=== PATIENT | female | born 1975 | race Caucasian/White ===

== ENCOUNTER 2019-05-02 09:17 | Emergency (ER) | payer OTHER ==
[2019-05-02 09:29] VITALS: BP 118/67; PULSE 68; TEMP 98.8; BMI 20.6
--- NOTE | 2019-05-02 10:06 | PDOC ---
History of Present Illness - General Chief Complaint: Pain, Acute Stated Complaint: R/O UTI Time Seen by Provider: 05/02/19 09:29 History Source: Patient Exam Limitations: No Limitations - History of Present Illness Travel History: No Initial Comments: 05/02/19 10:00 43-year-old female presents to ED with complaints of urinary frequency, dysuria , and mild mid suprapubic pressure upon voiding. Patient denies fever or chills but does Clement of mild nausea and now with mild bilateral flank pain. Patient denies history of complicated UTI or kidney infection/kidney stone Timing/Duration: reports: intermittent Quality: reports: mild Abdominal Pain Onset Location: reports: suprapubic, flank Pain Radiation: reports: no radiation Activities at Onset: reports: none Aggravating Factors: improves with: Voiding Alleviating Factors: improves with: Voiding Past History - Travel Traveled outside of the country in the last 30 days: No Close contact w/someone who was outside of country & ill: No - Past Medical History Allergies/Adverse Reactions: Allergies Allergy/AdvReac Type Severity Reaction Status Date / Time No Known Drug Allergies Allergy Verified 05/02/19 09:29 Home Medications: Ambulatory Orders Sulfamethoxazole/Trimethoprim [Bactrim Ds -] 1 tab PO BID #14 tablet 05/02/19 - Psycho Social/Smoking Cessation Hx Smoking History: Never smoked Have you smoked in the past 12 months: No Information on smoking cessation initiated: No Hx Alcohol Use: No Drug/Substance Use Hx: No Patient Lives Alone: No Lives with/in: spouse/SO Review of Systems - Review of Systems Able to Perform ROS?: Yes Constitutional: No: Symptoms Reported HEENTM: No: Symptoms Reported Respiratory: No: Symptoms reported Cardiac (ROS): No: Symptoms Reported ABD/GI: Yes: Nausea, Abdominal cramping : Yes: Burning, Dysuria, Frequency, Flank Pain Musculoskeletal: No: Symptoms Reported Integumentary: No: Symptoms Reported Neurological: No: Symptoms reported Hematologic/Lymphatic: No: Symptoms Reported *Physical Exam - Vital Signs Last Vital Signs Temp Pulse Resp BP Pulse Ox 98.8 F 68 17 118/67 98 05/02/19 09:24 05/02/19 09:24 05/02/19 09:24 05/02/19 09:24 05/02/19 09:24 - Physical Exam General Appearance: Yes: Nourished, Appropriately Dressed. No: Apparent Distress HEENT: positive: EOMI Neck: positive: Supple Gastrointestinal/Abdominal: positive: Normal Bowel Sounds, Soft, Tenderness ( mild-mid suprapubic). negative: Distended, Guarding, Rebound Musculoskeletal: negative: CVA Tenderness Extremity: positive: Normal Inspection Integumentary: positive: Normal Color, Warm, Moist Neurologic: positive: Motor Strength 5/5 (ambulatory) Medical Decision Making - Medical Decision Making 05/02/19 10:07 CC: Urinary frequency urgency along with painful burning upon urination. Exam patient with me to the pubic tenderness vital signs stable no CVA tenderness mild bilateral flank tenderness Plan: urinalysis urine culture and urine ordered 05/02/19 10:39 Laboratory Tests 05/02/19 05/02/19 09:37 09:37 Urine Color Yellow Urine Nitrite Negative Ur Leukocyte Esterase Trace Urine WBC (Auto) 7 Urine Bacteria (Auto) 72.5 Urine HCG, Qual Negative Discharge home with Bactrim for treatment of complicated UTI/pyelonephritis Discharge - Discharge Information Problems reviewed: Yes Clinical Impression/Diagnosis: UTI (urinary tract infection) Disposition: HOME - Additional Discharge Information Prescriptions: Sulfamethoxazole/Trimethoprim [Bactrim Ds -] 1 tab PO BID #14 tablet - Follow up/Referral Referrals: Neil Lund MD [Primary Care Provider] - - Patient Discharge Instructions Patient Printed Discharge Instructions: DI for Urinary Tract Infection (UTI) Additional Instructions: Please take antibiotics as prescribed. Drink plenty of fluids. Return to ED if symptoms worsen - Post Discharge Activity
[2019-05-02 10:20] LABS: EPI CELLS 6.1 /HPF (0-5/HPF); HYALINE CASTS 3 /lpf (0-8); PH,URINE 5.5 (5.0-8.0); URINE APPEARANCE CLEAR; URINE BACTERIA 72.5 /hpf (NEGATIVE); URINE BILIRUBIN NEGATIVE (NEGATIVE); URINE COLOR YELLOW; URINE GLUCOSE (UA) NEGATIVE (NEGATIVE); URINE KETONE NEGATIVE (NEGATIVE); URINE LEUK ESTERASE TRACE (NEGATIVE); URINE NITRITE NEGATIVE (NEGATIVE); URINE PROTEIN NEGATIVE (NEGATIVE); URINE RBC 2 /hpf (0-4); URINE UROBILINOGEN 0.2 mg/dL (0.2-1.0); URINE WBC 7 /hpf (0-5)
== END 2019-05-02 10:50 | disposition home or self-care (01) ==
LOC: JER 09:17
DX: N39.0 Urinary tract infection, site not specified (principal)
CPT/HCPCS: 81003; 84703; 87077; 87086; 99283-25

== ENCOUNTER 2020-01-24 07:43 | Day surgery (SDC) | payer OTHER ==
[2020-01-24 09:04] VITALS: BP 115/75; PULSE 91; TEMP 98.4
[2020-01-24 09:28] LABS: BASO % 0.3 % (0-2.0); EOS % 1.4 % (0-4.5); HEMATOCRIT 35.6 % (32.4-45.2); HEMOGLOBIN 11.6 GM/dL (10.7-15.3); LYMPH % 13.9 % (8-40); MCH 27.6 pg (25.7-33.7); MCHC 32.6 g/dl (32.0-36.0); MEAN CELL VOLUME 84.6 fl (80-96); MEAN PLT VOLUME 7.4 fl (7.5-11.1); MONO % 9.3 % (3.8-10.2); NEUT % 75.1 % (42.8-82.8); PLATELET COUNT 383 K/MM3 (134-434); RDW 14.9 % (11.6-15.6); WHITE BLOOD COUNT 10.3 K/mm3 (4.0-10.0)
[2020-01-24 10:01] LABS: ALBUMIN 3.3 g/dl (3.4-5.0); BILIRUBIN,TOTAL 0.3 mg/dL (0.2-1); BLOOD UREA NITROGEN 15.4 mg/dL (7-18); CREATININE 0.6 mg/dL (0.55-1.3); TOT PROT 7.4 g/dl (6.4-8.2)
== END 2020-01-24 09:06 | disposition home or self-care (01) ==
LOC: JINFUSION 07:43
PROVIDERS: ATTEND Internal Medicine Gastroenterology
PROC: 3E013GC Introduction of Other Therapeutic Substance into Subcutaneous Tissue, Percutaneous Approach (ICD-10-PCS; principal; 2020-01-24)
DX: K50.90 Crohn's disease, unspecified, without complications (principal)
CPT/HCPCS: 36415; 80053; 81025; 85025; 86140; 96372

== ENCOUNTER 2020-02-04 12:08 | Emergency (ER) | payer OTHER ==
[2020-02-04 12:19] VITALS: BP 124/71; PULSE 78; BMI 21.2
--- NOTE | 2020-02-04 12:19 | PDOC ---
Rapid Medical Evaluation Chief Complaint: Allergic Reaction Time Seen by Provider: 02/04/20 12:18 Medical Evaluation: Allergies Allergy/AdvReac Type Severity Reaction Status Date / Time No Known Drug Allergies Allergy Verified 02/04/20 12:15 02/04/20 12:18 I have performed a brief in-person evaluation of this patient. The patient presents with a chief complaint of: redness to b/l anterior thigh from humira injections. advised by PCP office to ckeck for possible cellulitis Pertinent physical exam findings:. A&O x 3 in NAD I have ordered the following: deferred The patient will proceed to the ED for further evaluation. Discharge Disposition - Diagnosis Redness of skin - Discharge Dispostion Condition at time of disposition: Stable - Referrals - Patient Instructions - Post Discharge Activity
--- NOTE | 2020-02-04 12:44 | PDOC ---
History of Present Illness - General Chief Complaint: Allergic Reaction Stated Complaint: RASH Time Seen by Provider: 02/04/20 12:18 History Source: Patient (b/l injection site redness to thighs X 2 days) Exam Limitations: No Limitations Past History - Travel History Traveled outside of the country in the last 30 days: No Close contact w/someone who was outside of country & ill: No - Medical History Allergies/Adverse Reactions: Allergies Allergy/AdvReac Type Severity Reaction Status Date / Time No Known Drug Allergies Allergy Verified 02/04/20 12:15 Home Medications: Ambulatory Orders Adalimumab [Humira Pen Crohn-Uc-Hs Starter] 80 mg SQ DAILY 01/23/20 Calcium 250Mg/Vit-D 125 Units [Oscal 250 mg+D -] 1 combo PO DAILY 01/23/20 Cephalexin Monohydrate [Keflex -] 500 mg PO BID 7 Days #14 capsule 02/04/20 COPD: No GI Disorders: Yes (Crohns) - Psycho-Social/Smoking History Smoking History: Never smoked Have you smoked in the past 12 months: No - Substance Abuse Hx (Audit-C & DAST Scrn) How often the patient has a drink containing alcohol: Monthly or less Score: In Men: 4 or > Positive; In Women: 3 or > Positive: 1 Screen Result (Pos requires Nsg. Audit-10AR): Negative In the last yr the pt used illegal drug/Rx for NonMed reason: No Score: Yes response is considered Positive: 0 Screen Result (Positive result requires Nsg. DAST-10): Negative Review of Systems - Review of Systems Constitutional: No: Chills, Fever Integumentary: Yes: Erythema, Rash. 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 Patient presents with injection site redness that she noticed 2 days ago. She denies fever, chills or weakness in the leg. On examination there is a 4 x 4cm area of redness in bilateral thighs in the anterior aspect of it there is some warmth to the area there is no streaking noted her extremities does not exhibit any weakness. Patient treated for early cellulitis with Keflex. Area marked. Strict return instructions given to patient. Patient will follow-up with her doctor on Thursday. Discharge - Discharge Information Problems reviewed: Yes Clinical Impression/Diagnosis: Redness of skin Cellulitis Qualifiers: Site of cellulitis of extremity: lower extremity Laterality: unspecified laterality Condition: Stable Disposition: HOME - Admission No - Additional Discharge Information Plan of Treatment: Take medication as prescribed. Watch out for any worsening redness that is beyond marked line. Follow-up with primary care doctor on Thursday as scheduled. Return to the emergency room if worsening redness, fever, chills or pain. Prescriptions: Cephalexin Monohydrate [Keflex -] 500 mg PO BID 7 Days #14 capsule Prescription Drug Monitoring Program (I-STOP) results: I-STOP reviewed and no issues identified - Follow up/Referral - Patient Discharge Instructions Patient Printed Discharge Instructions: Cellulitis - Post Discharge Activity
== END 2020-02-04 12:53 | disposition home or self-care (01) ==
LOC: JERFT 12:08
DX: L98.8 Other specified disorders of the skin and subcutaneous tissue (principal)
CPT/HCPCS: 99283-25

== ENCOUNTER 2020-05-03 11:59 | Emergency (ER) | payer OTHER ==
[2020-05-03 12:07] VITALS: TEMP 98.4; BMI 19.5
[2020-05-03] MEDS ORDERED: LACTATED RINGERS SOLUTION 1,000 ML IV STA (12:53)
[2020-05-03] MEDS ORDERED: ACETAMINOPHEN 1000 MG/100 ML VIAL (NON FORMULARY) IVPB ONE (12:53)
[2020-05-03] MEDS ORDERED: FAMOTIDINE 20 MG/50 ML IVPB 20 MG/50 ML MG IVPB ONE (13:00)
--- NOTE | 2020-05-03 13:21 | PDOC ---
History of Present Illness - General Chief Complaint: Pain Stated Complaint: LWR ABD PAIN (CROHN'S) Time Seen by Provider: 05/03/20 12:38 History Source: Patient Exam Limitations: Clinical Condition - History of Present Illness Travel History: No Initial Comments: 05/03/20 13:16 Patient with past medical history of Crohn's disease on Humira infusions every 3 months present with complaint of sudden onset of severe lower abdominal pain which has been improving now since this morning. Patient reported last bowel movement was yesterday. Denies nausea, vomiting, dizziness, weakness, diarrhea, constipation. Patient report pain started as diffuse lower abdominal pain which is now localized to suprapubic region. Patient has not taken anything for sy mptoms. Denies any other symptoms Timing/Duration: reports: intermittent Abdominal Pain Onset Location: reports: suprapubic Pain Radiation: reports: no radiation Past History - Medical History Allergies/Adverse Reactions: Allergies Allergy/AdvReac Type Severity Reaction Status Date / Time No Known Drug Allergies Allergy Verified 05/03/20 12:02 Home Medications: Ambulatory Orders Adalimumab [Humira Pen Crohn-Uc-Hs Starter] 80 mg SQ DAILY 01/23/20 Calcium 250Mg/Vit-D 125 Units [Oscal 250 mg+D -] 1 combo PO DAILY 01/23/20 Cephalexin Monohydrate [Keflex -] 500 mg PO BID 7 Days #14 capsule 02/04/20 COPD: No GI Disorders: Yes (Crohns) - Reproductive History Is Patient Now?: No - Psycho-Social/Smoking History Smoking History: Never smoked Have you smoked in the past 12 months: No - Substance Abuse Hx (Audit-C & DAST Scrn) How often the patient has a drink containing alcohol: Never Score: In Men: 4 or > Positive; In Women: 3 or > Positive: 0 Screen Result (Pos requires Nsg. Audit-10AR): Negative In the last yr the pt used illegal drug/Rx for NonMed reason: No Score: Yes response is considered Positive: 0 Screen Result (Positive result requires Nsg. DAST-10): Negative Review of Systems - Review of Systems Able to Perform ROS?: Yes Is the patient limited Albanian proficient: No Constitutional: No: Chills, Fever, Malaise HEENTM: No: Symptoms Reported, See HPI, Eye Pain, Blurred Vision, Tearing, Recent change in vision, Double Vision, Cataracts, Ear Pain, Ocular Prothesis, Ear Discharge, Nose Pain, Nose Congestion, Tinnitus, Nose Bleeding, Hearing Loss, Throat Pain, Throat Swelling, Mouth Pain, Dental Problems, Difficulty Swallowing, Mouth Swelling, Other Respiratory: No: Symptoms reported, See HPI, Cough, Orthopnea, Shortness of Breath, SOB with Exertion, SOB at Rest, Stridor, Wheezing, Productive cough, Hemoptysis, Other Cardiac (ROS): No: Symptoms Reported, See HPI, Chest Pain, Edema, Irregular Heart Rate, Lightheadedness, Palpitations, Syncope, Chest Tightness, Other ABD/GI: Yes: Symptoms Reported, See HPI, Abdominal cramping (lower abdominal pain). No: Abdominal Distended, Blood Streaked Bowels, Constipated, Diarrhea, Difficulty Swallowing, Nausea, Rectal Bleeding, Vomiting, Indigestion : No: Symptoms Reported, Burning, Dysuria, Discharge, Frequency, Flank Pain, Hematuria, Urgency Musculoskeletal: No: Symptoms Reported Integumentary: No: Symptoms Reported Neurological: No: Symptoms reported, Headache, Dizziness All Other Systems: Reviewed and Negative *Physical Exam - Vital Signs Last Vital Signs Temp Pulse Resp BP Pulse Ox 98.4 F 84 16 123/88 100 05/03/20 12:03 05/03/20 12:03 05/03/20 12:03 05/03/20 12:03 05/03/20 12:03 - Physical Exam 05/03/20 13:20 GENERAL: Well developed, well nourished. Awake and alert. No acute distress. HEENT: Normocephalic, atraumatic. PERRLA, EOMI. No conjunctival pallor. Sclera are non-icteric. Moist mucous membranes. Oropharynx is clear. NECK: Supple. Full ROM. CARDIOVASCULAR: Regular rate and rhythm. No murmurs, rubs, or gallops. PULMONARY: No evidence of respiratory distress. Lungs clear to auscultation bilaterally. No wheezing, rales or rhonchi. ABDOMINAL: Soft. mild tenderness to suprapubic region with no tenderness to left lower quadrant or right lower quadrant rest of the abdomen. No guarding or rebound. Negative Hull's and Rovsing sign. Diffuse decreased bowel sounds.. Non- distended. No organomegaly. MUSCULOSKELETAL Normal range of motion at all joints. SKIN: Warm and dry. Normal capillary refill. No rashes. No jaundice. No cyanosis NEUROLOGICAL: Alert, awake, appropriate. Gait is normal without ataxia. PSYCHIATRIC: Cooperative. Good eye contact. Appropriate mood General Appearance: Yes: Nourished, Appropriately Dressed. No: Apparent Distress ED Treatment Course - LABORATORY CBC & Chemistry Diagram: 05/03/20 13:30 05/03/20 13:30 - RADIOLOGY Radiology Studies Ordered: Category Date Time Status ABDOMEN FLAT & UPRIGHT [RAD] Stat Radiology 05/03/20 13:10 Ordered Medical Decision Making - Medical Decision Making 05/03/20 13:18 Patient with past medical history of Crohn's disease on Humira infusions every 3 months present with complaint of sudden onset of severe lower abdominal pain which has been improving now since this morning. Patient reported last bowel movement was yesterday. Denies nausea, vomiting, dizziness, weakness, diarrhea, constipation. Patient report pain started as diffuse lower abdominal pain which is now localized to suprapubic region. Patient has not taken anything for symptoms. Denies any other symptoms Exam significant for mild tenderness to suprapubic region with no tenderness to left lower quadrant or right lower quadrant rest of the abdomen. No guarding or rebound. Negative Hull's and Rovsing sign. Patient in no acute distress. Diffuse decreased bowel sounds. Patient afebrile. Patient symptoms likely constipation versus cystitis versus less likely Crohn's exacerbation given no pain to left lower quadrant. We will do basic lab work CBC CMP, lipase. UA, urine hCG urine culture lab ordered. IV hydration with lactated Ringer's 1 L, Tylenol 1 g IV and Pepcid 20 mg IV ordered for abdominal pain. Abdominal x-ray ordered to rule out obstruction or constipation. Treat based on lab and imaging results 05/03/20 14:31 CBC and chemistry lab unremarkable. UA shows no acute abnormality and urine test negative. Patient given lactulose and MiraLAX and reported improvement abdominal pain as x-ray of abdomen shows retained stool consistent w ith constipation. Patient report improvement of symptoms now and stable for discharge to continue home MiraLAX PRN for constipation and advised to make a follow-up appointment with her GI. Patient voiced understanding treatment plan patient stable for discharge Discharge - Discharge Information Problems reviewed: Yes Clinical Impression/Diagnosis: Lower abdominal pain Constipation Qualifiers: Constipation type: unspecified constipation type Qualified Code(s): K59.00 - Constipation, unspecified Condition: Improved Disposition: HOME - Admission No - Follow up/Referral Referrals: Neil Lund MD [Primary Care Provider] - - Patient Discharge Instructions Patient Printed Discharge Instructions: DI for Constipation Additional Instructions: Your blood work is normal. Your abdominal x-ray shows stool consistent with constipation. Continue taking home MiraLAX as needed for constipation. Increase fluid and fiber intake. Follow-up with your GI - Post Discharge Activity
[2020-05-03] MEDS ORDERED: LACTULOSE 20 GM/30 ML UDC (FOR ORAL USE ONLY) PO ONE (13:25)
[2020-05-03] MEDS ORDERED: MAG HYDROX/AL HYDROX/SIMETH 30 ML UNIT-DOSE CUP PO ONE (13:26)
[2020-05-03 13:40] LABS: BASO % 0.5 % (0-2.0); EOS % 0.7 % (0-4.5); HEMATOCRIT 39.1 % (32.4-45.2); LYMPH % 27.3 % (8-40); MCH 28.8 pg (25.7-33.7); MCHC 33.2 g/dl (32.0-36.0); MEAN CELL VOLUME 86.8 fl (80-96); MEAN PLT VOLUME 6.9 fl (7.5-11.1); MONO % 6.8 % (3.8-10.2); NEUT % 64.7 % (42.8-82.8); PLATELET COUNT 322 K/MM3 (134-434); RDW 13.3 % (11.6-15.6); WHITE BLOOD COUNT 9.6 K/mm3 (4.0-10.0)
[2020-05-03] MEDS ORDERED: MAG HYDROX/AL HYDROX/SIMETH 30 ML UNIT-DOSE CUP ONE (13:40)
[2020-05-03] MEDS ORDERED: LACTULOSE 20 GM/30 ML UDC (FOR ORAL USE ONLY) ONE (13:40)
[2020-05-03 13:42] LABS: EPI CELLS 8 /uL (0-25.1); HYALINE CASTS 0 /uL (0-3.1); PH,URINE 7.5 (5.0-8.0); URINE APPEARANCE CLEAR; URINE BACTERIA 54 /uL (0-1359); URINE BILIRUBIN NEGATIVE (NEGATIVE); URINE COLOR YELLOW; URINE GLUCOSE (UA) NEGATIVE (NEGATIVE); URINE KETONE NEGATIVE (NEGATIVE); URINE LEUK ESTERASE 1+ (NEGATIVE); URINE NITRITE NEGATIVE (NEGATIVE); URINE PROTEIN NEGATIVE (NEGATIVE); URINE RBC 9 /uL (0-23.9); URINE UROBILINOGEN 0.2 mg/dL (0.2-1.0); URINE WBC 10 /uL (0-25.8)
[2020-05-03 14:09] LABS: ALBUMIN 3.8 g/dl (3.4-5.0); BILIRUBIN,TOTAL 0.2 mg/dL (0.2-1); CALCIUM 9.1 mg/dL (8.5-10.1); CREATININE 0.8 mg/dL (0.55-1.3); POTASSIUM 4.3 mmol/L (3.5-5.1); TOT PROT 8.2 g/dl (6.4-8.2)
[2020-05-03 14:44] VITALS: BP 118/78; PULSE 79
--- OUTSIDE RECORDS SUMMARY | 2020-05-03 18:09 | XMS ---
:1975 Author Organization [facility] Care Team Providers Name Role Phone Frank Ambrizer Unavailable [phone] DiGiorno, Christopher Unavailable [phone] DiGiorno, Christopher Unavailable [id number] Re-disclosure Warning The records that you are about to access may contain information from federally- assisted alcohol or drug abuse programs. If such information is present, then the following federally mandated warning applies: This information has been disclosed to you from records protected by federal confidentiality rules (42 CFR part 2). The federal rules prohibit you from making any further disclosure of this information unless further disclosure is expressly permitted by the written consent of the person to whom it pertains or as otherwise permitted by 42 CFR part 2. A general authorization for the release of medical or other information is NOT sufficient for this purpose. The Federal rules restrict any use of the information to criminally investigate or prosecute any alcohol or drug abuse patient.The records that you are about to access may contain highly sensitive health information, the redisclosure of which is protected by Article 27-F of the [place] State Public Health law. If you continue you may haveaccess to information: Regarding HIV / AIDS; Provided by facilities licensed or operated by the [facility] Office of Mental Health; or Provided by the [facility] Office for People With Developmental Disabilities. If such information is present, then the following [facility] mandated warning applies: This information has been disclosed to you from confidential records which are protected by state law. State law prohibits you from making any further disclosure of this information without the specific written consent of the person to whom it pertains, or as otherwise permitted by law. Any unauthorized further disclosure in violation of state law may result in a fine or [place] [facility] sentence or both. A general authorization for the release of medical or other information is NOT sufficient authorization for further disclosure. Encounters Encounter Providers Location Date Indications Data Source(s ) Attender: Gustavo 05/02/2020 [facility] ([facility] 12:00:00 AM [facility], PC) EDT Office Attender: Gustavo 05/02/2020 12:00:00 AM ED T [facility] ([facility] Office Attender: Gustavo 04/13/2020 12:00:00 AM ED T [facility] ([facility] Office Attender: Gustavo 03/28/2020 12:00:00 AM ED T [facility] ([facility] Office Attender: Gustavo 02/22/2020 12:00:00 AM ED T [facility] ([facility] Office Attender: Gustavo 02/08/2020 12:00:00 AM ED T [facility] ([facility] Office Medications Medication Brand Start Product Dose Route Administrative Pharmacy [facility] Indications Reaction Description Data Name Date Form Instructions Instructions Source(s) Budesonide BUDESO 01/24/ DELAYED 60 complet BUDE SONIDE MEDGEN (St 3 MG NIDE:2019 RELEASE ed Jose D's Delayed [id number] 12:00: CAPSULE Medic al, Release 00 AM PC) Oral EDT Capsule BUDESONIDE: [id number] Budesonide BUDESO 01/24/ DELAYED 60 complet BUDE SONIDE MEDGEN (St 3 MG NIDE:2019 RELEASE ed Jose D's Delayed [id number] 12:00: CAPSULE Medic al, Release 00 AM PC) Oral EDT Capsule BUDESONIDE: [id number] Budesonide BUDESO 01/24/ DELAYED 60 complet BUDE SONIDE MEDGEN (St 3 MG NIDE:2019 RELEASE ed Jose D's Delayed [id number] 12:00: CAPSULE Medic al, Release 00 AM PC) Oral EDT Capsule BUDESONIDE: [id number] Budesonide BUDESO 01/24/ DELAYED 60 complet BUDE SONIDE MEDGEN (St 3 MG NIDE:2019 RELEASE ed Jose D's Delayed [id number] 12:00: CAPSULE Medic al, Release 00 AM PC) Oral EDT Capsule BUDESONIDE: [id number] Budesonide BUDESO 01/24/ DELAYED 60 complet BUDE SONIDE MEDGEN (St 3 MG NIDE:2019 RELEASE ed Jose D's Delayed [id number] 12:00: CAPSULE Medic al, Release 00 AM PC) Oral EDT Capsule BUDESONIDE: [id number] Budesonide BUDESO 01/24/ DELAYED 60 complet BUDE SONIDE MEDGEN (St 3 MG NIDE:2019 RELEASE ed Jose D's Delayed [id number] 12:00: CAPSULE Medic al, Release 00 AM PC) Oral EDT Capsule BUDESONIDE: [id number] Budesonide BUDESO 01/24/ DELAYED 60 complet BUDE SONIDE MEDGEN (St 3 MG NIDE:2019 RELEASE ed Jose D's Delayed [id number] 12:00: CAPSULE Medic al, Release 00 AM PC) Oral EDT Capsule BUDESONIDE: [id number] HUMIRA: 01/03/ complet HUMIRA MEDGE N (2019 ed [facility]'s 12:00: Medical, 00 AM PC) EDT HUMIRA: 01/03/ complet HUMIRA MEDGE N (St 2019 ed [facility]'s 12:00: Medical, 00 AM PC) EDT HUMIRA: 01/03/ complet HUMIRA MEDGE N (St 2019 ed Jose [facility]'s 12:00: Medical, 00 AM PC) EDT HUMIRA PEN 01/03/ complet HUMIRA PE N MEDGEN ( PSORIASIS/U 2019 ed PSORIASIS/UV Jose D's VEITIS 12:00: EITIS Medical, STARTER 00 AM STARTER PC) PACKAGE: EDT PACKAGE HUMIRA PEN 01/03/ KIT 30 complet HUMIRA PE N MEDGEN ( CROHNS/ULCE 2019 ed CROHNS/ULCER Jose [facility] R 12:00: COLITIS/HIDR Medic al, COLITIS/HID 00 AM ADENITIS PC) RADENITIS EDT SUPPURATI SUPPURATI STRPK STRPK:[id number] 45 HUMIRA PEN 01/03/ complet HUMIRA PE N MEDGEN (St CROHNS/ULCE 2020 ed CROHNS/ULCER Jose D's RCOLIT/HIDR 12:00: COLIT/HIDRA S Medical, ASUPPUR: 00 AM UPPUR PC) EDT HUMIRA PEN 01/03/ complet HUMIRA PE N MEDGEN (St CROHNS/ULCE 2020 ed CROHNS/ULCER Jose D's RCOLIT/HIDR 12:00: COLIT/HIDRA S Medical, ASUPPUR: 00 AM UPPUR PC) EDT HUMIRA PEN 01/03/ KIT 30 complet HUMIRA PE N MEDGEN (St CROHNS/ULCE 2020 ed CROHNS/ULCER Jose D's R 12:00: COLITIS/HIDR Medic al, COLITIS/HID 00 AM ADENITIS PC) RADENITIS EDT SUPPURATI SUPPURATI STRPK STRPK:[id number] 45 HUMIRA PEN 01/03/ complet HUMIRA PE N MEDGEN (St PSORIASIS/U 2020 ed PSORIASIS/UV Jose D's VEITIS 12:00: [facility] Medical, STARTER 00 AM STARTER PC) PACKAGE: EDT PACKAGE HUMIRA PEN 01/03/ KIT 30 complet HUMIRA PE N MEDGEN (St CROHNS/ULCE 2020 ed CROHNS/ULCER Jose D's R 12:00: COLITIS/HIDR Medic al, COLITIS/HID 00 AM ADENITIS PC) RADENITIS EDT SUPPURATI SUPPURATI STRPK STRPK:[id number] 45 HUMIRA PEN 01/03/ KIT 30 complet HUMIRA PE N MEDGEN (St CROHNS/ULCE 2020 ed CROHNS/ULCER Jose D's R 12:00: COLITIS/HIDR Medic al, COLITIS/HID 00 AM ADENITIS PC) RADENITIS EDT SUPPURATI SUPPURATI STRPK STRPK:[id number] 45 HUMIRA PEN 01/03/ complet HUMIRA PE N MEDGEN (St CROHNS/ULCE 2020 ed CROHNS/ULCER Jose D's RCOLIT/HIDR 12:00: COLIT/HIDRA S Medical, ASUPPUR: 00 AM UPPUR PC) EDT HUMIRA PEN 01/03/ complet HUMIRA PE N MEDGEN (St PSORIASIS/U 2020 ed PSORIASIS/UV Jose D's VEITIS 12:00: EITIS Medical, STARTER 00 AM STARTER PC) PACKAGE: EDT PACKAGE HUMIRA PEN 01/03/ complet HUMIRA PE N MEDGEN (St CROHNS/ULCE 2020 ed CROHNS/ULCER Jose D's RCOLIT/HIDR 12:00: COLIT/HIDRA S Medical, ASUPPUR: 00 AM UPPUR PC) EDT HUMIRA PEN 01/03/ complet HUMIRA PE N MEDGEN (St PSORIASIS/U 2020 ed PSORIASIS/UV Jose D's VEITIS 12:00: EITIS Medical, STARTER 00 AM STARTER PC) PACKAGE: EDT PACKAGE HUMIRA: 01/03/ complet HUMIRA MEDGE N (St 2020 ed Jose D's 12:00: Medical, 00 AM PC) EDT HUMIRA PEN 01/03/ complet HUMIRA PE N MEDGEN (St PSORIASIS/U 2020 ed PSORIASIS/UV Jose D's VEITIS 12:00: EITIS Medical, STARTER 00 AM STARTER PC) PACKAGE: EDT PACKAGE HUMIRA PEN 01/03/ complet HUMIRA PE N MEDGEN (St CROHNS/ULCE 2020 ed CROHNS/ULCER Jose D's RCOLIT/HIDR 12:00: COLIT/HIDRA S Medical, ASUPPUR: 00 AM UPPUR PC) EDT HUMIRA: 01/03/ complet HUMIRA MEDGE N (St 2020 ed Jose D's 12:00: Medical, 00 AM PC) EDT HUMIRA: 01/03/ complet HUMIRA MEDGE N (St 2020 ed Jose D's 12:00: Medical, 00 AM PC) EDT HUMIRA PEN 01/03/ KIT 30 complet HUMIRA PE N MEDGEN (St CROHNS/ULCE 2020 ed CROHNS/ULCER Jose D's R 12:00: COLITIS/HIDR Medic al, COLITIS/HID 00 AM ADENITIS PC) RADENITIS EDT SUPPURATI SUPPURATI STRPK STRPK:[id number] 45 HUMIRA PEN 01/03/ KIT 30 complet HUMIRA PE N MEDGEN (St CROHNS/ULCE 2020 ed CROHNS/ULCER Jose D's R 12:00: COLITIS/HIDR Medic al, COLITIS/HID 00 AM ADENITIS PC) RADENITIS EDT SUPPURATI SUPPURATI STRPK STRPK:[id number] 45 HUMIRA PEN 01/03/ complet HUMIRA PE N MEDGEN (St CROHNS/ULCE 2020 ed CROHNS/ULCER Jose D's RCOLIT/HIDR 12:00: COLIT/HIDRA S Medical, ASUPPUR: 00 AM UPPUR PC) EDT HUMIRA PEN 01/03/ complet HUMIRA PE N MEDGEN (St PSORIASIS/U 2020 ed PSORIASIS/UV Jose D's VEITIS 12:00: EITIS Medical, STARTER 00 AM STARTER PC) PACKAGE: EDT PACKAGE HUMIRA PEN 01/03/ complet HUMIRA PE N MEDGEN (St PSORIASIS/U 2020 ed PSORIASIS/UV Jose D's VEITIS 12:00: EITIS Medical, STARTER 00 AM STARTER PC) PACKAGE: EDT PACKAGE HUMIRA PEN 01/03/ complet HUMIRA PE N MEDGEN (St CROHNS/ULCE 2020 ed CROHNS/ULCER Jose D's RCOLIT/HIDR 12:00: COLIT/HIDRA S Medical, ASUPPUR: 00 AM UPPUR PC) EDT HUMIRA PEN 01/03/ KIT 30 complet HUMIRA PE N MEDGEN (St CROHNS/ULCE 2020 ed CROHNS/ULCER Jose D's R 12:00: COLITIS/HIDR Medic al, COLITIS/HID 00 AM ADENITIS PC) RADENITIS EDT [facility]I [facility][id number] HUMIRA: 01/03/ complet HUMIRA MEDGE N (St 2020 ed Jose D's 12:00: Medical, 00 AM PC) EDT hydrocortis ANALPR 12/27/ CREAM 1 complet ANALP RENEE-[facility] MEDGEN (St one acetate AM-HC: 2019 ed Jose D's 25 MG/ML / [id number] 12:00: Medic al, Pramoxine 1 00 AM PC) hydrochlori EDT de 10 MG/ML Rectal Cream [Analpram HC] ANALPRAM-HC :[id number] hydrocortis ANALPR 12/27/ CREAM 1 complet [facility]LP [facility] (St one acetate AM-HC: 2019 ed Jose D's 25 MG/ML / [id number] 12:00: Medic al, Pramoxine 1 00 AM PC) hydrochlori EDT de 10 MG/ML Rectal Cream [Analpram HC] ANALPRAM-HC :[id number] hydrocortis ANALPR 05/27/ CREAM 1 complet ANALP RENEE-[facility] MED[facility] (St one acetate AM-HC: 2019 ed Jose D's 25 MG/ML / [id number] 12:00: Medic al, Pramoxine 1 00 AM PC) hydrochlori EDT de 10 MG/ML Rectal Cream [Analpram HC] ANALPRAM-HC :[id number] hydrocortis ANALPR 12/27/ CREAM 1 complet ANALP R[facility] (St one acetate AM-HC: 2019 ed Jose D's 25 MG/ML / [id number] 12:00: Medic al, Pramoxine 1 00 AM PC) hydrochlori EDT de 10 MG/ML Rectal Cream [Analpram HC] ANALPRAM-HC :[id number] hydrocortis ANALPR 12/27/ CREAM 1 complet ANALP [facility] (St one acetate AM-HC: 2019 ed Jose D's 25 MG/ML / [id number] 12:00: Medic al, Pramoxine 1 00 AM PC) hydrochlori EDT de 10 MG/ML Rectal Cream [Analpram HC] ANALPRAM-HC :[id number] hydrocortis ANALPR 12/27/ CREAM 1 complet ANALP RENEE-[facility] (St one acetate AM-HC: 2019 ed Jose D's 25 MG/ML / [id number] 12:00: Medic al, Pramoxine 1 00 AM PC) hydrochlori EDT de 10 MG/ML Rectal Cream [Analpram HC] ANALPRAM-HC :[id number] hydrocortis ANALPR 12/27/ CREAM 1 complet ANALP RENEE-[facility] (St one acetate AM-HC: 2019 ed Jose D's 25 MG/ML / [id number] 12:00: Medic al, Pramoxine 1 00 AM PC) hydrochlori EDT de 10 MG/ML Rectal Cream [Analpram HC] ANALPRAM-HC :[id number] Calcium CALCIU 11/22/ TABLET 60 complet CALCIUM + MEDGEN (St Carbonate M + 2019 ed VITAMIN D Jose D' s 625 MG / VITAMI 12:00: Medical , Cholecalcif N 00 AM PC) sherley 125 [id number] EDT UNT Oral 55 Tablet CALCIUM + VITAMIN D:[id number] Budesonide BUDESO 11/22/ DELAYED 180 complet BUDE SONIDE MEDGEN (St 3 MG NIDE:1 2019 RELEASE ed Jose D's Delayed [id number] 12:00: CAPSULE Medic al, Release AM PC) Oral EDT Capsule BUDESONIDE: [id number] Budesonide BUDESO 11/22/ DELAYED 180 complet BUDE SONIDE MEDGEN (St 3 MG NIDE:2019 RELEASE ed Jose D's Delayed [id number] 12:00: CAPSULE Medic al, Release 00 AM PC) Oral EDT Capsule BUDESONIDE: [id number] Calcium CALCIU 11/22/ TABLET 60 complet CALCIUM + MEDGEN (St Carbonate 2019 ed VITAMIN D Jose D' s 625 MG / VITAMI 12:00: Medical , Cholecalcif N 00 AM PC) sherley 125 [id number] EDT UNT Oral 55 Tablet CALCIUM + VITAMIN D:[id number] Budesonide BUDESO 11/22/ DELAYED 180 complet BUDE SONIDE MEDGEN (St 3 MG NIDE:2019 RELEASE ed Jose D's Delayed [id number] 12:00: CAPSULE Medic al, Release 00 AM PC) Oral EDT Capsule BUDESONIDE: 5241200 Calcium CALCIU 11/22/ TABLET 60 complet CALCIUM + MEDGEN (St Carbonate 2019 ed VITAMIN D Jose D' s 625 MG / VITAMI 12:00: Medical , Cholecalcif N 00 AM PC) sherley 125 [id number] EDT UNT Oral 55 Tablet CALCIUM + VITAMIN D:[id number] Calcium CALCIU 11/22/ TABLET 60 complet CALCIUM + MEDGEN (St Carbonate 2019 ed VITAMIN D Jose D' s 625 MG / VITAMI 12:00: Medical , Cholecalcif N 00 AM PC) sherley 125 [id number] EDT UNT Oral 55 Tablet CALCIUM + VITAMIN D:[id number] Budesonide BUDESO 11/22/ DELAYED 180 complet BUDE SONIDE MEDGEN (St 3 MG NIDE:2019 RELEASE ed Jose D's Delayed [id number] 12:00: CAPSULE Medic al, Release 00 AM PC) Oral EDT Capsule BUDESONIDE: [id number] Budesonide BUDESO 11/22/ DELAYED 180 complet BUDE SONIDE MEDGEN (St 3 MG NIDE:2019 RELEASE ed Jose D's Delayed [id number] 12:00: CAPSULE Medic al, Release 00 AM PC) Oral EDT Capsule BUDESONIDE: 4474914 Calcium CALCIU 11/22/ TABLET 60 complet CALCIUM + MEDGEN (St Carbonate 2019 ed VITAMIN D Jose D' s 625 MG / VITAMI 12:00: Medical , Cholecalcif N 00 AM PC) sherley 125 [id number] EDT UNT Oral 55 Tablet CALCIUM + VITAMIN D:[id number] Calcium CALCIU 11/22/ TABLET 60 complet CALCIUM + MEDGEN (St Carbonate 2019 ed VITAMIN D Jose D' s 625 MG / VITAMI 12:00: Medical , Cholecalcif N 00 AM PC) sherley 125 [id number] EDT UNT Oral 55 Tablet CALCIUM + VITAMIN D:[id number] Budesonide BUDESO 11/22/ DELAYED 180 complet BUDE SONIDE MEDGEN (St 3 MG NIDE:2019 RELEASE ed Jose D's Delayed [id number] 12:00: CAPSULE Medic al, Release 00 AM PC) Oral EDT Capsule BUDESONIDE: [id number] Budesonide BUDESO 11/22/ DELAYED 180 complet BUDE SONIDE MEDGEN (St 3 MG NIDE:2019 RELEASE ed Jose D's Delayed [id number] 12:00: CAPSULE Medic al, Release 00 AM PC) Oral EDT Capsule BUDESONIDE: 0518486 Calcium CALCIU 11/22/ TABLET 60 complet CALCIUM + MEDGEN (St Carbonate 2019 ed VITAMIN D Jose D' s 625 MG / VITAMI 12:00: Medical , Cholecalcif N 00 AM PC) sherley 125 D:[id number] EDT UNT Oral 55 Tablet CALCIUM + VITAMIN D:[id number] SUPREP 0410/ LIQUID 1 complet SUPREP SELINA L MEDGEN (St BOWEL PREP 2020 ed PREP KIT Jose D' s KIT:[id number] 12:00: Medica l, 00 AM PC) EDT SUPREP 10/ LIQUID 1 complet SUPREP SELINA L MEDGEN (St BOWEL PREP 2020 ed PREP KIT Jose D' s KIT:[id number] 12:00: Medica l, 00 AM PC) EDT SUPREP 10/ LIQUID 1 complet SUPREP SELINA L MEDGEN (St BOWEL PREP 2020 ed PREP KIT Jose D' s KIT:[id number] 12:00: Medica l, 00 AM PC) EDT SUPREP 10/ LIQUID 1 complet SUPREP SELINA L MEDGEN (St BOWEL PREP 2020 ed PREP KIT Jose D' s KIT:[id number] 12:00: Medica l, 00 AM PC) EDT SUPREP 10/ LIQUID 1 complet SUPREP SELINA L MEDGEN (St BOWEL PREP 2020 ed PREP KIT Jose D' s KIT:[id number] 12:00: Medica l, 00 AM PC) EDT SUPREP 11/10/ LIQUID 1 complet SUPREP SELINA L MEDGEN (St BOWEL PREP 2020 ed PREP KIT Jose D' s KIT:[id number] 12:00: Medica l, 00 AM PC) EDT SUPREP 11/10/ LIQUID 1 complet SUPREP SELINA L MEDGEN (St BOWEL PREP 2020 ed PREP KIT Oscar s KIT:[id number] 12:00: Medica l, 00 AM PC) EDT Insurance Providers Payer name Policy type Policy ID Covered Covered republican's Policy P miguel angel / Coverage republican ID relationship to Mauriec Inf ormation type maurice [facility] [id number] SP [id number] [facility] [address] [facility] [id number] - [id number] SP [id number] [facility] TANI [facility] [id number] [employer] Problems, Conditions, and Diagnoses Code Display Name Description Problem Type Effective Data Sour ce(s) Dates K50.819 Crohn's disease of CROHN`S DISEASE Problem 04/13/2020 [place] (St both small and OF BOTH SMALL AND 12:00:00 AM [facility] Medical, large intestine LARGE INTESTINE EDT PC) with unspecified WITH UNSPECIFIED complications COMPLICATIONS K50.819 Crohn's disease of CROHN`S DISEASE Problem 04/13/2020 [place] (St both small and OF BOTH SMALL AND 12:00:00 AM [facility] Medical, large intestine LARGE INTESTINE EDT PC) with unspecified WITH UNSPECIFIED complications COMPLICATIONS K50.819 Crohn's disease of CROHN`S DISEASE Problem 04/13/2020 [place] (St both small and OF BOTH SMALL AND 12:00:00 AM [facility] Medical, large intestine LARGE INTESTINE EDT PC) with unspecified WITH UNSPECIFIED complications COMPLICATIONS K62.89 Other specified OTHER SPECIFIED Problem 12/28/2019 [facility] (St diseases of anus DISEASES OF ANUS 12:00:00 AM [facility] Medical, and rectum AND RECTUM EDT PC) K62.89 Other specified OTHER SPECIFIED Problem 12/28/2019 MED[facility] EN (St diseases of anus DISEASES OF ANUS 12:00:00 AM [facility] Medical, and rectum AND RECTUM EDT PC) K62.89 Other specified OTHER SPECIFIED Problem 12/28/2019 MEDG EN (St diseases of anus DISEASES OF ANUS 12:00:00 AM [facility] Medical, and rectum AND RECTUM EDT PC) K62.89 Other specified OTHER SPECIFIED Problem 12/28/2019 MEDG EN (St diseases of anus DISEASES OF ANUS 12:00:00 AM J [facility] Medical, and rectum AND RECTUM EDT PC) K62.89 Other specified OTHER SPECIFIED Problem 12/28/2019 MED[facility] EN (St diseases of anus DISEASES OF ANUS 12:00:00 AM J [facility] Medical, and rectum AND RECTUM EDT PC) K62.89 Other specified OTHER SPECIFIED Problem 12/28/2019 MEDG EN (St diseases of anus DISEASES OF ANUS 12:00:00 AM J [facility] Medical, and rectum AND RECTUM EDT PC) K62.89 Other specified OTHER SPECIFIED Problem 12/28/2019 MEDG EN (St diseases of anus DISEASES OF ANUS 12:00:00 AM J [facility] Medical, and rectum AND RECTUM EDT PC) K50.00 Crohn's disease of CROHN`S DISEASE Problem 11/30/2019 M EDGEN (St small intestine OF SMALL 12:00:00 AM Jose D's M edical, without INTESTINE WITHOUT EDT PC) complications COMPLICATIONS K50.00 Crohn's disease of CROHN`S DISEASE Problem 11/30/2019 M EDGEN (St small intestine OF SMALL 12:00:00 AM Jose D's M edical, without INTESTINE WITHOUT EDT PC) complications COMPLICATIONS K50.00 Crohn's disease of CROHN`S DISEASE Problem 11/30/2019 M EDGEN (St small intestine OF SMALL 12:00:00 AM Jose D's M edical, without INTESTINE WITHOUT EDT PC) complications COMPLICATIONS K50.00 Crohn's disease of CROHN`S DISEASE Problem 11/30/2019 M EDGEN (St small intestine OF SMALL 12:00:00 AM Jose D's M edical, without INTESTINE WITHOUT EDT PC) complications COMPLICATIONS K50.00 Crohn's disease of CROHN`S DISEASE Problem 11/30/2019 M EDGEN (St small intestine OF SMALL 12:00:00 AM Jose D's M edical, without INTESTINE WITHOUT EDT PC) complications COMPLICATIONS K50.00 Crohn's disease of CROHN`S DISEASE Problem 11/30/2019 M EDGEN (St small intestine OF SMALL 12:00:00 AM Jose D's M edical, without INTESTINE WITHOUT EDT PC) complications COMPLICATIONS K50.00 Crohn's disease of CROHN`S DISEASE Problem 11/30/2019 EDGEN (St small intestine OF SMALL 12:00:00 AM Jose D's M edical, without INTESTINE WITHOUT EDT PC) complications COMPLICATIONS K50.80 Crohn's disease of CROHN`S DISEASE Problem 11/23/2019 EDGEN (St both small and OF BOTH SMALL AND 12:00:00 AM [facility] Medical, large intestine LARGE INTESTINE EDT PC) without WITHOUT complications COMPLICATIONS K50.80 Crohn's disease of CROHN`S DISEASE Problem 11/23/2019 EDGEN (St both small and OF BOTH SMALL AND 12:00:00 AM [facility] Medical, large intestine LARGE INTESTINE EDT PC) without WITHOUT complications COMPLICATIONS K50.80 Crohn's disease of CROHN`S DISEASE Problem 11/23/2019 EDGEN (St both small and OF BOTH SMALL AND 12:00:00 AM [facility] Medical, large intestine LARGE INTESTINE EDT PC) without WITHOUT complications COMPLICATIONS K50.80 Crohn's disease of CROHN`S DISEASE Problem 11/23/2019 EDGEN (St both small and OF BOTH SMALL AND 12:00:00 AM [facility] Medical, large intestine LARGE INTESTINE EDT PC) without WITHOUT complications COMPLICATIONS K50.80 Crohn's disease of CROHN`S DISEASE Problem 11/23/2019 EDGEN (St both small and OF BOTH SMALL AND 12:00:00 AM [facility] Medical, large intestine LARGE INTESTINE EDT PC) without WITHOUT complications COMPLICATIONS K50.80 Crohn's disease of CROHN`S DISEASE Problem 11/23/2019 EDGEN (St both small and OF BOTH SMALL AND 12:00:00 AM [facility]ika [facility] Medical, large intestine LARGE INTESTINE EDT PC) without WITHOUT complications COMPLICATIONS K50.80 Crohn's disease of CROHN`S DISEASE Problem 11/23/2019 EDGEN (St both small and OF BOTH SMALL AND 12:00:00 AM An[facility]ika [facility] Medical, large intestine LARGE INTESTINE EDT PC) without WITHOUT complications COMPLICATIONS R10.9 Unspecified UNSPECIFIED Problem 11/09/2019 MEDGEN (St abdominal pain ABDOMINAL PAIN 12:00:00 AM Jose D' s Medical, EDT PC) R19.4 Change in bowel CHANGE IN BOWEL Problem 11/09/2019 MEDG EN (St habit HABIT 12:00:00 AM Jose D's Medica sarah, EDT PC) R10.9 Unspecified UNSPECIFIED Problem 11/09/2019 MEDGEN (St abdominal pain ABDOMINAL PAIN 12:00:00 AM Oscar Kunz EDT PC) R19.4 Change in bowel CHANGE IN BOWEL Problem 11/09/2019 MEDG EN (St habit HABIT 12:00:00 AM Jose D's Medicsami smith, EDT PC) R10.9 Unspecified UNSPECIFIED Problem 11/09/2019 MEDGEN (St abdominal pain ABDOMINAL PAIN 12:00:00 AM Jose D' s Joaquina EDT PC) R19.4 Change in bowel CHANGE IN BOWEL Problem 11/09/2019 MEDG EN (St habit HABIT 12:00:00 AM Jose D's Medica sarah, EDT PC) R10.9 Unspecified UNSPECIFIED Problem 11/09/2019 MEDGEN (St abdominal pain ABDOMINAL PAIN 12:00:00 AM Jose D' s Joaquina EDT PC) R19.4 Change in bowel CHANGE IN BOWEL Problem 11/09/2019 MEDG EN (St habit HABIT 12:00:00 AM Jose D's Medica sarah, EDT PC) R10.9 Unspecified UNSPECIFIED Problem 11/09/2019 MEDGEN (St abdominal pain ABDOMINAL PAIN 12:00:00 AM Oscar s Joaquina EDT PC) R19.4 Change in bowel CHANGE IN BOWEL Problem 11/09/2019 MEDG EN (St habit HABIT 12:00:00 AM Jose D's Medicsami smith EDT PC) R10.9 Unspecified UNSPECIFIED Problem 11/09/2019 MEDGEN (St abdominal pain ABDOMINAL PAIN 12:00:00 AM Jose D' s Joaquina EDT PC) R19.4 Change in bowel CHANGE IN BOWEL Problem 11/09/2019 MEDG EN (St habit HABIT 12:00:00 AM Jose D's Medica sraah, EDT PC) R10.9 Unspecified UNSPECIFIED Problem 11/09/2019 MEDGEN (St abdominal pain ABDOMINAL PAIN 12:00:00 AM Jose D' s Joaquina EDT PC) R19.4 Change in bowel CHANGE IN BOWEL Problem 11/09/2019 MEDG EN (St habit HABIT 12:00:00 AM Jose D's Medica l, EDT ) L25.5 Unspecified Unspecified Diagnosis 10/05/2018 JEANNA (Mo unt contact dermatitis contact 06:55:27 PM Verno n due to plants, dermatitis due to EST Nei ghborhood except food plants, except Health Ce nter) food Surgeries/Procedures Procedure Description Date Indications Data Source(s) OFFICE OUTPATIENT VISIT 05/02/2020 [facility] ([facility] 10 MINUTES 12:00:00 AM EDT Medical, ) OFFICE OUTPATIENT VISIT 05/02/2020 [facility] ([facility] 10 MINUTES 12:00:00 AM EDT Medical, ) OFFICE OUTPATIENT VISIT 04/13/2020 [facility] ([facility] 15 MINUTES 12:00:00 AM EDT Medical, ) OFFICE OUTPATIENT VISIT 04/13/2020 [facility] ([facility] 15 MINUTES 12:00:00 AM EDT Medical, ) OFFICE OUTPATIENT VISIT 04/13/2020 [facility] ([facility] 15 MINUTES 12:00:00 AM EDT Medical, ) OFFICE OUTPATIENT VISIT 03/28/2020 [facility] ([facility] 15 MINUTES 12:00:00 AM EDT Medical, ) OFFICE OUTPATIENT VISIT 03/28/2020 [facility] ([facility] 15 MINUTES 12:00:00 AM EDT Medical, ) OFFICE OUTPATIENT VISIT 03/28/2020 [facility] ([facility] 15 MINUTES 12:00:00 AM EDT Medical, ) OFFICE OUTPATIENT VISIT 03/28/2020 [facility] ([facility] 15 MINUTES 12:00:00 AM EDT Medical, ) OFFICE OUTPATIENT VISIT 02/22/2020 [facility] ([facility] 15 MINUTES 12:00:00 AM EDT Medical, ) OFFICE OUTPATIENT VISIT 02/22/2020 [facility] ([facility] 15 MINUTES 12:00:00 AM EDT Medical, ) OFFICE OUTPATIENT VISIT 02/22/2020 [facility] ([facility] 15 MINUTES 12:00:00 AM EDT Medical, ) OFFICE OUTPATIENT VISIT 02/22/2020 [facility] ([facility] 15 MINUTES 12:00:00 AM EDT Medical, ) OFFICE OUTPATIENT VISIT 02/22/2020 [facility] EN ([facility] 15 MINUTES 12:00:00 AM EDT Medical, ) OFFICE OUTPATIENT VISIT 02/08/2020 [facility] EN ([facility] 15 MINUTES 12:00:00 AM EDT [facility], ) COLLECTION VENOUS BLOOD 02/08/2020 [facility] EN ([facility] VENIPUNCTURE 12:00:00 AM EDT [facility], ) OFFICE OUTPATIENT VISIT 02/08/2020 [facility] 02/08/2020 [facility] 02/08/2020 [facility] EN [facility]00[facility]EN[facility] BLO[facility] 02/08/2020 [facility] EN [facility] 02/08/2020 [facility] EN [facility]EN[facility] 02/08/2020 [facility] EN ([facility] [facility] ) OFFICE OUTPATIENT VISIT 02/08/2020 MEDG EN [facility] BLOOD 02/08/2020 MEDG EN [facility]PAT[facility] VISIT 02/08/2020 MEDG EN ([facility] VENOUS BLOOD 02/08/2020 MEDG EN ([facility]PATIENT VISIT 02/08/2020 MEDG EN ([facility] VENOUS BLOOD 02/08/2020 MEDG EN ([facility]PATIENT VISIT 01/11/2020 MEDG EN ([facility] VENOUS BLOOD 01/11/2020 MEDG EN ([facility] OUTPATIENT VISIT 01/11/2020 MEDG EN ([facility] 15 MINUTES 12:00:00 AM [facility], ) COLLECTION VENOUS BLOOD 01/11/2020 MEDG EN ([facility] OUTPATIENT VISIT 01/11/2020 MEDG EN ([facility] 15 MINUTES 12:00:00 AM [facility], ) COLLECTION VENOUS BLOOD 01/11/2020 MEDG EN ([facility] OUTPATIENT VISIT 01/11/2020 MEDG EN ([facility] 15 MINUTES 12:00:00 AM [facility], ) COLLECTION VENOUS BLOOD 01/11/2020 MEDG EN ([facility] VENIPUN[facility]URE 12:00:00 AM [facility], ) OFFICE OUTPATIENT VISIT 01/11/2020 MEDG EN ([facility] 15 MINUTES 12:00:00 AM [facility], ) COLLECTION VENOUS BLOOD 01/11/2020 MEDG EN ([facility] VENIPUN[facility]URE 12:00:00 AM [facility], ) OFFICE OUTPATIENT VISIT 01/11/2020 MEDG EN ([facility] 15 MINUTES 12:00:00 AM [facility], ) COLLECTION VENOUS BLOOD 01/11/2020 MEDG EN ([facility] VENIPUN[facility]URE 12:00:00 AM [facility], ) OFFICE OUTPATIENT VISIT 01/11/2020 MEDG EN ([facility] 15 MINUTES 12:00:00 AM [facility], ) COLLECTION VENOUS BLOOD 01/11/2020 MEDG EN ([facility] VENIPUN[facility]URE 12:00:00 AM [facility], ) OFFICE OUTPATIENT VISIT 12/28/2019 MEDG EN ([facility]00[facility]ISIT 12/28/2019 MEDG EN ([facility] 15 [facility]ES 12[facility]00:[facility]PATIENT VISIT 12/28/2019 MEDG EN ([facility] 15 [facility]ES [facility]00:[facility]PATIENT VISIT 12/28/2019 MEDG EN ([facility] 15 [facility]ES 12:00:[facility] OUTPATIENT VISIT 12/28/2019 MEDG EN ([facility] 15 MINUTES 12:00:00 AM [facility], ) OFFICE OUTPATIENT VISIT 12/28/2019 MEDG EN ([facility] 15 MINUTES 12:00:00 AM EDT [facility]) OFFICE OUTPATIENT VISIT 12/28/2019 MEDG EN ([facility] 15 MINUTES 12:00:00 AM EDT [facility]) OFFICE OUTPATIENT VISIT 12/14/2019 MEDG EN ([facility] 15 MINUTES 12:00:00 AM EDT [facility]) OFFICE OUTPATIENT VISIT 12/14/2019 MEDG EN ([facility] 15 MINUTES 12:00:00 AM EDT [facility]) OFFICE OUTPATIENT VISIT 12/14/2019 MEDG EN ([facility] 15 MINUTES 12:00:00 AM EDT [facility], PC) OFFICE OUTPATIENT VISIT 12/14/2019 MEDG EN ([facility] 15 MINUTES 12:00:00 AM EDT [facility], PC) OFFICE OUTPATIENT VISIT 12/14/2019 MEDG EN ([facility] 15 MINUTES 12:00:00 AM EDT [facility], PC) OFFICE OUTPATIENT VISIT 12/14/2019 MEDG EN ([facility] 15 MINUTES 12:00:00 AM EDT [facility], PC) OFFICE OUTPATIENT VISIT 12/14/2019 MEDG EN ([facility] 15 MINUTES 12:00:00 AM EDT [facility], PC) OFFICE OUTPATIENT VISIT 11/30/2019 MEDG EN ([facility] 15 MINUTES 12:00:00 AM EDT [facility], PC) OFFICE OUTPATIENT VISIT 11/30/2019 MEDG EN ([facility] 15 MINUTES 12:00:00 AM EDT [facility], PC) OFFICE OUTPATIENT VISIT 11/30/2019 MEDG EN ([facility] 15 MINUTES 12:00:00 AM EDT [facility], PC) OFFICE OUTPATIENT VISIT 11/30/2019 MEDG EN ([facility] 15 MINUTES 12:00:00 AM EDT [facility], PC) OFFICE OUTPATIENT VISIT 11/30/2019 MEDG EN ([facility] 15 MINUTES 12:00:00 AM EDT [facility], PC) OFFICE OUTPATIENT VISIT 11/30/2019 MEDG EN ([facility] 15 MINUTES 12:00:00 AM EDT Medical, PC) OFFICE OUTPATIENT VISIT 11/30/2019 MEDG EN ([facility] 15 MINUTES 12:00:00 AM EDT Medical, PC) OFFICE OUTPATIENT VISIT 11/23/2019 MEDG EN ([facility] 15 MINUTES 12:00:00 AM EDT Medical, PC) OFFICE OUTPATIENT VISIT 11/23/2019 MEDG EN ([facility] 15 MINUTES 12:00:00 AM EDT [facility], ) OFFICE OUTPATIENT VISIT 11/23/2019 MEDG EN ([facility]ISIT 11/23/2019 MEDG EN ([facility]ES [facility]PATIENT VISIT 11/23/2019 MEDG EN ([facility] 15 [facility]ES [facility]00[facility]PATIENT VISIT 11/23/2019 MEDG EN ([facility] 15 [facility]ES [facility]00[facility] OUTPATIENT VISIT 11/23/2019 MEDG EN ([facility] 15 MINUTES 12:00:00 AM [facility], ) Documentation of current 11/09/2019 MED GEN ([facility] medications (procedure) 12:00:00 AM EDT ehsan, ) Documentation of current 11/09/2019 MED GEN ([facility] medications (procedure) 12:00:00 AM EDT ehsan, ) Documentation of current 11/09/2019 MED GEN ([facility] medications (procedure) 12:00:00 AM EDT ehsan, ) Documentation of current 11/09/2019 MED GEN ([facility] medications (procedure) 12:00:00 AM EDT ehsan, ) Documentation of current 11/09/2019 MED GEN ([facility] medications (procedure) 12:00:00 AM EDT ehsan, ) Documentation of current 11/09/2019 MED GEN ([facility] medications (procedure) 12:00:00 AM EDT ehsan, ) Documentation of current 11/09/2019 MED GEN ([facility] medications (procedure) 12:00:00 AM EDT ehsan, ) COLLECTION VENOUS BLOOD 11/09/2019 MEDG EN ([facility] VENIPUNCTURE 12:00:00 AM [facility], ) Documentation of current 11/09/2019 MED GEN ([facility] medications (procedure) 12:00:00 AM EDT ehsan, ) Documentation of current 11/09/2019 MED GEN ([facility] medications (procedure) 12:00:00 AM EDT [facility], PC) Documentation of current 11/09/2019 MED GEN ([facility] medications (procedure) 12:00:00 AM EDT ehsan, PC) Documentation of current 11/09/2019 MED GEN ([facility] medications (procedure) 12:00:00 AM EDT ehsan, PC) Documentation of current 11/09/2019 MED GEN ([facility] medications (procedure) 12:00:00 AM EDT ehsan, PC) Documentation of current 11/09/2019 MED GEN ([facility] medications (procedure) 12:00:00 AM EDT ehsan, PC) Documentation of current 11/09/2019 MED GEN ([facility] medications (procedure) 12:00:00 AM EDT ehsan, PC) COLLECTION VENOUS BLOOD 11/09/2019 MEDG EN ([facility] VENIPUNCTURE 12:00:00 AM [facility], ) Documentation of current 11/09/2019 MED GEN ([facility] medications (procedure) 12:00:00 AM EDT ehsan, PC) Documentation of current 11/09/2019 MED GEN ([facility] medications (procedure) 12:00:00 AM EDT ehsan, PC) Documentation of current 11/09/2019 MED GEN ([facility] medications (procedure) 12:00:00 AM EDT ehsan, PC) Documentation of current 11/09/2019 MED GEN ([facility] medications (procedure) 12:00:00 AM EDT ehsan, PC) Documentation of current 11/09/2019 MED GEN ([facility] medications (procedure) 12:00:00 AM EDT ehsan, PC) Documentation of current 11/09/2019 MED GEN ([facility] medications (procedure) 12:00:00 AM EDT ehsan, PC) Documentation of current 11/09/2019 MED GEN ([facility] medications (procedure) 12:00:00 AM EDT ehsan, PC) COLLECTION VENOUS BLOOD 11/09/2019 MEDG EN ([facility] VENIPUNCTURE 12:00:00 AM [facility], ) Documentation of current 11/09/2019 MED GEN ([facility] medications (procedure) 12:00:00 AM EDT [facility], PC) Documentation of current 11/09/2019 MED GEN ([facility] medications (procedure) 12:00:00 AM EDT ehsan, PC) Documentation of current 11/09/2019 MED GEN ([facility] medications (procedure) 12:00:00 AM EDT ehsan, PC) Documentation of current 11/09/2019 MED GEN ([facility] medications (procedure) 12:00:00 AM EDT ehsan, PC) Documentation of current 11/09/2019 MED GEN ([facility] medications (procedure) 12:00:00 AM EDT ehsan, PC) Documentation of current 11/09/2019 MED GEN ([facility] medications (procedure) 12:00:00 AM EDT ehsan, PC) Documentation of current 11/09/2019 MED GEN ([facility] medications (procedure) 12:00:00 AM EDT ehsan, PC) COLLECTION VENOUS BLOOD 11/09/2019 MEDG EN ([facility] VENIPUNCTURE 12:00:00 AM [facility], PC) Documentation of current 11/09/2019 MED GEN ([facility] medications (procedure) 12:00:00 AM EDT ehsan, PC) Documentation of current 11/09/2019 MED GEN ([facility] medications (procedure) 12:00:00 AM EDT ehsan, PC) Documentation of current 11/09/2019 MED GEN ([facility] medications (procedure) 12:00:00 AM EDT ehsan, PC) Documentation of current 11/09/2019 MED GEN ([facility] medications (procedure) 12:00:00 AM EDT ehsan, PC) Documentation of current 11/09/2019 MED GEN ([facility] medications (procedure) 12:00:00 AM EDT ehsan, PC) Documentation of current 11/09/2019 MED GEN ([facility] medications (procedure) 12:00:00 AM EDT ehasn, PC) Documentation of current 11/09/2019 MED GEN ([facility] medications (procedure) 12:00:00 AM EDT ehsan, PC) COLLECTION VENOUS BLOOD 11/09/2019 MEDG EN ([facility] VENIPUNCTURE 12:00:00 AM [facility], PC) Documentation of current 11/09/2019 MED GEN ([facility] medications (procedure) 12:00:00 AM EDT ehsan, PC) Documentation of current 11/09/2019 MED GEN ([facility] medications (procedure) 12:00:00 AM EDT ehsan, PC) Documentation of current 11/09/2019 MED GEN ([facility] medications (procedure) 12:00:00 AM EDT ehsan, PC) Documentation of current 11/09/2019 MED GEN ([facility] medications (procedure) 12:00:00 AM EDT ehsan, PC) Documentation of current 11/09/2019 MED GEN ([facility] medications (procedure) 12:00:00 AM EDT ehsan, PC) Documentation of current 11/09/2019 MED GEN ([facility] medications (procedure) 12:00:00 AM EDT ehsan, PC) Documentation of current 11/09/2019 MED GEN ([facility] medications (procedure) 12:00:00 AM EDT ehsan, PC) COLLECTION VENOUS BLOOD 11/09/2019 MEDG EN ([facility] VENIPUNCTURE 12:00:00 AM [facility], ) Documentation of current 11/09/2019 MED GEN ([facility] medications (procedure) 12:00:00 AM EDT ehsan, PC) Documentation of current 11/09/2019 MED GEN ([facility] medications (procedure) 12:00:00 AM EDT ehsan, PC) Documentation of current 11/09/2019 MED GEN ([facility] medications (procedure) 12:00:00 AM EDT ehsan, PC) Documentation of current 11/09/2019 MED GEN ([facility] medications (procedure) 12:00:00 AM EDT ehsan, PC) Documentation of current 11/09/2019 MED GEN ([facility] medications (procedure) 12:00:00 AM EDT [facility], PC) Documentation of current 11/09/2019 MED GEN ([facility] medications (procedure) 12:00:00 AM EDT ehsan, PC) Documentation of current 11/09/2019 MED GEN ([facility] medications (procedure) 12:00:00 AM EDT [facility], PC) COLLECTION VENOUS BLOOD 11/09/2019 MEDG EN ([facility] VENIPUNCTURE 12:00:[address] [facility]) Results ID Date Data Source [id number] 04/13/2020 12:00:00 AM EDT MEDGEN ([facility]) Name Value Range Interpretation Code Description Data Valerie rce(s) Supporting Document(s ) ID Date Data Source [id number] 04/13/2020 12:00:00 AM EDT MEDGEN ([facility]) Name Value Range Interpretation Description Data Sup porting Code Source(s) Document(s ) Adalimumab 3.1 ug/mL Normal (applies to MEDGEN (St Drug Level non-numeric Jose D's results) [facility], ) Anti-Adalimuma 379 ng/mL Normal (applies to MEDGEN (St b Antibody non-numeric Jose D's results) [facility]) ID Date Data Source [id number] 04/13/2020 12:00:00 AM EDT MEDGEN ([facility]) Name Value Range Interpretation Code Description Data Valerie rce(s) Supporting Document(s ) TSH 1.260 Normal (applies to MEDGEN (St uIU/mL non-numeric results) [facility] ID Date Data Source [id number] 04/13/2020 12:00:00 AM EDT MEDGEN ([facility], ) Name Value Range Interpretation Description Data Sup porting Code Source(s) Document(s ) Vitamin B12 360 pg/mL Normal (applies to MEDGEN (S t non-numeric Jose D's results) [facility], ) Folate 14.3 Normal (applies to MEDGEN (St (Folic ng/mL non-numeric Jose D's Acid), Serum results) [facility], ) ID Date Data Source [id number] 04/13/2020 12:00:00 AM EDT MEDGEN ([facility]) Name Value Range Interpretation Description Data Sup porting Code Source(s) Document(s ) Leukocytes 6.6 Normal (applies MEDGEN (St [#/volume] in x10E3/uL to non-numeric Jose D's Blood by results) [facility], ) Automated count Erythrocytes 4.62 Normal (applies MEDGEN (St [#/volume] in x10E6/uL to non-numeric Jose D's Blood by results) [facility], ) Automated count Hemoglobin 13.2 Normal (applies MEDGEN (St [Mass/volume] in g/dL to non-numeric Jose D's Blood results) [facility], ) Hematocrit 41.1 % Normal (applies MEDGEN (St [Volume to non-numeric Jose D's Fraction] of results) [facility], ) Blood by Automated count MCV 89 fL Normal (applies MEDGEN (St to non-numeric Jose D's results) [facility], ) MCH 28.6 pg Normal (applies MEDGEN (St to non-numeric Jose D's results) [facility], ) MCHC 32.1 Normal (applies MEDGEN (St g/dL to non-numeric Jose D's results) [facility], ) RDW 12.4 % Normal (applies MEDGEN (St to non-numeric Jose D's results) [facility], ) Platelets 328 Normal (applies MEDGEN (St [#/area] in x10E3/uL to non-numeric Jose D's Blood by results) [facility], ) Microscopy high power field Neutrophils [#] 61 % Normal (applies MEDGEN ( St in Body fluid by to non-numeric Jose D's Manual count results) [facility], ) Lymphs 32 % Normal (applies MEDGEN (St to non-numeric Jose D's results) [facility], ) Monocytes 6 % Normal (applies MEDGEN (St [#/volume] in to non-numeric Jose D's Cord blood results) [facility], ) Eos 1 % Normal (applies MEDGEN (St to non-numeric Jose D's results) [facility], ) Basos 0 % Normal (applies MEDGEN (St to non-numeric Jose D's results) [facility], ) Neutrophils 4.0 Normal (applies MEDGEN (St (Absolute) x10E3/uL to non-numeric Jose D's results) [facility], ) Lymphs 2.1 Normal (applies MEDGEN (St (Absolute) x10E3/uL to non-numeric Jose D's results) [facility], ) Monocytes(Absolu 0.4 Normal (applies MEDGEN (St te) x10E3/uL to non-numeric Jose D's results) [facility], ) Baso (Absolute) 0.0 Normal (applies MEDGEN ( St x10E3/uL to non-numeric Jose D's results) [facility], ) Eos (Absolute) 0.1 Normal (applies MEDGEN (S t x10E3/uL to non-numeric Jose D's results) Medical, PC) Immature Grans 0.0 Normal (applies MEDGEN (S t (Abs) x10E3/uL to non-numeric Jose D's results) Medical, PC) Immature 0 % Normal (applies MEDGEN (St Granulocytes to non-numeric Jose D's results) [facility], PC) ID Date Data Source [id number] 04/13/2020 12:00:00 AM EDT [facility] Name Value Range Interpretation Description Data Sup porting Code Source(s) Document(s ) Glucose 86 mg/dL Normal (applies MEDGEN (St [Mass/volume] in to non-numeric Jose D's Urine collected for results) Medical, unspecified PC) duration Creatinine 0.69 Normal (applies MEDGEN (St [Interpretation] in mg/dL to non-numeric Jose D' s Urine results) [facility], PC) Urea nitrogen 11 mg/dL Normal (applies MEDGEN (St [Mass/volume] in to non-numeric Jose D's Serum or Plasma results) [facility], PC) eGFR If NonAfricn 108 Normal (applies MEDGEN (St Am mL/min/1 to non-numeric Jose D's .73 results) Medical, PC) eGFR If Africn Am 124 Normal (applies MEDGEN (St mL/min/1 to non-numeric Jose D's .73 results) [facility], PC) BUN/Creatinine 16 Normal (applies MEDGEN (S t Ratio to non-numeric Jose D's results) [facility], PC) Sodium 141 Normal (applies MEDGEN (St [Moles/volume] in mmol/L to non-numeric Jose D's Serum or Plasma results) [facility], PC) Chloride 102 Normal (applies MEDGEN (St [Moles/volume] in mmol/L to non-numeric Jose D's Serum or Plasma results) [facility], PC) Potassium 4.2 Normal (applies MEDGEN (St [Mass/volume] in mmol/L to non-numeric Jose D's Blood results) Medical, PC) Carbon dioxide, 25 Normal (applies MEDGEN ( St total mmol/L to non-numeric Jose D's [Moles/volume] in results) Medical, Serum or Plasma PC) Calcium 9.4 Normal (applies MEDGEN (St [Moles/volume] in mg/dL to non-numeric Jose D's Urine collected for results) Medical, unspecified PC) duration Protein 7.5 g/dL Normal (applies MEDGEN (St [Mass/volume] in to non-numeric Jose D's Serum or Plasma results) Medical, ) Microalbumin 4.2 g/dL Normal (applies MEDGEN (St [Mass/time] in to non-numeric Jose D's Urine collected for results) [facility], unspecified PC) duration Globulin, Total 3.3 g/dL Normal (applies MEDGEN ( St to non-numeric Jose D's results) Medical, ) Bilirubin.total 0.3 Normal (applies MEDGEN ( St [Mass/volume] in mg/dL to non-numeric Jose D's Serum or Plasma results) Medical, ) A/G Ratio 1.3 Normal (applies MEDGEN (St to non-numeric Jose D's results) Medical, ) Alkaline 49 IU/L Normal (applies MEDGEN (St phosphatase to non-numeric Jose D's [Enzymatic results) Medical, activity/volume] in PC) Serum, Plasma or Blood Aspartate 17 IU/L Normal (applies MEDGEN (St aminotransferase to non-numeric Jose D's [Enzymatic results) Medical, activity/volume] in PC) Serum or Plasma Alanine 9 IU/L Normal (applies MEDGEN (St aminotransferase to non-numeric Jose D's [Enzymatic results) Medical, activity/volume] in PC) Serum or Plasma ID Date Data Source [id number] 04/13/2020 12:00:00 AM EDT MEDGEN ([facility], ) Name Value Range Interpretation Code Description Data Valerie rce(s) Supporting Document(s ) ID Date Data Source [id number] 04/13/2020 12:00:00 AM EDT MEDGEN ([facility], ) Name Value Range Interpretation Description Data Sup porting Code Source(s) Document(s ) Adalimumab 3.1 ug/mL Normal (applies to MEDGEN (St Drug Level non-numeric Jose D's results) [facility], ) Anti-Adalimuma 379 ng/mL Normal (applies to MEDGEN (St b Antibody non-numeric Jose D's results) [facility], ) ID Date Data Source [id number] 04/13/2020 12:00:00 AM EDT MEDGEN ([facility], ) Name Value Range Interpretation Code Description Data Valerie rce(s) Supporting Document(s ) TSH 1.260 Normal (applies to MEDGEN (St uIU/mL non-numeric results) Jose D's Me dicvt, ) ID Date Data Source [id number] 04/13/2020 12:00:00 AM EDT [facility] ([facility], ) Name Value Range Interpretation Description Data Sup porting Code Source(s) Document(s ) Vitamin B12 360 pg/mL Normal (applies to MEDGEN (S t non-numeric Jose D's results) Medical, ) Folate 14.3 Normal (applies to MEDGEN (St (Folic ng/mL non-numeric Jose D's Acid), Serum results) [facility], ) ID Date Data Source [id number] 04/13/2020 12:00:00 AM EDT [facility] ([facility], ) Name Value Range Interpretation Description Data Sup porting Code Source(s) Document(s ) Erythrocytes 4.62 Normal (applies MEDGEN (St [#/volume] in x10E6/uL to non-numeric Jose D's Blood by results) Medical, ) Automated count Leukocytes 6.6 Normal (applies MEDGEN (St [#/volume] in x10E3/uL to non-numeric Jose D's Blood by results) Medical, ) Automated count Hemoglobin 13.2 Normal (applies MEDGEN (St [Mass/volume] in g/dL to non-numeric Jose D's Blood results) [facility], ) Hematocrit 41.1 % Normal (applies MEDGEN (St [Volume to non-numeric Jose D's Fraction] of results) [facility], ) Blood by Automated count MCV 89 fL Normal (applies MEDGEN (St to non-numeric Jose D's results) [facility], ) MCH 28.6 pg Normal (applies MEDGEN (St to non-numeric Jose D's results) Medical, ) MCHC 32.1 Normal (applies MEDGEN (St g/dL to non-numeric Jose D's results) [facility], ) Platelets 328 Normal (applies MEDGEN (St [#/area] in x10E3/uL to non-numeric Jose D's Blood by results) [facility], ) Microscopy high power field RDW 12.4 % Normal (applies MEDGEN (St to non-numeric Jose D's results) Medical, ) Neutrophils [#] 61 % Normal (applies MEDGEN ( St in Body fluid by to non-numeric Jose D's Manual count results) [facility], ) Lymphs 32 % Normal (applies MEDGEN (St to non-numeric Jose D's results) Medical, ) Monocytes 6 % Normal (applies MEDGEN (St [#/volume] in to non-numeric Jose D's Cord blood results) Medical, ) Eos 1 % Normal (applies MEDGEN (St to non-numeric Jose D's results) Medical, ) Basos 0 % Normal (applies MEDGEN (St to non-numeric Jose D's results) Medical, ) Neutrophils 4.0 Normal (applies MEDGEN (St (Absolute) x10E3/uL to non-numeric Jose D's results) Medical, ) Lymphs 2.1 Normal (applies MEDGEN (St (Absolute) x10E3/uL to non-numeric Jose D's results) Medical, ) Monocytes(Absolu 0.4 Normal (applies MEDGEN (St te) x10E3/uL to non-numeric Jose D's results) Medical, ) Baso (Absolute) 0.0 Normal (applies MEDGEN ( St x10E3/uL to non-numeric Jose D's results) Medical, ) Eos (Absolute) 0.1 Normal (applies MEDGEN (S t x10E3/uL to non-numeric Jose D's results) Medical, ) Immature 0 % Normal (applies MEDGEN (St Granulocytes to non-numeric Jose D's results) [facility], ) Immature Grans 0.0 Normal (applies MEDGEN (S t (Abs) x10E3/uL to non-numeric Jose D's results) [facility], ) ID Date Data Source [id number] 04/13/2020 12:00:00 AM EDT [facility] ([facility], ) Name Value Range Interpretation Description Data Sup porting Code Source(s) Document(s ) Glucose 86 mg/dL Normal (applies MEDGEN (St [Mass/volume] in to non-numeric Jose D's Urine collected for results) Medical, unspecified ) duration Creatinine 0.69 Normal (applies MEDGEN (St [Interpretation] in mg/dL to non-numeric Jose D' s Urine results) [facility], ) Urea nitrogen 11 mg/dL Normal (applies MEDGEN (St [Mass/volume] in to non-numeric Jose D's Serum or Plasma results) Medical, ) eGFR If NonAfricn 108 Normal (applies MEDGEN (St Am mL/min/1 to non-numeric Jose D's .73 results) Medical, PC) eGFR If Africn Am 124 Normal (applies MEDGEN (St mL/min/1 to non-numeric Jose D's .73 results) Medical, PC) BUN/Creatinine 16 Normal (applies MEDGEN (S t Ratio to non-numeric Jose D's results) Medical, PC) Sodium 141 Normal (applies MEDGEN (St [Moles/volume] in mmol/L to non-numeric Jose D's Serum or Plasma results) Medical, PC) Potassium 4.2 Normal (applies MEDGEN (St [Mass/volume] in mmol/L to non-numeric Jose D's Blood results) Medical, PC) Chloride 102 Normal (applies MEDGEN (St [Moles/volume] in mmol/L to non-numeric Jose D's Serum or Plasma results) Medical, PC) Carbon dioxide, 25 Normal (applies MEDGEN ( St total mmol/L to non-numeric Jose D's [Moles/volume] in results) Medical, Serum or Plasma PC) Calcium 9.4 Normal (applies MEDGEN (St [Moles/volume] in mg/dL to non-numeric Jose D's Urine collected for results) Medical, unspecified PC) duration Protein 7.5 g/dL Normal (applies MEDGEN (St [Mass/volume] in to non-numeric Jose D's Serum or Plasma results) Medical, ) Microalbumin 4.2 g/dL Normal (applies MEDGEN (St [Mass/time] in to non-numeric Jose D's Urine collected for results) Medical, unspecified PC) duration Globulin, Total 3.3 g/dL Normal (applies MEDGEN ( St to non-numeric Jose D's results) Medical, PC) A/G Ratio 1.3 Normal (applies MEDGEN (St to non-numeric Jose D's results) Medical, PC) Bilirubin.total 0.3 Normal (applies MEDGEN ( St [Mass/volume] in mg/dL to non-numeric Jose D's Serum or Plasma results) Medical, PC) Alkaline 49 IU/L Normal (applies MEDGEN (St phosphatase to non-numeric Jose D's [Enzymatic results) Medical, activity/volume] in PC) Serum, Plasma or Blood Aspartate 17 IU/L Normal (applies [facility] (St aminotransferase to non-numeric [facility] [Enzymatic results) Medical, activity/volume] in PC) Serum or Plasma Alanine 9 IU/L Normal (applies [facility] (St aminotransferase to non-numeric [facility] [Enzymatic results) Medical, activity/volume] in PC) Serum or Plasma ID Date Data Source [id number] 03/28/2020 12:00:00 AM EDT [facility] ([facility], ) Name Value Range Interpretation Code Description Data Valerie rce(s) Supporting Document(s ) C-Reactive 1 mg/L Normal (applies to [facility] (St Protein, non-numeric Jose [facility] Quant results) Medical, ) ID Date Data Source [id number] 03/28/2020 12:00:00 AM EDT [facility] ([facility], ) Name Value Range Interpretation Description Data Sup porting Code Source(s) Document(s ) Leukocytes 6.8 Normal (applies [facility] (St [#/volume] in x10E3/uL to non-numeric Jose [facility] Blood by results) Medical, ) Automated count Erythrocytes 4.46 Normal (applies [facility] (St [#/volume] in x10E6/uL to non-numeric Jose [facility] Blood by results) Medical, ) Automated count Hemoglobin 13.0 Normal (applies [facility] (St [Mass/volume] in g/dL to non-numeric Jose [facility]'s Blood results) Medical, ) MCV 86 fL Normal (applies [facility] (St to non-numeric Jose D's results) Medical, ) Hematocrit 38.5 % Normal (applies [facility] (St [Volume to non-numeric Jose D's Fraction] of results) Medical, ) Blood by Automated count MCH 29.1 pg Normal (applies [facility] (St to non-numeric Jose D's results) Medical, ) MCHC 33.8 Normal (applies [facility] (St g/dL to non-numeric Jose D's results) Medical, ) RDW 12.5 % Normal (applies [facility] (St to non-numeric Jose D's results) Medical, ) Platelets 346 Normal (applies [facility] (St [#/area] in x10E3/uL to non-numeric Jose D's Blood by results) [facility], ) Microscopy high power field Lymphs 40 % Normal (applies [facility] (St to non-numeric Jose D's results) Medical, ) Neutrophils [#] 51 % Normal (applies [facility] ( St in Body fluid by to non-numeric Jose D's Manual count results) [facility], ) Monocytes 8 % Normal (applies [facility] (St [#/volume] in to non-numeric Jose D's Cord blood results) Medical, ) Basos 0 % Normal (applies [facility] (St to non-numeric Jose D's results) Medical, PC) Eos 1 % Normal (applies [facility] (St to non-numeric Jose D's results) Medical, ) Neutrophils 3.4 Normal (applies [facility] (St (Absolute) x10E3/uL to non-numeric Jose D's results) Medical, ) Monocytes(Absolu 0.6 Normal (applies [facility] (St te) x10E3/uL to non-numeric Jose D's results) Medical, ) Lymphs 2.7 Normal (applies [facility] (St (Absolute) x10E3/uL to non-numeric Jose D's results) Medical, PC) Eos (Absolute) 0.1 Normal (applies [facility] (S t x10E3/uL to non-numeric Jose D's results) Medical, ) Baso (Absolute) 0.0 Normal (applies [facility] ( St x10E3/uL to non-numeric Jose D's results) Medical, ) Immature 0 % Normal (applies [facility] (St Granulocytes to non-numeric Jose D's results) Medical, ) Immature Grans 0.0 Normal (applies [facility] (S t (Abs) x10E3/uL to non-numeric Jose [facility]'s results) Medical, ) ID Date Data Source [id number] 03/28/2020 12:00:00 AM EDT [facility] ([facility], ) Name Value Range Interpretation Description Data Sup porting Code Source(s) Document(s ) Glucose 85 mg/dL Normal (applies [facility] (St [Mass/volume] in to non-numeric Jose D's Urine collected for results) Medical, unspecified ) duration Urea nitrogen 15 mg/dL Normal (applies [facility] (St [Mass/volume] in to non-numeric Jose D's Serum or Plasma results) Medical, ) Creatinine 0.79 Normal (applies [facility] (St [Interpretation] in mg/dL to non-numeric Jose D' s Urine results) Medical, ) eGFR If NonAfricn 93 Normal (applies [facility] (St Am mL/min/1 to non-numeric Jose D's .73 results) Medical, PC) eGFR If Africn Am 107 Normal (applies [facility] (St mL/min/1 to non-numeric Jose D's .73 results) Medical, PC) BUN/Creatinine 19 Normal (applies [facility] (S t Ratio to non-numeric Jose D's results) Medical, PC) Sodium 140 Normal (applies [facility] (St [Moles/volume] in mmol/L to non-numeric Jose D's Serum or Plasma results) Medical, PC) Chloride 103 Normal (applies [facility] (St [Moles/volume] in mmol/L to non-numeric Jose D's Serum or Plasma results) Medical, PC) Potassium 4.0 Normal (applies [facility] (St [Mass/volume] in mmol/L to non-numeric Jose [facility]'s Blood results) Medical, PC) Carbon dioxide, 25 Normal (applies [facility] ( St total mmol/L to non-numeric Jose D's [Moles/volume] in results) Medical, Serum or Plasma PC) Protein 7.8 g/dL Normal (applies [facility] (St [Mass/volume] in to non-numeric Jose D's Serum or Plasma results) Medical, PC) Calcium 9.5 Normal (applies [facility] (St [Moles/volume] in mg/dL to non-numeric Jose [facility]'s Urine collected for results) Medical, unspecified PC) duration Microalbumin 4.4 g/dL Normal (applies [facility] (St [Mass/time] in to non-numeric Jose [facility] Urine collected for results) Medical, unspecified PC) duration Globulin, Total 3.4 g/dL Normal (applies [facility] ( St to non-numeric Jose D's results) Medical, PC) Bilirubin.total <0.2 Normal (applies [facility] ( St [Mass/volume] in to non-numeric Jose D's Serum or Plasma results) Medical, PC) A/G Ratio 1.3 Normal (applies [facility] (St to non-numeric Jose D's results) Medical, PC) Alkaline 49 IU/L Normal (applies [facility] (St phosphatase to non-numeric Jose D's [Enzymatic results) Medical, activity/volume] in PC) Serum, Plasma or Blood Aspartate 15 IU/L Normal (applies [facility] (St aminotransferase to non-numeric Jose [facility]'s [Enzymatic results) Medical, activity/volume] in PC) Serum or Plasma Alanine 6 IU/L Normal (applies [facility] (St aminotransferase to non-numeric Jose D's [Enzymatic results) Medical, activity/volume] in PC) Serum or Plasma ID Date Data Source [id number] 03/28/2020 12:00:00 AM EDT [facility] ([facility], ) Name Value Range Interpretation Code Description Data Valerie rce(s) Supporting Document(s ) C-Reactive 1 mg/L Normal (applies to [facility] (St Protein, non-numeric Jose D's Quant results) [facility], ) ID Date Data Source [id number] 03/28/2020 12:00:00 AM EDT [facility] ([facility], ) Name Value Range Interpretation Description Data Sup porting Code Source(s) Document(s ) Erythrocytes 4.46 Normal (applies [facility] (St [#/volume] in x10E6/uL to non-numeric Jose D's Blood by results) Medical, ) Automated count Leukocytes 6.8 Normal (applies [facility] (St [#/volume] in x10E3/uL to non-numeric Jose D's Blood by results) [facility], ) Automated count Hemoglobin 13.0 Normal (applies [facility] (St [Mass/volume] in g/dL to non-numeric Jose D's Blood results) [facility], ) Hematocrit 38.5 % Normal (applies [facility] (St [Volume to non-numeric Jose D's Fraction] of results) [facility], ) Blood by Automated count MCH 29.1 pg Normal (applies [facility] (St to non-numeric Jose D's results) Medical, ) MCV 86 fL Normal (applies [facility] (St to non-numeric Jose D's results) [facility], ) MCHC 33.8 Normal (applies [facility] (St g/dL to non-numeric Jose D's results) Medical, ) RDW 12.5 % Normal (applies [facility] (St to non-numeric Jose D's results) Medical, ) Platelets 346 Normal (applies [facility] (St [#/area] in x10E3/uL to non-numeric Jose D's Blood by results) [facility], ) Microscopy high power field Neutrophils [#] 51 % Normal (applies [facility] ( St in Body fluid by to non-numeric Jose D's Manual count results) [facility], ) Lymphs 40 % Normal (applies [facility] (St to non-numeric Jose D's results) [facility], ) Monocytes 8 % Normal (applies [facility] (St [#/volume] in to non-numeric Jose D's Cord blood results) Medical, ) Eos 1 % Normal (applies [facility] (St to non-numeric Jose D's results) Medical, ) Basos 0 % Normal (applies [facility] (St to non-numeric Jose D's results) Medical, ) Lymphs 2.7 Normal (applies [facility] (St (Absolute) x10E3/uL to non-numeric Jose D's results) Medical, ) Neutrophils 3.4 Normal (applies [facility] (St (Absolute) x10E3/uL to non-numeric Jose D's results) Medical, ) Monocytes(Absolu 0.6 Normal (applies [facility] (St te) x10E3/uL to non-numeric Jose D's results) Medical, ) Baso (Absolute) 0.0 Normal (applies [facility] ( St x10E3/uL to non-numeric Jose D's results) Medical, ) Eos (Absolute) 0.1 Normal (applies [facility] (S t x10E3/uL to non-numeric Jose D's results) Medical, ) Immature 0 % Normal (applies [facility] (St Granulocytes to non-numeric Jose D's results) Medical, ) Immature Grans 0.0 Normal (applies [facility] (S t (Abs) x10E3/uL to non-numeric Jose D's results) Medical, ) ID Date Data Source [id number] 03/28/2020 12:00:00 AM EDT [facility] ([facility], ) Name Value Range Interpretation Description Data Sup porting Code Source(s) Document(s ) Glucose 85 mg/dL Normal (applies [facility] (St [Mass/volume] in to non-numeric Jose D's Urine collected for results) Medical, unspecified PC) duration Urea nitrogen 15 mg/dL Normal (applies [facility] (St [Mass/volume] in to non-numeric Jose D's Serum or Plasma results) Medical, ) Creatinine 0.79 Normal (applies [facility] (St [Interpretation] in mg/dL to non-numeric Jose D' s Urine results) Medical, ) eGFR If NonAfricn 93 Normal (applies [facility] (St Am mL/min/1 to non-numeric Jose D's .73 results) Medical, ) eGFR If Africn Am 107 Normal (applies [facility] (St mL/min/1 to non-numeric Jose D's .73 results) Medical, PC) BUN/Creatinine 19 Normal (applies [facility] (S t Ratio to non-numeric Jose D's results) Medical, PC) Sodium 140 Normal (applies [facility] (St [Moles/volume] in mmol/L to non-numeric Jose D's Serum or Plasma results) Medical, PC) Potassium 4.0 Normal (applies [facility] (St [Mass/volume] in mmol/L to non-numeric Jose D's Blood results) Medical, PC) Chloride 103 Normal (applies [facility] (St [Moles/volume] in mmol/L to non-numeric Jose D's Serum or Plasma results) Medical, PC) Carbon dioxide, 25 Normal (applies [facility] ( St total mmol/L to non-numeric Jose D's [Moles/volume] in results) Medical, Serum or Plasma PC) Calcium 9.5 Normal (applies [facility] (St [Moles/volume] in mg/dL to non-numeric Jose D's Urine collected for results) Medical, unspecified PC) duration Protein 7.8 g/dL Normal (applies [facility] (St [Mass/volume] in to non-numeric Jose D's Serum or Plasma results) Medical, PC) Microalbumin 4.4 g/dL Normal (applies [facility] (St [Mass/time] in to non-numeric Jose D's Urine collected for results) Medical, unspecified PC) duration Globulin, Total 3.4 g/dL Normal (applies [facility] ( St to non-numeric Jose D's results) Medical, PC) A/G Ratio 1.3 Normal (applies [facility] (St to non-numeric Jose D's results) Medical, PC) Bilirubin.total <0.2 Normal (applies [facility] ( St [Mass/volume] in to non-numeric Jose D's Serum or Plasma results) Medical, PC) Alkaline 49 IU/L Normal (applies [facility] (St phosphatase to non-numeric Jose D's [Enzymatic results) Medical, activity/volume] in PC) Serum, Plasma or Blood Aspartate 15 IU/L Normal (applies [facility] (St aminotransferase to non-numeric Jose D's [Enzymatic results) Medical, activity/volume] in PC) Serum or Plasma Alanine 6 IU/L Normal (applies [facility] (St aminotransferase to non-numeric Jose D's [Enzymatic results) Medical, activity/volume] in PC) Serum or Plasma ID Date Data Source [id number] 03/28/2020 12:00:00 AM EDT [facility] ([facility], ) Name Value Range Interpretation Code Description Data Valerie rce(s) Supporting Document(s ) C-Reactive 1 mg/L Normal (applies to [facility] (St Protein, non-numeric Jose D's Quant results) Medical, ) ID Date Data Source [id number] 03/28/2020 12:00:00 AM EDT [facility] ([facility], ) Name Value Range Interpretation Description Data Sup porting Code Source(s) Document(s ) Leukocytes 6.8 Normal (applies [facility] (St [#/volume] in x10E3/uL to non-numeric Jose D's Blood by results) Medical, ) Automated count Hemoglobin 13.0 Normal (applies [facility] (St [Mass/volume] in g/dL to non-numeric Jose D's Blood results) Medical, ) Erythrocytes 4.46 Normal (applies [facility] (St [#/volume] in x10E6/uL to non-numeric Jsoe D's Blood by results) Medical, ) Automated count Hematocrit 38.5 % Normal (applies [facility] (St [Volume to non-numeric Jose D's Fraction] of results) Medical, ) Blood by Automated count MCV 86 fL Normal (applies [facility] (St to non-numeric Jose D's results) Medical, ) MCH 29.1 pg Normal (applies [facility] (St to non-numeric Jose D's results) Medical, ) RDW 12.5 % Normal (applies [facility] (St to non-numeric Jose D's results) Medical, ) MCHC 33.8 Normal (applies [facility] (St g/dL to non-numeric Jose D's results) Medical, ) Neutrophils [#] 51 % Normal (applies [facility] ( St in Body fluid by to non-numeric Jose D's Manual count results) Medical, ) Platelets 346 Normal (applies [facility] (St [#/area] in x10E3/uL to non-numeric Jose D's Blood by results) Medical, ) Microscopy high power field Monocytes 8 % Normal (applies [facility] (St [#/volume] in to non-numeric Jose D's Cord blood results) Medical, ) Lymphs 40 % Normal (applies [facility] (St to non-numeric Jose D's results) Medical, ) Eos 1 % Normal (applies [facility] (St to non-numeric Jose D's results) Medical, PC) Basos 0 % Normal (applies [facility] (St to non-numeric Jose D's results) Medical, PC) Neutrophils 3.4 Normal (applies [facility] (St (Absolute) x10E3/uL to non-numeric Jose D's results) Medical, PC) Lymphs 2.7 Normal (applies [facility] (St (Absolute) x10E3/uL to non-numeric Jose D's results) Medical, PC) Monocytes(Absolu 0.6 Normal (applies [facility] (St te) x10E3/uL to non-numeric Jose D's results) Medical, PC) Eos (Absolute) 0.1 Normal (applies [facility] (S t x10E3/uL to non-numeric Jose D's results) Medical, PC) Baso (Absolute) 0.0 Normal (applies [facility] ( St x10E3/uL to non-numeric Jose D's results) Medical, PC) Immature 0 % Normal (applies [facility] (St Granulocytes to non-numeric Jose D's results) Medical, PC) Immature Grans 0.0 Normal (applies [facility] (S t (Abs) x10E3/uL to non-numeric Jose D's results) Medical, ) ID Date Data Source [id number] 03/28/2020 12:00:00 AM EDT [facility] ([facility], ) Name Value Range Interpretation Description Data Sup porting Code Source(s) Document(s ) Glucose 85 mg/dL Normal (applies [facility] (St [Mass/volume] in to non-numeric Jose D's Urine collected for results) Medical, unspecified PC) duration Urea nitrogen 15 mg/dL Normal (applies [facility] (St [Mass/volume] in to non-numeric Jose D's Serum or Plasma results) Medical, ) Creatinine 0.79 Normal (applies [facility] (St [Interpretation] in mg/dL to non-numeric Jose D' s Urine results) Medical, PC) eGFR If NonAfricn 93 Normal (applies [facility] (St Am mL/min/1 to non-numeric Jose D's .73 results) Medical, PC) BUN/Creatinine 19 Normal (applies [facility] (S t Ratio to non-numeric Jose D's results) Medical, PC) eGFR If Africn Am 107 Normal (applies [facility] (St mL/min/1 to non-numeric Jose D's .73 results) Medical, PC) Sodium 140 Normal (applies [facility] (St [Moles/volume] in mmol/L to non-numeric Jose D's Serum or Plasma results) Medical, PC) Potassium 4.0 Normal (applies [facility] (St [Mass/volume] in mmol/L to non-numeric Jose D's Blood results) Medical, PC) Chloride 103 Normal (applies [facility] (St [Moles/volume] in mmol/L to non-numeric Jose D's Serum or Plasma results) Medical, PC) Carbon dioxide, 25 Normal (applies [facility] ( St total mmol/L to non-numeric Jose D's [Moles/volume] in results) Medical, Serum or Plasma PC) Calcium 9.5 Normal (applies [facility] (St [Moles/volume] in mg/dL to non-numeric Jose D's Urine collected for results) Medical, unspecified PC) duration Microalbumin 4.4 g/dL Normal (applies [facility] (St [Mass/time] in to non-numeric Jose D's Urine collected for results) Medical, unspecified PC) duration Protein 7.8 g/dL Normal (applies [facility] (St [Mass/volume] in to non-numeric Jose D's Serum or Plasma results) Medical, PC) Globulin, Total 3.4 g/dL Normal (applies [facility] ( St to non-numeric Jose D's results) Medical, PC) A/G Ratio 1.3 Normal (applies [facility] (St to non-numeric Jose D's results) Medical, PC) Bilirubin.total <0.2 Normal (applies [facility] ( St [Mass/volume] in to non-numeric Jose D's Serum or Plasma results) Medical, PC) Aspartate 15 IU/L Normal (applies [facility] (St aminotransferase to non-numeric Jose D's [Enzymatic results) Medical, activity/volume] in PC) Serum or Plasma Alkaline 49 IU/L Normal (applies [facility] (St phosphatase to non-numeric Jose D's [Enzymatic results) Medical, activity/volume] in PC) Serum, Plasma or Blood Alanine 6 IU/L Normal (applies [facility] (St aminotransferase to non-numeric Jose D's [Enzymatic results) Medical, activity/volume] in PC) Serum or Plasma ID Date Data Source [id number] 03/07/2020 12:00:00 AM EDT [facility] ([facility]) Name Value Range Interpretation Description Data Sup porting Code Source(s) Document(s ) Glucose 65 mg/dL Normal (applies [facility] (St [Mass/volume] in to non-numeric Jose D's Urine collected for results) Medical, unspecified PC) duration Urea nitrogen 16 mg/dL Normal (applies [facility] (St [Mass/volume] in to non-numeric Jose D's Serum or Plasma results) Medical, PC) Creatinine 0.72 Normal (applies [facility] (St [Interpretation] in mg/dL to non-numeric Jose D' s Urine results) Medical, PC) eGFR If NonAfricn Test not Normal (applies [facility] (St Am performe to non-numeric Jose D's d. results) Medical, PC) eGFR If Africn Am Test not Normal (applies [facility] (St performe to non-numeric Jose D's d. results) Medical, PC) Sodium 141 Normal (applies [facility] (St [Moles/volume] in mmol/L to non-numeric Jose D's Serum or Plasma results) Medical, PC) BUN/Creatinine 22 Normal (applies [facility] (S t Ratio to non-numeric Jose D's results) Medical, PC) Potassium 4.0 Normal (applies [facility] (St [Mass/volume] in mmol/L to non-numeric Jose D's Blood results) Medical, PC) Chloride 104 Normal (applies [facility] (St [Moles/volume] in mmol/L to non-numeric Jose D's Serum or Plasma results) Medical, PC) Carbon dioxide, 23 Normal (applies [facility] ( St total mmol/L to non-numeric Jose D's [Moles/volume] in results) Medical, Serum or Plasma PC) Protein 7.5 g/dL Normal (applies [facility] (St [Mass/volume] in to non-numeric Jose D's Serum or Plasma results) Medical, PC) Calcium 9.4 Normal (applies [facility] (St [Moles/volume] in mg/dL to non-numeric Jose D's Urine collected for results) Medical, unspecified PC) duration Microalbumin 4.4 g/dL Normal (applies [facility] (St [Mass/time] in to non-numeric Jose D's Urine collected for results) Medical, unspecified PC) duration Globulin, Total 3.1 g/dL Normal (applies [facility] ( St to non-numeric Jose D's results) Medical, ) A/G Ratio 1.4 Normal (applies [facility] (St to non-numeric Jose D's results) [facility], ) Bilirubin.total 0.3 Normal (applies [facility] ( St [Mass/volume] in mg/dL to non-numeric Jose D's Serum or Plasma results) [facility], ) Alkaline 46 IU/L Normal (applies [facility] (St phosphatase to non-numeric Jose D's [Enzymatic results) Medical, activity/volume] in ) Serum, Plasma or Blood Aspartate 11 IU/L Normal (applies [facility] (St aminotransferase to non-numeric Jose D's [Enzymatic results) Medical, activity/volume] in ) Serum or Plasma Alanine 8 IU/L Normal (applies [facility] (St aminotransferase to non-numeric Jose D's [Enzymatic results) Medical, activity/volume] in ) Serum or Plasma ID Date Data Source [id number] 03/07/2020 12:00:00 AM EDT [facility] ([facility], ) Name Value Range Interpretation Description Data Sup porting Code Source(s) Document(s ) Leukocytes 5.4 Normal (applies [facility] (St [#/volume] in x10E3/uL to non-numeric Jose D's Blood by results) [facility], ) Automated count Erythrocytes 4.77 Normal (applies [facility] (St [#/volume] in x10E6/uL to non-numeric Jose D's Blood by results) [facility], ) Automated count Hemoglobin 13.4 Normal (applies [facility] (St [Mass/volume] in g/dL to non-numeric Jose D's Blood results) [facility], ) Hematocrit 42.9 % Normal (applies [facility] (St [Volume to non-numeric Jose D's Fraction] of results) [facility], ) Blood by Automated count MCV 90 fL Normal (applies [facility] (St to non-numeric Jose D's results) [facility], ) MCHC 31.2 Normal (applies [facility] (St g/dL to non-numeric Jose D's results) [facility], ) MCH 28.1 pg Normal (applies [facility] (St to non-numeric Jose D's results) [facility], ) RDW 12.4 % Normal (applies [facility] (St to non-numeric Jose D's results) [facility], ) Platelets 283 Normal (applies [facility] (St [#/area] in x10E3/uL to non-numeric Jose D's Blood by results) [facility], ) Microscopy high power field Neutrophils [#] 53 % Normal (applies [facility] ( St in Body fluid by to non-numeric Jose D's Manual count results) [facility], ) Lymphs 38 % Normal (applies [facility] (St to non-numeric Jose D's results) [facility], ) Monocytes 7 % Normal (applies [facility] (St [#/volume] in to non-numeric Jose D's Cord blood results) [facility], ) Eos 2 % Normal (applies [facility] (St to non-numeric Jose D's results) [facility], ) Basos 0 % Normal (applies [facility] (St to non-numeric Jose D's results) [facility], ) Neutrophils 2.9 Normal (applies [facility] (St (Absolute) x10E3/uL to non-numeric Jose D's results) [facility], ) Lymphs 2.0 Normal (applies [facility] (St (Absolute) x10E3/uL to non-numeric Jose D's results) [facility], ) Monocytes(Absolu 0.4 Normal (applies [facility] (St te) x10E3/uL to non-numeric Jose D's results) [facility], ) Baso (Absolute) 0.0 Normal (applies [facility] ( St x10E3/uL to non-numeric Jose D's results) [facility], ) Eos (Absolute) 0.1 Normal (applies [facility] (S t x10E3/uL to non-numeric Jose D's results) [facility], ) Immature 0 % Normal (applies [facility] (St Granulocytes to non-numeric Jose D's results) [facility], ) Immature Grans 0.0 Normal (applies [facility] (S t (Abs) x10E3/uL to non-numeric Jose D's results) [facility], ) ID Date Data Source [id number] 03/07/2020 12:00:00 AM EDT [facility] ([facility], ) Name Value Range Interpretation Description Data Sup porting Code Source(s) Document(s ) Glucose 65 mg/dL Normal (applies [facility] (St [Mass/volume] in to non-numeric Jose D's Urine collected for results) [facility], unspecified ) duration Urea nitrogen 16 mg/dL Normal (applies [facility] (St [Mass/volume] in to non-numeric Jose D's Serum or Plasma results) Medical, PC) Creatinine 0.72 Normal (applies [facility] (St [Interpretation] in mg/dL to non-numeric Jose D' s Urine results) Medical, PC) eGFR If Africn Am Test not Normal (applies [facility] (St performe to non-numeric Jose D's d. results) Medical, PC) eGFR If NonAfricn Test not Normal (applies [facility] (St Am performe to non-numeric Jose D's d. results) Medical, PC) BUN/Creatinine 22 Normal (applies [facility] (S t Ratio to non-numeric Jose D's results) Medical, PC) Sodium 141 Normal (applies [facility] (St [Moles/volume] in mmol/L to non-numeric Jose D's Serum or Plasma results) Medical, PC) Chloride 104 Normal (applies [facility] (St [Moles/volume] in mmol/L to non-numeric Jose D's Serum or Plasma results) Medical, PC) Potassium 4.0 Normal (applies [facility] (St [Mass/volume] in mmol/L to non-numeric Jose D's Blood results) Medical, PC) Carbon dioxide, 23 Normal (applies [facility] ( St total mmol/L to non-numeric Jose D's [Moles/volume] in results) Medical, Serum or Plasma PC) Calcium 9.4 Normal (applies [facility] (St [Moles/volume] in mg/dL to non-numeric Jose D's Urine collected for results) Medical, unspecified PC) duration Protein 7.5 g/dL Normal (applies [facility] (St [Mass/volume] in to non-numeric Jose D's Serum or Plasma results) Medical, PC) Microalbumin 4.4 g/dL Normal (applies [facility] (St [Mass/time] in to non-numeric Jose D's Urine collected for results) Medical, unspecified PC) duration A/G Ratio 1.4 Normal (applies [facility] (St to non-numeric Jose D's results) [facility], [facility]) Globulin, Total 3.1 g/dL Normal (applies [facility] ( St to non-numeric Jose D's results) [facility], [facility]) Bilirubin.total 0.3 Normal (applies [facility] ( St [Mass/volume] in mg/dL to non-numeric Jose D's Serum or Plasma results) [facility], [facility]) Alkaline 46 IU/L Normal (applies [facility] (St phosphatase to non-numeric Jose D's [Enzymatic results) Medical, activity/volume] in ) Serum, Plasma or Blood Aspartate 11 IU/L Normal (applies [facility] (St aminotransferase to non-numeric Jose D's [Enzymatic results) Medical, activity/volume] in ) Serum or Plasma Alanine 8 IU/L Normal (applies [facility] (St aminotransferase to non-numeric Jose D's [Enzymatic results) Medical, activity/volume] in ) Serum or Plasma ID Date Data Source [id number] 03/07/2020 12:00:00 AM EDT [facility], ) Name Value Range Interpretation Description Data Sup porting Code Source(s) Document(s ) Leukocytes 5.4 Normal (applies [facility] (St [#/volume] in x10E3/uL to non-numeric Jose D's Blood by results) Medical, ) Automated count Erythrocytes 4.77 Normal (applies [facility] (St [#/volume] in x10E6/uL to non-numeric Jose D's Blood by results) Medical, ) Automated count Hemoglobin 13.4 Normal (applies [facility] (St [Mass/volume] in g/dL to non-numeric Jose D's Blood results) Medical, ) Hematocrit 42.9 % Normal (applies [facility] (St [Volume to non-numeric Jose D's Fraction] of results) [facility], ) Blood by Automated count MCV 90 fL Normal (applies [facility] (St to non-numeric Jose D's results) [facility], ) MCH 28.1 pg Normal (applies [facility] (St to non-numeric Ojse D's results) Medical, ) RDW 12.4 % Normal (applies [facility] (St to non-numeric Jose D's results) Medical, ) MCHC 31.2 Normal (applies [facility] (St g/dL to non-numeric Jose D's results) Medical, ) Platelets 283 Normal (applies [facility] (St [#/area] in x10E3/uL to non-numeric Jose D's Blood by results) [facility], ) Microscopy high power field Neutrophils [#] 53 % Normal (applies [facility] ( St in Body fluid by to non-numeric Jose D's Manual count results) [facility], ) Lymphs 38 % Normal (applies [facility] (St to non-numeric Jose D's results) [facility], ) Monocytes 7 % Normal (applies [facility] (St [#/volume] in to non-numeric Jose D's Cord blood results) Medical, ) Eos 2 % Normal (applies [facility] (St to non-numeric Jose D's results) Medical, PC) Basos 0 % Normal (applies [facility] (St to non-numeric Jose D's results) Medical, PC) Neutrophils 2.9 Normal (applies [facility] (St (Absolute) x10E3/uL to non-numeric Jose D's results) Medical, PC) Lymphs 2.0 Normal (applies [facility] (St (Absolute) x10E3/uL to non-numeric Jose D's results) Medical, PC) Monocytes(Absolu 0.4 Normal (applies [facility] (St te) x10E3/uL to non-numeric Jose D's results) Medical, PC) Eos (Absolute) 0.1 Normal (applies [facility] (S t x10E3/uL to non-numeric Jose D's results) Medical, PC) Baso (Absolute) 0.0 Normal (applies [facility] ( St x10E3/uL to non-numeric Jose D's results) Medical, PC) Immature 0 % Normal (applies [facility] (St Granulocytes to non-numeric Jose D's results) Medical, PC) Immature Grans 0.0 Normal (applies [facility] (S t (Abs) x10E3/uL to non-numeric Jose D's results) Medical, ) ID Date Data Source [id number] 03/07/2020 12:00:00 AM EDT [facility], ) Name Value Range Interpretation Description Data Sup porting Code Source(s) Document(s ) Glucose 65 mg/dL Normal (applies [facility] (St [Mass/volume] in to non-numeric Jose D's Urine collected for results) Medical, unspecified PC) duration Urea nitrogen 16 mg/dL Normal (applies [facility] (St [Mass/volume] in to non-numeric Jose D's Serum or Plasma results) Medical, PC) Creatinine 0.72 Normal (applies [facility] (St [Interpretation] in mg/dL to non-numeric Jose D' s Urine results) Medical, ) eGFR If NonAfricn Test not Normal (applies [facility] (St Am performe to non-numeric Jose D's d. results) Medical, PC) BUN/Creatinine 22 Normal (applies [facility] (S t Ratio to non-numeric Jose D's results) Medical, PC) eGFR If Africn Am Test not Normal (applies [facility] (St performe to non-numeric Jose D's d. results) Medical, ) Sodium 141 Normal (applies [facility] (St [Moles/volume] in mmol/L to non-numeric Jose D's Serum or Plasma results) Medical, PC) Potassium 4.0 Normal (applies [facility] (St [Mass/volume] in mmol/L to non-numeric Jose D's Blood results) Medical, ) Chloride 104 Normal (applies [facility] (St [Moles/volume] in mmol/L to non-numeric Jose D's Serum or Plasma results) Medical, ) Calcium 9.4 Normal (applies [facility] (St [Moles/volume] in mg/dL to non-numeric Jose D's Urine collected for results) Medical, unspecified PC) duration Carbon dioxide, 23 Normal (applies [facility] ( St total mmol/L to non-numeric Jose D's [Moles/volume] in results) Medical, Serum or Plasma PC) Protein 7.5 g/dL Normal (applies [facility] (St [Mass/volume] in to non-numeric Jose D's Serum or Plasma results) Medical, ) Globulin, Total 3.1 g/dL Normal (applies [facility] ( St to non-numeric Jose D's results) Medical, PC) Microalbumin 4.4 g/dL Normal (applies [facility] (St [Mass/time] in to non-numeric Jose D's Urine collected for results) Medical, unspecified PC) duration Bilirubin.total 0.3 Normal (applies [facility] ( St [Mass/volume] in mg/dL to non-numeric Jose D's Serum or Plasma results) Medical, ) A/G Ratio 1.4 Normal (applies [facility] (St to non-numeric Jose D's results) Medical, ) Aspartate 11 IU/L Normal (applies [facility] (St aminotransferase to non-numeric Jose D's [Enzymatic results) Medical, activity/volume] in PC) Serum or Plasma Alkaline 46 IU/L Normal (applies [facility] (St phosphatase to non-numeric Jose D's [Enzymatic results) Medical, activity/volume] in PC) Serum, Plasma or Blood Alanine 8 IU/L Normal (applies [facility] (St aminotransferase to non-numeric Jose D's [Enzymatic results) Medical, activity/volume] in PC) Serum or Plasma ID Date Data Source [id number] 03/07/2020 12:00:00 AM EDT [facility], ) Name Value Range Interpretation Description Data Sup porting Code Source(s) Document(s ) Erythrocytes 4.77 Normal (applies [facility] (St [#/volume] in x10E6/uL to non-numeric Jose D's Blood by results) Medical, ) Automated count Leukocytes 5.4 Normal (applies [facility] (St [#/volume] in x10E3/uL to non-numeric Jose D's Blood by results) Medical, ) Automated count Hemoglobin 13.4 Normal (applies [facility] (St [Mass/volume] in g/dL to non-numeric Jose D's Blood results) Medical, ) Hematocrit 42.9 % Normal (applies [facility] (St [Volume to non-numeric Jose D's Fraction] of results) Medical, ) Blood by Automated count MCV 90 fL Normal (applies [facility] (St to non-numeric Jose D's results) Medical, ) MCH 28.1 pg Normal (applies [facility] (St to non-numeric Jose D's results) Medical, ) MCHC 31.2 Normal (applies [facility] (St g/dL to non-numeric Jose D's results) Medical, ) RDW 12.4 % Normal (applies [facility] (St to non-numeric Jose D's results) Medical, ) Platelets 283 Normal (applies [facility] (St [#/area] in x10E3/uL to non-numeric Jose D's Blood by results) Medical, ) Microscopy high power field Neutrophils [#] 53 % Normal (applies [facility] ( St in Body fluid by to non-numeric Jose D's Manual count results) Medical, ) Lymphs 38 % Normal (applies [facility] (St to non-numeric Jose D's results) Medical, ) Monocytes 7 % Normal (applies [facility] (St [#/volume] in to non-numeric Jose D's Cord blood results) Medical, ) Eos 2 % Normal (applies [facility] (St to non-numeric Jose D's results) Medical, ) Neutrophils 2.9 Normal (applies [facility] (St (Absolute) x10E3/uL to non-numeric Jose D's results) Medical, ) Basos 0 % Normal (applies [facility] (St to non-numeric Jose D's results) Medical, PC) Lymphs 2.0 Normal (applies [facility] (St (Absolute) x10E3/uL to non-numeric Jose D's results) Medical, PC) Monocytes(Absolu 0.4 Normal (applies [facility] (St te) x10E3/uL to non-numeric Jose D's results) Medical, PC) Eos (Absolute) 0.1 Normal (applies [facility] (S t x10E3/uL to non-numeric Jose D's results) Medical, PC) Baso (Absolute) 0.0 Normal (applies [facility] ( St x10E3/uL to non-numeric Jose D's results) Medical, PC) Immature 0 % Normal (applies [facility] (St Granulocytes to non-numeric Jose D's results) Medical, PC) Immature Grans 0.0 Normal (applies [facility] (S t (Abs) x10E3/uL to non-numeric Jose D's results) Medical, ) ID Date Data Source [id number] 03/07/2020 12:00:00 AM EDT [facility], ) Name Value Range Interpretation Description Data Sup porting Code Source(s) Document(s ) Glucose 65 mg/dL Normal (applies [facility] (St [Mass/volume] in to non-numeric Jose D's Urine collected for results) Medical, unspecified PC) duration Urea nitrogen 16 mg/dL Normal (applies [facility] (St [Mass/volume] in to non-numeric Jose D's Serum or Plasma results) Medical, PC) Creatinine 0.72 Normal (applies [facility] (St [Interpretation] in mg/dL to non-numeric Jose D' s Urine results) Medical, ) eGFR If NonAfricn Test not Normal (applies [facility] (St Am performe to non-numeric Jose D's d. results) Medical, PC) eGFR If Africn Am Test not Normal (applies [facility] (St performe to non-numeric Jose D's d. results) Medical, PC) BUN/Creatinine 22 Normal (applies [facility] (S t Ratio to non-numeric Jose D's results) Medical, PC) Sodium 141 Normal (applies [facility] (St [Moles/volume] in mmol/L to non-numeric Jose D's Serum or Plasma results) Medical, PC) Potassium 4.0 Normal (applies [facility] (St [Mass/volume] in mmol/L to non-numeric Jose D's Blood results) Medical, PC) Carbon dioxide, 23 Normal (applies [facility] ( St total mmol/L to non-numeric Jose D's [Moles/volume] in results) Medical, Serum or Plasma PC) Chloride 104 Normal (applies [facility] (St [Moles/volume] in mmol/L to non-numeric Jose D's Serum or Plasma results) Medical, ) Calcium 9.4 Normal (applies [facility] (St [Moles/volume] in mg/dL to non-numeric Jose D's Urine collected for results) Medical, unspecified PC) duration Protein 7.5 g/dL Normal (applies [facility] (St [Mass/volume] in to non-numeric Jose D's Serum or Plasma results) Medical, ) Microalbumin 4.4 g/dL Normal (applies [facility] (St [Mass/time] in to non-numeric Jose D's Urine collected for results) [facility], unspecified ) duration Globulin, Total 3.1 g/dL Normal (applies [facility] ( St to non-numeric Jose D's results) Medical, ) A/G Ratio 1.4 Normal (applies [facility] (St to non-numeric Jose D's results) Medical, ) Bilirubin.total 0.3 Normal (applies [facility] ( St [Mass/volume] in mg/dL to non-numeric Jose D's Serum or Plasma results) Medical, ) Alkaline 46 IU/L Normal (applies [facility] (St phosphatase to non-numeric Jose D's [Enzymatic results) Medical, activity/volume] in PC) Serum, Plasma or Blood Aspartate 11 IU/L Normal (applies [facility] (St aminotransferase to non-numeric Jose D's [Enzymatic results) Medical, activity/volume] in PC) Serum or Plasma Alanine 8 IU/L Normal (applies [facility] (St aminotransferase to non-numeric Jose D's [Enzymatic results) Medical, activity/volume] in PC) Serum or Plasma ID Date Data Source [id number] 03/07/2020 12:00:00 AM EDT [facility] ([facility], ) Name Value Range Interpretation Description Data Sup porting Code Source(s) Document(s ) Leukocytes 5.4 Normal (applies [facility] (St [#/volume] in x10E3/uL to non-numeric Jose D's Blood by results) Medical, ) Automated count Hemoglobin 13.4 Normal (applies [facility] (St [Mass/volume] in g/dL to non-numeric Jose D's Blood results) Medical, ) Erythrocytes 4.77 Normal (applies [facility] (St [#/volume] in x10E6/uL to non-numeric Jose D's Blood by results) [facility], ) Automated count Hematocrit 42.9 % Normal (applies [facility] (St [Volume to non-numeric Jose D's Fraction] of results) [facility], ) Blood by Automated count MCV 90 fL Normal (applies [facility] (St to non-numeric Jose D's results) [facility], ) MCH 28.1 pg Normal (applies [facility] (St to non-numeric Jose D's results) [facility], ) MCHC 31.2 Normal (applies [facility] (St g/dL to non-numeric Jose D's results) [facility], ) RDW 12.4 % Normal (applies [facility] (St to non-numeric Jose D's results) [facility], ) Platelets 283 Normal (applies [facility] (St [#/area] in x10E3/uL to non-numeric Jose D's Blood by results) [facility], ) Microscopy high power field Neutrophils [#] 53 % Normal (applies [facility] ( St in Body fluid by to non-numeric Jose D's Manual count results) [facility], ) Monocytes 7 % Normal (applies [facility] (St [#/volume] in to non-numeric Jose D's Cord blood results) [facility], ) Lymphs 38 % Normal (applies [facility] (St to non-numeric Jose D's results) [facility], ) Eos 2 % Normal (applies [facility] (St to non-numeric Jose D's results) [facility], ) Neutrophils 2.9 Normal (applies [facility] (St (Absolute) x10E3/uL to non-numeric Jose D's results) [facility], ) Basos 0 % Normal (applies [facility] (St to non-numeric Jose D's results) [facility], ) Lymphs 2.0 Normal (applies [facility] (St (Absolute) x10E3/uL to non-numeric Jose D's results) [facility], ) Monocytes(Absolu 0.4 Normal (applies [facility] (St te) x10E3/uL to non-numeric Jose D's results) Medical, ) Eos (Absolute) 0.1 Normal (applies [facility] (S t x10E3/uL to non-numeric Jose D's results) Medical, PC) Baso (Absolute) 0.0 Normal (applies [facility] ( St x10E3/uL to non-numeric Jose D's results) Medical, PC) Immature 0 % Normal (applies [facility] (St Granulocytes to non-numeric Jose D's results) Medical, PC) Immature Grans 0.0 Normal (applies [facility] (S t (Abs) x10E3/uL to non-numeric Jose D's results) Medical, PC) ID Date Data Source [id number] 02/08/2020 12:00:00 AM EDT [facility]) Name Value Range Interpretation Description Data Sup porting Code Source(s) Document(s ) Glucose 83 mg/dL Normal (applies [facility] (St [Mass/volume] in to non-numeric Jose D's Urine collected for results) Medical, unspecified PC) duration Urea nitrogen 16 mg/dL Normal (applies [facility] (St [Mass/volume] in to non-numeric Jose D's Serum or Plasma results) Medical, PC) eGFR If NonAfricn 96 Normal (applies [facility] (St Am mL/min/1 to non-numeric Jose D's .73 results) Medical, PC) Creatinine 0.77 Normal (applies [facility] (St [Interpretation] in mg/dL to non-numeric Jose D' s Urine results) Medical, PC) eGFR If Africn Am 110 Normal (applies [facility] (St mL/min/1 to non-numeric Jose D's .73 results) Medical, PC) BUN/Creatinine 21 Normal (applies [facility] (S t Ratio to non-numeric Jose D's results) Medical, PC) Sodium 139 Normal (applies [facility] (St [Moles/volume] in mmol/L to non-numeric Jose D's Serum or Plasma results) Medical, PC) Potassium 4.5 Normal (applies [facility] (St [Mass/volume] in mmol/L to non-numeric Jose D's Blood results) Medical, PC) Carbon dioxide, 25 Normal (applies [facility] ( St total mmol/L to non-numeric Jose D's [Moles/volume] in results) Medical, Serum or Plasma PC) Chloride 99 Normal (applies [facility] (St [Moles/volume] in mmol/L to non-numeric Jose D's Serum or Plasma results) Medical, PC) Calcium 9.5 Normal (applies [facility] (St [Moles/volume] in mg/dL to non-numeric Jose D's Urine collected for results) Medical, unspecified ) duration Protein 7.9 g/dL Normal (applies [facility] (St [Mass/volume] in to non-numeric Jose D's Serum or Plasma results) Medical, ) Microalbumin 4.2 g/dL Normal (applies [facility] (St [Mass/time] in to non-numeric Jose D's Urine collected for results) Medical, unspecified ) duration Globulin, Total 3.7 g/dL Normal (applies [facility] ( St to non-numeric Jose D's results) Medical, ) A/G Ratio 1.1 Below low normal [facility] ([facility], ) Bilirubin.total 0.3 Normal (applies [facility] ( St [Mass/volume] in mg/dL to non-numeric Jose D's Serum or Plasma results) Medical, ) Aspartate 15 IU/L Normal (applies [facility] (St aminotransferase to non-numeric Jose D's [Enzymatic results) Medical, activity/volume] in ) Serum or Plasma Alkaline 52 IU/L Normal (applies [facility] (St phosphatase to non-numeric Jose D's [Enzymatic results) Medical, activity/volume] in ) Serum, Plasma or Blood Alanine 10 IU/L Normal (applies [facility] (St aminotransferase to non-numeric Jose D's [Enzymatic results) Medical, activity/volume] in ) Serum or Plasma ID Date Data Source [id number] 02/08/2020 12:00:00 AM EDT [facility] ([facility], ) Name Value Range Interpretation Description Data Sup porting Code Source(s) Document(s ) Erythrocytes 4.74 Normal (applies [facility] (St [#/volume] in x10E6/uL to non-numeric Jose D's Blood by results) Medical, ) Automated count Leukocytes 5.2 Normal (applies [facility] (St [#/volume] in x10E3/uL to non-numeric Jose D's Blood by results) Medical, ) Automated count Hemoglobin 12.9 Normal (applies [facility] (St [Mass/volume] in g/dL to non-numeric Jose D's Blood results) [facility], ) Hematocrit 41.1 % Normal (applies [facility] (St [Volume to non-numeric Jose D's Fraction] of results) Medical, ) Blood by Automated count MCV 87 fL Normal (applies [facility] (St to non-numeric Jose D's results) [facility], ) MCH 27.2 pg Normal (applies [facility] (St to non-numeric Jose D's results) [facility], ) MCHC 31.4 Below low normal [facility] (St g/dL Jose D's [facility], ) RDW 13.1 % Normal (applies [facility] (St to non-numeric Jose D's results) [facility], ) Platelets 317 Normal (applies [facility] (St [#/area] in x10E3/uL to non-numeric Jose D's Blood by results) [facility], ) Microscopy high power field Neutrophils [#] 55 % Normal (applies [facility] ( St in Body fluid by to non-numeric Jose D's Manual count results) [facility], ) Lymphs 31 % Normal (applies [facility] (St to non-numeric Jose D's results) [facility], ) Monocytes 9 % Normal (applies [facility] (St [#/volume] in to non-numeric Jose D's Cord blood results) [facility], ) Eos 4 % Normal (applies [facility] (St to non-numeric Jose D's results) [facility], ) Basos 1 % Normal (applies [facility] (St to non-numeric Jose D's results) [facility], ) Neutrophils 2.9 Normal (applies [facility] (St (Absolute) x10E3/uL to non-numeric Jose D's results) [facility], ) Lymphs 1.6 Normal (applies [facility] (St (Absolute) x10E3/uL to non-numeric Jose D's results) [facility], ) Monocytes(Absolu 0.5 Normal (applies [facility] (St te) x10E3/uL to non-numeric Jose D's results) [facility], ) Baso (Absolute) 0.0 Normal (applies [facility] ( St x10E3/uL to non-numeric Jose D's results) [facility], ) Eos (Absolute) 0.2 Normal (applies [facility] (S t x10E3/uL to non-numeric Jose D's results) [facility], ) Immature 0 % Normal (applies [facility] (St Granulocytes to non-numeric Jose D's results) [facility], ) Immature Grans 0.0 Normal (applies [facility] (S t (Abs) x10E3/uL to non-numeric Jose D's results) [facility], ) ID Date Data Source [id number] 02/08/2020 12:00:00 AM EDT [facility]) Name Value Range Interpretation Description Data Sup porting Code Source(s) Document(s ) Glucose 83 mg/dL Normal (applies [facility] (St [Mass/volume] in to non-numeric Jose D's Urine collected for results) Medical, unspecified PC) duration Urea nitrogen 16 mg/dL Normal (applies [facility] (St [Mass/volume] in to non-numeric Jose D's Serum or Plasma results) Medical, PC) Creatinine 0.77 Normal (applies [facility] (St [Interpretation] in mg/dL to non-numeric Jose D' s Urine results) Medical, PC) eGFR If NonAfricn 96 Normal (applies [facility] (St Am mL/min/1 to non-numeric Jose D's .73 results) Medical, PC) eGFR If Africn Am 110 Normal (applies [facility] (St mL/min/1 to non-numeric Jose D's .73 results) Medical, PC) BUN/Creatinine 21 Normal (applies [facility] (S t Ratio to non-numeric Jose D's results) Medical, PC) Potassium 4.5 Normal (applies [facility] (St [Mass/volume] in mmol/L to non-numeric Jose D's Blood results) Medical, PC) Sodium 139 Normal (applies [facility] (St [Moles/volume] in mmol/L to non-numeric Jose D's Serum or Plasma results) Medical, PC) Chloride 99 Normal (applies [facility] (St [Moles/volume] in mmol/L to non-numeric Jose D's Serum or Plasma results) Medical, PC) Calcium 9.5 Normal (applies [facility] (St [Moles/volume] in mg/dL to non-numeric Jose D's Urine collected for results) Medical, unspecified PC) duration Carbon dioxide, 25 Normal (applies [facility] ( St total mmol/L to non-numeric Jose D's [Moles/volume] in results) Medical, Serum or Plasma PC) Protein 7.9 g/dL Normal (applies [facility] (St [Mass/volume] in to non-numeric Jose D's Serum or Plasma results) Medical, PC) Microalbumin 4.2 g/dL Normal (applies [facility] (St [Mass/time] in to non-numeric Jose D's Urine collected for results) Medical, unspecified PC) duration A/G Ratio 1.1 Below low normal [facility] ([facility], ) Globulin, Total 3.7 g/dL Normal (applies [facility] ( St to non-numeric Jose D's results) [facility]) Bilirubin.total 0.3 Normal (applies [facility] ( St [Mass/volume] in mg/dL to non-numeric Jose D's Serum or Plasma results) [facility], ) Alkaline 52 IU/L Normal (applies [facility] (St phosphatase to non-numeric Jose D's [Enzymatic results) Medical, activity/volume] in ) Serum, Plasma or Blood Aspartate 15 IU/L Normal (applies [facility] (St aminotransferase to non-numeric Jose D's [Enzymatic results) Medical, activity/volume] in ) Serum or Plasma Alanine 10 IU/L Normal (applies [facility] (St aminotransferase to non-numeric Jose D's [Enzymatic results) Medical, activity/volume] in ) Serum or Plasma ID Date Data Source [id number] 02/08/2020 12:00:00 AM EDT [facility] ([facility], ) Name Value Range Interpretation Description Data Sup porting Code Source(s) Document(s ) Leukocytes 5.2 Normal (applies [facility] (St [#/volume] in x10E3/uL to non-numeric Jose D's Blood by results) [facility], ) Automated count Erythrocytes 4.74 Normal (applies [facility] (St [#/volume] in x10E6/uL to non-numeric Jose D's Blood by results) [facility]) Automated count Hemoglobin 12.9 Normal (applies [facility] (St [Mass/volume] in g/dL to non-numeric Jose D's Blood results) [facility], ) Hematocrit 41.1 % Normal (applies [facility] (St [Volume to non-numeric Jose D's Fraction] of results) [facility], ) Blood by Automated count MCH 27.2 pg Normal (applies [facility] (St to non-numeric Jose D's results) [facility]) MCV 87 fL Normal (applies [facility] (St to non-numeric Jose D's results) [facility]) MCHC 31.4 Below low normal [facility] (St g/dL Jose D's [facility], ) Platelets 317 Normal (applies [facility] (St [#/area] in x10E3/uL to non-numeric Jose D's Blood by results) [facility]) Microscopy high power field RDW 13.1 % Normal (applies [facility] (St to non-numeric Jose D's results) Medical, ) Neutrophils [#] 55 % Normal (applies [facility] ( St in Body fluid by to non-numeric Jose D's Manual count results) Medical, ) Lymphs 31 % Normal (applies [facility] (St to non-numeric Jose D's results) Medical, ) Eos 4 % Normal (applies [facility] (St to non-numeric Jose D's results) Medical, ) Monocytes 9 % Normal (applies [facility] (St [#/volume] in to non-numeric Jose D's Cord blood results) Medical, ) Basos 1 % Normal (applies [facility] (St to non-numeric Jose D's results) Medical, ) Lymphs 1.6 Normal (applies [facility] (St (Absolute) x10E3/uL to non-numeric Jose D's results) Medical, ) Neutrophils 2.9 Normal (applies [facility] (St (Absolute) x10E3/uL to non-numeric Jose D's results) Medical, PC) Monocytes(Absolu 0.5 Normal (applies [facility] (St te) x10E3/uL to non-numeric Jose D's results) Medical, ) Eos (Absolute) 0.2 Normal (applies [facility] (S t x10E3/uL to non-numeric Jose D's results) Medical, PC) Baso (Absolute) 0.0 Normal (applies [facility] ( St x10E3/uL to non-numeric Jose [facility]'s results) Medical, ) Immature 0 % Normal (applies [facility] (St Granulocytes to non-numeric [facility] results) Medical, ) Immature Grans 0.0 Normal (applies [facility] (S t (Abs) x10E3/uL to non-numeric [facility] results) Medical, ) ID Date Data Source [id number] 02/08/2020 12:00:00 AM EDT [facility] ([facility], ) Name Value Range Interpretation Description Data Sup porting Code Source(s) Document(s ) Glucose 83 mg/dL Normal (applies [facility] (St [Mass/volume] in to non-numeric [facility] Urine collected for results) [facility] ) duration Urea nitrogen 16 mg/dL Normal (applies [facility] (St [Mass/volume] in to non-numeric Jose [facility] Serum or Plasma results) Medical, PC) Creatinine 0.77 Normal (applies [facility] (St [Interpretation] in mg/dL to non-numeric Jose D' s Urine results) Medical, PC) eGFR If Africn Am 110 Normal (applies [facility] (St mL/min/1 to non-numeric Jose D's .73 results) Medical, PC) eGFR If NonAfricn 96 Normal (applies [facility] (St Am mL/min/1 to non-numeric Jose D's .73 results) Medical, PC) Sodium 139 Normal (applies [facility] (St [Moles/volume] in mmol/L to non-numeric Jose [facility] Serum or Plasma results) Medical, PC) BUN/Creatinine 21 Normal (applies [facility] (S t Ratio to non-numeric [facility] results) Medical, PC) Potassium 4.5 Normal (applies [facility] (St [Mass/volume] in mmol/L to non-numeric [facility] Blood results) Medical, PC) Carbon dioxide, 25 Normal (applies [facility] ( St total mmol/L to non-numeric Jose D's [Moles/volume] in results) Medical, Serum or Plasma PC) Chloride 99 Normal (applies [facility] (St [Moles/volume] in mmol/L to non-numeric [facility] Serum or Plasma results) Medical, PC) Calcium 9.5 Normal (applies [facility] (St [Moles/volume] in mg/dL to non-numeric [facility] Urine collected for results) Medical, unspecified PC) duration Protein 7.9 g/dL Normal (applies [facility] (St [Mass/volume] in to non-numeric Jose [facility]'s Serum or Plasma results) Medical, PC) Microalbumin 4.2 g/dL Normal (applies [facility] (St [Mass/time] in to non-numeric [facility] Urine collected for results) Medical, unspecified PC) duration Globulin, Total 3.7 g/dL Normal (applies [facility] ( St to non-numeric [facility]'s results) Medical, PC) A/G Ratio 1.1 Below low normal [facility] ([facility], [facility]) Bilirubin.total 0.3 Normal (applies [facility] ( St [Mass/volume] in mg/dL to non-numeric Jose [facility]'s Serum or Plasma results) Medical, PC) Alkaline 52 IU/L Normal (applies [facility] (St phosphatase to non-numeric Jose D's [Enzymatic results) Medical, activity/volume] in ) Serum, Plasma or Blood Aspartate 15 IU/L Normal (applies [facility] (St aminotransferase to non-numeric Jose D's [Enzymatic results) Medical, activity/volume] in ) Serum or Plasma Alanine 10 IU/L Normal (applies [facility] (St aminotransferase to non-numeric Jose D's [Enzymatic results) Medical, activity/volume] in ) Serum or Plasma ID Date Data Source [id number] 02/08/2020 12:00:00 AM EDT [facility] ([facility], ) Name Value Range Interpretation Description Data Sup porting Code Source(s) Document(s ) Leukocytes 5.2 Normal (applies [facility] (St [#/volume] in x10E3/uL to non-numeric Jose D's Blood by results) [facility], ) Automated count Erythrocytes 4.74 Normal (applies [facility] (St [#/volume] in x10E6/uL to non-numeric Jose D's Blood by results) [facility], ) Automated count Hematocrit 41.1 % Normal (applies [facility] (St [Volume to non-numeric Jose D's Fraction] of results) [facility], ) Blood by Automated count Hemoglobin 12.9 Normal (applies [facility] (St [Mass/volume] in g/dL to non-numeric Jose D's Blood results) [facility], ) MCH 27.2 pg Normal (applies [facility] (St to non-numeric Jose D's results) [facility], ) MCV 87 fL Normal (applies [facility] (St to non-numeric Jose D's results) [facility], ) MCHC 31.4 Below low normal [facility] (St g/dL Jose D's [facility], ) Platelets 317 Normal (applies [facility] (St [#/area] in x10E3/uL to non-numeric Jose [facility]'s Blood by results) Medical, ) Microscopy high power field RDW 13.1 % Normal (applies [facility] (St to non-numeric Jose D's results) [facility], ) Neutrophils [#] 55 % Normal (applies [facility] ( St in Body fluid by to non-numeric Jose D's Manual count results) [facility], ) Lymphs 31 % Normal (applies [facility] (St to non-numeric Jose D's results) [facility], ) Eos 4 % Normal (applies [facility] (St to non-numeric [facility]'s results) Medical, ) Monocytes 9 % Normal (applies [facility] (St [#/volume] in to non-numeric Jose D's Cord blood results) Medical, ) Basos 1 % Normal (applies [facility] (St to non-numeric Jose [facility]'s results) Medical, ) Lymphs 1.6 Normal (applies [facility] (St (Absolute) x10E3/uL to non-numeric Jose [facility]'s results) Medical, ) Neutrophils 2.9 Normal (applies [facility] (St (Absolute) x10E3/uL to non-numeric [facility]'s results) Medical, ) Eos (Absolute) 0.2 Normal (applies [facility] (S t x10E3/uL to non-numeric [facility]'s results) Medical, ) Monocytes(Absolu 0.5 Normal (applies [facility] (St te) x10E3/uL to non-numeric [facility]'s results) Medical, ) Baso (Absolute) 0.0 Normal (applies [facility] ( St x10E3/uL to non-numeric [facility] results) Medical, ) Immature Grans 0.0 Normal (applies [facility] (S t (Abs) x10E3/uL to non-numeric [facility] results) Medical, ) Immature 0 % Normal (applies [facility] (St Granulocytes to non-numeric [facility]'s results) Medical, ) ID Date Data Source [id number] 02/08/2020 12:00:00 AM EDT [facility] ([facility], ) Name Value Range Interpretation Description Data Sup porting Code Source(s) Document(s ) Glucose 83 mg/dL Normal (applies [facility] (St [Mass/volume] in to non-numeric Jose [facility]'s Urine collected for results) Medical, unspecified ) duration Urea nitrogen 16 mg/dL Normal (applies [facility] (St [Mass/volume] in to non-numeric Jose [facility]'s Serum or Plasma results) Medical, ) Creatinine 0.77 Normal (applies [facility] (St [Interpretation] in mg/dL to non-numeric Jose D' s Urine results) Medical, ) eGFR If NonAfricn 96 Normal (applies [facility] (St Am mL/min/1 to non-numeric Jose D's .73 results) Medical, ) BUN/Creatinine 21 Normal (applies [facility] (S t Ratio to non-numeric Jose [facility]'s results) Medical, ) eGFR If Africn Am 110 Normal (applies [facility] (St mL/min/1 to non-numeric Jose D's .73 results) Medical, PC) Sodium 139 Normal (applies [facility] (St [Moles/volume] in mmol/L to non-numeric Jose [facility]'s Serum or Plasma results) Medical, PC) Potassium 4.5 Normal (applies [facility] (St [Mass/volume] in mmol/L to non-numeric Jose [facility] Blood results) Medical, PC) Chloride 99 Normal (applies [facility] (St [Moles/volume] in mmol/L to non-numeric Jose [facility]'s Serum or Plasma results) Medical, PC) Carbon dioxide, 25 Normal (applies [facility] ( St total mmol/L to non-numeric Jose D's [Moles/volume] in results) Medical, Serum or Plasma PC) Protein 7.9 g/dL Normal (applies [facility] (St [Mass/volume] in to non-numeric Jose [facility]'s Serum or Plasma results) Medical, PC) Calcium 9.5 Normal (applies [facility] (St [Moles/volume] in mg/dL to non-numeric Jose [facility]'s Urine collected for results) Medical, unspecified PC) duration Microalbumin 4.2 g/dL Normal (applies [facility] (St [Mass/time] in to non-numeric Jose [facility]'s Urine collected for results) Medical, unspecified PC) duration Globulin, Total 3.7 g/dL Normal (applies [facility] ( St to non-numeric Jose D's results) Medical, PC) A/G Ratio 1.1 Below low normal [facility] ([facility], ) Bilirubin.total 0.3 Normal (applies [facility] ( St [Mass/volume] in mg/dL to non-numeric Jose [facility]'s Serum or Plasma results) Medical, PC) Alkaline 52 IU/L Normal (applies [facility] (St phosphatase to non-numeric Jose D's [Enzymatic results) Medical, activity/volume] in PC) Serum, Plasma or Blood Aspartate 15 IU/L Normal (applies [facility] (St aminotransferase to non-numeric Jose D's [Enzymatic results) Medical, activity/volume] in PC) Serum or Plasma Alanine 10 IU/L Normal (applies [facility] (St aminotransferase to non-numeric Jose D's [Enzymatic results) Medical, activity/volume] in PC) Serum or Plasma ID Date Data Source [id number] 02/08/2020 12:00:00 AM EDT [facility] ([facility], ) Name Value Range Interpretation Description Data Sup porting Code Source(s) Document(s ) Leukocytes 5.2 Normal (applies [facility] (St [#/volume] in x10E3/uL to non-numeric Jose D's Blood by results) Medical, ) Automated count Erythrocytes 4.74 Normal (applies [facility] (St [#/volume] in x10E6/uL to non-numeric Jose D's Blood by results) Medical, ) Automated count Hemoglobin 12.9 Normal (applies [facility] (St [Mass/volume] in g/dL to non-numeric Jose D's Blood results) Medical, ) Hematocrit 41.1 % Normal (applies [facility] (St [Volume to non-numeric Jose D's Fraction] of results) [facility], ) Blood by Automated count MCV 87 fL Normal (applies [facility] (St to non-numeric Jose D's results) [facility], ) MCH 27.2 pg Normal (applies [facility] (St to non-numeric Jose D's results) [facility], ) MCHC 31.4 Below low normal [facility] (St g/dL Jose D's [facility], ) RDW 13.1 % Normal (applies [facility] (St to non-numeric Jose D's results) Medical, ) Platelets 317 Normal (applies [facility] (St [#/area] in x10E3/uL to non-numeric Jose D's Blood by results) [facility], ) Microscopy high power field Neutrophils [#] 55 % Normal (applies [facility] ( St in Body fluid by to non-numeric Jose D's Manual count results) Medical, ) Lymphs 31 % Normal (applies [facility] (St to non-numeric Jose D's results) Medical, ) Monocytes 9 % Normal (applies [facility] (St [#/volume] in to non-numeric Jose D's Cord blood results) [facility], ) Eos 4 % Normal (applies [facility] (St to non-numeric Jose D's results) [facility], ) Basos 1 % Normal (applies [facility] (St to non-numeric Jose D's results) [facility], ) Neutrophils 2.9 Normal (applies [facility] (St (Absolute) x10E3/uL to non-numeric Jose D's results) Medical, ) Lymphs 1.6 Normal (applies [facility] (St (Absolute) x10E3/uL to non-numeric Jose D's results) Medical, PC) Monocytes(Absolu 0.5 Normal (applies [facility] (St te) x10E3/uL to non-numeric Jose D's results) Medical, PC) Eos (Absolute) 0.2 Normal (applies [facility] (S t x10E3/uL to non-numeric Jose D's results) Medical, PC) Baso (Absolute) 0.0 Normal (applies [facility] ( St x10E3/uL to non-numeric Jose D's results) Medical, PC) Immature 0 % Normal (applies [facility] (St Granulocytes to non-numeric Jose D's results) Medical, PC) Immature Grans 0.0 Normal (applies [facility] (S t (Abs) x10E3/uL to non-numeric Jose D's results) Medical, PC) ID Date Data Source [id number] 02/08/2020 12:00:00 AM EDT [facility] ([facility]) Name Value Range Interpretation Description Data Sup porting Code Source(s) Document(s ) Glucose 83 mg/dL Normal (applies [facility] (St [Mass/volume] in to non-numeric Jose D's Urine collected for results) Medical, unspecified PC) duration Creatinine 0.77 Normal (applies [facility] (St [Interpretation] in mg/dL to non-numeric Jose D' s Urine results) Medical, PC) Urea nitrogen 16 mg/dL Normal (applies [facility] (St [Mass/volume] in to non-numeric Jose D's Serum or Plasma results) Medical, PC) eGFR If NonAfricn 96 Normal (applies [facility] (St Am mL/min/1 to non-numeric Jose D's .73 results) Medical, PC) BUN/Creatinine 21 Normal (applies [facility] (S t Ratio to non-numeric Jose D's results) Medical, PC) eGFR If Africn Am 110 Normal (applies [facility] (St mL/min/1 to non-numeric Jose D's .73 results) Medical, PC) Sodium 139 Normal (applies [facility] (St [Moles/volume] in mmol/L to non-numeric Jose D's Serum or Plasma results) Medical, PC) Potassium 4.5 Normal (applies [facility] (St [Mass/volume] in mmol/L to non-numeric Jose D's Blood results) Medical, PC) Chloride 99 Normal (applies [facility] (St [Moles/volume] in mmol/L to non-numeric Jose D's Serum or Plasma results) Medical, ) Carbon dioxide, 25 Normal (applies [facility] ( St total mmol/L to non-numeric Jose D's [Moles/volume] in results) Medical, Serum or Plasma PC) Calcium 9.5 Normal (applies [facility] (St [Moles/volume] in mg/dL to non-numeric Jose D's Urine collected for results) Medical, unspecified ) duration Protein 7.9 g/dL Normal (applies [facility] (St [Mass/volume] in to non-numeric Jose D's Serum or Plasma results) Medical, ) Microalbumin 4.2 g/dL Normal (applies [facility] (St [Mass/time] in to non-numeric Jose D's Urine collected for results) Medical, unspecified ) duration Globulin, Total 3.7 g/dL Normal (applies [facility] ( St to non-numeric Jose D's results) Medical, ) A/G Ratio 1.1 Below low normal [facility] ([facility], ) Bilirubin.total 0.3 Normal (applies [facility] ( St [Mass/volume] in mg/dL to non-numeric Jose D's Serum or Plasma results) Medical, ) Alkaline 52 IU/L Normal (applies [facility] (St phosphatase to non-numeric Jose D's [Enzymatic results) Medical, activity/volume] in PC) Serum, Plasma or Blood Aspartate 15 IU/L Normal (applies [facility] (St aminotransferase to non-numeric Jose D's [Enzymatic results) Medical, activity/volume] in PC) Serum or Plasma Alanine 10 IU/L Normal (applies [facility] (St aminotransferase to non-numeric Jose D's [Enzymatic results) Medical, activity/volume] in PC) Serum or Plasma ID Date Data Source [id number] 02/08/2020 12:00:00 AM EDT [facility] ([facility], ) Name Value Range Interpretation Description Data Sup porting Code Source(s) Document(s ) Leukocytes 5.2 Normal (applies [facility] (St [#/volume] in x10E3/uL to non-numeric Jose D's Blood by results) Medical, ) Automated count Erythrocytes 4.74 Normal (applies [facility] (St [#/volume] in x10E6/uL to non-numeric Jose D's Blood by results) Medical, ) Automated count Hemoglobin 12.9 Normal (applies [facility] (St [Mass/volume] in g/dL to non-numeric Jose D's Blood results) [facility], ) Hematocrit 41.1 % Normal (applies [facility] (St [Volume to non-numeric Jose D's Fraction] of results) [facility], ) Blood by Automated count MCV 87 fL Normal (applies [facility] (St to non-numeric Jose D's results) [facility], ) MCHC 31.4 Below low normal [facility] (St g/dL Jose D's [facility], ) MCH 27.2 pg Normal (applies [facility] (St to non-numeric Jose D's results) [facility], ) Platelets 317 Normal (applies [facility] (St [#/area] in x10E3/uL to non-numeric Jose D's Blood by results) [facility], ) Microscopy high power field RDW 13.1 % Normal (applies [facility] (St to non-numeric Jose D's results) [facility], ) Neutrophils [#] 55 % Normal (applies [facility] ( St in Body fluid by to non-numeric Jose D's Manual count results) [facility], ) Lymphs 31 % Normal (applies [facility] (St to non-numeric Jose D's results) [facility], ) Monocytes 9 % Normal (applies [facility] (St [#/volume] in to non-numeric Jose D's Cord blood results) [facility], ) Eos 4 % Normal (applies [facility] (St to non-numeric Jose D's results) [facility], ) Basos 1 % Normal (applies [facility] (St to non-numeric Jose D's results) [facility], ) Neutrophils 2.9 Normal (applies [facility] (St (Absolute) x10E3/uL to non-numeric Jose D's results) [facility], ) Lymphs 1.6 Normal (applies [facility] (St (Absolute) x10E3/uL to non-numeric Jose D's results) [facility], ) Monocytes(Absolu 0.5 Normal (applies [facility] (St te) x10E3/uL to non-numeric Jose D's results) [facility], ) Eos (Absolute) 0.2 Normal (applies [facility] (S t x10E3/uL to non-numeric Jose D's results) [facility], ) Immature 0 % Normal (applies [facility] (St Granulocytes to non-numeric Jose D's results) [facility], ) Baso (Absolute) 0.0 Normal (applies [facility] ( St x10E3/uL to non-numeric Jose D's results) Medical, PC) Immature Grans 0.0 Normal (applies [facility] (S t (Abs) x10E3/uL to non-numeric Jose D's results) Medical, PC) ID Date Data Source [id number] 02/08/2020 12:00:00 AM EDT [facility] ([facility]) Name Value Range Interpretation Description Data Sup porting Code Source(s) Document(s ) Urea nitrogen 16 mg/dL Normal (applies [facility] (St [Mass/volume] in to non-numeric Jose D's Serum or Plasma results) Medical, PC) Glucose 83 mg/dL Normal (applies [facility] (St [Mass/volume] in to non-numeric Jose D's Urine collected for results) Medical, unspecified PC) duration Creatinine 0.77 Normal (applies [facility] (St [Interpretation] in mg/dL to non-numeric Jose D' s Urine results) Medical, PC) eGFR If NonAfricn 96 Normal (applies [facility] (St Am mL/min/1 to non-numeric Jose D's .73 results) Medical, PC) eGFR If Africn Am 110 Normal (applies [facility] (St mL/min/1 to non-numeric Jose D's .73 results) Medical, PC) BUN/Creatinine 21 Normal (applies [facility] (S t Ratio to non-numeric Jose D's results) Medical, PC) Sodium 139 Normal (applies [facility] (St [Moles/volume] in mmol/L to non-numeric Jose D's Serum or Plasma results) Medical, PC) Potassium 4.5 Normal (applies [facility] (St [Mass/volume] in mmol/L to non-numeric Jose D's Blood results) Medical, PC) Chloride 99 Normal (applies [facility] (St [Moles/volume] in mmol/L to non-numeric Jose D's Serum or Plasma results) Medical, PC) Calcium 9.5 Normal (applies [facility] (St [Moles/volume] in mg/dL to non-numeric Jose D's Urine collected for results) Medical, unspecified PC) duration Carbon dioxide, 25 Normal (applies [facility] ( St total mmol/L to non-numeric Jose D's [Moles/volume] in results) Medical, Serum or Plasma PC) Protein 7.9 g/dL Normal (applies [facility] (St [Mass/volume] in to non-numeric Jose D's Serum or Plasma results) [facility], ) Microalbumin 4.2 g/dL Normal (applies [facility] (St [Mass/time] in to non-numeric Jose D's Urine collected for results) [facility], unspecified ) duration A/G Ratio 1.1 Below low normal [facility] ([facility], ) Globulin, Total 3.7 g/dL Normal (applies [facility] ( St to non-numeric Jose D's results) [facility], ) Alkaline 52 IU/L Normal (applies [facility] (St phosphatase to non-numeric Jose D's [Enzymatic results) Medical, activity/volume] in ) Serum, Plasma or Blood Bilirubin.total 0.3 Normal (applies [facility] ( St [Mass/volume] in mg/dL to non-numeric Jose D's Serum or Plasma results) [facility], ) Aspartate 15 IU/L Normal (applies [facility] (St aminotransferase to non-numeric Jose D's [Enzymatic results) Medical, activity/volume] in ) Serum or Plasma Alanine 10 IU/L Normal (applies [facility] (St aminotransferase to non-numeric Jose D's [Enzymatic results) Medical, activity/volume] in ) Serum or Plasma ID Date Data Source [id number] 02/08/2020 12:00:00 AM EDT [facility] ([facility], ) Name Value Range Interpretation Description Data Sup porting Code Source(s) Document(s ) Leukocytes 5.2 Normal (applies [facility] (St [#/volume] in x10E3/uL to non-numeric Jose D's Blood by results) [facility], ) Automated count Hemoglobin 12.9 Normal (applies [facility] (St [Mass/volume] in g/dL to non-numeric Jose D's Blood results) [facility], ) Erythrocytes 4.74 Normal (applies [facility] (St [#/volume] in x10E6/uL to non-numeric Jose D's Blood by results) [facility], ) Automated count MCV 87 fL Normal (applies [facility] (St to non-numeric Jose D's results) [facility], ) Hematocrit 41.1 % Normal (applies [facility] (St [Volume to non-numeric Jose D's Fraction] of results) [facility], ) Blood by Automated count MCH 27.2 pg Normal (applies [facility]GEN (St to non-numeric Jose D's results) [facility], ) MCHC 31.4 Below low normal [facility] (St g/dL Jose D's [facility], ) Platelets 317 Normal (applies [facility]GEN (St [#/area] in x10E3/uL to non-numeric Jose D's Blood by results) [facility], ) Microscopy high power field RDW 13.1 % Normal (applies [facility] (St to non-numeric Jose D's results) [facility], ) Neutrophils [#] 55 % Normal (applies [facility] ( St in Body fluid by to non-numeric Jose D's Manual count results) [facility], ) Lymphs 31 % Normal (applies MEDGEN (St to non-numeric Jose D's results) [facility], ) Eos 4 % Normal (applies [facility]GEN (St to non-numeric Jose D's results) [facility], ) Monocytes 9 % Normal (applies [facility]GEN (St [#/volume] in to non-numeric Jose D's Cord blood results) [facility], ) Neutrophils 2.9 Normal (applies [facility] (St (Absolute) x10E3/uL to non-numeric Jose D's results) [facility], ) Basos 1 % Normal (applies [facility] (St to non-numeric Jose D's results) [facility], ) Lymphs 1.6 Normal (applies [facility] (St (Absolute) x10E3/uL to non-numeric Jose D's results) [facility], ) Monocytes(Absolu 0.5 Normal (applies MEDGEN (St te) x10E3/uL to non-numeric Jose D's results) [facility], ) Eos (Absolute) 0.2 Normal (applies [facility]GEN (S t x10E3/uL to non-numeric Jose D's results) [facility], ) Immature 0 % Normal (applies [facility] (St Granulocytes to non-numeric Jose D's results) [facility], ) Baso (Absolute) 0.0 Normal (applies [facility] ( St x10E3/uL to non-numeric Jose D's results) [facility], ) Immature Grans 0.0 Normal (applies [facility] (S t (Abs) x10E3/uL to non-numeric Jose D's results) [facility], ) ID Date Data Source [id number] 01/20/2020 10:00:00 AM EDT [facility] Name Value Range Interpretation Description Data Sup porting Code Source(s) Document(s ) SARS [facility] CORONAVIRUS 2 RNA This lab was ordered by [facility] and reported by [facility]. ID Date Data Source [id number] 01/11/2020 12:00:00 AM EDT [facility] ([facility] Name Value Range Interpretation Code Description Data Valerie rce(s) Supporting Document(s ) C-Reactive 33 mg/L Above high normal [facility] (St Protein, [facility], ) ID Date Data Source [id number] 01/11/2020 12:00:00 AM EDT [facility] ([facility]) Name Value Range Interpretation Description Data Sup porting Code Source(s) Document(s ) Erythrocytes 4.65 Normal (applies [facility] (St [#/volume] in x10E6/uL to non-numeric Jose [facility]'s Blood by results) Medical, ) Automated count Leukocytes 7.8 Normal (applies [facility] (St [#/volume] in x10E3/uL to non-numeric Jose [facility]'s Blood by results) Medical, ) Automated count Hemoglobin 12.9 Normal (applies [facility] (St [Mass/volume] in g/dL to non-numeric Jose D's Blood results) Medical, ) MCV 87 fL Normal (applies [facility] (St to non-numeric Jose D's results) Medical, ) Hematocrit 40.6 % Normal (applies [facility] (St [Volume to non-numeric Jose D's Fraction] of results) Medical, ) Blood by Automated count MCH 27.7 pg Normal (applies [facility]GEN (St to non-numeric Jose D's results) Medical, ) MCHC 31.8 Normal (applies [facility] (St g/dL to non-numeric Jose D's results) Medical, ) RDW 13.6 % Normal (applies [facility] (St to non-numeric Jose D's results) Medical, ) Platelets 427 Normal (applies MEDGEN (St [#/area] in x10E3/uL to non-numeric Jose D's Blood by results) Medical, ) Microscopy high power field Neutrophils [#] 64 % Normal (applies [facility]GEN ( St in Body fluid by to non-numeric Jose D's Manual count results) Medical, ) Lymphs 24 % Normal (applies [facility] (St to non-numeric Jose D's results) Medical, ) Monocytes 10 % Normal (applies [facility]GEN (St [#/volume] in to non-numeric Jose D's Cord blood results) Medical, ) Basos 0 % Normal (applies [facility]GEN (St to non-numeric Jose D's results) Medical, ) Eos 2 % Normal (applies [facility] (St to non-numeric Jose D's results) Medical, PC) Lymphs 1.8 Normal (applies [facility] (St (Absolute) x10E3/uL to non-numeric Jose D's results) Medical, PC) Neutrophils 5.0 Normal (applies [facility] (St (Absolute) x10E3/uL to non-numeric Jose D's results) Medical, PC) Monocytes(Absolu 0.7 Normal (applies [facility] (St te) x10E3/uL to non-numeric Jose D's results) Medical, ) Baso (Absolute) 0.0 Normal (applies [facility] ( St x10E3/uL to non-numeric Jose D's results) Medical, PC) Eos (Absolute) 0.2 Normal (applies [facility] (S t x10E3/uL to non-numeric Jose D's results) Medical, ) Immature 0 % Normal (applies [facility] (St Granulocytes to non-numeric Jose D's results) Medical, ) Immature Grans 0.0 Normal (applies [facility] (S t (Abs) x10E3/uL to non-numeric Jose D's results) Medical, ) ID Date Data Source [id number] 01/11/2020 12:00:00 AM EDT [facility] ([facility], ) Name Value Range Interpretation Description Data Sup porting Code Source(s) Document(s ) Glucose 83 mg/dL Normal (applies [facility] (St [Mass/volume] in to non-numeric Jose D's Urine collected for results) Medical, unspecified PC) duration Creatinine 0.75 Normal (applies [facility] (St [Interpretation] in mg/dL to non-numeric Jose D' s Urine results) Medical, ) Urea nitrogen 13 mg/dL Normal (applies [facility] (St [Mass/volume] in to non-numeric Jose D's Serum or Plasma results) Medical, ) eGFR If NonAfricn 99 Normal (applies [facility] (St Am mL/min/1 to non-numeric Jose D's .73 results) Medical, PC) eGFR If Africn Am 114 Normal (applies [facility] (St mL/min/1 to non-numeric Jose D's .73 results) Medical, PC) BUN/Creatinine 17 Normal (applies [facility] (S t Ratio to non-numeric Jose D's results) Medical, PC) Sodium 140 Normal (applies [facility] (St [Moles/volume] in mmol/L to non-numeric Jose D's Serum or Plasma results) Medical, PC) Potassium 4.4 Normal (applies [facility] (St [Mass/volume] in mmol/L to non-numeric Jose D's Blood results) Medical, PC) Chloride 101 Normal (applies [facility] (St [Moles/volume] in mmol/L to non-numeric Jose D's Serum or Plasma results) Medical, PC) Carbon dioxide, 27 Normal (applies [facility] ( St total mmol/L to non-numeric Jose D's [Moles/volume] in results) Medical, Serum or Plasma PC) Protein 7.4 g/dL Normal (applies [facility] (St [Mass/volume] in to non-numeric Jose D's Serum or Plasma results) Medical, PC) Calcium 9.7 Normal (applies [facility] (St [Moles/volume] in mg/dL to non-numeric Jose D's Urine collected for results) Medical, unspecified PC) duration Microalbumin 4.1 g/dL Normal (applies [facility] (St [Mass/time] in to non-numeric Jose D's Urine collected for results) Medical, unspecified PC) duration Globulin, Total 3.3 g/dL Normal (applies [facility] ( St to non-numeric Jose D's results) Medical, PC) A/G Ratio 1.2 Normal (applies [facility] (St to non-numeric Jose D's results) Medical, PC) Bilirubin.total 0.3 Normal (applies [facility] ( St [Mass/volume] in mg/dL to non-numeric Jose D's Serum or Plasma results) Medical, PC) Alkaline 72 IU/L Normal (applies [facility] (St phosphatase to non-numeric Jose D's [Enzymatic results) Medical, activity/volume] in PC) Serum, Plasma or Blood Aspartate 10 IU/L Normal (applies [facility] (St aminotransferase to non-numeric Jose D's [Enzymatic results) Medical, activity/volume] in PC) Serum or Plasma Alanine 8 IU/L Normal (applies [facility] (St aminotransferase to non-numeric Jose D's [Enzymatic results) Medical, activity/volume] in PC) Serum or Plasma ID Date Data Source [id number] 01/11/2020 12:00:00 AM EDT [facility], ) Name Value Range Interpretation Code Description Data Valerie rce(s) Supporting Document(s ) C-Reactive 33 mg/L Above high normal [facility] (St Protein, Jose D[facility] Quant Medical, ) ID Date Data Source [id number] 01/11/2020 12:00:00 AM EDT [facility] ([facility], ) Name Value Range Interpretation Description Data Sup porting Code Source(s) Document(s ) Leukocytes 7.8 Normal (applies [facility] (St [#/volume] in x10E3/uL to non-numeric Jose D's Blood by results) Medical, ) Automated count Erythrocytes 4.65 Normal (applies [facility] (St [#/volume] in x10E6/uL to non-numeric Jose D's Blood by results) Medical, ) Automated count Hemoglobin 12.9 Normal (applies [facility] (St [Mass/volume] in g/dL to non-numeric Jose D's Blood results) Medical, ) Hematocrit 40.6 % Normal (applies [facility] (St [Volume to non-numeric Jose D's Fraction] of results) Medical, ) Blood by Automated count MCV 87 fL Normal (applies [facility] (St to non-numeric Jose D's results) Medical, ) MCH 27.7 pg Normal (applies [facility] (St to non-numeric Jose D's results) Medical, ) RDW 13.6 % Normal (applies [facility] (St to non-numeric Jose D's results) Medical, ) MCHC 31.8 Normal (applies [facility] (St g/dL to non-numeric Jose D's results) [facility], ) Platelets 427 Normal (applies [facility] (St [#/area] in x10E3/uL to non-numeric Jose D's Blood by results) Medical, ) Microscopy high power field Lymphs 24 % Normal (applies [facility] (St to non-numeric Jose D's results) Medical, ) Neutrophils [#] 64 % Normal (applies [facility] ( St in Body fluid by to non-numeric Jose D's Manual count results) Medical, ) Monocytes 10 % Normal (applies [facility] (St [#/volume] in to non-numeric Jose D's Cord blood results) Medical, ) Basos 0 % Normal (applies [facility] (St to non-numeric Jose D's results) Medical, PC) Eos 2 % Normal (applies [facility] (St to non-numeric Jose D's results) Medical, PC) Neutrophils 5.0 Normal (applies [facility] (St (Absolute) x10E3/uL to non-numeric Jose D's results) Medical, PC) Monocytes(Absolu 0.7 Normal (applies [facility] (St te) x10E3/uL to non-numeric Jose D's results) Medical, PC) Lymphs 1.8 Normal (applies [facility] (St (Absolute) x10E3/uL to non-numeric Jose D's results) Medical, PC) Eos (Absolute) 0.2 Normal (applies [facility] (S t x10E3/uL to non-numeric Jose D's results) Medical, PC) Baso (Absolute) 0.0 Normal (applies [facility] ( St x10E3/uL to non-numeric Jose D's results) Medical, PC) Immature 0 % Normal (applies [facility] (St Granulocytes to non-numeric Jose D's results) Medical, PC) Immature Grans 0.0 Normal (applies [facility] (S t (Abs) x10E3/uL to non-numeric Jose D's results) Medical, ) ID Date Data Source [id number] 01/11/2020 12:00:00 AM EDT [facility] ([facility]) Name Value Range Interpretation Description Data Sup porting Code Source(s) Document(s ) Glucose 83 mg/dL Normal (applies [facility] (St [Mass/volume] in to non-numeric Jose D's Urine collected for results) Medical, unspecified PC) duration Urea nitrogen 13 mg/dL Normal (applies [facility] (St [Mass/volume] in to non-numeric Jose D's Serum or Plasma results) Medical, ) Creatinine 0.75 Normal (applies [facility] (St [Interpretation] in mg/dL to non-numeric Jose D' s Urine results) Medical, PC) eGFR If NonAfricn 99 Normal (applies [facility] (St Am mL/min/1 to non-numeric Jose D's .73 results) Medical, PC) eGFR If Africn Am 114 Normal (applies [facility] (St mL/min/1 to non-numeric Jose D's .73 results) Medical, PC) Sodium 140 Normal (applies [facility] (St [Moles/volume] in mmol/L to non-numeric Jose D's Serum or Plasma results) Medical, PC) BUN/Creatinine 17 Normal (applies [facility] (S t Ratio to non-numeric Jose D's results) Medical, PC) Potassium 4.4 Normal (applies [facility] (St [Mass/volume] in mmol/L to non-numeric Jose D's Blood results) Medical, PC) Chloride 101 Normal (applies [facility] (St [Moles/volume] in mmol/L to non-numeric Jose D's Serum or Plasma results) Medical, PC) Carbon dioxide, 27 Normal (applies [facility] ( St total mmol/L to non-numeric Jose D's [Moles/volume] in results) Medical, Serum or Plasma PC) Calcium 9.7 Normal (applies [facility] (St [Moles/volume] in mg/dL to non-numeric Jose D's Urine collected for results) Medical, unspecified PC) duration Protein 7.4 g/dL Normal (applies [facility] (St [Mass/volume] in to non-numeric Jose D's Serum or Plasma results) Medical, PC) Microalbumin 4.1 g/dL Normal (applies [facility] (St [Mass/time] in to non-numeric Jose D's Urine collected for results) Medical, unspecified PC) duration Globulin, Total 3.3 g/dL Normal (applies [facility] ( St to non-numeric Jose D's results) Medical, PC) A/G Ratio 1.2 Normal (applies [facility] (St to non-numeric Jose D's results) Medical, PC) Bilirubin.total 0.3 Normal (applies [facility] ( St [Mass/volume] in mg/dL to non-numeric Jose D's Serum or Plasma results) Medical, PC) Alkaline 72 IU/L Normal (applies [facility] (St phosphatase to non-numeric Jose D's [Enzymatic results) Medical, activity/volume] in PC) Serum, Plasma or Blood Aspartate 10 IU/L Normal (applies [facility] (St aminotransferase to non-numeric Jose D's [Enzymatic results) Medical, activity/volume] in PC) Serum or Plasma Alanine 8 IU/L Normal (applies [facility] (St aminotransferase to non-numeric Jose D's [Enzymatic results) Medical, activity/volume] in PC) Serum or Plasma ID Date Data Source [id number] 01/11/2020 12:00:00 AM EDT [facility] ([facility], ) Name Value Range Interpretation Code Description Data Valerie rce(s) Supporting Document(s ) C-Reactive 33 mg/L Above high normal [facility] (St Protein, Jose [facility] Quant Medical, ) ID Date Data Source [id number] 01/11/2020 12:00:00 AM EDT [facility] ([facility], ) Name Value Range Interpretation Description Data Sup porting Code Source(s) Document(s ) Leukocytes 7.8 Normal (applies [facility] (St [#/volume] in x10E3/uL to non-numeric Jose D's Blood by results) Medical, ) Automated count Erythrocytes 4.65 Normal (applies [facility] (St [#/volume] in x10E6/uL to non-numeric Jose D's Blood by results) Medical, ) Automated count Hemoglobin 12.9 Normal (applies [facility] (St [Mass/volume] in g/dL to non-numeric Jose D's Blood results) Medical, ) Hematocrit 40.6 % Normal (applies [facility] (St [Volume to non-numeric Jose D's Fraction] of results) Medical, ) Blood by Automated count MCH 27.7 pg Normal (applies [facility] (St to non-numeric Jose D's results) Medical, ) MCV 87 fL Normal (applies [facility] (St to non-numeric Jose D's results) [facility], ) MCHC 31.8 Normal (applies [facility] (St g/dL to non-numeric Jose D's results) Medical, ) Platelets 427 Normal (applies [facility] (St [#/area] in x10E3/uL to non-numeric Jose D's Blood by results) Medical, ) Microscopy high power field RDW 13.6 % Normal (applies [facility] (St to non-numeric Jose D's results) Medical, ) Neutrophils [#] 64 % Normal (applies [facility] ( St in Body fluid by to non-numeric Jose D's Manual count results) [facility], ) Lymphs 24 % Normal (applies [facility] (St to non-numeric Jose D's results) Medical, ) Monocytes 10 % Normal (applies [facility] (St [#/volume] in to non-numeric Jose D's Cord blood results) [facility], ) Basos 0 % Normal (applies [facility] (St to non-numeric Jose D's results) Medical, ) Eos 2 % Normal (applies [facility] (St to non-numeric Jose D's results) Medical, PC) Lymphs 1.8 Normal (applies [facility] (St (Absolute) x10E3/uL to non-numeric Jose D's results) Medical, PC) Neutrophils 5.0 Normal (applies [facility] (St (Absolute) x10E3/uL to non-numeric Jose D's results) Medical, PC) Eos (Absolute) 0.2 Normal (applies [facility] (S t x10E3/uL to non-numeric Jose D's results) Medical, PC) Monocytes(Absolu 0.7 Normal (applies [facility] (St te) x10E3/uL to non-numeric Jose D's results) Medical, PC) Baso (Absolute) 0.0 Normal (applies [facility] ( St x10E3/uL to non-numeric Jose D's results) Medical, PC) Immature 0 % Normal (applies [facility] (St Granulocytes to non-numeric Jose D's results) Medical, PC) Immature Grans 0.0 Normal (applies [facility] (S t (Abs) x10E3/uL to non-numeric Jose D's results) Medical, ) ID Date Data Source [id number] 01/11/2020 12:00:00 AM EDT [facility] ([facility], ) Name Value Range Interpretation Description Data Sup porting Code Source(s) Document(s ) Glucose 83 mg/dL Normal (applies [facility] (St [Mass/volume] in to non-numeric Jose D's Urine collected for results) Medical, unspecified PC) duration Urea nitrogen 13 mg/dL Normal (applies [facility] (St [Mass/volume] in to non-numeric Jose D's Serum or Plasma results) Medical, ) eGFR If NonAfricn 99 Normal (applies [facility] (St Am mL/min/1 to non-numeric Jose D's .73 results) Medical, PC) Creatinine 0.75 Normal (applies [facility] (St [Interpretation] in mg/dL to non-numeric Jose D' s Urine results) Medical, PC) eGFR If Africn Am 114 Normal (applies [facility] (St mL/min/1 to non-numeric Jose D's .73 results) Medical, ) BUN/Creatinine 17 Normal (applies [facility] (S t Ratio to non-numeric Jose D's results) Medical, PC) Sodium 140 Normal (applies [facility] (St [Moles/volume] in mmol/L to non-numeric Jose D's Serum or Plasma results) Medical, PC) Chloride 101 Normal (applies [facility] (St [Moles/volume] in mmol/L to non-numeric Jose D's Serum or Plasma results) Medical, PC) Potassium 4.4 Normal (applies [facility] (St [Mass/volume] in mmol/L to non-numeric Jose D's Blood results) Medical, ) Carbon dioxide, 27 Normal (applies [facility] ( St total mmol/L to non-numeric Jose D's [Moles/volume] in results) Medical, Serum or Plasma PC) Protein 7.4 g/dL Normal (applies [facility] (St [Mass/volume] in to non-numeric Jose D's Serum or Plasma results) Medical, ) Calcium 9.7 Normal (applies [facility] (St [Moles/volume] in mg/dL to non-numeric Jose D's Urine collected for results) Medical, unspecified PC) duration Microalbumin 4.1 g/dL Normal (applies [facility] (St [Mass/time] in to non-numeric Jose D's Urine collected for results) Medical, unspecified PC) duration Globulin, Total 3.3 g/dL Normal (applies [facility] ( St to non-numeric Jose D's results) Medical, PC) A/G Ratio 1.2 Normal (applies [facility] (St to non-numeric Jose D's results) Medical, PC) Bilirubin.total 0.3 Normal (applies [facility] ( St [Mass/volume] in mg/dL to non-numeric Jose D's Serum or Plasma results) Medical, ) Alkaline 72 IU/L Normal (applies [facility] (St phosphatase to non-numeric Jose D's [Enzymatic results) Medical, activity/volume] in PC) Serum, Plasma or Blood Alanine 8 IU/L Normal (applies [facility] (St aminotransferase to non-numeric Jose D's [Enzymatic results) Medical, activity/volume] in PC) Serum or Plasma Aspartate 10 IU/L Normal (applies [facility] (St aminotransferase to non-numeric Jose D's [Enzymatic results) Medical, activity/volume] in PC) Serum or Plasma ID Date Data Source [id number] 01/11/2020 12:00:00 AM EDT [facility] ([facility], ) Name Value Range Interpretation Code Description Data Valerie rce(s) Supporting Document(s ) C-Reactive 33 mg/L Above high normal [facility] (St Protein, Jose D's Quant Medical, ) ID Date Data Source [id number] 01/11/2020 12:00:00 AM EDT [facility] ([facility], ) Name Value Range Interpretation Description Data Sup porting Code Source(s) Document(s ) Leukocytes 7.8 Normal (applies [facility] (St [#/volume] in x10E3/uL to non-numeric Jose D's Blood by results) Medical, ) Automated count Erythrocytes 4.65 Normal (applies [facility] (St [#/volume] in x10E6/uL to non-numeric Jose D's Blood by results) Medical, ) Automated count Hemoglobin 12.9 Normal (applies [facility] (St [Mass/volume] in g/dL to non-numeric Jose D's Blood results) Medical, ) Hematocrit 40.6 % Normal (applies [facility] (St [Volume to non-numeric Jose D's Fraction] of results) Medical, ) Blood by Automated count MCV 87 fL Normal (applies [facility] (St to non-numeric Jose D's results) Medical, ) MCH 27.7 pg Normal (applies [facility] (St to non-numeric Jose D's results) Medical, ) MCHC 31.8 Normal (applies [facility] (St g/dL to non-numeric Jose D's results) Medical, ) RDW 13.6 % Normal (applies [facility] (St to non-numeric Jsoe D's results) Medical, ) Platelets 427 Normal (applies [facility] (St [#/area] in x10E3/uL to non-numeric Jose D's Blood by results) Medical, ) Microscopy high power field Lymphs 24 % Normal (applies [facility] (St to non-numeric Jose D's results) Medical, ) Neutrophils [#] 64 % Normal (applies [facility] ( St in Body fluid by to non-numeric Jose D's Manual count results) Medical, ) Monocytes 10 % Normal (applies [facility] (St [#/volume] in to non-numeric Jose D's Cord blood results) Medical, ) Eos 2 % Normal (applies [facility] (St to non-numeric Jos Ed's results) Medical, ) Basos 0 % Normal (applies [facility] (St to non-numeric Jose D's results) Medical, ) Neutrophils 5.0 Normal (applies [facility] (St (Absolute) x10E3/uL to non-numeric Jose D's results) Medical, PC) Lymphs 1.8 Normal (applies [facility] (St (Absolute) x10E3/uL to non-numeric Jose D's results) Medical, PC) Monocytes(Absolu 0.7 Normal (applies [facility] (St te) x10E3/uL to non-numeric Jose D's results) Medical, PC) Eos (Absolute) 0.2 Normal (applies [facility] (S t x10E3/uL to non-numeric Jose D's results) Medical, PC) Baso (Absolute) 0.0 Normal (applies [facility] ( St x10E3/uL to non-numeric Jose D's results) Medical, PC) Immature 0 % Normal (applies [facility] (St Granulocytes to non-numeric Jose D's results) Medical, PC) Immature Grans 0.0 Normal (applies [facility] (S t (Abs) x10E3/uL to non-numeric Jose D's results) Medical, ) ID Date Data Source [id number] 01/11/2020 12:00:00 AM EDT [facility] ([facility], ) Name Value Range Interpretation Description Data Sup porting Code Source(s) Document(s ) Glucose 83 mg/dL Normal (applies [facility] (St [Mass/volume] in to non-numeric Jose D's Urine collected for results) Medical, unspecified PC) duration Urea nitrogen 13 mg/dL Normal (applies [facility] (St [Mass/volume] in to non-numeric Jose D's Serum or Plasma results) Medical, ) eGFR If NonAfricn 99 Normal (applies [facility] (St Am mL/min/1 to non-numeric Jose D's .73 results) Medical, PC) Creatinine 0.75 Normal (applies [facility] (St [Interpretation] in mg/dL to non-numeric Jose D' s Urine results) Medical, PC) eGFR If Africn Am 114 Normal (applies [facility] (St mL/min/1 to non-numeric Jose D's .73 results) Medical, PC) BUN/Creatinine 17 Normal (applies [facility] (S t Ratio to non-numeric Jose D's results) Medical, PC) Sodium 140 Normal (applies [facility] (St [Moles/volume] in mmol/L to non-numeric Jose D's Serum or Plasma results) Medical, PC) Chloride 101 Normal (applies [facility] (St [Moles/volume] in mmol/L to non-numeric Jose D's Serum or Plasma results) Medical, PC) Potassium 4.4 Normal (applies [facility] (St [Mass/volume] in mmol/L to non-numeric Jose D's Blood results) Medical, ) Carbon dioxide, 27 Normal (applies [facility] ( St total mmol/L to non-numeric Jose D's [Moles/volume] in results) Medical, Serum or Plasma PC) Protein 7.4 g/dL Normal (applies [facility] (St [Mass/volume] in to non-numeric Jose D's Serum or Plasma results) Medical, ) Calcium 9.7 Normal (applies [facility] (St [Moles/volume] in mg/dL to non-numeric Jose D's Urine collected for results) Medical, unspecified PC) duration Microalbumin 4.1 g/dL Normal (applies [facility] (St [Mass/time] in to non-numeric Jose D's Urine collected for results) Medical, unspecified PC) duration Globulin, Total 3.3 g/dL Normal (applies [facility] ( St to non-numeric Jose D's results) Medical, PC) A/G Ratio 1.2 Normal (applies [facility] (St to non-numeric Jose D's results) Medical, PC) Bilirubin.total 0.3 Normal (applies [facility] ( St [Mass/volume] in mg/dL to non-numeric Jose D's Serum or Plasma results) Medical, ) Alkaline 72 IU/L Normal (applies [facility] (St phosphatase to non-numeric Jose D's [Enzymatic results) Medical, activity/volume] in PC) Serum, Plasma or Blood Aspartate 10 IU/L Normal (applies [facility] (St aminotransferase to non-numeric Jose D's [Enzymatic results) Medical, activity/volume] in PC) Serum or Plasma Alanine 8 IU/L Normal (applies [facility] (St aminotransferase to non-numeric Jose D's [Enzymatic results) Medical, activity/volume] in PC) Serum or Plasma ID Date Data Source [id number] 01/11/2020 12:00:00 AM EDT [facility] ([facility], ) Name Value Range Interpretation Code Description Data Valerie rce(s) Supporting Document(s ) C-Reactive 33 mg/L Above high normal [facility] (St Protein, Jose D's Quant Medical, ) ID Date Data Source [id number] 01/11/2020 12:00:00 AM EDT [facility] ([facility], ) Name Value Range Interpretation Description Data Sup porting Code Source(s) Document(s ) Leukocytes 7.8 Normal (applies [facility] (St [#/volume] in x10E3/uL to non-numeric Jose D's Blood by results) Medical, ) Automated count Erythrocytes 4.65 Normal (applies [facility] (St [#/volume] in x10E6/uL to non-numeric Jose D's Blood by results) Medical, ) Automated count Hemoglobin 12.9 Normal (applies [facility] (St [Mass/volume] in g/dL to non-numeric Jose D's Blood results) [facility], ) MCV 87 fL Normal (applies [facility] (St to non-numeric Jose D's results) Medical, ) Hematocrit 40.6 % Normal (applies [facility] (St [Volume to non-numeric Jose D's Fraction] of results) [facility], ) Blood by Automated count MCHC 31.8 Normal (applies [facility] (St g/dL to non-numeric Jose D's results) [facility], ) MCH 27.7 pg Normal (applies [facility] (St to non-numeric Jose D's results) Medical, ) RDW 13.6 % Normal (applies [facility] (St to non-numeric Jose D's results) Medical, ) Platelets 427 Normal (applies [facility] (St [#/area] in x10E3/uL to non-numeric Jose D's Blood by results) Medical, ) Microscopy high power field Neutrophils [#] 64 % Normal (applies [facility] ( St in Body fluid by to non-numeric Jose D's Manual count results) Medical, ) Lymphs 24 % Normal (applies [facility] (St to non-numeric Jose D's results) Medical, ) Monocytes 10 % Normal (applies [facility] (St [#/volume] in to non-numeric Jose D's Cord blood results) Medical, ) Eos 2 % Normal (applies [facility] (St to non-numeric Jose D's results) Medical, ) Basos 0 % Normal (applies [facility] (St to non-numeric Jose D's results) Medical, ) Neutrophils 5.0 Normal (applies [facility] (St (Absolute) x10E3/uL to non-numeric Jose D's results) Medical, PC) Lymphs 1.8 Normal (applies [facility] (St (Absolute) x10E3/uL to non-numeric Jose D's results) Medical, PC) Monocytes(Absolu 0.7 Normal (applies [facility] (St te) x10E3/uL to non-numeric Jose D's results) Medical, PC) Eos (Absolute) 0.2 Normal (applies [facility] (S t x10E3/uL to non-numeric Jose D's results) Medical, PC) Baso (Absolute) 0.0 Normal (applies [facility] ( St x10E3/uL to non-numeric Jose D's results) Medical, PC) Immature 0 % Normal (applies [facility] (St Granulocytes to non-numeric Jose D's results) Medical, PC) Immature Grans 0.0 Normal (applies [facility] (S t (Abs) x10E3/uL to non-numeric Joes D's results) Medical, ) ID Date Data Source [id number] 01/11/2020 12:00:00 AM EDT [facility] ([facility]) Name Value Range Interpretation Description Data Sup porting Code Source(s) Document(s ) Glucose 83 mg/dL Normal (applies [facility] (St [Mass/volume] in to non-numeric Jose D's Urine collected for results) Medical, unspecified PC) duration Urea nitrogen 13 mg/dL Normal (applies [facility] (St [Mass/volume] in to non-numeric Jose D's Serum or Plasma results) Medical, PC) Creatinine 0.75 Normal (applies [facility] (St [Interpretation] in mg/dL to non-numeric Josed ' s Urine results) Medical, PC) eGFR If NonAfricn 99 Normal (applies [facility] (St Am mL/min/1 to non-numeric Jose D's .73 results) Medical, PC) eGFR If Africn Am 114 Normal (applies [facility] (St mL/min/1 to non-numeric Jose D's .73 results) Medical, PC) BUN/Creatinine 17 Normal (applies [facility] (S t Ratio to non-numeric Jose D's results) Medical, PC) Potassium 4.4 Normal (applies [facility] (St [Mass/volume] in mmol/L to non-numeric Jose D's Blood results) Medical, PC) Sodium 140 Normal (applies [facility] (St [Moles/volume] in mmol/L to non-numeric Jose D's Serum or Plasma results) Medical, ) Chloride 101 Normal (applies [facility] (St [Moles/volume] in mmol/L to non-numeric Jose D's Serum or Plasma results) Medical, ) Carbon dioxide, 27 Normal (applies [facility] ( St total mmol/L to non-numeric Jose D's [Moles/volume] in results) Medical, Serum or Plasma PC) Calcium 9.7 Normal (applies [facility] (St [Moles/volume] in mg/dL to non-numeric Jose D's Urine collected for results) Medical, unspecified PC) duration Microalbumin 4.1 g/dL Normal (applies [facility] (St [Mass/time] in to non-numeric Jose D's Urine collected for results) Medical, unspecified PC) duration Protein 7.4 g/dL Normal (applies [facility] (St [Mass/volume] in to non-numeric Jose D's Serum or Plasma results) Medical, ) A/G Ratio 1.2 Normal (applies [facility] (St to non-numeric Jose D's results) Medical, PC) Globulin, Total 3.3 g/dL Normal (applies [facility] ( St to non-numeric Jose D's results) Medical, ) Alkaline 72 IU/L Normal (applies [facility] (St phosphatase to non-numeric Jose D's [Enzymatic results) Medical, activity/volume] in PC) Serum, Plasma or Blood Bilirubin.total 0.3 Normal (applies [facility] ( St [Mass/volume] in mg/dL to non-numeric Jose D's Serum or Plasma results) Medical, ) Alanine 8 IU/L Normal (applies [facility] (St aminotransferase to non-numeric Jose D's [Enzymatic results) Medical, activity/volume] in PC) Serum or Plasma Aspartate 10 IU/L Normal (applies [facility] (St aminotransferase to non-numeric Jose [facility]'s [Enzymatic results) Medical, activity/volume] in PC) Serum or Plasma ID Date Data Source [id number] 01/11/2020 12:00:00 AM EDT [facility] ([facility], ) Name Value Range Interpretation Code Description Data Valerie rce(s) Supporting Document(s ) C-Reactive 33 mg/L Above high normal [facility] (St Protein, [facility], ) ID Date Data Source [id number] 01/11/2020 12:00:00 AM EDT [facility] ([facility], ) Name Value Range Interpretation Description Data Sup porting Code Source(s) Document(s ) Leukocytes 7.8 Normal (applies [facility] (St [#/volume] in x10E3/uL to non-numeric Jose D's Blood by results) Medical, ) Automated count Erythrocytes 4.65 Normal (applies [facility] (St [#/volume] in x10E6/uL to non-numeric Jose [facility]'s Blood by results) Medical, ) Automated count Hemoglobin 12.9 Normal (applies [facility] (St [Mass/volume] in g/dL to non-numeric Jose [facility]'s Blood results) Medical, ) MCV 87 fL Normal (applies [facility] (St to non-numeric Jose D's results) Medical, ) Hematocrit 40.6 % Normal (applies [facility] (St [Volume to non-numeric Jose D's Fraction] of results) Medical, ) Blood by Automated count MCH 27.7 pg Normal (applies [facility] (St to non-numeric Jose D's results) Medical, ) MCHC 31.8 Normal (applies [facility] (St g/dL to non-numeric Jose D's results) Medical, ) RDW 13.6 % Normal (applies [facility] (St to non-numeric Jose D's results) Medical, ) Neutrophils [#] 64 % Normal (applies [facility] ( St in Body fluid by to non-numeric Jose D's Manual count results) Medical, ) Platelets 427 Normal (applies [facility] (St [#/area] in x10E3/uL to non-numeric Jose [facility]'s Blood by results) Medical, ) Microscopy high power field Monocytes 10 % Normal (applies [facility] (St [#/volume] in to non-numeric Jose D's Cord blood results) Medical, ) Lymphs 24 % Normal (applies [facility] (St to non-numeric Jose D's results) Medical, ) Eos 2 % Normal (applies [facility] (St to non-numeric Jose D's results) Medical, ) Basos 0 % Normal (applies [facility] (St to non-numeric Jose D's results) Medical, ) Neutrophils 5.0 Normal (applies [facility] (St (Absolute) x10E3/uL to non-numeric Jose D's results) Medical, PC) Lymphs 1.8 Normal (applies [facility] (St (Absolute) x10E3/uL to non-numeric Jose D's results) Medical, PC) Monocytes(Absolu 0.7 Normal (applies [facility] (St te) x10E3/uL to non-numeric Jsoe D's results) Medical, PC) Eos (Absolute) 0.2 Normal (applies [facility] (S t x10E3/uL to non-numeric Jose D's results) Medical, PC) Baso (Absolute) 0.0 Normal (applies [facility] ( St x10E3/uL to non-numeric Jose D's results) Medical, PC) Immature 0 % Normal (applies [facility] (St Granulocytes to non-numeric Jose D's results) Medical, PC) Immature Grans 0.0 Normal (applies [facility] (S t (Abs) x10E3/uL to non-numeric Jose [facility]'s results) Medical, PC) ID Date Data Source [id number] 01/11/2020 12:00:00 AM EDT [facility] ([facility], ) Name Value Range Interpretation Description Data Sup porting Code Source(s) Document(s ) Glucose 83 mg/dL Normal (applies [facility] (St [Mass/volume] in to non-numeric Jose D's Urine collected for results) Medical, unspecified PC) duration Urea nitrogen 13 mg/dL Normal (applies [facility] (St [Mass/volume] in to non-numeric Jose D's Serum or Plasma results) Medical, PC) Creatinine 0.75 Normal (applies [facility] (St [Interpretation] in mg/dL to non-numeric Jose D' s Urine results) Medical, PC) eGFR If NonAfricn 99 Normal (applies [facility] (St Am mL/min/1 to non-numeric Jose D's .73 results) Medical, PC) eGFR If Africn Am 114 Normal (applies [facility] (St mL/min/1 to non-numeric Jose D's .73 results) Medical, PC) BUN/Creatinine 17 Normal (applies [facility] (S t Ratio to non-numeric Jose D's results) Medical, PC) Potassium 4.4 Normal (applies [facility] (St [Mass/volume] in mmol/L to non-numeric Jose D's Blood results) Medical, PC) Sodium 140 Normal (applies [facility] (St [Moles/volume] in mmol/L to non-numeric Jose D's Serum or Plasma results) Medical, PC) Chloride 101 Normal (applies [facility] (St [Moles/volume] in mmol/L to non-numeric Jose D's Serum or Plasma results) Medical, ) Carbon dioxide, 27 Normal (applies [facility] ( St total mmol/L to non-numeric Jose D's [Moles/volume] in results) Medical, Serum or Plasma PC) Calcium 9.7 Normal (applies [facility] (St [Moles/volume] in mg/dL to non-numeric Jose D's Urine collected for results) Medical, unspecified PC) duration Protein 7.4 g/dL Normal (applies [facility] (St [Mass/volume] in to non-numeric Jose D's Serum or Plasma results) Medical, ) Microalbumin 4.1 g/dL Normal (applies [facility] (St [Mass/time] in to non-numeric Jose D's Urine collected for results) Medical, unspecified PC) duration A/G Ratio 1.2 Normal (applies [facility] (St to non-numeric Jose D's results) Medical, ) Globulin, Total 3.3 g/dL Normal (applies [facility] ( St to non-numeric Jose D's results) Medical, PC) Bilirubin.total 0.3 Normal (applies [facility] ( St [Mass/volume] in mg/dL to non-numeric Jose D's Serum or Plasma results) Medical, ) Alkaline 72 IU/L Normal (applies [facility] (St phosphatase to non-numeric Jose D's [Enzymatic results) Medical, activity/volume] in PC) Serum, Plasma or Blood Aspartate 10 IU/L Normal (applies [facility] (St aminotransferase to non-numeric Jose D's [Enzymatic results) Medical, activity/volume] in PC) Serum or Plasma Alanine 8 IU/L Normal (applies [facility] (St aminotransferase to non-numeric Jose D's [Enzymatic results) Medical, activity/volume] in PC) Serum or Plasma ID Date Data Source [id number] 01/11/2020 12:00:00 AM EDT [facility] ([facility], ) Name Value Range Interpretation Code Description Data Valerie rce(s) Supporting Document(s ) C-Reactive 33 mg/L Above high normal [facility] (St Protein, [facility], ) ID Date Data Source [id number] 01/11/2020 12:00:00 AM EDT [facility] ([facility], ) Name Value Range Interpretation Description Data Sup porting Code Source(s) Document(s ) Leukocytes 7.8 Normal (applies [facility] (St [#/volume] in x10E3/uL to non-numeric Jose D's Blood by results) Medical, ) Automated count Hemoglobin 12.9 Normal (applies [facility] (St [Mass/volume] in g/dL to non-numeric Jose D's Blood results) Medical, ) Erythrocytes 4.65 Normal (applies [facility] (St [#/volume] in x10E6/uL to non-numeric Jose D's Blood by results) Medical, ) Automated count Hematocrit 40.6 % Normal (applies [facility] (St [Volume to non-numeric Jose D's Fraction] of results) [facility], ) Blood by Automated count MCV 87 fL Normal (applies [facility] (St to non-numeric Jose D's results) [facility], ) MCH 27.7 pg Normal (applies [facility] (St to non-numeric Jose D's results) [facility], ) MCHC 31.8 Normal (applies [facility] (St g/dL to non-numeric Jose D's results) [facility], ) RDW 13.6 % Normal (applies [facility] (St to non-numeric Jose D's results) Medical, ) Neutrophils [#] 64 % Normal (applies [facility] ( St in Body fluid by to non-numeric Jose D's Manual count results) [facility], ) Platelets 427 Normal (applies [facility] (St [#/area] in x10E3/uL to non-numeric Jose D's Blood by results) Medical, ) Microscopy high power field Monocytes 10 % Normal (applies [facility] (St [#/volume] in to non-numeric Jose D's Cord blood results) [facility], ) Lymphs 24 % Normal (applies [facility] (St to non-numeric Jose D's results) Medical, ) Eos 2 % Normal (applies [facility] (St to non-numeric Jose D's results) [facility], ) Basos 0 % Normal (applies [facility] (St to non-numeric Jose D's results) [facility], ) Neutrophils 5.0 Normal (applies [facility] (St (Absolute) x10E3/uL to non-numeric Jose D's results) [facility], ) Lymphs 1.8 Normal (applies [facility] (St (Absolute) x10E3/uL to non-numeric Jose D's results) Medical, PC) Monocytes(Absolu 0.7 Normal (applies [facility] (St te) x10E3/uL to non-numeric Jose D's results) Medical, PC) Eos (Absolute) 0.2 Normal (applies [facility] (S t x10E3/uL to non-numeric Jose D's results) Medical, PC) Immature 0 % Normal (applies [facility] (St Granulocytes to non-numeric Jose D's results) Medical, PC) Baso (Absolute) 0.0 Normal (applies [facility] ( St x10E3/uL to non-numeric Jose D's results) Medical, PC) Immature Grans 0.0 Normal (applies [facility] (S t (Abs) x10E3/uL to non-numeric Jose D's results) Medical, PC) ID Date Data Source [id number] 01/11/2020 12:00:00 AM EDT [facility] ([facility]) Name Value Range Interpretation Description Data Sup porting Code Source(s) Document(s ) Glucose 83 mg/dL Normal (applies [facility] (St [Mass/volume] in to non-numeric Jose D's Urine collected for results) Medical, unspecified PC) duration Urea nitrogen 13 mg/dL Normal (applies [facility] (St [Mass/volume] in to non-numeric Jose D's Serum or Plasma results) Medical, PC) eGFR If NonAfricn 99 Normal (applies [facility] (St Am mL/min/1 to non-numeric Jose D's .73 results) Medical, PC) Creatinine 0.75 Normal (applies [facility] (St [Interpretation] in mg/dL to non-numeric Jose D' s Urine results) Medical, PC) eGFR If Africn Am 114 Normal (applies [facility] (St mL/min/1 to non-numeric Jose D's .73 results) Medical, PC) BUN/Creatinine 17 Normal (applies [facility] (S t Ratio to non-numeric Jose D's results) Medical, PC) Sodium 140 Normal (applies [facility] (St [Moles/volume] in mmol/L to non-numeric Jose D's Serum or Plasma results) Medical, PC) Potassium 4.4 Normal (applies [facility] (St [Mass/volume] in mmol/L to non-numeric Jose D's Blood results) Medical, PC) Chloride 101 Normal (applies [facility] (St [Moles/volume] in mmol/L to non-numeric Jose D's Serum or Plasma results) Medical, PC) Calcium 9.7 Normal (applies [facility] (St [Moles/volume] in mg/dL to non-numeric Jose D's Urine collected for results) Medical, unspecified PC) duration Carbon dioxide, 27 Normal (applies [facility] ( St total mmol/L to non-numeric Jose D's [Moles/volume] in results) Medical, Serum or Plasma PC) Protein 7.4 g/dL Normal (applies [facility] (St [Mass/volume] in to non-numeric Jose D's Serum or Plasma results) Medical, PC) Microalbumin 4.1 g/dL Normal (applies [facility] (St [Mass/time] in to non-numeric Jose D's Urine collected for results) Medical, unspecified PC) duration Globulin, Total 3.3 g/dL Normal (applies [facility] ( St to non-numeric Jose D's results) Medical, PC) A/G Ratio 1.2 Normal (applies [facility] (St to non-numeric Jose D's results) Medical, PC) Bilirubin.total 0.3 Normal (applies [facility] ( St [Mass/volume] in mg/dL to non-numeric Jose D's Serum or Plasma results) Medical, PC) Alkaline 72 IU/L Normal (applies [facility] (St phosphatase to non-numeric Jose D's [Enzymatic results) Medical, activity/volume] in PC) Serum, Plasma or Blood Aspartate 10 IU/L Normal (applies [facility] (St aminotransferase to non-numeric Jose D's [Enzymatic results) Medical, activity/volume] in PC) Serum or Plasma Alanine 8 IU/L Normal (applies [facility] (St aminotransferase to non-numeric Jose D's [Enzymatic results) Medical, activity/volume] in PC) Serum or Plasma ID Date Data Source [id number] 12/28/2019 12:00:00 AM EDT [facility] ([facility]) Name Value Range Interpretation Code Description Data Valerie rce(s) Supporting Document(s ) C-Reactive 11 mg/L Above high normal [facility] (St Protein, Jose [facility] Quant Medical, PC) ID Date Data Source [id number] 12/28/2019 12:00:00 AM EDT [facility] ([facility]) Name Value Range Interpretation Description Data Sup porting Code Source(s) Document(s ) Leukocytes 7.5 Normal (applies [facility] (St [#/volume] in x10E3/uL to non-numeric Jose D's Blood by results) Medical, ) Automated count Erythrocytes 4.62 Normal (applies [facility] (St [#/volume] in x10E6/uL to non-numeric Jose D's Blood by results) [facility], ) Automated count Hematocrit 39.0 % Normal (applies [facility] (St [Volume to non-numeric Jose D's Fraction] of results) [facility], ) Blood by Automated count Hemoglobin 12.7 Normal (applies [facility] (St [Mass/volume] in g/dL to non-numeric Jose D's Blood results) [facility], ) MCV 84 fL Normal (applies [facility] (St to non-numeric Jose D's results) [facility], ) MCH 27.5 pg Normal (applies [facility] (St to non-numeric Jose D's results) [facility], ) MCHC 32.6 Normal (applies [facility] (St g/dL to non-numeric Jose D's results) [facility], ) RDW 13.5 % Normal (applies [facility] (St to non-numeric Jose D's results) [facility], ) Neutrophils [#] 63 % Normal (applies [facility] ( St in Body fluid by to non-numeric Jose D's Manual count results) [facility], ) Platelets 452 Above high normal [facility] (St [#/area] in x10E3/uL Jose D's Blood by [facility], ) Microscopy high power field Monocytes 10 % Normal (applies [facility] (St [#/volume] in to non-numeric Jose D's Cord blood results) [facility], ) Lymphs 25 % Normal (applies [facility] (St to non-numeric Jose D's results) [facility], ) Eos 2 % Normal (applies [facility] (St to non-numeric Jose D's results) [facility], ) Neutrophils 4.7 Normal (applies [facility] (St (Absolute) x10E3/uL to non-numeric Jose D's results) [facility], ) Basos 0 % Normal (applies [facility] (St to non-numeric Jose D's results) [facility], ) Lymphs 1.8 Normal (applies [facility] (St (Absolute) x10E3/uL to non-numeric Jose D's results) [facility], ) Eos (Absolute) 0.2 Normal (applies [facility] (S t x10E3/uL to non-numeric Jose D's results) Medical, PC) Monocytes(Absolu 0.7 Normal (applies [facility] (St te) x10E3/uL to non-numeric Jose D's results) Medical, PC) Baso (Absolute) 0.0 Normal (applies [facility] ( St x10E3/uL to non-numeric Jose D's results) Medical, PC) Immature 0 % Normal (applies [facility] (St Granulocytes to non-numeric Jose D's results) Medical, PC) Immature Grans 0.0 Normal (applies [facility] (S t (Abs) x10E3/uL to non-numeric Jose D's results) Medical, PC) ID Date Data Source [id number] 12/28/2019 12:00:00 AM EDT [facility] ([facility]) Name Value Range Interpretation Description Data Sup porting Code Source(s) Document(s ) Urea nitrogen 15 mg/dL Normal (applies [facility] (St [Mass/volume] in to non-numeric Jose D's Serum or Plasma results) Medical, PC) Glucose 84 mg/dL Normal (applies [facility] (St [Mass/volume] in to non-numeric Jose D's Urine collected for results) Medical, unspecified PC) duration Creatinine 0.74 Normal (applies [facility] (St [Interpretation] in mg/dL to non-numeric Jose D' s Urine results) Medical, PC) eGFR If NonAfricn 100 Normal (applies [facility] (St Am mL/min/1 to non-numeric Jose D's .73 results) Medical, PC) eGFR If Africn Am 116 Normal (applies [facility] (St mL/min/1 to non-numeric Jose D's .73 results) Medical, PC) BUN/Creatinine 20 Normal (applies [facility] (S t Ratio to non-numeric Jose D's results) Medical, PC) Sodium 138 Normal (applies [facility] (St [Moles/volume] in mmol/L to non-numeric Jose D's Serum or Plasma results) Medical, PC) Potassium 4.3 Normal (applies [facility] (St [Mass/volume] in mmol/L to non-numeric Jose D's Blood results) Medical, PC) Chloride 100 Normal (applies [facility] (St [Moles/volume] in mmol/L to non-numeric Jose D's Serum or Plasma results) Medical, PC) Carbon dioxide, 23 Normal (applies [facility] ( St total mmol/L to non-numeric Jose D's [Moles/volume] in results) Medical, Serum or Plasma PC) Calcium 10.0 Normal (applies [facility] (St [Moles/volume] in mg/dL to non-numeric Jose D's Urine collected for results) Medical, unspecified PC) duration Protein 8.3 g/dL Normal (applies [facility] (St [Mass/volume] in to non-numeric Jose D's Serum or Plasma results) Medical, PC) Microalbumin 4.3 g/dL Normal (applies [facility] (St [Mass/time] in to non-numeric Jose D's Urine collected for results) Medical, unspecified PC) duration Globulin, Total 4.0 g/dL Normal (applies [facility] ( St to non-numeric Jose D's results) Medical, PC) A/G Ratio 1.1 Below low normal [facility] ([facility], ) Bilirubin.total 0.2 Normal (applies [facility] ( St [Mass/volume] in mg/dL to non-numeric Jose D's Serum or Plasma results) Medical, PC) Alkaline 74 IU/L Normal (applies [facility] (St phosphatase to non-numeric Jose D's [Enzymatic results) Medical, activity/volume] in PC) Serum, Plasma or Blood Aspartate 13 IU/L Normal (applies [facility] (St aminotransferase to non-numeric Jose D's [Enzymatic results) Medical, activity/volume] in PC) Serum or Plasma Alanine 8 IU/L Normal (applies [facility] (St aminotransferase to non-numeric Jose D's [Enzymatic results) Medical, activity/volume] in PC) Serum or Plasma ID Date Data Source [id number] 12/28/2019 12:00:00 AM EDT [facility] ([facility], ) Name Value Range Interpretation Code Description Data Valerie rce(s) Supporting Document(s ) C-Reactive 11 mg/L Above high normal [facility] (St Protein, [facility] Quant Medical, ) ID Date Data Source [id number] 12/28/2019 12:00:00 AM EDT [facility] ([facility], ) Name Value Range Interpretation Description Data Sup porting Code Source(s) Document(s ) Leukocytes 7.5 Normal (applies [facility] (St [#/volume] in x10E3/uL to non-numeric Jose D's Blood by results) Medical, ) Automated count Erythrocytes 4.62 Normal (applies [facility] (St [#/volume] in x10E6/uL to non-numeric Jose D's Blood by results) [facility], ) Automated count Hemoglobin 12.7 Normal (applies [facility] (St [Mass/volume] in g/dL to non-numeric Jose D's Blood results) [facility], ) Hematocrit 39.0 % Normal (applies [facility] (St [Volume to non-numeric Jose D's Fraction] of results) [facility], ) Blood by Automated count MCH 27.5 pg Normal (applies [facility] (St to non-numeric Jose D's results) [facility], ) MCV 84 fL Normal (applies [facility] (St to non-numeric Jose D's results) [facility], ) MCHC 32.6 Normal (applies [facility] (St g/dL to non-numeric Jose D's results) [facility], ) RDW 13.5 % Normal (applies [facility] (St to non-numeric Jose D's results) [facility], ) Platelets 452 Above high normal [facility] (St [#/area] in x10E3/uL Jose D's Blood by Medical, ) Microscopy high power field Neutrophils [#] 63 % Normal (applies [facility] ( St in Body fluid by to non-numeric Jose D's Manual count results) [facility], ) Lymphs 25 % Normal (applies [facility] (St to non-numeric Jose D's results) [facility], ) Monocytes 10 % Normal (applies [facility] (St [#/volume] in to non-numeric Jose D's Cord blood results) [facility], ) Eos 2 % Normal (applies [facility] (St to non-numeric Jose D's results) [facility], ) Basos 0 % Normal (applies [facility] (St to non-numeric Jose D's results) [facility], ) Neutrophils 4.7 Normal (applies [facility] (St (Absolute) x10E3/uL to non-numeric Jose D's results) [facility], ) Lymphs 1.8 Normal (applies [facility] (St (Absolute) x10E3/uL to non-numeric Jose D's results) [facility], ) Monocytes(Absolu 0.7 Normal (applies [facility] (St te) x10E3/uL to non-numeric Jose D's results) Medical, ) Eos (Absolute) 0.2 Normal (applies [facility] (S t x10E3/uL to non-numeric Jose D's results) Medical, PC) Immature 0 % Normal (applies [facility] (St Granulocytes to non-numeric Jose D's results) Medical, PC) Baso (Absolute) 0.0 Normal (applies [facility] ( St x10E3/uL to non-numeric Jose D's results) Medical, PC) Immature Grans 0.0 Normal (applies [facility] (S t (Abs) x10E3/uL to non-numeric Jose D's results) Medical, PC) ID Date Data Source [id number] 12/28/2019 12:00:00 AM EDT [facility] ([facility]) Name Value Range Interpretation Description Data Sup porting Code Source(s) Document(s ) Urea nitrogen 15 mg/dL Normal (applies [facility] (St [Mass/volume] in to non-numeric Jose D's Serum or Plasma results) Medical, PC) Glucose 84 mg/dL Normal (applies [facility] (St [Mass/volume] in to non-numeric Jose D's Urine collected for results) Medical, unspecified PC) duration Creatinine 0.74 Normal (applies [facility] (St [Interpretation] in mg/dL to non-numeric Jose D' s Urine results) Medical, PC) eGFR If Africn Am 116 Normal (applies [facility] (St mL/min/1 to non-numeric Jose D's .73 results) Medical, PC) eGFR If NonAfricn 100 Normal (applies [facility] (St Am mL/min/1 to non-numeric Jose D's .73 results) Medical, PC) BUN/Creatinine 20 Normal (applies [facility] (S t Ratio to non-numeric Jose D's results) Medical, PC) Sodium 138 Normal (applies [facility] (St [Moles/volume] in mmol/L to non-numeric Jose D's Serum or Plasma results) Medical, PC) Potassium 4.3 Normal (applies [facility] (St [Mass/volume] in mmol/L to non-numeric Jose D's Blood results) Medical, PC) Chloride 100 Normal (applies [facility] (St [Moles/volume] in mmol/L to non-numeric Jose D's Serum or Plasma results) Medical, PC) Calcium 10.0 Normal (applies [facility] (St [Moles/volume] in mg/dL to non-numeric Jose D's Urine collected for results) Medical, unspecified PC) duration Carbon dioxide, 23 Normal (applies [facility] ( St total mmol/L to non-numeric Jose D's [Moles/volume] in results) Medical, Serum or Plasma PC) Protein 8.3 g/dL Normal (applies [facility] (St [Mass/volume] in to non-numeric Jose D's Serum or Plasma results) Medical, ) Microalbumin 4.3 g/dL Normal (applies [facility] (St [Mass/time] in to non-numeric Jose D's Urine collected for results) Medical, unspecified PC) duration Globulin, Total 4.0 g/dL Normal (applies [facility] ( St to non-numeric Jose D's results) Medical, ) A/G Ratio 1.1 Below low normal [facility] ([facility], ) Alkaline 74 IU/L Normal (applies [facility] (St phosphatase to non-numeric Jose D's [Enzymatic results) Medical, activity/volume] in PC) Serum, Plasma or Blood Bilirubin.total 0.2 Normal (applies [facility] ( St [Mass/volume] in mg/dL to non-numeric Jose D's Serum or Plasma results) Medical, ) Aspartate 13 IU/L Normal (applies [facility] (St aminotransferase to non-numeric Jose D's [Enzymatic results) Medical, activity/volume] in PC) Serum or Plasma Alanine 8 IU/L Normal (applies [facility] (St aminotransferase to non-numeric Jose D's [Enzymatic results) Medical, activity/volume] in PC) Serum or Plasma ID Date Data Source [id number] 12/28/2019 12:00:00 AM EDT [facility] ([facility], ) Name Value Range Interpretation Code Description Data Valerie rce(s) Supporting Document(s ) C-Reactive 11 mg/L Above high normal [facility] (St Protein, [facility] Quant Medical, ) ID Date Data Source [id number] 12/28/2019 12:00:00 AM EDT [facility] ([facility], ) Name Value Range Interpretation Description Data Sup porting Code Source(s) Document(s ) Leukocytes 7.5 Normal (applies [facility] (St [#/volume] in x10E3/uL to non-numeric Jose D's Blood by results) Medical, ) Automated count Erythrocytes 4.62 Normal (applies [facility] (St [#/volume] in x10E6/uL to non-numeric Jose D's Blood by results) [facility], ) Automated count Hemoglobin 12.7 Normal (applies [facility] (St [Mass/volume] in g/dL to non-numeric Jose D's Blood results) [facility], ) MCV 84 fL Normal (applies [facility] (St to non-numeric Jose D's results) [facility], ) Hematocrit 39.0 % Normal (applies [facility] (St [Volume to non-numeric Jose D's Fraction] of results) [facility], ) Blood by Automated count MCH 27.5 pg Normal (applies [facility] (St to non-numeric Jose D's results) [facility], ) RDW 13.5 % Normal (applies [facility] (St to non-numeric Jose D's results) [facility], ) MCHC 32.6 Normal (applies [facility] (St g/dL to non-numeric Jose D's results) [facility], ) Neutrophils [#] 63 % Normal (applies [facility] ( St in Body fluid by to non-numeric Jose D's Manual count results) [facility], ) Platelets 452 Above high normal [facility] (St [#/area] in x10E3/uL Jose D's Blood by [facility], ) Microscopy high power field Lymphs 25 % Normal (applies MEDGEN (St to non-numeric Jose D's results) [facility], ) Monocytes 10 % Normal (applies MEDGEN (St [#/volume] in to non-numeric Jose D's Cord blood results) [facility], ) Eos 2 % Normal (applies MEDGEN (St to non-numeric Jos Ed's results) [facility], ) Basos 0 % Normal (applies MEDGEN (St to non-numeric Jose D's results) [facility], ) Neutrophils 4.7 Normal (applies MEDGEN (St (Absolute) x10E3/uL to non-numeric Jose D's results) [facility], ) Lymphs 1.8 Normal (applies MEDGEN (St (Absolute) x10E3/uL to non-numeric Jose D's results) [facility], ) Eos (Absolute) 0.2 Normal (applies MEDGEN (S t x10E3/uL to non-numeric Jose D's results) [facility], ) Monocytes(Absolu 0.7 Normal (applies MEDGEN (St te) x10E3/uL to non-numeric Jose D's results) [facility], ) Baso (Absolute) 0.0 Normal (applies MEDGEN ( St x10E3/uL to non-numeric Jose D's results) [facility]) Immature 0 % Normal (applies [facility] (St Granulocytes to non-numeric Jose D's results) [facility]) Immature Grans 0.0 Normal (applies [facility]GEN (S t (Abs) x10E3/uL to non-numeric Jose D's results) [facility]) ID Date Data Source [id number] 12/28/2019 12:00:00 AM EDT [facility] Name Value Range Interpretation Description Data Sup porting Code Source(s) Document(s ) Glucose 84 mg/dL Normal (applies MED[facility] (St [Mass/volume] in to non-numeric Jose D's Urine collected for results) Medical, unspecified PC) duration Urea nitrogen 15 mg/dL Normal (applies [facility] (St [Mass/volume] in to non-numeric Jose D's Serum or Plasma results) [facility], [facility]) Creatinine 0.74 Normal (applies [facility] (St [Interpretation] in mg/dL to non-numeric Jose D' s Urine results) [facility], [facility]) eGFR If Africn Am 116 Normal (applies [facility]GEN (St mL/min/1 to non-numeric Jose D's .73 results) [facility], [facility]) eGFR If NonAfricn 100 Normal (applies MEDGEN (St Am mL/min/1 to non-numeric Jose D's .73 results) [facility], [facility]) BUN/Creatinine 20 Normal (applies [facility]GEN (S t Ratio to non-numeric Jose D's results) [facility], [facility]) Sodium 138 Normal (applies MEDGEN (St [Moles/volume] in mmol/L to non-numeric Jose D's Serum or Plasma results) [facility], [facility]) Potassium 4.3 Normal (applies [facility]GEN (St [Mass/volume] in mmol/L to non-numeric Jose D's Blood results) [facility], [facility]) Chloride 100 Normal (applies [facility] (St [Moles/volume] in mmol/L to non-numeric Jose D's Serum or Plasma results) [facility], [facility]) Carbon dioxide, 23 Normal (applies MEDGEN ( St total mmol/L to non-numeric Jose D's [Moles/volume] in results) Medical, Serum or Plasma PC) Calcium 10.0 Normal (applies [facility] (St [Moles/volume] in mg/dL to non-numeric Jose D's Urine collected for results) Medical, unspecified PC) duration Protein 8.3 g/dL Normal (applies [facility]GEN (St [Mass/volume] in to non-numeric Jose D's Serum or Plasma results) [facility], ) Microalbumin 4.3 g/dL Normal (applies [facility] (St [Mass/time] in to non-numeric Jose D's Urine collected for results) Medical, unspecified ) duration Globulin, Total 4.0 g/dL Normal (applies [facility] ( St to non-numeric Jose D's results) Medical, ) A/G Ratio 1.1 Below low normal [facility] ([facility], ) Bilirubin.total 0.2 Normal (applies [facility]GEN ( St [Mass/volume] in mg/dL to non-numeric Jose D's Serum or Plasma results) [facility], ) Alkaline 74 IU/L Normal (applies [facility]GEN (St phosphatase to non-numeric Jose D's [Enzymatic results) Medical, activity/volume] in ) Serum, Plasma or Blood Aspartate 13 IU/L Normal (applies [facility]GEN (St aminotransferase to non-numeric Jose D's [Enzymatic results) Medical, activity/volume] in PC) Serum or Plasma Alanine 8 IU/L Normal (applies [facility] (St aminotransferase to non-numeric Jose D's [Enzymatic results) Medical, activity/volume] in PC) Serum or Plasma ID Date Data Source [id number] 12/28/2019 12:00:00 AM EDT [facility] (St [facility], ) Name Value Range Interpretation Code Description Data Valerie rce(s) Supporting Document(s ) C-Reactive 11 mg/L Above high normal MED[facility] (St Protein, Jose D's Quant [facility], ) ID Date Data Source [id number] 12/28/2019 12:00:00 AM EDT [facility] ([facility], ) Name Value Range Interpretation Description Data Sup porting Code Source(s) Document(s ) Leukocytes 7.5 Normal (applies [facility]GEN (St [#/volume] in x10E3/uL to non-numeric Jose D's Blood by results) [facility], ) Automated count Hemoglobin 12.7 Normal (applies [facility] (St [Mass/volume] in g/dL to non-numeric Jose D's Blood results) [facility], ) Erythrocytes 4.62 Normal (applies [facility]GEN (St [#/volume] in x10E6/uL to non-numeric Jose D's Blood by results) [facility], ) Automated count Hematocrit 39.0 % Normal (applies [facility]GEN (St [Volume to non-numeric Jose D's Fraction] of results) [facility], ) Blood by Automated count MCV 84 fL Normal (applies [facility]GEN (St to non-numeric Jose D's results) [facility], ) MCHC 32.6 Normal (applies [facility] (St g/dL to non-numeric Jose D's results) [facility], ) MCH 27.5 pg Normal (applies [facility]GEN (St to non-numeric Jose D's results) [facility], ) RDW 13.5 % Normal (applies [facility]GEN (St to non-numeric Jose D's results) [facility], ) Platelets 452 Above high normal MEDGEN (St [#/area] in x10E3/uL Jose D's Blood by [facility], ) Microscopy high power field Neutrophils [#] 63 % Normal (applies MEDGEN ( St in Body fluid by to non-numeric Jose D's Manual count results) [facility], ) Monocytes 10 % Normal (applies MEDGEN (St [#/volume] in to non-numeric Jose D's Cord blood results) [facility], ) Lymphs 25 % Normal (applies [facility] (St to non-numeric Jose D's results) [facility], ) Eos 2 % Normal (applies [facility] (St to non-numeric Jose D's results) [facility], ) Neutrophils 4.7 Normal (applies [facility]GEN (St (Absolute) x10E3/uL to non-numeric Jose D's results) Medical, ) Basos 0 % Normal (applies [facility] (St to non-numeric Jose D's results) [facility], ) Lymphs 1.8 Normal (applies [facility] (St (Absolute) x10E3/uL to non-numeric Jose D's results) [facility], ) Monocytes(Absolu 0.7 Normal (applies MEDGEN (St te) x10E3/uL to non-numeric Jose D's results) [facility], ) Eos (Absolute) 0.2 Normal (applies MEDGEN (S t x10E3/uL to non-numeric Jose D's results) [facility], ) Baso (Absolute) 0.0 Normal (applies MEDGEN ( St x10E3/uL to non-numeric Jose D's results) [facility], PC) Immature 0 % Normal (applies [facility] (St Granulocytes to non-numeric Jose D's results) [facility], PC) Immature Grans 0.0 Normal (applies [facility]GEN (S t (Abs) x10E3/uL to non-numeric Jose D's results) [facility], [facility]) ID Date Data Source [id number] 12/28/2019 12:00:00 AM EDT [facility] ([facility] Name Value Range Interpretation Description Data Sup porting Code Source(s) Document(s ) Glucose 84 mg/dL Normal (applies [facility] (St [Mass/volume] in to non-numeric Jose D's Urine collected for results) Medical, unspecified PC) duration Urea nitrogen 15 mg/dL Normal (applies [facility] (St [Mass/volume] in to non-numeric Jose D's Serum or Plasma results) [facility], [facility]) eGFR If NonAfricn 100 Normal (applies [facility] (St Am mL/min/1 to non-numeric Jose D's .73 results) [facility], PC) Creatinine 0.74 Normal (applies [facility] (St [Interpretation] in mg/dL to non-numeric Jose D' s Urine results) [facility], PC) eGFR If Africn Am 116 Normal (applies [facility]GEN (St mL/min/1 to non-numeric Jose D's .73 results) [facility], PC) BUN/Creatinine 20 Normal (applies MEDGEN (S t Ratio to non-numeric Jose D's results) [facility], PC) Sodium 138 Normal (applies [facility] (St [Moles/volume] in mmol/L to non-numeric Jose D's Serum or Plasma results) [facility], PC) Potassium 4.3 Normal (applies [facility] (St [Mass/volume] in mmol/L to non-numeric Jose D's Blood results) [facility], PC) Chloride 100 Normal (applies [facility] (St [Moles/volume] in mmol/L to non-numeric Jose D's Serum or Plasma results) [facility], PC) Carbon dioxide, 23 Normal (applies MEDGEN ( St total mmol/L to non-numeric Jose D's [Moles/volume] in results) Medical, Serum or Plasma PC) Calcium 10.0 Normal (applies [facility]GEN (St [Moles/volume] in mg/dL to non-numeric Jose D's Urine collected for results) Medical, unspecified PC) duration Protein 8.3 g/dL Normal (applies MEDGEN (St [Mass/volume] in to non-numeric Jose D's Serum or Plasma results) [facility], ) Microalbumin 4.3 g/dL Normal (applies [facility]GEN (St [Mass/time] in to non-numeric Jose D's Urine collected for results) [facility], unspecified ) duration Globulin, Total 4.0 g/dL Normal (applies [facility] ( St to non-numeric Jose D's results) [facility], ) A/G Ratio 1.1 Below low normal [facility] ([facility], ) Bilirubin.total 0.2 Normal (applies [facility]GEN ( St [Mass/volume] in mg/dL to non-numeric Jose D's Serum or Plasma results) [facility], ) Aspartate 13 IU/L Normal (applies MEDGEN (St aminotransferase to non-numeric Jose D's [Enzymatic results) Medical, activity/volume] in ) Serum or Plasma Alkaline 74 IU/L Normal (applies [facility]GEN (St phosphatase to non-numeric Jose D's [Enzymatic results) Medical, activity/volume] in ) Serum, Plasma or Blood Alanine 8 IU/L Normal (applies MEDGEN (St aminotransferase to non-numeric Jose D's [Enzymatic results) Medical, activity/volume] in ) Serum or Plasma ID Date Data Source [id number] 12/28/2019 12:00:00 AM EDT [facility] ([facility], ) Name Value Range Interpretation Code Description Data Valerie rce(s) Supporting Document(s ) C-Reactive 11 mg/L Above high normal MED[facility] (St Protein, Jose D's Quant [facility], ) ID Date Data Source [id number] 12/28/2019 12:00:00 AM EDT [facility] ([facility], ) Name Value Range Interpretation Description Data Sup porting Code Source(s) Document(s ) Leukocytes 7.5 Normal (applies MEDGEN (St [#/volume] in x10E3/uL to non-numeric Jose D's Blood by results) [facility], ) Automated count Hemoglobin 12.7 Normal (applies [facility]GEN (St [Mass/volume] in g/dL to non-numeric Jose D's Blood results) [facility], ) Erythrocytes 4.62 Normal (applies MEDGEN (St [#/volume] in x10E6/uL to non-numeric Jose D's Blood by results) [facility], ) Automated count Hematocrit 39.0 % Normal (applies MEDGEN (St [Volume to non-numeric Jose D's Fraction] of results) [facility], ) Blood by Automated count MCV 84 fL Normal (applies MEDGEN (St to non-numeric Jose D's results) [facility], ) MCHC 32.6 Normal (applies [facility]GEN (St g/dL to non-numeric Jose D's results) [facility], ) MCH 27.5 pg Normal (applies MEDGEN (St to non-numeric Jose D's results) [facility], ) RDW 13.5 % Normal (applies MEDGEN (St to non-numeric Jose D's results) [facility], ) Platelets 452 Above high normal MEDGEN (St [#/area] in x10E3/uL Jose D's Blood by [facility], ) Microscopy high power field Neutrophils [#] 63 % Normal (applies MEDGEN ( St in Body fluid by to non-numeric Jose D's Manual count results) [facility], ) Lymphs 25 % Normal (applies [facility]GEN (St to non-numeric Jose D's results) [facility], ) Monocytes 10 % Normal (applies MEDGEN (St [#/volume] in to non-numeric Jose D's Cord blood results) [facility], ) Basos 0 % Normal (applies MEDGEN (St to non-numeric Jose D's results) [facility], ) Eos 2 % Normal (applies MEDGEN (St to non-numeric Jose D's results) [facility], ) Lymphs 1.8 Normal (applies MEDGEN (St (Absolute) x10E3/uL to non-numeric Jose D's results) [facility], ) Neutrophils 4.7 Normal (applies [facility]GEN (St (Absolute) x10E3/uL to non-numeric Jose D's results) [facility], ) Eos (Absolute) 0.2 Normal (applies MEDGEN (S t x10E3/uL to non-numeric Jose D's results) [facility], ) Monocytes(Absolu 0.7 Normal (applies MEDGEN (St te) x10E3/uL to non-numeric Jose D's results) [facility], ) Baso (Absolute) 0.0 Normal (applies MEDGEN ( St x10E3/uL to non-numeric Jose D's results) [facility], ) Immature 0 % Normal (applies MEDGEN (St Granulocytes to non-numeric Jose D's results) [facility], ) Immature Grans 0.0 Normal (applies MEDGEN (S t (Abs) x10E3/uL to non-numeric Jose D's results) [facility], PC) ID Date Data Source [id number] 12/28/2019 12:00:00 AM EDT [facility] ([facility] Name Value Range Interpretation Description Data Sup porting Code Source(s) Document(s ) Glucose 84 mg/dL Normal (applies [facility] (St [Mass/volume] in to non-numeric Jose D's Urine collected for results) Medical, unspecified PC) duration Urea nitrogen 15 mg/dL Normal (applies [facility]GEN (St [Mass/volume] in to non-numeric Jose D's Serum or Plasma results) [facility], PC) Creatinine 0.74 Normal (applies [facility]GEN (St [Interpretation] in mg/dL to non-numeric Jose D' s Urine results) [facility], PC) eGFR If NonAfricn 100 Normal (applies MEDGEN (St Am mL/min/1 to non-numeric Jose D's .73 results) Medical, PC) eGFR If Africn Am 116 Normal (applies [facility]GEN (St mL/min/1 to non-numeric Jose D's .73 results) Medical, PC) Sodium 138 Normal (applies [facility]GEN (St [Moles/volume] in mmol/L to non-numeric Jose D's Serum or Plasma results) [facility], PC) BUN/Creatinine 20 Normal (applies MEDGEN (S t Ratio to non-numeric Jose D's results) [facility], PC) Chloride 100 Normal (applies [facility]GEN (St [Moles/volume] in mmol/L to non-numeric Jose D's Serum or Plasma results) [facility], PC) Potassium 4.3 Normal (applies MEDGEN (St [Mass/volume] in mmol/L to non-numeric Jose D's Blood results) [facility], PC) Calcium 10.0 Normal (applies [facility]GEN (St [Moles/volume] in mg/dL to non-numeric Jose D's Urine collected for results) Medical, unspecified PC) duration Carbon dioxide, 23 Normal (applies MEDGEN ( St total mmol/L to non-numeric Jose D's [Moles/volume] in results) Medical, Serum or Plasma PC) Microalbumin 4.3 g/dL Normal (applies [facility]GEN (St [Mass/time] in to non-numeric Jose D's Urine collected for results) Medical, unspecified PC) duration Protein 8.3 g/dL Normal (applies [facility]GEN (St [Mass/volume] in to non-numeric Jose D's Serum or Plasma results) [facility], ) A/G Ratio 1.1 Below low normal [facility] ([facility], ) Globulin, Total 4.0 g/dL Normal (applies MEDGEN ( St to non-numeric Jose D's results) [facility], ) Alkaline 74 IU/L Normal (applies MEDGEN (St phosphatase to non-numeric Jose D's [Enzymatic results) Medical, activity/volume] in ) Serum, Plasma or Blood Bilirubin.total 0.2 Normal (applies [facility]GEN ( St [Mass/volume] in mg/dL to non-numeric Jose D's Serum or Plasma results) [facility], ) Alanine 8 IU/L Normal (applies MEDGEN (St aminotransferase to non-numeric Jose D's [Enzymatic results) Medical, activity/volume] in ) Serum or Plasma Aspartate 13 IU/L Normal (applies MEDGEN (St aminotransferase to non-numeric Jose D's [Enzymatic results) Medical, activity/volume] in ) Serum or Plasma ID Date Data Source [id number] 12/28/2019 12:00:00 AM EDT [facility] ([facility], ) Name Value Range Interpretation Code Description Data Valerie rce(s) Supporting Document(s ) C-Reactive 11 mg/L Above high normal MEDGEN (St Protein, Jose D's Quant [facility], ) ID Date Data Source [id number] 12/28/2019 12:00:00 AM EDT [facility] ([facility], ) Name Value Range Interpretation Description Data Sup porting Code Source(s) Document(s ) Leukocytes 7.5 Normal (applies MEDGEN (St [#/volume] in x10E3/uL to non-numeric Jose D's Blood by results) [facility], ) Automated count Erythrocytes 4.62 Normal (applies MEDGEN (St [#/volume] in x10E6/uL to non-numeric Jose D's Blood by results) [facility], ) Automated count Hemoglobin 12.7 Normal (applies MEDGEN (St [Mass/volume] in g/dL to non-numeric Jose D's Blood results) [facility], ) Hematocrit 39.0 % Normal (applies MEDGEN (St [Volume to non-numeric Jose D's Fraction] of results) [facility], ) Blood by Automated count MCH 27.5 pg Normal (applies MEDGEN (St to non-numeric Jose D's results) [facility], ) MCV 84 fL Normal (applies MEDGEN (St to non-numeric Jose D's results) [facility], ) RDW 13.5 % Normal (applies MEDGEN (St to non-numeric Jose D's results) [facility], ) MCHC 32.6 Normal (applies MEDGEN (St g/dL to non-numeric Jose D's results) [facility], ) Platelets 452 Above high normal MEDGEN (St [#/area] in x10E3/uL Jose D's Blood by [facility], ) Microscopy high power field Neutrophils [#] 63 % Normal (applies MEDGEN ( St in Body fluid by to non-numeric Jose D's Manual count results) [facility], ) Lymphs 25 % Normal (applies MEDGEN (St to non-numeric Jose D's results) [facility], ) Monocytes 10 % Normal (applies MEDGEN (St [#/volume] in to non-numeric Jose D's Cord blood results) [facility], ) Eos 2 % Normal (applies MEDGEN (St to non-numeric Jose D's results) [facility], ) Basos 0 % Normal (applies MEDGEN (St to non-numeric Jose D's results) [facility], ) Neutrophils 4.7 Normal (applies MEDGEN (St (Absolute) x10E3/uL to non-numeric Jose D's results) [facility], ) Monocytes(Absolu 0.7 Normal (applies MEDGEN (St te) x10E3/uL to non-numeric Jose D's results) [facility], ) Lymphs 1.8 Normal (applies MEDGEN (St (Absolute) x10E3/uL to non-numeric Jose D's results) [facility], ) Eos (Absolute) 0.2 Normal (applies MEDGEN (S t x10E3/uL to non-numeric Jose D's results) [facility], ) Baso (Absolute) 0.0 Normal (applies MEDGEN ( St x10E3/uL to non-numeric Jose D's results) [facility], ) Immature 0 % Normal (applies MEDGEN (St Granulocytes to non-numeric Jose D's results) [facility], ) Immature Grans 0.0 Normal (applies MEDGEN (S t (Abs) x10E3/uL to non-numeric Jose D's results) [facility], ) ID Date Data Source [id number] 12/28/2019 12:00:00 AM EDT [facility] ([facility] Name Value Range Interpretation Description Data Sup porting Code Source(s) Document(s ) Urea nitrogen 15 mg/dL Normal (applies [facility]GEN (St [Mass/volume] in to non-numeric Jose D's Serum or Plasma results) Medical, PC) Glucose 84 mg/dL Normal (applies [facility] (St [Mass/volume] in to non-numeric Jose D's Urine collected for results) Medical, unspecified PC) duration eGFR If NonAfricn 100 Normal (applies MEDGEN (St Am mL/min/1 to non-numeric Jose D's .73 results) Medical, PC) Creatinine 0.74 Normal (applies MEDGEN (St [Interpretation] in mg/dL to non-numeric Jose D' s Urine results) Medical, PC) BUN/Creatinine 20 Normal (applies MEDGEN (S t Ratio to non-numeric Jose D's results) Medical, PC) eGFR If Africn Am 116 Normal (applies MEDGEN (St mL/min/1 to non-numeric Jose D's .73 results) Medical, PC) Sodium 138 Normal (applies [facility]GEN (St [Moles/volume] in mmol/L to non-numeric Jose D's Serum or Plasma results) Medical, PC) Potassium 4.3 Normal (applies MEDGEN (St [Mass/volume] in mmol/L to non-numeric Joes D's Blood results) Medical, PC) Carbon dioxide, 23 Normal (applies MEDGEN ( St total mmol/L to non-numeric Jose D's [Moles/volume] in results) Medical, Serum or Plasma PC) Chloride 100 Normal (applies [facility]GEN (St [Moles/volume] in mmol/L to non-numeric Jose D's Serum or Plasma results) Medical, PC) Protein 8.3 g/dL Normal (applies MEDGEN (St [Mass/volume] in to non-numeric Jose D's Serum or Plasma results) Medical, PC) Calcium 10.0 Normal (applies MEDGEN (St [Moles/volume] in mg/dL to non-numeric Jose D's Urine collected for results) Medical, unspecified PC) duration Globulin, Total 4.0 g/dL Normal (applies MEDGEN ( St to non-numeric Jose D's results) Medical, PC) Microalbumin 4.3 g/dL Normal (applies MEDGEN (St [Mass/time] in to non-numeric Jose D's Urine collected for results) [facility], unspecified ) duration A/G Ratio 1.1 Below low normal [facility] ([facility], ) Bilirubin.total 0.2 Normal (applies MEDGEN ( St [Mass/volume] in mg/dL to non-numeric Jose D's Serum or Plasma results) Medical, ) Alkaline 74 IU/L Normal (applies MEDGEN (St phosphatase to non-numeric Jose D's [Enzymatic results) Medical, activity/volume] in PC) Serum, Plasma or Blood Aspartate 13 IU/L Normal (applies MEDGEN (St aminotransferase to non-numeric Jose D's [Enzymatic results) Medical, activity/volume] in PC) Serum or Plasma Alanine 8 IU/L Normal (applies MEDGEN (St aminotransferase to non-numeric Jose D's [Enzymatic results) Medical, activity/volume] in PC) Serum or Plasma ID Date Data Source [id number] 12/28/2019 12:00:00 AM EDT [facility] ([facility], ) Name Value Range Interpretation Code Description Data Valerie rce(s) Supporting Document(s ) C-Reactive 11 mg/L Above high normal MEDGEN (St Protein, Jose D's [facility], ) ID Date Data Source [id number] 12/28/2019 12:00:00 AM EDT [facility] ([facility], ) Name Value Range Interpretation Description Data Sup porting Code Source(s) Document(s ) Leukocytes 7.5 Normal (applies MEDGEN (St [#/volume] in x10E3/uL to non-numeric Jose D's Blood by results) Medical, ) Automated count Erythrocytes 4.62 Normal (applies MEDGEN (St [#/volume] in x10E6/uL to non-numeric Jose D's Blood by results) Medical, ) Automated count Hemoglobin 12.7 Normal (applies MEDGEN (St [Mass/volume] in g/dL to non-numeric Jose D's Blood results) [facility], ) Hematocrit 39.0 % Normal (applies MEDGEN (St [Volume to non-numeric Jose D's Fraction] of results) Medical, ) Blood by Automated count MCH 27.5 pg Normal (applies MEDGEN (St to non-numeric Jose D's results) Medical, ) MCV 84 fL Normal (applies MEDGEN (St to non-numeric Jose D's results) [facility], ) MCHC 32.6 Normal (applies MEDGEN (St g/dL to non-numeric Jose D's results) [facility], ) Platelets 452 Above high normal MEDGEN (St [#/area] in x10E3/uL Jose D's Blood by [facility], ) Microscopy high power field RDW 13.5 % Normal (applies MEDGEN (St to non-numeric Jose D's results) [facility], ) Neutrophils [#] 63 % Normal (applies MEDGEN ( St in Body fluid by to non-numeric Jose D's Manual count results) [facility], ) Lymphs 25 % Normal (applies MEDGEN (St to non-numeric Jose D's results) [facility], ) Eos 2 % Normal (applies MEDGEN (St to non-numeric Jose D's results) [facility], ) Monocytes 10 % Normal (applies MEDGEN (St [#/volume] in to non-numeric Jose D's Cord blood results) [facility], ) Basos 0 % Normal (applies MEDGEN (St to non-numeric Jose D's results) [facility], ) Neutrophils 4.7 Normal (applies MEDGEN (St (Absolute) x10E3/uL to non-numeric Jose D's results) [facility], ) Monocytes(Absolu 0.7 Normal (applies MEDGEN (St te) x10E3/uL to non-numeric Jose D's results) [facility], ) Lymphs 1.8 Normal (applies MEDGEN (St (Absolute) x10E3/uL to non-numeric Jose D's results) [facility], ) Eos (Absolute) 0.2 Normal (applies MEDGEN (S t x10E3/uL to non-numeric Jose D's results) [facility], ) Baso (Absolute) 0.0 Normal (applies [facility] ( St x10E3/uL to non-numeric Jose D's results) [facility], ) Immature 0 % Normal (applies [facility] (St Granulocytes to non-numeric Jose D's results) [facility], ) Immature Grans 0.0 Normal (applies [facility] (S t (Abs) x10E3/uL to non-numeric Jose D's results) [facility], ) ID Date Data Source [id number] 12/28/2019 12:00:00 AM EDT [facility] ([facility], ) Name Value Range Interpretation Description Data Sup porting Code Source(s) Document(s ) Glucose 84 mg/dL Normal (applies [facility] (St [Mass/volume] in to non-numeric Jose D's Urine collected for results) Medical, unspecified PC) duration Urea nitrogen 15 mg/dL Normal (applies [facility] (St [Mass/volume] in to non-numeric Jose D's Serum or Plasma results) Medical, PC) eGFR If NonAfricn 100 Normal (applies [facility] (St Am mL/min/1 to non-numeric Jose D's .73 results) Medical, PC) Creatinine 0.74 Normal (applies [facility] (St [Interpretation] in mg/dL to non-numeric Jose D' s Urine results) Medical, PC) eGFR If Africn Am 116 Normal (applies [facility] (St mL/min/1 to non-numeric Jose D's .73 results) Medical, PC) BUN/Creatinine 20 Normal (applies [facility] (S t Ratio to non-numeric Jose D's results) Medical, PC) Sodium 138 Normal (applies [facility] (St [Moles/volume] in mmol/L to non-numeric Jose D's Serum or Plasma results) Medical, PC) Chloride 100 Normal (applies [facility] (St [Moles/volume] in mmol/L to non-numeric Jose D's Serum or Plasma results) Medical, PC) Potassium 4.3 Normal (applies [facility] (St [Mass/volume] in mmol/L to non-numeric Jose D's Blood results) Medical, PC) Carbon dioxide, 23 Normal (applies [facility] ( St total mmol/L to non-numeric Jose D's [Moles/volume] in results) Medical, Serum or Plasma PC) Calcium 10.0 Normal (applies [facility] (St [Moles/volume] in mg/dL to non-numeric Jose D's Urine collected for results) Medical, unspecified PC) duration Protein 8.3 g/dL Normal (applies [facility] (St [Mass/volume] in to non-numeric Jose D's Serum or Plasma results) Medical, PC) Microalbumin 4.3 g/dL Normal (applies [facility] (St [Mass/time] in to non-numeric Jose D's Urine collected for results) Medical, unspecified PC) duration Globulin, Total 4.0 g/dL Normal (applies [facility] ( St to non-numeric Jose D's results) Medical, PC) A/G Ratio 1.1 Below low normal [facility] ([facility], ) Alkaline 74 IU/L Normal (applies [facility] (St phosphatase to non-numeric Jose D's [Enzymatic results) Medical, activity/volume] in ) Serum, Plasma or Blood Bilirubin.total 0.2 Normal (applies [facility] ( St [Mass/volume] in mg/dL to non-numeric Jose D's Serum or Plasma results) [facility], ) Aspartate 13 IU/L Normal (applies [facility] (St aminotransferase to non-numeric Jose D's [Enzymatic results) Medical, activity/volume] in ) Serum or Plasma Alanine 8 IU/L Normal (applies [facility] (St aminotransferase to non-numeric Jose D's [Enzymatic results) Medical, activity/volume] in ) Serum or Plasma ID Date Data Source [id number] 11/30/2019 12:00:00 AM EDT [facility] ([facility], ) Name Value Range Interpretation Code Description Data Valerie rce(s) Supporting Document(s ) C-Reactive 33 mg/L Above high normal [facility] (St Protein, Jose D's Quant [facility], ) ID Date Data Source [id number] 11/30/2019 12:00:00 AM EDT [facility] ([facility], ) Name Value Range Interpretation Description Data Sup porting Code Source(s) Document(s ) Leukocytes 8.0 Normal (applies [facility] (St [#/volume] in x10E3/uL to non-numeric Jose D's Blood by results) [facility], ) Automated count Hemoglobin 11.1 Normal (applies [facility] (St [Mass/volume] in g/dL to non-numeric Jose D's Blood results) [facility], ) Erythrocytes 4.18 Normal (applies [facility] (St [#/volume] in x10E6/uL to non-numeric Jose D's Blood by results) [facility], ) Automated count Hematocrit 36.0 % Normal (applies [facility] (St [Volume to non-numeric Jose D's Fraction] of results) [facility], ) Blood by Automated count MCH 26.6 pg Normal (applies [facility] (St to non-numeric Jose D's results) [facility], ) MCV 86 fL Normal (applies [facility] (St to non-numeric Jose D's results) [facility], ) RDW 11.8 % Normal (applies [facility] (St to non-numeric Jose D's results) [facility], ) MCHC 30.8 Below low normal [facility] (St g/dL Jose D's [facility], ) Platelets 594 Above high normal [facility] (St [#/area] in x10E3/uL Jose D's Blood by [facility], ) Microscopy high power field Lymphs 21 % Normal (applies [facility] (St to non-numeric Jose D's results) [facility], ) Neutrophils [#] 65 % Normal (applies [facility] ( St in Body fluid by to non-numeric Jose D's Manual count results) [facility], ) Monocytes 9 % Normal (applies [facility] (St [#/volume] in to non-numeric Jose D's Cord blood results) [facility], ) Eos 3 % Normal (applies [facility] (St to non-numeric Jose D's results) [facility], ) Basos 1 % Normal (applies [facility] (St to non-numeric Jose D's results) [facility], ) Neutrophils 5.2 Normal (applies [facility] (St (Absolute) x10E3/uL to non-numeric Jose D's results) [facility], ) Monocytes(Absolu 0.7 Normal (applies [facility] (St te) x10E3/uL to non-numeric Jose D's results) [facility]) Lymphs 1.7 Normal (applies [facility] (St (Absolute) x10E3/uL to non-numeric Jose D's results) [facility], ) Eos (Absolute) 0.2 Normal (applies [facility] (S t x10E3/uL to non-numeric Jose D's results) [facility], ) Immature 1 % Normal (applies [facility] (St Granulocytes to non-numeric Jose D's results) [facility], ) Baso (Absolute) 0.1 Normal (applies [facility] ( St x10E3/uL to non-numeric Jose D's results) [facility], ) Immature Grans 0.1 Normal (applies [facility] (S t (Abs) x10E3/uL to non-numeric Jose D's results) [facility], ) ID Date Data Source [id number] 11/30/2019 12:00:00 AM EDT [facility] ([facility], ) Name Value Range Interpretation Description Data Sup porting Code Source(s) Document(s ) Glucose 67 mg/dL Normal (applies [facility] (St [Mass/volume] in to non-numeric Jose D's Urine collected for results) Medical, unspecified PC) duration Creatinine 0.61 Normal (applies [facility] (St [Interpretation] in mg/dL to non-numeric Jose D' s Urine results) Medical, PC) Urea nitrogen 9 mg/dL Normal (applies [facility] (St [Mass/volume] in to non-numeric Jose D's Serum or Plasma results) Medical, PC) eGFR If NonAfricn 112 Normal (applies [facility] (St Am mL/min/1 to non-numeric Jose D's .73 results) Medical, PC) BUN/Creatinine 15 Normal (applies [facility] (S t Ratio to non-numeric Jose D's results) Medical, PC) eGFR If Africn Am 129 Normal (applies [facility] (St mL/min/1 to non-numeric Jose D's .73 results) Medical, PC) Sodium 143 Normal (applies [facility] (St [Moles/volume] in mmol/L to non-numeric Jose D's Serum or Plasma results) Medical, PC) Chloride 102 Normal (applies [facility] (St [Moles/volume] in mmol/L to non-numeric Jose D's Serum or Plasma results) Medical, PC) Potassium 4.2 Normal (applies [facility] (St [Mass/volume] in mmol/L to non-numeric Jose D's Blood results) Medical, PC) Carbon dioxide, 26 Normal (applies [facility] ( St total mmol/L to non-numeric Jose D's [Moles/volume] in results) Medical, Serum or Plasma PC) Calcium 9.7 Normal (applies [facility] (St [Moles/volume] in mg/dL to non-numeric Jose D's Urine collected for results) Medical, unspecified PC) duration Protein 7.3 g/dL Normal (applies [facility] (St [Mass/volume] in to non-numeric Jose D's Serum or Plasma results) Medical, PC) Microalbumin 3.5 g/dL Below low normal [facility] (St [Mass/time] in Jose D's Urine collected for Medical, unspecified PC) duration Globulin, Total 3.8 g/dL Normal (applies [facility] ( St to non-numeric Jose D's results) Medical, PC) A/G Ratio 0.9 Below low normal [facility] ([facility], [facility]) Alkaline 100 IU/L Normal (applies [facility] (St phosphatase to non-numeric Jose D's [Enzymatic results) Medical, activity/volume] in ) Serum, Plasma or Blood Bilirubin.total <0.2 Normal (applies [facility] ( St [Mass/volume] in to non-numeric Jose D's Serum or Plasma results) [facility], ) Aspartate 14 IU/L Normal (applies [facility] (St aminotransferase to non-numeric Jose D's [Enzymatic results) Medical, activity/volume] in ) Serum or Plasma Alanine 8 IU/L Normal (applies [facility] (St aminotransferase to non-numeric Jose D's [Enzymatic results) Medical, activity/volume] in ) Serum or Plasma ID Date Data Source [id number] 11/30/2019 12:00:00 AM EDT [facility] ([facility], ) Name Value Range Interpretation Code Description Data Valerie rce(s) Supporting Document(s ) C-Reactive 33 mg/L Above high normal [facility] (St Protein, Jose D's Quant [facility], ) ID Date Data Source [id number] 11/30/2019 12:00:00 AM EDT [facility] ([facility], ) Name Value Range Interpretation Description Data Sup porting Code Source(s) Document(s ) Leukocytes 8.0 Normal (applies [facility] (St [#/volume] in x10E3/uL to non-numeric Jose D's Blood by results) Medical, ) Automated count Erythrocytes 4.18 Normal (applies [facility] (St [#/volume] in x10E6/uL to non-numeric Jose D's Blood by results) [facility], ) Automated count Hemoglobin 11.1 Normal (applies [facility] (St [Mass/volume] in g/dL to non-numeric Jose D's Blood results) [facility], ) Hematocrit 36.0 % Normal (applies [facility] (St [Volume to non-numeric Jose D's Fraction] of results) [facility], ) Blood by Automated count MCH 26.6 pg Normal (applies [facility] (St to non-numeric Jose D's results) [facility], ) MCV 86 fL Normal (applies [facility] (St to non-numeric Jose D's results) [facility], ) MCHC 30.8 Below low normal [facility] (St g/dL Jose D's [facility], ) Platelets 594 Above high normal MED[facility] (St [#/area] in x10E3/uL Jose D's Blood by [facility], ) Microscopy high power field RDW 11.8 % Normal (applies [facility] (St to non-numeric Jose D's results) Medical, ) Neutrophils [#] 65 % Normal (applies [facility] ( St in Body fluid by to non-numeric Jose D's Manual count results) Medical, ) Monocytes 9 % Normal (applies [facility] (St [#/volume] in to non-numeric Jose D's Cord blood results) Medical, ) Lymphs 21 % Normal (applies [facility] (St to non-numeric Jose D's results) Medical, ) Eos 3 % Normal (applies [facility] (St to non-numeric Jose D's results) Medical, ) Neutrophils 5.2 Normal (applies [facility] (St (Absolute) x10E3/uL to non-numeric Jose D's results) Medical, ) Basos 1 % Normal (applies [facility] (St to non-numeric Jose D's results) Medical, ) Lymphs 1.7 Normal (applies [facility] (St (Absolute) x10E3/uL to non-numeric Jose D's results) Medical, ) Monocytes(Absolu 0.7 Normal (applies [facility] (St te) x10E3/uL to non-numeric Jose D's results) Medical, ) Eos (Absolute) 0.2 Normal (applies [facility] (S t x10E3/uL to non-numeric Jose D's results) Medical, ) Baso (Absolute) 0.1 Normal (applies [facility] ( St x10E3/uL to non-numeric Jose D's results) Medical, ) Immature 1 % Normal (applies [facility] (St Granulocytes to non-numeric Jose D's results) Medical, ) Immature Grans 0.1 Normal (applies [facility] (S t (Abs) x10E3/uL to non-numeric Jose D's results) Medical, ) ID Date Data Source [id number] 11/30/2019 12:00:00 AM EDT [facility] ([facility], ) Name Value Range Interpretation Description Data Sup porting Code Source(s) Document(s ) Glucose 67 mg/dL Normal (applies [facility] (St [Mass/volume] in to non-numeric Jose D's Urine collected for results) [facility] ) duration Urea nitrogen 9 mg/dL Normal (applies [facility] (St [Mass/volume] in to non-numeric Jose D's Serum or Plasma results) Medical, PC) Creatinine 0.61 Normal (applies [facility] (St [Interpretation] in mg/dL to non-numeric Jose D' s Urine results) Medical, PC) eGFR If Africn Am 129 Normal (applies [facility] (St mL/min/1 to non-numeric Jose D's .73 results) Medical, PC) eGFR If NonAfricn 112 Normal (applies [facility] (St Am mL/min/1 to non-numeric Jose D's .73 results) Medical, PC) BUN/Creatinine 15 Normal (applies [facility] (S t Ratio to non-numeric Jose D's results) Medical, PC) Potassium 4.2 Normal (applies [facility] (St [Mass/volume] in mmol/L to non-numeric Jose D's Blood results) Medical, PC) Sodium 143 Normal (applies [facility] (St [Moles/volume] in mmol/L to non-numeric Jose D's Serum or Plasma results) Medical, PC) Chloride 102 Normal (applies [facility] (St [Moles/volume] in mmol/L to non-numeric Jose D's Serum or Plasma results) Medical, PC) Carbon dioxide, 26 Normal (applies [facility] ( St total mmol/L to non-numeric Jose D's [Moles/volume] in results) Medical, Serum or Plasma PC) Calcium 9.7 Normal (applies [facility] (St [Moles/volume] in mg/dL to non-numeric Jose D's Urine collected for results) Medical, unspecified PC) duration Protein 7.3 g/dL Normal (applies [facility] (St [Mass/volume] in to non-numeric Jose D's Serum or Plasma results) Medical, PC) Microalbumin 3.5 g/dL Below low normal [facility] (St [Mass/time] in Jose D's Urine collected for Medical, unspecified PC) duration Globulin, Total 3.8 g/dL Normal (applies [facility] ( St to non-numeric Jose D's results) Medical, PC) A/G Ratio 0.9 Below low normal [facility] ([facility], [facility]) Bilirubin.total <0.2 Normal (applies [facility] ( St [Mass/volume] in to non-numeric Jose D's Serum or Plasma results) Medical, PC) Alkaline 100 IU/L Normal (applies [facility] (St phosphatase to non-numeric Jose D's [Enzymatic results) Medical, activity/volume] in PC) Serum, Plasma or Blood Aspartate 14 IU/L Normal (applies [facility] (St aminotransferase to non-numeric Jose D's [Enzymatic results) Medical, activity/volume] in ) Serum or Plasma Alanine 8 IU/L Normal (applies [facility] (St aminotransferase to non-numeric Jose D's [Enzymatic results) Medical, activity/volume] in ) Serum or Plasma ID Date Data Source [id number] 11/30/2019 12:00:00 AM EDT [facility] ([facility], ) Name Value Range Interpretation Code Description Data Valerie rce(s) Supporting Document(s ) C-Reactive 33 mg/L Above high normal [facility] (St Protein, Jose D's Quant [facility], ) ID Date Data Source [id number] 11/30/2019 12:00:00 AM EDT [facility] ([facility], ) Name Value Range Interpretation Description Data Sup porting Code Source(s) Document(s ) Leukocytes 8.0 Normal (applies [facility] (St [#/volume] in x10E3/uL to non-numeric Jose D's Blood by results) [facility], ) Automated count Erythrocytes 4.18 Normal (applies [facility] (St [#/volume] in x10E6/uL to non-numeric Jose D's Blood by results) [facility], ) Automated count Hemoglobin 11.1 Normal (applies [facility] (St [Mass/volume] in g/dL to non-numeric Jose D's Blood results) [facility], ) Hematocrit 36.0 % Normal (applies [facility] (St [Volume to non-numeric Jose D's Fraction] of results) [facility], ) Blood by Automated count MCV 86 fL Normal (applies [facility] (St to non-numeric Jose D's results) [facility], ) MCH 26.6 pg Normal (applies [facility] (St to non-numeric Jose D's results) [facility], ) RDW 11.8 % Normal (applies [facility] (St to non-numeric Jose D's results) [facility], ) MCHC 30.8 Below low normal [facility] (St g/dL Jose D's [facility], ) Platelets 594 Above high normal MEDGEN (St [#/area] in x10E3/uL Jose D's Blood by [facility], ) Microscopy high power field Neutrophils [#] 65 % Normal (applies MEDGEN ( St in Body fluid by to non-numeric Jose D's Manual count results) [facility], ) Lymphs 21 % Normal (applies [facility] (St to non-numeric Jose D's results) Medical, ) Monocytes 9 % Normal (applies [facility] (St [#/volume] in to non-numeric Jose D's Cord blood results) Medical, ) Eos 3 % Normal (applies [facility] (St to non-numeric Jose D's results) Medical, ) Basos 1 % Normal (applies [facility] (St to non-numeric Jose D's results) Medical, ) Lymphs 1.7 Normal (applies [facility] (St (Absolute) x10E3/uL to non-numeric Jose D's results) Medical, ) Neutrophils 5.2 Normal (applies [facility] (St (Absolute) x10E3/uL to non-numeric Jose D's results) Medical, ) Monocytes(Absolu 0.7 Normal (applies MEDGEN (St te) x10E3/uL to non-numeric Jose D's results) Medical, ) Eos (Absolute) 0.2 Normal (applies [facility] (S t x10E3/uL to non-numeric Jose D's results) Medical, ) Baso (Absolute) 0.1 Normal (applies [facility] ( St x10E3/uL to non-numeric Jose D's results) Medical, ) Immature 1 % Normal (applies [facility] (St Granulocytes to non-numeric Jose D's results) Medical, ) Immature Grans 0.1 Normal (applies [facility] (S t (Abs) x10E3/uL to non-numeric Jose D's results) Medical, ) ID Date Data Source [id number] 11/30/2019 12:00:00 AM EDT [facility] ([facility], ) Name Value Range Interpretation Description Data Sup porting Code Source(s) Document(s ) Glucose 67 mg/dL Normal (applies [facility] (St [Mass/volume] in to non-numeric Jose D's Urine collected for results) Medical, unspecified ) duration Urea nitrogen 9 mg/dL Normal (applies [facility] (St [Mass/volume] in to non-numeric Jose D's Serum or Plasma results) Medical, ) Creatinine 0.61 Normal (applies [facility] (St [Interpretation] in mg/dL to non-numeric Jose D' s Urine results) Medical, ) eGFR If NonAfricn 112 Normal (applies [facility] (St Am mL/min/1 to non-numeric Jose D's .73 results) Medical, PC) BUN/Creatinine 15 Normal (applies [facility]GEN (S t Ratio to non-numeric Joes D's results) Medical, PC) eGFR If Africn Am 129 Normal (applies [facility] (St mL/min/1 to non-numeric Jose D's .73 results) Medical, PC) Sodium 143 Normal (applies [facility] (St [Moles/volume] in mmol/L to non-numeric Jose D's Serum or Plasma results) Medical, PC) Potassium 4.2 Normal (applies [facility] (St [Mass/volume] in mmol/L to non-numeric Jose D's Blood results) Medical, PC) Carbon dioxide, 26 Normal (applies [facility] ( St total mmol/L to non-numeric Jose D's [Moles/volume] in results) Medical, Serum or Plasma PC) Chloride 102 Normal (applies [facility] (St [Moles/volume] in mmol/L to non-numeric Jose D's Serum or Plasma results) Medical, ) Calcium 9.7 Normal (applies [facility] (St [Moles/volume] in mg/dL to non-numeric Jose D's Urine collected for results) Medical, unspecified PC) duration Microalbumin 3.5 g/dL Below low normal [facility] (St [Mass/time] in Jose D's Urine collected for Medical, unspecified PC) duration Protein 7.3 g/dL Normal (applies [facility] (St [Mass/volume] in to non-numeric Jose D's Serum or Plasma results) Medical, ) A/G Ratio 0.9 Below low normal [facility] ([facility], [facility]) Globulin, Total 3.8 g/dL Normal (applies [facility] ( St to non-numeric Jose D's results) Medical, PC) Bilirubin.total <0.2 Normal (applies [facility] ( St [Mass/volume] in to non-numeric Jose D's Serum or Plasma results) Medical, PC) Alkaline 100 IU/L Normal (applies [facility]GEN (St phosphatase to non-numeric Jose D's [Enzymatic results) Medical, activity/volume] in PC) Serum, Plasma or Blood Aspartate 14 IU/L Normal (applies [facility]GEN (St aminotransferase to non-numeric Jose D's [Enzymatic results) Medical, activity/volume] in PC) Serum or Plasma Alanine 8 IU/L Normal (applies [facility] (St aminotransferase to non-numeric Jose D's [Enzymatic results) Medical, activity/volume] in PC) Serum or Plasma ID Date Data Source [id number] 11/30/2019 12:00:00 AM EDT [facility] ([facility], ) Name Value Range Interpretation Code Description Data Valerie rce(s) Supporting Document(s ) C-Reactive 33 mg/L Above high normal [facility] (St Protein, Jose D's Quant [facility], ) ID Date Data Source [id number] 11/30/2019 12:00:00 AM EDT [facility] ([facility], ) Name Value Range Interpretation Description Data Sup porting Code Source(s) Document(s ) Leukocytes 8.0 Normal (applies [facility] (St [#/volume] in x10E3/uL to non-numeric Jose D's Blood by results) [facility], ) Automated count Erythrocytes 4.18 Normal (applies [facility] (St [#/volume] in x10E6/uL to non-numeric Jose D's Blood by results) [facility], ) Automated count Hemoglobin 11.1 Normal (applies [facility] (St [Mass/volume] in g/dL to non-numeric Jose D's Blood results) [facility], ) MCV 86 fL Normal (applies [facility]GEN (St to non-numeric Jose D's results) [facility], ) Hematocrit 36.0 % Normal (applies [facility] (St [Volume to non-numeric Jose D's Fraction] of results) [facility], ) Blood by Automated count MCH 26.6 pg Normal (applies [facility]GEN (St to non-numeric Jose D's results) [facility], ) RDW 11.8 % Normal (applies [facility]GEN (St to non-numeric Jose D's results) [facility], ) MCHC 30.8 Below low normal [facility] (St g/dL Jose D's [facility], ) Platelets 594 Above high normal MEDGEN (St [#/area] in x10E3/uL Jose D's Blood by [facility], ) Microscopy high power field Lymphs 21 % Normal (applies MEDGEN (St to non-numeric Jose D's results) [facility], ) Neutrophils [#] 65 % Normal (applies [facility]GEN ( St in Body fluid by to non-numeric Jose D's Manual count results) [facility], ) Monocytes 9 % Normal (applies [facility]GEN (St [#/volume] in to non-numeric Jose D's Cord blood results) Medical, ) Eos 3 % Normal (applies [facility]GEN (St to non-numeric Jose D's results) Medical, ) Basos 1 % Normal (applies MEDGEN (St to non-numeric Jose D's results) Medical, ) Lymphs 1.7 Normal (applies [facility]GEN (St (Absolute) x10E3/uL to non-numeric Jose D's results) Medical, PC) Neutrophils 5.2 Normal (applies MEDGEN (St (Absolute) x10E3/uL to non-numeric Jose D's results) Medical, ) Monocytes(Absolu 0.7 Normal (applies MEDGEN (St te) x10E3/uL to non-numeric Jose D's results) Medical, ) Baso (Absolute) 0.1 Normal (applies MEDGEN ( St x10E3/uL to non-numeric Jose D's results) Medical, PC) Eos (Absolute) 0.2 Normal (applies MEDGEN (S t x10E3/uL to non-numeric Jose D's results) Medical, ) Immature 1 % Normal (applies [facility]GEN (St Granulocytes to non-numeric Jose D's results) Medical, ) Immature Grans 0.1 Normal (applies [facility]GEN (S t (Abs) x10E3/uL to non-numeric Jose D's results) Medical, ) ID Date Data Source [id number] 11/30/2019 12:00:00 AM EDT [facility] ([facility], ) Name Value Range Interpretation Description Data Sup porting Code Source(s) Document(s ) Glucose 67 mg/dL Normal (applies [facility] (St [Mass/volume] in to non-numeric Jose D's Urine collected for results) Medical, unspecified ) duration Urea nitrogen 9 mg/dL Normal (applies [facility]GEN (St [Mass/volume] in to non-numeric Jose D's Serum or Plasma results) Medical, ) Creatinine 0.61 Normal (applies [facility]GEN (St [Interpretation] in mg/dL to non-numeric Jose D' s Urine results) Medical, ) eGFR If NonAfricn 112 Normal (applies MEDGEN (St Am mL/min/1 to non-numeric Jose D's .73 results) Medical, PC) BUN/Creatinine 15 Normal (applies MEDGEN (S t Ratio to non-numeric Jose D's results) Medical, PC) eGFR If Africn Am 129 Normal (applies [facility]GEN (St mL/min/1 to non-numeric Jose D's .73 results) Medical, PC) Sodium 143 Normal (applies [facility] (St [Moles/volume] in mmol/L to non-numeric Jose D's Serum or Plasma results) Medical, PC) Chloride 102 Normal (applies [facility]GEN (St [Moles/volume] in mmol/L to non-numeric Jose D's Serum or Plasma results) Medical, PC) Potassium 4.2 Normal (applies [facility] (St [Mass/volume] in mmol/L to non-numeric Jose D's Blood results) Medical, PC) Carbon dioxide, 26 Normal (applies [facility]GEN ( St total mmol/L to non-numeric Jose D's [Moles/volume] in results) Medical, Serum or Plasma PC) Protein 7.3 g/dL Normal (applies [facility] (St [Mass/volume] in to non-numeric [facility] Serum or Plasma results) Medical, PC) Calcium 9.7 Normal (applies [facility] (St [Moles/volume] in mg/dL to non-numeric [facility] Urine collected for results) Medical, unspecified PC) duration Globulin, Total 3.8 g/dL Normal (applies [facility] ( St to non-numeric [facility] results) Medical, PC) Microalbumin 3.5 g/dL Below low normal [facility] (St [Mass/time] in Jose [facility] Urine collected for Medical, unspecified PC) duration A/G Ratio 0.9 Below low normal [facility] ([facility], [facility]) Alkaline 100 IU/L Normal (applies [facility] (St phosphatase to non-numeric Jose D's [Enzymatic results) Medical, activity/volume] in PC) Serum, Plasma or Blood Bilirubin.total <0.2 Normal (applies [facility] ( St [Mass/volume] in to non-numeric [facility] Serum or Plasma results) Medical, PC) Aspartate 14 IU/L Normal (applies [facility] (St aminotransferase to non-numeric Jose [facility] [Enzymatic results) Medical, activity/volume] in PC) Serum or Plasma Alanine 8 IU/L Normal (applies [facility] (St aminotransferase to non-numeric Jose [facility]'s [Enzymatic results) Medical, activity/volume] in PC) Serum or Plasma ID Date Data Source [id number] 11/30/2019 12:00:00 AM EDT [facility] ([facility], ) Name Value Range Interpretation Code Description Data Valerie rce(s) Supporting Document(s ) C-Reactive 33 mg/L Above high normal [facility] (St Protein, [facility], ) ID Date Data Source [id number] 11/30/2019 12:00:00 AM EDT [facility] ([facility], ) Name Value Range Interpretation Description Data Sup porting Code Source(s) Document(s ) Erythrocytes 4.18 Normal (applies [facility] (St [#/volume] in x10E6/uL to non-numeric [facility] Blood by results) Medical, ) Automated count Leukocytes 8.0 Normal (applies [facility] (St [#/volume] in x10E3/uL to non-numeric [facility] Blood by results) Medical, ) Automated count Hemoglobin 11.1 Normal (applies [facility] (St [Mass/volume] in g/dL to non-numeric Jose [facility] Blood results) Medical, ) Hematocrit 36.0 % Normal (applies [facility] (St [Volume to non-numeric Jose D's Fraction] of results) Medical, ) Blood by Automated count MCV 86 fL Normal (applies [facility] (St to non-numeric Jose [facility]'s results) Medical, ) MCHC 30.8 Below low normal [facility] (St g/dL Jose D[facility], ) MCH 26.6 pg Normal (applies [facility] (St to non-numeric [facility] results) Medical, ) Platelets 594 Above high normal [facility] (St [#/area] in x10E3/uL [facility] Blood by Medical, ) Microscopy high power field RDW 11.8 % Normal (applies [facility] (St to non-numeric [facility]'s results) Medical, ) Neutrophils [#] 65 % Normal (applies [facility] ( St in Body fluid by to non-numeric Jose D's Manual count results) Medical, ) Lymphs 21 % Normal (applies [facility] (St to non-numeric [facility] results) Medical, ) Monocytes 9 % Normal (applies [facility] (St [#/volume] in to non-numeric Jose D's Cord blood results) Medical, ) Basos 1 % Normal (applies [facility] (St to non-numeric Jose [facility] results) Medical, ) Eos 3 % Normal (applies [facility] (St to non-numeric [facility] results) Medical, ) Lymphs 1.7 Normal (applies [facility] (St (Absolute) x10E3/uL to non-numeric [facility] results) Medical, PC) Neutrophils 5.2 Normal (applies [facility] (St (Absolute) x10E3/uL to non-numeric [facility] results) Medical, PC) Eos (Absolute) 0.2 Normal (applies [facility] (S t x10E3/uL to non-numeric [facility] results) Medical, PC) Monocytes(Absolu 0.7 Normal (applies [facility] (St te) x10E3/uL to non-numeric Jose [facility] results) Medical, ) Immature 1 % Normal (applies [facility] (St Granulocytes to non-numeric Jose [facility]'s results) Medical, PC) Baso (Absolute) 0.1 Normal (applies [facility] ( St x10E3/uL to non-numeric Jose [facility]'s results) Medical, ) Immature Grans 0.1 Normal (applies [facility] (S t (Abs) x10E3/uL to non-numeric [facility] results) Medical, ) ID Date Data Source [id number] 11/30/2019 12:00:00 AM EDT [facility] ([facility], ) Name Value Range Interpretation Description Data Sup porting Code Source(s) Document(s ) Glucose 67 mg/dL Normal (applies [facility] (St [Mass/volume] in to non-numeric [facility] Urine collected for results) Medical, unspecified PC) duration Urea nitrogen 9 mg/dL Normal (applies [facility] (St [Mass/volume] in to non-numeric Jose [facility] Serum or Plasma results) Medical, ) Creatinine 0.61 Normal (applies [facility] (St [Interpretation] in mg/dL to non-numeric Jose D' s Urine results) Medical, ) eGFR If NonAfricn 112 Normal (applies [facility] (St Am mL/min/1 to non-numeric Jose D's .73 results) Medical, PC) eGFR If Africn Am 129 Normal (applies [facility] (St mL/min/1 to non-numeric Jose D's .73 results) Medical, ) BUN/Creatinine 15 Normal (applies [facility] (S t Ratio to non-numeric Jose [facility]'s results) Medical, PC) Sodium 143 Normal (applies [facility] (St [Moles/volume] in mmol/L to non-numeric Jose [facility] Serum or Plasma results) Medical, PC) Potassium 4.2 Normal (applies [facility] (St [Mass/volume] in mmol/L to non-numeric Jose [facility] Blood results) Medical, PC) Chloride 102 Normal (applies [facility] (St [Moles/volume] in mmol/L to non-numeric [facility] Serum or Plasma results) Medical, PC) Calcium 9.7 Normal (applies [facility] (St [Moles/volume] in mg/dL to non-numeric [facility] Urine collected for results) Medical, unspecified PC) duration Carbon dioxide, 26 Normal (applies [facility] ( St total mmol/L to non-numeric Jose [facility]'s [Moles/volume] in results) Medical, Serum or Plasma PC) Microalbumin 3.5 g/dL Below low normal [facility] (St [Mass/time] in Jose D's Urine collected for Medical, unspecified PC) duration Protein 7.3 g/dL Normal (applies [facility] (St [Mass/volume] in to non-numeric Jose [facility]'s Serum or Plasma results) Medical, PC) A/G Ratio 0.9 Below low normal [facility] ([facility], [facility]) Globulin, Total 3.8 g/dL Normal (applies [facility] ( St to non-numeric Jose D's results) Medical, PC) Alkaline 100 IU/L Normal (applies [facility] (St phosphatase to non-numeric Jose [facility]'s [Enzymatic results) Medical, activity/volume] in PC) Serum, Plasma or Blood Bilirubin.total <0.2 Normal (applies [facility] ( St [Mass/volume] in to non-numeric [facility] Serum or Plasma results) Medical, PC) Aspartate 14 IU/L Normal (applies [facility] (St aminotransferase to non-numeric Jose D's [Enzymatic results) Medical, activity/volume] in PC) Serum or Plasma Alanine 8 IU/L Normal (applies [facility] (St aminotransferase to non-numeric Jose D's [Enzymatic results) Medical, activity/volume] in PC) Serum or Plasma ID Date Data Source [id number] 11/30/2019 12:00:00 AM EDT [facility] ([facility], ) Name Value Range Interpretation Code Description Data Valerie rce(s) Supporting Document(s ) C-Reactive 33 mg/L Above high normal [facility] (St Protein, [facility], ) ID Date Data Source [id number] 11/30/2019 12:00:00 AM EDT [facility] ([facility], ) Name Value Range Interpretation Description Data Sup porting Code Source(s) Document(s ) Leukocytes 8.0 Normal (applies [facility] (St [#/volume] in x10E3/uL to non-numeric Jose [facility]'s Blood by results) Medical, ) Automated count Hemoglobin 11.1 Normal (applies [facility] (St [Mass/volume] in g/dL to non-numeric [facility] Blood results) Medical, ) Erythrocytes 4.18 Normal (applies [facility] (St [#/volume] in x10E6/uL to non-numeric Jose [facility]'s Blood by results) Medical, ) Automated count MCV 86 fL Normal (applies [facility] (St to non-numeric Jose D's results) Medical, ) Hematocrit 36.0 % Normal (applies [facility] (St [Volume to non-numeric Jose D's Fraction] of results) Medical, ) Blood by Automated count MCH 26.6 pg Normal (applies [facility] (St to non-numeric Jose D's results) Medical, ) MCHC 30.8 Below low normal [facility] (St g/dL Jose D's [facility], ) RDW 11.8 % Normal (applies [facility] (St to non-numeric Jose D's results) Medical, ) Platelets 594 Above high normal [facility] (St [#/area] in x10E3/uL Jose [facility] Blood by Medical, ) Microscopy high power field Lymphs 21 % Normal (applies [facility] (St to non-numeric Jose D's results) Medical, ) Neutrophils [#] 65 % Normal (applies [facility] ( St in Body fluid by to non-numeric Jose D's Manual count results) Medical, ) Monocytes 9 % Normal (applies [facility] (St [#/volume] in to non-numeric Jose D's Cord blood results) Medical, ) Eos 3 % Normal (applies [facility] (St to non-numeric Jose D's results) Medical, ) Neutrophils 5.2 Normal (applies [facility] (St (Absolute) x10E3/uL to non-numeric Jose [facility]'s results) Medical, ) Basos 1 % Normal (applies [facility] (St to non-numeric Jose [facility]'s results) Medical, PC) Lymphs 1.7 Normal (applies [facility] (St (Absolute) x10E3/uL to non-numeric Jose D's results) Medical, PC) Monocytes(Absolu 0.7 Normal (applies [facility] (St te) x10E3/uL to non-numeric Jose D's results) Medical, PC) Eos (Absolute) 0.2 Normal (applies [facility] (S t x10E3/uL to non-numeric Jose D's results) Medical, PC) Baso (Absolute) 0.1 Normal (applies [facility] ( St x10E3/uL to non-numeric Jose D's results) Medical, PC) Immature 1 % Normal (applies [facility] (St Granulocytes to non-numeric Jose D's results) Medical, PC) Immature Grans 0.1 Normal (applies [facility] (S t (Abs) x10E3/uL to non-numeric Jose [facility]'s results) Medical, PC) ID Date Data Source [id number] 11/30/2019 12:00:00 AM EDT [facility] ([facility]) Name Value Range Interpretation Description Data Sup porting Code Source(s) Document(s ) Glucose 67 mg/dL Normal (applies [facility] (St [Mass/volume] in to non-numeric [facility] Urine collected for results) Medical, unspecified PC) duration Creatinine 0.61 Normal (applies [facility] (St [Interpretation] in mg/dL to non-numeric Jose D' s Urine results) Medical, PC) Urea nitrogen 9 mg/dL Normal (applies [facility] (St [Mass/volume] in to non-numeric Jose D's Serum or Plasma results) Medical, PC) eGFR If Africn Am 129 Normal (applies [facility] (St mL/min/1 to non-numeric Jose D's .73 results) Medical, PC) eGFR If NonAfricn 112 Normal (applies [facility] (St Am mL/min/1 to non-numeric Jose D's .73 results) Medical, PC) BUN/Creatinine 15 Normal (applies [facility] (S t Ratio to non-numeric Jose D's results) Medical, PC) Sodium 143 Normal (applies [facility] (St [Moles/volume] in mmol/L to non-numeric Jose D's Serum or Plasma results) Medical, PC) Chloride 102 Normal (applies [facility] (St [Moles/volume] in mmol/L to non-numeric Jose D's Serum or Plasma results) Medical, PC) Potassium 4.2 Normal (applies [facility] (St [Mass/volume] in mmol/L to non-numeric Jose D's Blood results) Medical, PC) Carbon dioxide, 26 Normal (applies [facility] ( St total mmol/L to non-numeric Jose D's [Moles/volume] in results) Medical, Serum or Plasma PC) Calcium 9.7 Normal (applies [facility] (St [Moles/volume] in mg/dL to non-numeric Jose [facility] Urine collected for results) Medical, unspecified PC) duration Microalbumin 3.5 g/dL Below low normal [facility] (St [Mass/time] in Jose D's Urine collected for Medical, unspecified PC) duration Protein 7.3 g/dL Normal (applies [facility] (St [Mass/volume] in to non-numeric Jose D's Serum or Plasma results) Medical, PC) Globulin, Total 3.8 g/dL Normal (applies [facility] ( St to non-numeric Jose D's results) Medical, PC) A/G Ratio 0.9 Below low normal [facility] ([facility], [facility]) Alkaline 100 IU/L Normal (applies [facility] (St phosphatase to non-numeric Jose D's [Enzymatic results) Medical, activity/volume] in PC) Serum, Plasma or Blood Bilirubin.total <0.2 Normal (applies [facility] ( St [Mass/volume] in to non-numeric Jose D's Serum or Plasma results) Medical, PC) Aspartate 14 IU/L Normal (applies [facility] (St aminotransferase to non-numeric Jose D's [Enzymatic results) Medical, activity/volume] in PC) Serum or Plasma Alanine 8 IU/L Normal (applies [facility] (St aminotransferase to non-numeric Jose D's [Enzymatic results) Medical, activity/volume] in PC) Serum or Plasma ID Date Data Source [id number] 11/30/2019 12:00:00 AM EDT [facility] ([facility]) Name Value Range Interpretation Code Description Data Valerie rce(s) Supporting Document(s ) C-Reactive 33 mg/L Above high normal [facility] (St Protein, [facility], PC) ID Date Data Source [id number] 11/30/2019 12:00:00 AM EDT [facility] ([facility]) Name Value Range Interpretation Description Data Sup porting Code Source(s) Document(s ) Leukocytes 8.0 Normal (applies [facility] (St [#/volume] in x10E3/uL to non-numeric Jose D's Blood by results) [facility], ) Automated count Erythrocytes 4.18 Normal (applies [facility] (St [#/volume] in x10E6/uL to non-numeric Jose D's Blood by results) [facility], ) Automated count Hemoglobin 11.1 Normal (applies [facility] (St [Mass/volume] in g/dL to non-numeric Jose D's Blood results) [facility], ) MCV 86 fL Normal (applies [facility] (St to non-numeric Jose D's results) [facility], ) Hematocrit 36.0 % Normal (applies [facility] (St [Volume to non-numeric Jose D's Fraction] of results) [facility], ) Blood by Automated count MCH 26.6 pg Normal (applies [facility] (St to non-numeric Jose D's results) [facility], ) RDW 11.8 % Normal (applies [facility] (St to non-numeric Jose D's results) [facility], ) MCHC 30.8 Below low normal [facility] (St g/dL Jose D's [facility], ) Neutrophils [#] 65 % Normal (applies [facility] ( St in Body fluid by to non-numeric Jose D's Manual count results) [facility], ) Platelets 594 Above high normal [facility] (St [#/area] in x10E3/uL Jose D's Blood by [facility], ) Microscopy high power field Lymphs 21 % Normal (applies [facility] (St to non-numeric Jose D's results) [facility], ) Monocytes 9 % Normal (applies [facility] (St [#/volume] in to non-numeric Jose D's Cord blood results) [facility], ) Basos 1 % Normal (applies [facility] (St to non-numeric Jose D's results) [facility], ) Eos 3 % Normal (applies [facility] (St to non-numeric Jos Ed's results) [facility], ) Neutrophils 5.2 Normal (applies [facility] (St (Absolute) x10E3/uL to non-numeric Jose D's results) [facility], ) Lymphs 1.7 Normal (applies [facility] (St (Absolute) x10E3/uL to non-numeric Jose D's results) [facility], ) Monocytes(Absolu 0.7 Normal (applies [facility] (St te) x10E3/uL to non-numeric Jose D's results) Medical, PC) Eos (Absolute) 0.2 Normal (applies [facility] (S t x10E3/uL to non-numeric Jose D's results) Medical, PC) Baso (Absolute) 0.1 Normal (applies [facility] ( St x10E3/uL to non-numeric Jose D's results) Medical, PC) Immature 1 % Normal (applies [facility] (St Granulocytes to non-numeric Jose D's results) Medical, PC) Immature Grans 0.1 Normal (applies [facility] (S t (Abs) x10E3/uL to non-numeric Jose D's results) Medical, PC) ID Date Data Source [id number] 11/30/2019 12:00:00 AM EDT [facility] ([facility]) Name Value Range Interpretation Description Data Sup porting Code Source(s) Document(s ) Glucose 67 mg/dL Normal (applies [facility] (St [Mass/volume] in to non-numeric Jose D's Urine collected for results) Medical, unspecified PC) duration Urea nitrogen 9 mg/dL Normal (applies [facility] (St [Mass/volume] in to non-numeric Jose D's Serum or Plasma results) Medical, PC) eGFR If NonAfricn 112 Normal (applies [facility] (St Am mL/min/1 to non-numeric Jose D's .73 results) Medical, PC) Creatinine 0.61 Normal (applies [facility] (St [Interpretation] in mg/dL to non-numeric Jose D' s Urine results) Medical, PC) BUN/Creatinine 15 Normal (applies [facility] (S t Ratio to non-numeric Jose D's results) Medical, PC) eGFR If Africn Am 129 Normal (applies [facility] (St mL/min/1 to non-numeric Jose D's .73 results) Medical, PC) Sodium 143 Normal (applies [facility] (St [Moles/volume] in mmol/L to non-numeric Jose D's Serum or Plasma results) Medical, PC) Chloride 102 Normal (applies [facility] (St [Moles/volume] in mmol/L to non-numeric Jose D's Serum or Plasma results) Medical, PC) Potassium 4.2 Normal (applies [facility] (St [Mass/volume] in mmol/L to non-numeric Jose D's Blood results) Medical, PC) Calcium 9.7 Normal (applies [facility] (St [Moles/volume] in mg/dL to non-numeric Jose D's Urine collected for results) Medical, unspecified PC) duration Carbon dioxide, 26 Normal (applies [facility] ( St total mmol/L to non-numeric Jose D's [Moles/volume] in results) Medical, Serum or Plasma PC) Protein 7.3 g/dL Normal (applies [facility] (St [Mass/volume] in to non-numeric Jose D's Serum or Plasma results) Medical, ) Microalbumin 3.5 g/dL Below low normal [facility] (St [Mass/time] in Jose D's Urine collected for Medical, unspecified PC) duration A/G Ratio 0.9 Below low normal [facility] ([facility], ) Globulin, Total 3.8 g/dL Normal (applies [facility] ( St to non-numeric Jose D's results) Medical, ) Alkaline 100 IU/L Normal (applies [facility] (St phosphatase to non-numeric Jose D's [Enzymatic results) Medical, activity/volume] in PC) Serum, Plasma or Blood Bilirubin.total <0.2 Normal (applies [facility] ( St [Mass/volume] in to non-numeric Jose D's Serum or Plasma results) Medical, ) Alanine 8 IU/L Normal (applies [facility] (St aminotransferase to non-numeric Jose D's [Enzymatic results) Medical, activity/volume] in PC) Serum or Plasma Aspartate 14 IU/L Normal (applies [facility] (St aminotransferase to non-numeric Ojse D's [Enzymatic results) Medical, activity/volume] in PC) Serum or Plasma ID Date Data Source [id number] 11/09/2019 12:00:00 AM EDT [facility] ([facility], ) Name Value Range Interpretation Description Data Sup porting Code Source(s) Document(s ) Leukocytes 8.8 Normal (applies [facility] (St [#/volume] in x10E3/uL to non-numeric Jose D's Blood by results) Medical, ) Automated count Erythrocytes 4.39 Normal (applies [facility] (St [#/volume] in x10E6/uL to non-numeric Jose D's Blood by results) Medical, ) Automated count Hemoglobin 12.1 Normal (applies [facility] (St [Mass/volume] in g/dL to non-numeric Jose D's Blood results) Medical, ) Hematocrit 37.8 % Normal (applies [facility] (St [Volume to non-numeric Jose D's Fraction] of results) [facility], ) Blood by Automated count MCV 86 fL Normal (applies [facility] (St to non-numeric Jose D's results) [facility], ) MCH 27.6 pg Normal (applies [facility] (St to non-numeric Jose D's results) [facility], ) MCHC 32.0 Normal (applies [facility] (St g/dL to non-numeric Jose D's results) [facility], ) RDW 11.7 % Normal (applies [facility] (St to non-numeric Jose D's results) [facility], ) Platelets 507 Above high normal [facility] (St [#/area] in x10E3/uL Jose D's Blood by Medical, ) Microscopy high power field Neutrophils [#] 62 % Normal (applies [facility] ( St in Body fluid by to non-numeric Jose D's Manual count results) [facility], ) Lymphs 25 % Normal (applies [facility] (St to non-numeric Jose D's results) [facility], ) Eos 2 % Normal (applies [facility] (St to non-numeric Jose D's results) [facility], ) Monocytes 10 % Normal (applies [facility] (St [#/volume] in to non-numeric Jose D's Cord blood results) [facility], ) Basos 1 % Normal (applies [facility] (St to non-numeric Jose D's results) [facility], ) Lymphs 2.2 Normal (applies [facility] (St (Absolute) x10E3/uL to non-numeric Jose D's results) Medical, ) Neutrophils 5.5 Normal (applies [facility] (St (Absolute) x10E3/uL to non-numeric Jose D's results) [facility], ) Monocytes(Absolu 0.9 Normal (applies [facility] (St te) x10E3/uL to non-numeric Jose D's results) Medical, ) Eos (Absolute) 0.1 Normal (applies [facility] (S t x10E3/uL to non-numeric Jose D's results) Medical, ) Baso (Absolute) 0.0 Normal (applies [facility] ( St x10E3/uL to non-numeric Jose D's results) Medical, ) Immature 0 % Normal (applies [facility] (St Granulocytes to non-numeric Jose D's results) Medical, PC) Immature Grans 0.0 Normal (applies [facility] (S t (Abs) x10E3/uL to non-numeric Joes D's results) Medical, PC) ID Date Data Source [id number] 11/09/2019 12:00:00 AM EDT [facility] ([facility]) Name Value Range Interpretation Description Data Sup porting Code Source(s) Document(s ) Glucose 81 mg/dL Normal (applies [facility] (St [Mass/volume] in to non-numeric Jose D's Urine collected for results) Medical, unspecified PC) duration Creatinine 0.79 Normal (applies [facility] (St [Interpretation] in mg/dL to non-numeric Jose D' s Urine results) Medical, PC) Urea nitrogen 10 mg/dL Normal (applies [facility] (St [Mass/volume] in to non-numeric Jose D's Serum or Plasma results) Medical, PC) eGFR If NonAfricn 93 Normal (applies [facility] (St Am mL/min/1 to non-numeric Jose D's .73 results) Medical, PC) eGFR If Africn Am 107 Normal (applies [facility] (St mL/min/1 to non-numeric Jose D's .73 results) Medical, PC) BUN/Creatinine 13 Normal (applies [facility] (S t Ratio to non-numeric Jose D's results) Medical, PC) Sodium 141 Normal (applies [facility] (St [Moles/volume] in mmol/L to non-numeric Jose D's Serum or Plasma results) Medical, PC) Potassium 4.3 Normal (applies [facility] (St [Mass/volume] in mmol/L to non-numeric Jose D's Blood results) Medical, PC) Chloride 101 Normal (applies [facility] (St [Moles/volume] in mmol/L to non-numeric Jose D's Serum or Plasma results) Medical, PC) Carbon dioxide, 26 Normal (applies [facility] ( St total mmol/L to non-numeric Jose D's [Moles/volume] in results) Medical, Serum or Plasma PC) Calcium 9.7 Normal (applies [facility] (St [Moles/volume] in mg/dL to non-numeric Jose D's Urine collected for results) Medical, unspecified PC) duration Protein 7.6 g/dL Normal (applies [facility] (St [Mass/volume] in to non-numeric Jose D's Serum or Plasma results) Medical, PC) Globulin, Total 3.5 g/dL Normal (applies [facility] ( St to non-numeric Jose D's results) Medical, ) Microalbumin 4.1 g/dL Normal (applies [facility] (St [Mass/time] in to non-numeric Jose D's Urine collected for results) [facility], unspecified ) duration A/G Ratio 1.2 Normal (applies [facility] (St to non-numeric Jose D's results) Medical, ) Alkaline 102 IU/L Normal (applies [facility] (St phosphatase to non-numeric Jose D's [Enzymatic results) Medical, activity/volume] in PC) Serum, Plasma or Blood Bilirubin.total 0.3 Normal (applies [facility] ( St [Mass/volume] in mg/dL to non-numeric Jose D's Serum or Plasma results) Medical, ) Alanine 8 IU/L Normal (applies [facility] (St aminotransferase to non-numeric Jose D's [Enzymatic results) Medical, activity/volume] in PC) Serum or Plasma Aspartate 11 IU/L Normal (applies [facility] (St aminotransferase to non-numeric Jose D's [Enzymatic results) Medical, activity/volume] in PC) Serum or Plasma ID Date Data Source [id number] 11/09/2019 12:00:00 AM EDT [facility] ([facility], ) Name Value Range Interpretation Description Data Sup porting Code Source(s) Document(s ) Leukocytes 8.8 Normal (applies [facility] (St [#/volume] in x10E3/uL to non-numeric Jose D's Blood by results) Medical, ) Automated count Erythrocytes 4.39 Normal (applies [facility] (St [#/volume] in x10E6/uL to non-numeric Jose D's Blood by results) Medical, ) Automated count Hematocrit 37.8 % Normal (applies [facility] (St [Volume to non-numeric Jose D's Fraction] of results) [facility], ) Blood by Automated count Hemoglobin 12.1 Normal (applies [facility] (St [Mass/volume] in g/dL to non-numeric Jose D's Blood results) Medical, ) MCV 86 fL Normal (applies [facility] (St to non-numeric Jose D's results) Medical, ) MCH 27.6 pg Normal (applies [facility] (St to non-numeric Jose D's results) Medical, ) MCHC 32.0 Normal (applies [facility] (St g/dL to non-numeric Jose D's results) [facility], ) RDW 11.7 % Normal (applies [facility] (St to non-numeric Jose D's results) [facility], ) Platelets 507 Above high normal [facility] (St [#/area] in x10E3/uL Jose D's Blood by [facility], ) Microscopy high power field Lymphs 25 % Normal (applies [facility] (St to non-numeric Jose D's results) [facility], ) Neutrophils [#] 62 % Normal (applies [facility] ( St in Body fluid by to non-numeric Jose D's Manual count results) [facility], ) Monocytes 10 % Normal (applies [facility] (St [#/volume] in to non-numeric Jose D's Cord blood results) [facility], ) Basos 1 % Normal (applies MED[facility] (St to non-numeric Jose D's results) [facility], ) Eos 2 % Normal (applies [facility] (St to non-numeric Jose D's results) [facility], ) Neutrophils 5.5 Normal (applies [facility] (St (Absolute) x10E3/uL to non-numeric Jose D's results) [facility], ) Lymphs 2.2 Normal (applies [facility]GEN (St (Absolute) x10E3/uL to non-numeric Jose D's results) [facility], ) Monocytes(Absolu 0.9 Normal (applies MEDGEN (St te) x10E3/uL to non-numeric Jose D's results) [facility], ) Eos (Absolute) 0.1 Normal (applies [facility]GEN (S t x10E3/uL to non-numeric Jose D's results) [facility], ) Immature 0 % Normal (applies MED[facility] (St Granulocytes to non-numeric Jose D's results) [facility], ) Baso (Absolute) 0.0 Normal (applies MEDGEN ( St x10E3/uL to non-numeric Jose D's results) [facility], ) Immature Grans 0.0 Normal (applies MEDGEN (S t (Abs) x10E3/uL to non-numeric Jose D's results) [facility], ) ID Date Data Source [id number] 11/09/2019 12:00:00 AM EDT [facility] ([facility], ) Name Value Range Interpretation Description Data Sup porting Code Source(s) Document(s ) Glucose 81 mg/dL Normal (applies [facility] (St [Mass/volume] in to non-numeric Jose D's Urine collected for results) Medical, unspecified PC) duration Urea nitrogen 10 mg/dL Normal (applies [facility] (St [Mass/volume] in to non-numeric Jose D's Serum or Plasma results) Medical, PC) Creatinine 0.79 Normal (applies [facility] (St [Interpretation] in mg/dL to non-numeric Jose D' s Urine results) Medical, PC) eGFR If NonAfricn 93 Normal (applies [facility] (St Am mL/min/1 to non-numeric Jose D's .73 results) Medical, PC) eGFR If Africn Am 107 Normal (applies [facility] (St mL/min/1 to non-numeric Jose D's .73 results) Medical, PC) BUN/Creatinine 13 Normal (applies [facility] (S t Ratio to non-numeric Jose D's results) [facility], PC) Sodium 141 Normal (applies [facility] (St [Moles/volume] in mmol/L to non-numeric Jose D's Serum or Plasma results) [facility], PC) Potassium 4.3 Normal (applies [facility] (St [Mass/volume] in mmol/L to non-numeric Jose D's Blood results) [facility], PC) Chloride 101 Normal (applies [facility] (St [Moles/volume] in mmol/L to non-numeric Jose D's Serum or Plasma results) Medical, PC) Calcium 9.7 Normal (applies [facility] (St [Moles/volume] in mg/dL to non-numeric Jose D's Urine collected for results) Medical, unspecified PC) duration Carbon dioxide, 26 Normal (applies [facility]GEN ( St total mmol/L to non-numeric Jose D's [Moles/volume] in results) Medical, Serum or Plasma PC) Protein 7.6 g/dL Normal (applies [facility] (St [Mass/volume] in to non-numeric Jose D's Serum or Plasma results) Medical, PC) Globulin, Total 3.5 g/dL Normal (applies [facility] ( St to non-numeric Jose D's results) [facility], PC) Microalbumin 4.1 g/dL Normal (applies [facility] (St [Mass/time] in to non-numeric Jose D's Urine collected for results) Medical, unspecified PC) duration A/G Ratio 1.2 Normal (applies [facility] (St to non-numeric Jose D's results) [facility], [facility]) Bilirubin.total 0.3 Normal (applies [facility] ( St [Mass/volume] in mg/dL to non-numeric Jose D's Serum or Plasma results) Medical, ) Alkaline 102 IU/L Normal (applies [facility] (St phosphatase to non-numeric Jose D's [Enzymatic results) Medical, activity/volume] in ) Serum, Plasma or Blood Aspartate 11 IU/L Normal (applies [facility] (St aminotransferase to non-numeric Jose D's [Enzymatic results) Medical, activity/volume] in ) Serum or Plasma Alanine 8 IU/L Normal (applies [facility] (St aminotransferase to non-numeric Jose D's [Enzymatic results) Medical, activity/volume] in ) Serum or Plasma ID Date Data Source [id number] 11/09/2019 12:00:00 AM EDT [facility] ([facility], ) Name Value Range Interpretation Description Data Sup porting Code Source(s) Document(s ) Erythrocytes 4.39 Normal (applies [facility] (St [#/volume] in x10E6/uL to non-numeric Jose D's Blood by results) Medical, ) Automated count Leukocytes 8.8 Normal (applies [facility] (St [#/volume] in x10E3/uL to non-numeric Jose D's Blood by results) Medical, ) Automated count Hematocrit 37.8 % Normal (applies [facility] (St [Volume to non-numeric Jose D's Fraction] of results) [facility], ) Blood by Automated count Hemoglobin 12.1 Normal (applies [facility] (St [Mass/volume] in g/dL to non-numeric Jose D's Blood results) Medical, ) MCV 86 fL Normal (applies [facility] (St to non-numeric Jose D's results) Medical, ) MCH 27.6 pg Normal (applies [facility] (St to non-numeric Jose D's results) [facility], ) MCHC 32.0 Normal (applies [facility] (St g/dL to non-numeric Jose D's results) [facility], ) Platelets 507 Above high normal MEDGEN (St [#/area] in x10E3/uL Jose D's Blood by [facility], ) Microscopy high power field RDW 11.7 % Normal (applies [facility] (St to non-numeric Jose D's results) [facility], ) Neutrophils [#] 62 % Normal (applies [facility] ( St in Body fluid by to non-numeric Jose D's Manual count results) Medical, ) Monocytes 10 % Normal (applies [facility] (St [#/volume] in to non-numeric Jose D's Cord blood results) Medical, PC) Lymphs 25 % Normal (applies [facility] (St to non-numeric Jose D's results) Medical, PC) Basos 1 % Normal (applies [facility] (St to non-numeric Jose D's results) Medical, PC) Eos 2 % Normal (applies [facility] (St to non-numeric Jose D's results) Medical, PC) Neutrophils 5.5 Normal (applies [facility] (St (Absolute) x10E3/uL to non-numeric Jose D's results) Medical, PC) Lymphs 2.2 Normal (applies [facility] (St (Absolute) x10E3/uL to non-numeric Jose D's results) [facility], PC) Monocytes(Absolu 0.9 Normal (applies MEDGEN (St te) x10E3/uL to non-numeric Jose D's results) [facility], PC) Baso (Absolute) 0.0 Normal (applies MEDGEN ( St x10E3/uL to non-numeric Jose D's results) [facility], PC) Eos (Absolute) 0.1 Normal (applies [facility] (S t x10E3/uL to non-numeric Jose D's results) [facility], [facility]) Immature 0 % Normal (applies [facility] (St Granulocytes to non-numeric Jose D's results) [facility], PC) Immature Grans 0.0 Normal (applies [facility] (S t (Abs) x10E3/uL to non-numeric Jose D's results) Medical, ) ID Date Data Source [id number] 11/09/2019 12:00:00 AM EDT [facility] ([facility], ) Name Value Range Interpretation Description Data Sup porting Code Source(s) Document(s ) Glucose 81 mg/dL Normal (applies [facility] (St [Mass/volume] in to non-numeric Jose D's Urine collected for results) Medical, unspecified ) duration Urea nitrogen 10 mg/dL Normal (applies [facility] (St [Mass/volume] in to non-numeric Jose D's Serum or Plasma results) [facility], PC) Creatinine 0.79 Normal (applies [facility] (St [Interpretation] in mg/dL to non-numeric Jose D' s Urine results) Medical, PC) eGFR If NonAfricn 93 Normal (applies MEDGEN (St Am mL/min/1 to non-numeric Jose D's .73 results) Medical, PC) eGFR If Africn Am 107 Normal (applies [facility] (St mL/min/1 to non-numeric Jose D's .73 results) Medical, PC) Sodium 141 Normal (applies [facility] (St [Moles/volume] in mmol/L to non-numeric Jose D's Serum or Plasma results) Medical, PC) BUN/Creatinine 13 Normal (applies [facility] (S t Ratio to non-numeric Jose D's results) Medical, PC) Chloride 101 Normal (applies [facility] (St [Moles/volume] in mmol/L to non-numeric Jose D's Serum or Plasma results) Medical, PC) Potassium 4.3 Normal (applies [facility] (St [Mass/volume] in mmol/L to non-numeric Jose D's Blood results) Medical, PC) Carbon dioxide, 26 Normal (applies [facility] ( St total mmol/L to non-numeric Jose D's [Moles/volume] in results) Medical, Serum or Plasma PC) Protein 7.6 g/dL Normal (applies [facility] (St [Mass/volume] in to non-numeric Jose D's Serum or Plasma results) Medical, PC) Calcium 9.7 Normal (applies [facility] (St [Moles/volume] in mg/dL to non-numeric Jose D's Urine collected for results) Medical, unspecified PC) duration Microalbumin 4.1 g/dL Normal (applies [facility] (St [Mass/time] in to non-numeric Jose D's Urine collected for results) Medical, unspecified PC) duration Globulin, Total 3.5 g/dL Normal (applies [facility] ( St to non-numeric Jose D's results) Medical, PC) A/G Ratio 1.2 Normal (applies [facility] (St to non-numeric Jose D's results) Medical, PC) Bilirubin.total 0.3 Normal (applies [facility]GEN ( St [Mass/volume] in mg/dL to non-numeric Jose D's Serum or Plasma results) Medical, PC) Alkaline 102 IU/L Normal (applies [facility]GEN (St phosphatase to non-numeric Jose D's [Enzymatic results) Medical, activity/volume] in PC) Serum, Plasma or Blood Aspartate 11 IU/L Normal (applies [facility] (St aminotransferase to non-numeric Jose D's [Enzymatic results) Medical, activity/volume] in ) Serum or Plasma Alanine 8 IU/L Normal (applies [facility] (St aminotransferase to non-numeric Jose D's [Enzymatic results) Medical, activity/volume] in ) Serum or Plasma ID Date Data Source [id number] 11/09/2019 12:00:00 AM EDT [facility] ([facility], ) Name Value Range Interpretation Description Data Sup porting Code Source(s) Document(s ) Leukocytes 8.8 Normal (applies [facility] (St [#/volume] in x10E3/uL to non-numeric Jose D's Blood by results) Medical, ) Automated count Hemoglobin 12.1 Normal (applies [facility] (St [Mass/volume] in g/dL to non-numeric Jose D's Blood results) Medical, ) Erythrocytes 4.39 Normal (applies [facility] (St [#/volume] in x10E6/uL to non-numeric Jose D's Blood by results) Medical, ) Automated count Hematocrit 37.8 % Normal (applies [facility] (St [Volume to non-numeric Jose D's Fraction] of results) [facility], ) Blood by Automated count MCV 86 fL Normal (applies [facility] (St to non-numeric Jose D's results) Medical, ) MCH 27.6 pg Normal (applies [facility] (St to non-numeric Jose D's results) [facility], ) RDW 11.7 % Normal (applies [facility] (St to non-numeric Jose D's results) Medical, ) MCHC 32.0 Normal (applies [facility] (St g/dL to non-numeric Jose D's results) [facility], ) Platelets 507 Above high normal MED[facility] (St [#/area] in x10E3/uL Jose D's Blood by [facility], ) Microscopy high power field Neutrophils [#] 62 % Normal (applies [facility]GEN ( St in Body fluid by to non-numeric Jose D's Manual count results) [facility], ) Lymphs 25 % Normal (applies [facility] (St to non-numeric Jose D's results) Medical, ) Monocytes 10 % Normal (applies [facility] (St [#/volume] in to non-numeric Jose D's Cord blood results) [facility], ) Basos 1 % Normal (applies [facility] (St to non-numeric Jose D's results) Medical, ) Eos 2 % Normal (applies [facility] (St to non-numeric Jose D's results) Medical, PC) Neutrophils 5.5 Normal (applies [facility] (St (Absolute) x10E3/uL to non-numeric Jose D's results) Medical, PC) Monocytes(Absolu 0.9 Normal (applies MEDGEN (St te) x10E3/uL to non-numeric Jose D's results) Medical, PC) Lymphs 2.2 Normal (applies [facility] (St (Absolute) x10E3/uL to non-numeric Jose D's results) Medical, PC) Eos (Absolute) 0.1 Normal (applies [facility]GEN (S t x10E3/uL to non-numeric Jose D's results) Medical, PC) Immature 0 % Normal (applies [facility] (St Granulocytes to non-numeric Jose D's results) Medical, PC) Baso (Absolute) 0.0 Normal (applies [facility] ( St x10E3/uL to non-numeric Jose D's results) Medical, PC) Immature Grans 0.0 Normal (applies [facility] (S t (Abs) x10E3/uL to non-numeric Jose D's results) Medical, ) ID Date Data Source [id number] 11/09/2019 12:00:00 AM EDT [facility] ([facility], ) Name Value Range Interpretation Description Data Sup porting Code Source(s) Document(s ) Glucose 81 mg/dL Normal (applies [facility] (St [Mass/volume] in to non-numeric Jose D's Urine collected for results) Medical, unspecified PC) duration Urea nitrogen 10 mg/dL Normal (applies [facility] (St [Mass/volume] in to non-numeric Jose D's Serum or Plasma results) Medical, PC) Creatinine 0.79 Normal (applies [facility] (St [Interpretation] in mg/dL to non-numeric Jose D' s Urine results) Medical, PC) eGFR If NonAfricn 93 Normal (applies [facility] (St Am mL/min/1 to non-numeric Jose D's .73 results) Medical, PC) eGFR If Africn Am 107 Normal (applies [facility] (St mL/min/1 to non-numeric Jose D's .73 results) Medical, PC) BUN/Creatinine 13 Normal (applies MEDGEN (S t Ratio to non-numeric Jose D's results) Medical, PC) Sodium 141 Normal (applies [facility] (St [Moles/volume] in mmol/L to non-numeric Jose D's Serum or Plasma results) Medical, ) Potassium 4.3 Normal (applies [facility] (St [Mass/volume] in mmol/L to non-numeric Jose D's Blood results) Medical, ) Chloride 101 Normal (applies [facility] (St [Moles/volume] in mmol/L to non-numeric Jose D's Serum or Plasma results) Medical, ) Carbon dioxide, 26 Normal (applies [facility]GEN ( St total mmol/L to non-numeric Jose D's [Moles/volume] in results) Medical, Serum or Plasma PC) Protein 7.6 g/dL Normal (applies [facility] (St [Mass/volume] in to non-numeric Jose D's Serum or Plasma results) Medical, ) Calcium 9.7 Normal (applies [facility] (St [Moles/volume] in mg/dL to non-numeric Jose D's Urine collected for results) Medical, unspecified PC) duration Microalbumin 4.1 g/dL Normal (applies [facility] (St [Mass/time] in to non-numeric Jose D's Urine collected for results) Medical, unspecified PC) duration A/G Ratio 1.2 Normal (applies [facility] (St to non-numeric Jose D's results) Medical, ) Globulin, Total 3.5 g/dL Normal (applies [facility] ( St to non-numeric Jose D's results) Medical, ) Bilirubin.total 0.3 Normal (applies [facility]GEN ( St [Mass/volume] in mg/dL to non-numeric Jose D's Serum or Plasma results) Medical, ) Alkaline 102 IU/L Normal (applies [facility]GEN (St phosphatase to non-numeric Jose D's [Enzymatic results) Medical, activity/volume] in PC) Serum, Plasma or Blood Aspartate 11 IU/L Normal (applies [facility] (St aminotransferase to non-numeric Jose D's [Enzymatic results) Medical, activity/volume] in PC) Serum or Plasma Alanine 8 IU/L Normal (applies [facility] (St aminotransferase to non-numeric Jose D's [Enzymatic results) Medical, activity/volume] in PC) Serum or Plasma ID Date Data Source [id number] 11/09/2019 12:00:00 AM EDT [facility] ([facility], ) Name Value Range Interpretation Description Data Sup porting Code Source(s) Document(s ) Leukocytes 8.8 Normal (applies [facility] (St [#/volume] in x10E3/uL to non-numeric Jose D's Blood by results) Medical, ) Automated count Erythrocytes 4.39 Normal (applies [facility] (St [#/volume] in x10E6/uL to non-numeric Jose D's Blood by results) [facility], ) Automated count Hemoglobin 12.1 Normal (applies [facility] (St [Mass/volume] in g/dL to non-numeric Jose D's Blood results) [facility], ) MCV 86 fL Normal (applies [facility] (St to non-numeric Jose D's results) [facility], ) Hematocrit 37.8 % Normal (applies [facility] (St [Volume to non-numeric Jose D's Fraction] of results) [facility], ) Blood by Automated count MCHC 32.0 Normal (applies [facility] (St g/dL to non-numeric Jose D's results) [facility], ) MCH 27.6 pg Normal (applies [facility] (St to non-numeric Jose D's results) [facility], ) RDW 11.7 % Normal (applies [facility] (St to non-numeric Jose D's results) [facility], ) Platelets 507 Above high normal MED[facility] (St [#/area] in x10E3/uL Jose D's Blood by [facility], ) Microscopy high power field Neutrophils [#] 62 % Normal (applies MEDGEN ( St in Body fluid by to non-numeric Jose D's Manual count results) [facility], ) Monocytes 10 % Normal (applies [facility]GEN (St [#/volume] in to non-numeric Jose D's Cord blood results) [facility], ) Lymphs 25 % Normal (applies [facility] (St to non-numeric Jose D's results) [facility], ) Eos 2 % Normal (applies [facility] (St to non-numeric Jose D's results) [facility], ) Basos 1 % Normal (applies [facility] (St to non-numeric Jose D's results) [facility], ) Lymphs 2.2 Normal (applies [facility] (St (Absolute) x10E3/uL to non-numeric Jose D's results) [facility], ) Neutrophils 5.5 Normal (applies [facility]GEN (St (Absolute) x10E3/uL to non-numeric Jose D's results) [facility], ) Monocytes(Absolu 0.9 Normal (applies MEDGEN (St te) x10E3/uL to non-numeric Jose D's results) Medical, PC) Baso (Absolute) 0.0 Normal (applies [facility] ( St x10E3/uL to non-numeric Jose D's results) Medical, PC) Eos (Absolute) 0.1 Normal (applies [facility] (S t x10E3/uL to non-numeric Jose D's results) Medical, PC) Immature 0 % Normal (applies [facility] (St Granulocytes to non-numeric Jose D's results) Medical, PC) Immature Grans 0.0 Normal (applies [facility] (S t (Abs) x10E3/uL to non-numeric Jose D's results) Medical, PC) ID Date Data Source [id number] 11/09/2019 12:00:00 AM EDT [facility] ([facility]) Name Value Range Interpretation Description Data Sup porting Code Source(s) Document(s ) Glucose 81 mg/dL Normal (applies [facility] (St [Mass/volume] in to non-numeric Jose D's Urine collected for results) Medical, unspecified PC) duration Urea nitrogen 10 mg/dL Normal (applies [facility] (St [Mass/volume] in to non-numeric Jose D's Serum or Plasma results) Medical, PC) Creatinine 0.79 Normal (applies [facility] (St [Interpretation] in mg/dL to non-numeric Jose D' s Urine results) Medical, PC) eGFR If Africn Am 107 Normal (applies [facility] (St mL/min/1 to non-numeric Jose D's .73 results) Medical, PC) eGFR If NonAfricn 93 Normal (applies [facility] (St Am mL/min/1 to non-numeric Jose D's .73 results) Medical, PC) BUN/Creatinine 13 Normal (applies [facility]GEN (S t Ratio to non-numeric Jose D's results) Medical, PC) Sodium 141 Normal (applies [facility] (St [Moles/volume] in mmol/L to non-numeric Jose D's Serum or Plasma results) Medical, PC) Chloride 101 Normal (applies [facility] (St [Moles/volume] in mmol/L to non-numeric Jose D's Serum or Plasma results) Medical, PC) Potassium 4.3 Normal (applies [facility] (St [Mass/volume] in mmol/L to non-numeric Jose D's Blood results) Medical, PC) Calcium 9.7 Normal (applies [facility] (St [Moles/volume] in mg/dL to non-numeric Jose D's Urine collected for results) Medical, unspecified PC) duration Carbon dioxide, 26 Normal (applies [facility] ( St total mmol/L to non-numeric Jose D's [Moles/volume] in results) Medical, Serum or Plasma PC) Protein 7.6 g/dL Normal (applies [facility] (St [Mass/volume] in to non-numeric Jose D's Serum or Plasma results) Medical, ) Microalbumin 4.1 g/dL Normal (applies [facility] (St [Mass/time] in to non-numeric Jose D's Urine collected for results) Medical, unspecified PC) duration A/G Ratio 1.2 Normal (applies [facility] (St to non-numeric Jose D's results) Medical, PC) Globulin, Total 3.5 g/dL Normal (applies [facility] ( St to non-numeric Jose D's results) Medical, PC) Bilirubin.total 0.3 Normal (applies [facility] ( St [Mass/volume] in mg/dL to non-numeric Jose D's Serum or Plasma results) Medical, PC) Alkaline 102 IU/L Normal (applies [facility] (St phosphatase to non-numeric Jose D's [Enzymatic results) Medical, activity/volume] in PC) Serum, Plasma or Blood Aspartate 11 IU/L Normal (applies [facility] (St aminotransferase to non-numeric Jose D's [Enzymatic results) Medical, activity/volume] in PC) Serum or Plasma Alanine 8 IU/L Normal (applies [facility] (St aminotransferase to non-numeric Jose D's [Enzymatic results) Medical, activity/volume] in PC) Serum or Plasma ID Date Data Source [id number] 11/09/2019 12:00:00 AM EDT [facility]) Name Value Range Interpretation Description Data Sup porting Code Source(s) Document(s ) Leukocytes 8.8 Normal (applies [facility] (St [#/volume] in x10E3/uL to non-numeric Jose D's Blood by results) Medical, ) Automated count Erythrocytes 4.39 Normal (applies [facility] (St [#/volume] in x10E6/uL to non-numeric Jose D's Blood by results) Medical, ) Automated count Hematocrit 37.8 % Normal (applies [facility] (St [Volume to non-numeric Jose D's Fraction] of results) [facility], ) Blood by Automated count Hemoglobin 12.1 Normal (applies [facility] (St [Mass/volume] in g/dL to non-numeric Jose D's Blood results) [facility], ) MCV 86 fL Normal (applies MEDGEN (St to non-numeric Jose D's results) [facility], ) MCH 27.6 pg Normal (applies [facility] (St to non-numeric Jose D's results) [facility], ) RDW 11.7 % Normal (applies [facility] (St to non-numeric Jose D's results) [facility], ) MCHC 32.0 Normal (applies [facility] (St g/dL to non-numeric Jose D's results) [facility], ) Platelets 507 Above high normal [facility] (St [#/area] in x10E3/uL Jose D's Blood by [facility], ) Microscopy high power field Lymphs 25 % Normal (applies [facility] (St to non-numeric Jose D's results) [facility], ) Neutrophils [#] 62 % Normal (applies [facility] ( St in Body fluid by to non-numeric Jose D's Manual count results) [facility], ) Monocytes 10 % Normal (applies [facility]GEN (St [#/volume] in to non-numeric Jose D's Cord blood results) [facility], ) Eos 2 % Normal (applies [facility] (St to non-numeric Jose D's results) [facility], ) Neutrophils 5.5 Normal (applies [facility] (St (Absolute) x10E3/uL to non-numeric Jose D's results) [facility], ) Basos 1 % Normal (applies [facility] (St to non-numeric Jose D's results) [facility], ) Lymphs 2.2 Normal (applies [facility] (St (Absolute) x10E3/uL to non-numeric Jose D's results) [facility], ) Monocytes(Absolu 0.9 Normal (applies MEDGEN (St te) x10E3/uL to non-numeric Jose D's results) [facility], ) Eos (Absolute) 0.1 Normal (applies [facility]GEN (S t x10E3/uL to non-numeric Jose D's results) [facility], ) Baso (Absolute) 0.0 Normal (applies [facility]GEN ( St x10E3/uL to non-numeric Jose D's results) [facility], ) Immature 0 % Normal (applies [facility] (St Granulocytes to non-numeric Jose D's results) Medical, PC) Immature Grans 0.0 Normal (applies [facility]GEN (S t (Abs) x10E3/uL to non-numeric Jose D's results) Medical, PC) ID Date Data Source [id number] 11/09/2019 12:00:00 AM EDT [facility] ([facility]) Name Value Range Interpretation Description Data Sup porting Code Source(s) Document(s ) Glucose 81 mg/dL Normal (applies [facility] (St [Mass/volume] in to non-numeric Jose D's Urine collected for results) Medical, unspecified PC) duration Urea nitrogen 10 mg/dL Normal (applies [facility] (St [Mass/volume] in to non-numeric Jose D's Serum or Plasma results) Medical, PC) Creatinine 0.79 Normal (applies [facility] (St [Interpretation] in mg/dL to non-numeric Jose D' s Urine results) Medical, PC) eGFR If NonAfricn 93 Normal (applies [facility] (St Am mL/min/1 to non-numeric Jose D's .73 results) Medical, PC) BUN/Creatinine 13 Normal (applies [facility]GEN (S t Ratio to non-numeric Jose D's results) Medical, PC) eGFR If Africn Am 107 Normal (applies [facility] (St mL/min/1 to non-numeric Jose D's .73 results) Medical, PC) Potassium 4.3 Normal (applies [facility] (St [Mass/volume] in mmol/L to non-numeric Jose D's Blood results) Medical, PC) Sodium 141 Normal (applies [facility] (St [Moles/volume] in mmol/L to non-numeric Jose D's Serum or Plasma results) Medical, PC) Carbon dioxide, 26 Normal (applies [facility] ( St total mmol/L to non-numeric Jose D's [Moles/volume] in results) Medical, Serum or Plasma PC) Chloride 101 Normal (applies [facility] (St [Moles/volume] in mmol/L to non-numeric Jose D's Serum or Plasma results) Medical, PC) Protein 7.6 g/dL Normal (applies [facility] (St [Mass/volume] in to non-numeric Jose D's Serum or Plasma results) Medical, PC) Calcium 9.7 Normal (applies [facility] (St [Moles/volume] in mg/dL to non-numeric Jose D's Urine collected for results) Medical, unspecified PC) duration Microalbumin 4.1 g/dL Normal (applies [facility] (St [Mass/time] in to non-numeric Jose D's Urine collected for results) Medical, unspecified ) duration Globulin, Total 3.5 g/dL Normal (applies [facility] ( St to non-numeric Jose D's results) Medical, ) Bilirubin.total 0.3 Normal (applies [facility] ( St [Mass/volume] in mg/dL to non-numeric [facility] Serum or Plasma results) Medical, ) A/G Ratio 1.2 Normal (applies MEDGEN (St to non-numeric [facility] results) Medical, ) Alkaline 102 IU/L Normal (applies MEDGEN (St phosphatase to non-numeric [facility] [Enzymatic results) Medical, activity/volume] in PC) Serum, Plasma or Blood Aspartate 11 IU/L Normal (applies MEDGEN (St aminotransferase to non-numeric [facility] [Enzymatic results) Medical, activity/volume] in PC) Serum or Plasma Alanine 8 IU/L Normal (applies MEDGEN (St aminotransferase to non-numeric [facility] [Enzymatic results) Medical, activity/volume] in PC) Serum or Plasma ID Date Data Source [id number] 11/09/2019 12:00:00 AM EDT [facility] ([facility], ) Name Value Range Interpretation Description Data Sup porting Code Source(s) Document(s ) Leukocytes 8.8 Normal (applies [facility] (St [#/volume] in x10E3/uL to non-numeric [facility] Blood by results) Medical, ) Automated count Hemoglobin 12.1 Normal (applies [facility] (St [Mass/volume] in g/dL to non-numeric [facility] Blood results) Medical, ) Erythrocytes 4.39 Normal (applies MEDGEN (St [#/volume] in x10E6/uL to non-numeric [facility] Blood by results) Medical, ) Automated count Hematocrit 37.8 % Normal (applies MEDGEN (St [Volume to non-numeric [facility] Fraction] of results) Medical, ) Blood by Automated count MCV 86 fL Normal (applies [facility]GEN (St to non-numeric [facility] results) Medical, ) MCHC 32.0 Normal (applies [facility]GEN (St g/dL to non-numeric [facility] results) Medical, ) MCH 27.6 pg Normal (applies [facility] (St to non-numeric [facility] results) [facility], ) Platelets 507 Above high normal MEDGEN (St [#/area] in x10E3/uL [facility] Blood by [facility], ) Microscopy high power field RDW 11.7 % Normal (applies MEDGEN (St to non-numeric [facility] results) [facility], ) Neutrophils [#] 62 % Normal (applies MEDGEN ( St in Body fluid by to non-numeric [facility] Manual count results) [facility], ) Lymphs 25 % Normal (applies [facility] (St to non-numeric [facility] results) [facility], ) Eos 2 % Normal (applies [facility] (St to non-numeric [facility] results) [facility], ) Monocytes 10 % Normal (applies MEDGEN (St [#/volume] in to non-numeric [facility] Cord blood results) [facility], ) Basos 1 % Normal (applies [facility] (St to non-numeric [facility] results) [facility], ) Neutrophils 5.5 Normal (applies MEDGEN (St (Absolute) x10E3/uL to non-numeric [facility] results) [facility], ) Lymphs 2.2 Normal (applies MEDGEN (St (Absolute) x10E3/uL to non-numeric [facility] results) [facility], ) Monocytes(Absolu 0.9 Normal (applies MEDGEN (St te) x10E3/uL to non-numeric [facility] results) [facility], ) Baso (Absolute) 0.0 Normal (applies MEDGEN ( St x10E3/uL to non-numeric [facility] results) [facility], ) Eos (Absolute) 0.1 Normal (applies MEDGEN (S t x10E3/uL to non-numeric [facility] results) [facility], ) Immature Grans 0.0 Normal (applies MEDGEN (S t (Abs) x10E3/uL to non-numeric [facility] results) [facility], ) Immature 0 % Normal (applies [facility] (St Granulocytes to non-numeric [facility] results) [facility], ) ID Date Data Source [id number] 11/09/2019 12:00:00 AM EDT [facility] ([facility], ) Name Value Range Interpretation Description Data Sup porting Code Source(s) Document(s ) Glucose 81 mg/dL Normal (applies MEDGEN (St [Mass/volume] in to non-numeric [facility] Urine collected for results) Medical, unspecified PC) duration Urea nitrogen 10 mg/dL Normal (applies [facility] (St [Mass/volume] in to non-numeric [facility] Serum or Plasma results) Medical, PC) eGFR If NonAfricn 93 Normal (applies MEDGEN (St Am mL/min/1 to non-numeric [facility] .73 results) Medical, PC) Creatinine 0.79 Normal (applies MEDGEN (St [Interpretation] in mg/dL to non-numeric [facility] Urine results) Medical, PC) BUN/Creatinine 13 Normal (applies MEDGEN (S t Ratio to non-numeric [facility] results) Medical, PC) eGFR If Africn Am 107 Normal (applies [facility] (St mL/min/1 to non-numeric [facility] .73 results) Medical, PC) Sodium 141 Normal (applies MEDGEN (St [Moles/volume] in mmol/L to non-numeric [facility] Serum or Plasma results) Medical, PC) Potassium 4.3 Normal (applies [facility]GEN (St [Mass/volume] in mmol/L to non-numeric [facility] Blood results) Medical, PC) Chloride 101 Normal (applies [facility] (St [Moles/volume] in mmol/L to non-numeric [facility] Serum or Plasma results) Medical, PC) Carbon dioxide, 26 Normal (applies MEDGEN ( St total mmol/L to non-numeric [facility] [Moles/volume] in results) Medical, Serum or Plasma PC) Protein 7.6 g/dL Normal (applies [facility] (St [Mass/volume] in to non-numeric [facility] Serum or Plasma results) Medical, PC) Calcium 9.7 Normal (applies [facility] (St [Moles/volume] in mg/dL to non-numeric [facility] Urine collected for results) Medical, unspecified PC) duration Globulin, Total 3.5 g/dL Normal (applies [facility] ( St to non-numeric [facility] results) Medical, PC) Microalbumin 4.1 g/dL Normal (applies [facility] (St [Mass/time] in to non-numeric [facility] Urine collected for results) Medical, unspecified PC) duration A/G Ratio 1.2 Normal (applies [facility] (St to non-numeric [facility] results) Medical, PC) Bilirubin.total 0.3 Normal (applies MEDGEN ( St [Mass/volume] in mg/dL to non-numeric [facility] Serum or Plasma results) Medical, PC) Alkaline 102 IU/L Normal (applies [facility]GEN (St phosphatase to non-numeric [facility] [Enzymatic results) Medical, activity/volume] in PC) Serum, Plasma or Blood Aspartate 11 IU/L Normal (applies [facility] (St aminotransferase to non-numeric [facility] [Enzymatic results) Medical, activity/volume] in PC) Serum or Plasma Alanine 8 IU/L Normal (applies [facility] (St aminotransferase to non-numeric [facility] [Enzymatic results) Medical, activity/volume] in PC) Serum or Plasma Procedure Social History Code Duration Value Status Description Data Source(s ) Smoking 05/02/2020 Former smoker , completed Former smoker , MEDG EN (St 12:00:00 AM EDT quit 20 years ago, quit 20 year s ago, [facility], used to smoke 1/2 used to smoke 1/2 PC) pack Occasional pack Occasional ETOH Denied illicit ETOH Denied drugs used 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 [facility] Smoking 02/08/2020 Unknown if ever completed Unknown if ever MEDG EN (St 12:00:00 AM EDT smoked smoked [facility]ical, ) Vital Signs ID Date Data Source UNK Name Value Range Interpretation Code Description Data Source(s) Heart rate 71 /min 71 /min [facility] ([facility] , ) Inhaled oxygen 99 % 99 % MED[facility] ([facility], ) Body mass index 19.6 kg/m2 19.6 kg/m2 [facility] (S t (BMI) [Ratio[place] [facility] [place] Diastolic blood 68 mm[Hg] 68 mm[Hg] MEDGEN (S t pressure [facility]) Systolic blood 110 mm[Hg] 110 mm[Hg] MEDGEN ([facility]) Body weight 129 lb 129 lb MEDGEN ([facility]) Body height 68 in 68 in MEDGEN ([facility]) Heart rate 71 /min 71 /min MEDGEN ([facility]) Inhaled oxygen 99 % 99 % MEDGEN ([facility], ) Body mass index 19.6 kg/m2 19.6 kg/m2 MED[facility] (S t (BMI) [Ratio[place] [facility] [place] Diastolic blood 68 mm[Hg] 68 mm[Hg] MEDGEN (S t pressure [facility] , ) Systolic blood 110 mm[Hg] 110 mm[Hg] MEDGEN ([facility]) Body weight 129 lb 129 lb MEDGEN ([facility]) Body height 68 in 68 in MEDGEN ([facility]) Systolic blood 118 mm[Hg] 118 mm[Hg] MEDGEN ([facility] , ) Body weight 128 lb 128 lb MEDGEN ([facility]) Body height 68 in 68 in MEDGEN ([facility]) Heart rate 75 /min 75 /min MEDGEN ([facility]) Respiratory rate 14 /min 14 /min MEDGEN ( [facility]) Body mass index 19.5 kg/m2 19.5 kg/m2 MEDGEN (S t (BMI) [Ratio] [facility]) Diastolic blood 72 mm[Hg] 72 mm[Hg] MEDGEN (S t pressure [facility]) Heart rate 75 /min 75 /min MEDGEN ([facility]) Respiratory rate 14 /min 14 /min MEDGEN ( [facility]) Body mass index 19.5 kg/m2 19.5 kg/m2 MEDGEN (S t (BMI) [Ratio] [facility]) Diastolic blood 72 mm[Hg] 72 mm[Hg] MEDGEN (S t pressure [facility]) Systolic blood 118 mm[Hg] 118 mm[Hg] MEDGEN ([facility]) Body weight 128 lb 128 lb MEDGEN ([facility]) Body height 68 in 68 in MEDGEN ([facility]) Heart rate 75 /min 75 /min MEDGEN ([facility]) Respiratory rate 14 /min 14 /min MEDGEN ( [facility]) Body mass index 19.5 kg/m2 19.5 kg/m2 MEDGEN (S t (BMI) [Ratio] [facility]) Diastolic blood 72 mm[Hg] 72 mm[Hg] MEDGEN (S t pressure [facility]) Systolic blood 118 mm[Hg] 118 mm[Hg] MEDGEN ([facility]) Body weight 128 lb 128 lb MEDGEN ([facility]) Body height 68 in 68 in MEDGEN ([facility]) Heart rate 77 /min 77 /min MED[facility] ([facility]) Inhaled oxygen 100 % 100 % MEDGEN ([facility], ) Body mass index 19 kg/m2 19 kg/m2 MEDGEN (S t (BMI) [Ratio] [facility]) Diastolic blood 68 mm[Hg] 68 mm[Hg] MEDGEN (S t pressure [facility]) Systolic blood 112 mm[Hg] 112 mm[Hg] MEDGEN ([facility]) Body weight 125 lb 125 lb MEDGEN ([facility]) Body height 68 in 68 in MEDGEN ([facility]) Heart rate 77 /min 77 /min MEDGEN ([facility]) Inhaled oxygen 100 % 100 % MEDGEN ([facility], ) Body mass index 19 kg/m2 19 kg/m2 MEDGEN (S t (BMI) [Ratio] [facility] [place] Diastolic blood 68 mm[Hg] 68 mm[Hg] MEDGEN (S t pressure [facility]) Systolic blood 112 mm[Hg] 112 mm[Hg] MEDGEN ([facility]) Body weight 125 lb 125 lb MEDGEN ([facility]) Body height 68 in 68 in MEDGEN ([facility]) Heart rate 77 /min 77 /min MEDGEN ([facility]) Inhaled oxygen 100 % 100 % MEDGEN ([facility], ) Body mass index 19 kg/m2 19 kg/m2 MEDGEN (S t (BMI) [Ratio] [facility] [place] Diastolic blood 68 mm[Hg] 68 mm[Hg] MEDGEN (S t pressure [facility]) Systolic blood 112 mm[Hg] 112 mm[Hg] MEDGEN ([facility]) Body weight 125 lb 125 lb MEDGEN ([facility]) Body height 68 in 68 in MEDGEN ([facility]) Heart rate 77 /min 77 /min MEDGEN ([facility]) Inhaled oxygen 100 % 100 % MEDGEN ([facility], ) Body mass index 19 kg/m2 19 kg/m2 MEDGEN (S t (BMI) [Ratio] [facility]) Diastolic blood 68 mm[Hg] 68 mm[Hg] MEDGEN (S t pressure [facility]) Systolic blood 112 mm[Hg] 112 mm[Hg] MEDGEN (St [facility]) Body weight 125 lb 125 lb MEDGEN ([facility]) Body height 68 in 68 in MEDGEN ([facility]) Heart rate 74 /min 74 /min MEDGEN ([facility]) Inhaled oxygen 100 % 100 % MEDGEN ([facility], ) Body mass index 19 kg/m2 19 kg/m2 MEDGEN (S t (BMI) [Ratio] [facility] [place] Diastolic blood 72 mm[Hg] 72 mm[Hg] MEDGEN (S t pressure [facility]) Systolic blood 114 mm[Hg] 114 mm[Hg] MEDGEN ([facility]) Body weight 125 lb 125 lb MEDGEN ([facility]) Body height 68 in 68 in MEDGEN ([facility]) Heart rate 74 /min 74 /min MEDGEN ([facility]) Inhaled oxygen 100 % 100 % MEDGEN ([facility], ) Body mass index 19 kg/m2 19 kg/m2 MEDGEN (S t (BMI) [Ratio] [facility] [place] Diastolic blood 72 mm[Hg] 72 mm[Hg] MEDGEN (S t pressure [facility]) Systolic blood 114 mm[Hg] 114 mm[Hg] MEDGEN ([facility]) Body weight 125 lb 125 lb MEDGEN ([facility]) Body height 68 in 68 in MEDGEN ([facility]) Heart rate 74 /min 74 /min MEDGEN ([facility]) Inhaled oxygen 100 % 100 % MEDGEN ([facility], ) Body mass index 19 kg/m2 19 kg/m2 MEDGEN (S t (BMI) [Ratio] [facility]) Diastolic blood 72 mm[Hg] 72 mm[Hg] MEDGEN (S t pressure [facility]) Systolic blood 114 mm[Hg] 114 mm[Hg] MEDGEN ([facility]) Body weight 125 lb 125 lb MEDGEN ([facility]) Body height 68 in 68 in MEDGEN ([facility]) Body weight 125 lb 125 lb MEDGEN ([facility]) Body height 68 in 68 in MEDGEN ([facility]) Heart rate 74 /min 74 /min MEDGEN ([facility]) Inhaled oxygen 100 % 100 % MEDGEN ([facility]) Body mass index 19 kg/m2 19 kg/m2 MEDGEN (S t (BMI) [Ratio] [facility]) Diastolic blood 72 mm[Hg] 72 mm[Hg] MEDGEN (S t pressure [facility]) Systolic blood 114 mm[Hg] 114 mm[Hg] MEDGEN ([facility]) Heart rate 66 /min 66 /min MEDGEN ([facility]) Respiratory rate 14 /min 14 /min MEDGEN ( [facility]) Body mass index 18.5 kg/m2 18.5 kg/m2 MEDGEN (S t (BMI) [Ratio] [facility]) Diastolic blood 70 mm[Hg] 70 mm[Hg] MEDGEN (S t pressure [facility]) Systolic blood 100 mm[Hg] 100 mm[Hg] MEDGEN ([facility]) Body weight 122 lb 122 lb MEDGEN ([facility]) Body height 68 in 68 in MEDGEN ([facility]) Heart rate 66 /min 66 /min MEDGEN ([facility]) Respiratory rate 14 /min 14 /min MEDGEN ( [facility]) Body mass index 18.5 kg/m2 18.5 kg/m2 MEDGEN (S t (BMI) [Ratio] [facility]) Diastolic blood 70 mm[Hg] 70 mm[Hg] MEDGEN (S t [facility]) Systolic blood 100 mm[Hg] 100 mm[Hg] MEDGEN ([facility]) Body weight 122 lb 122 lb MEDGEN ([facility]) Body height 68 in 68 in MEDGEN ([facility]) Heart rate 66 /min 66 /min MEDGEN ([facility]) Respiratory rate 14 /min 14 /min MEDGEN ( [facility]) Body mass index 18.5 kg/m2 18.5 kg/m2 MEDGEN (S t (BMI) [Ratio] [facility], ) Diastolic blood 70 mm[Hg] 70 mm[Hg] MEDGEN (S t pressure [facility] , ) Systolic blood 100 mm[Hg] 100 mm[Hg] MEDGEN ([facility] , ) Body weight 122 lb 122 lb MEDGEN ([facility]) Body height 68 in 68 in MEDGEN ([facility]) Heart rate 66 /min 66 /min MEDGEN ([facility] , ) Respiratory rate 14 /min 14 /min MEDGEN ( [facility] , ) Body mass index 18.5 kg/m2 18.5 kg/m2 MEDGEN (S t (BMI) [Ratio] [facility], ) Diastolic blood 70 mm[Hg] 70 mm[Hg] MEDGEN (S t pressure [facility] , ) Systolic blood 100 mm[Hg] 100 mm[Hg] MEDGEN ([facility] , ) Body weight 122 lb 122 lb MEDGEN ([facility]) Body height 68 in 68 in MEDGEN ([facility]) Body mass index 18.5 kg/m2 18.5 kg/m2 MEDGEN (S t (BMI) [Ratio] [facility], ) Diastolic blood 70 mm[Hg] 70 mm[Hg] MEDGEN (S t pressure [facility] , ) Systolic blood 100 mm[Hg] 100 mm[Hg] MEDGEN ([facility] , ) Body weight 122 lb 122 lb MEDGEN ([facility]) Body height 68 in 68 in MEDGEN ([facility]) Heart rate 66 /min 66 /min MEDGEN ([facility] , ) Respiratory rate 14 /min 14 /min MEDGEN ( [facility] , ) Body mass index 18.5 kg/m2 18.5 kg/m2 MEDGEN (S t (BMI) [Ratio] [facility], ) Diastolic blood 70 mm[Hg] 70 mm[Hg] MEDGEN (S t pressure [facility] , ) Systolic blood 100 mm[Hg] 100 mm[Hg] MEDGEN ([facility] , ) Body weight 122 lb 122 lb MEDGEN ([facility]) Body height 68 in 68 in MEDGEN ([facility]) Heart rate 66 /min 66 /min MEDGEN ([facility]) Respiratory rate 14 /min 14 /min MEDGEN ( [facility]) Heart rate 81 /min 81 /min MEDGEN ([facility]) Inhaled oxygen 98 % 98 % MEDGEN ([facility]) Body mass index 18.7 kg/m2 18.7 kg/m2 MEDGEN (S t (BMI) [Ratio] [facility] [place] Diastolic blood 62 mm[Hg] 62 mm[Hg] MEDGEN (S t [facility]) Systolic blood 104 mm[Hg] 104 mm[Hg] MEDGEN ([facility]) Body weight 123 lb 123 lb MEDGEN ([facility]) Body height 68 in 68 in MEDGEN ([facility]) Heart rate 81 /min 81 /min MEDGEN ([facility]) Inhaled oxygen 98 % 98 % MEDGEN ([facility]) Body mass index 18.7 kg/m2 18.7 kg/m2 MEDGEN (S t (BMI) [Ratio] [facility] [place] Diastolic blood 62 mm[Hg] 62 mm[Hg] MEDGEN ([facility]) Systolic blood 104 mm[Hg] 104 mm[Hg] MEDGEN ([facility]) Body weight 123 lb 123 lb MEDGEN ([facility]) Body height 68 in 68 in MEDGEN ([facility]) Heart rate 81 /min 81 /min MEDGEN ([facility]) Inhaled oxygen 98 % 98 % MEDGEN ([facility]) Body mass index 18.7 kg/m2 18.7 kg/m2 MEDGEN (S t (BMI) [Ratio] [facility]) Diastolic blood 62 mm[Hg] 62 mm[Hg] MEDGEN (S t pressure [facility]) Systolic blood 104 mm[Hg] 104 mm[Hg] MEDGEN ([facility]) Body weight 123 lb 123 lb MEDGEN ([facility]) Body height 68 in 68 in MEDGEN ([facility]) Heart rate 81 /min 81 /min MEDGEN ([facility]) Inhaled oxygen 98 % 98 % MEDGEN ([facility]) Body mass index 18.7 kg/m2 18.7 kg/m2 MEDGEN (S t (BMI) [Ratio] [facility] [place] Diastolic blood 62 mm[Hg] 62 mm[Hg] MEDGEN (S t [facility]) Systolic blood 104 mm[Hg] 104 mm[Hg] MEDGEN ([facility]) Body weight 123 lb 123 lb MEDGEN ([facility]) Body height 68 in 68 in MEDGEN ([facility]) Heart rate 81 /min 81 /min MEDGEN ([facility]) Inhaled oxygen 98 % 98 % MEDGEN ([facility], ) Body mass index 18.7 kg/m2 18.7 kg/m2 MEDGEN (S t (BMI) [Ratio] [facility] [place] Diastolic blood 62 mm[Hg] 62 mm[Hg] MEDGEN ([facility]) Systolic blood 104 mm[Hg] 104 mm[Hg] MEDGEN ([facility]) Body weight 123 lb 123 lb MEDGEN ([facility]) Body height 68 in 68 in MEDGEN ([facility]) Heart rate 81 /min 81 /min MEDGEN ([facility]) Inhaled oxygen 98 % 98 % MEDGEN ([facility], ) Body mass index 18.7 kg/m2 18.7 kg/m2 MEDGEN (S t (BMI) [Ratio] [facility]) Diastolic blood 62 mm[Hg] 62 mm[Hg] MEDGEN (S [facility]) Systolic blood 104 mm[Hg] 104 mm[Hg] MEDGEN ([facility]) Body weight 123 lb 123 lb MEDGEN ([facility]) Body height 68 in 68 in MEDGEN ([facility]) Heart rate 81 /min 81 /min MEDGEN ([facility]) Inhaled oxygen 98 % 98 % MEDGEN ([facility]) Body mass index 18.7 kg/m2 18.7 kg/m2 MEDGEN (S t (BMI) [Ratio] [facility]) Diastolic blood 62 mm[Hg] 62 mm[Hg] MEDGEN (S t pressure [facility]) Systolic blood 104 mm[Hg] 104 mm[Hg] MEDGEN ([facility]) Body weight 123 lb 123 lb MEDGEN ([facility]) Body height 68 in 68 in MEDGEN ([facility]) Heart rate 74 /min 74 /min [facility] ([facility] [facility] Inhaled oxygen 99 % 99 % MED[facility] ([facility]) Body mass index 18.4 kg/m2 18.4 kg/m2 MEDGEN (S t (BMI) [Ratio] [facility]) Diastolic blood 68 mm[Hg] 68 mm[Hg] [facility] (S t [facility]) Systolic blood 112 mm[Hg] 112 mm[Hg] MED[facility] ([facility]) Body weight 121 lb 121 lb [facility] ([facility]) Body height 68 in 68 in [facility] ([facility]) Heart rate 74 /min 74 /min [facility] ([facility]) Inhaled oxygen 99 % 99 % [facility] ([facility]) Body mass index 18.4 kg/m2 18.4 kg/m2 MED[facility] (S t (BMI) [Ratio] [facility]) Diastolic blood 68 mm[Hg] 68 mm[Hg] MED[facility] (S t pressure [facility]) Systolic blood 112 mm[Hg] 112 mm[Hg] MEDGEN ([facility]) Body weight 121 lb 121 lb [facility] ([facility]) Body height 68 in 68 in [facility] ([facility]) Heart rate 74 /min 74 /min [facility] ([facility]) Inhaled oxygen 99 % 99 % [facility] ([facility]) Body mass index 18.4 kg/m2 18.4 kg/m2 MEDGEN (S t (BMI) [Ratio] [facility]) Diastolic blood 68 mm[Hg] 68 mm[Hg] [facility] (S t [facility]) Systolic blood 112 mm[Hg] 112 mm[Hg] MEDGEN ([facility]) Body weight 121 lb 121 lb [facility] ([facility]) Body height 68 in 68 in [facility] ([facility]) Heart rate 74 /min 74 /min [facility] ([facility]) Inhaled oxygen 99 % 99 % [facility] ([facility]) Body mass index 18.4 kg/m2 18.4 kg/m2 MED[facility] (S t (BMI) [Ratio] [facility]) Diastolic blood 68 mm[Hg] 68 mm[Hg] MED[facility] (S t [facility]) Systolic blood 112 mm[Hg] 112 mm[Hg] MEDGEN ([facility]) Body weight 121 lb 121 lb [facility] ([facility]) Body height 68 in 68 in [facility] ([facility]) Heart rate 74 /min 74 /min [facility] ([facility]) Inhaled oxygen 99 % 99 % [facility] ([facility]) Body mass index 18.4 kg/m2 18.4 kg/m2 MED[facility] (S t (BMI) [Ratio] [facility]) Diastolic blood 68 mm[Hg] 68 mm[Hg] [facility] (S t [facility]) Systolic blood 112 mm[Hg] 112 mm[Hg] [facility] ([facility]) Body weight 121 lb 121 lb [facility] ([facility]) Body height 68 in 68 in [facility] ([facility]) Heart rate 74 /min 74 /min [facility] ([facility]) Inhaled oxygen 99 % 99 % [facility] ([facility]) Body mass index 18.4 kg/m2 18.4 kg/m2 [facility] (S t (BMI) [Ratio] [facility]) Diastolic blood 68 mm[Hg] 68 mm[Hg] [facility] (S t pressure [facility]) Systolic blood 112 mm[Hg] 112 mm[Hg] MEDGEN ([facility]) Body weight 121 lb 121 lb [facility] ([facility]) Body height 68 in 68 in [facility] ([facility]) Heart rate 74 /min 74 /min [facility] ([facility]) Inhaled oxygen 99 % 99 % [facility] ([facility]) Body mass index 18.4 kg/m2 18.4 kg/m2 [facility] ([facility] t (BMI) [place]Ratio[place] [facility] [place] Diastolic blood 68 mm[Hg] 68 mm[Hg] MEDGEN (S t pressure [facility]) Systolic blood 112 mm[Hg] 112 mm[Hg] MED[facility] ([facility]) Body weight 121 lb 121 lb [facility] ([facility]) Body height 68 in 68 in [facility] ([facility]) Heart rate 91 /min 91 /min [facility] ([facility]) Inhaled oxygen 97 % 97 % [facility] ([facility]) Body mass index 18.1 kg/m2 18.1 kg/m2 MEDGEN (S t (BMI) [Ratio] [facility]) Diastolic blood 72 mm[Hg] 72 mm[Hg] [facility] (S t [facility]) Systolic blood 110 mm[Hg] 110 mm[Hg] MEDGEN ([facility]) Body weight 119 lb 119 lb [facility] ([facility]) Body height 68 in 68 in [facility] ([facility]) Heart rate 91 /min 91 /min [facility] ([facility]) Inhaled oxygen 97 % 97 % [facility] ([facility]) Body mass index 18.1 kg/m2 18.1 kg/m2 MED[facility] (S t (BMI) [Ratio] [facility]) Diastolic blood 72 mm[Hg] 72 mm[Hg] MEDGEN (S t pressure [facility]) Systolic blood 110 mm[Hg] 110 mm[Hg] MED[facility] ([facility]) Body weight 119 lb 119 lb [facility] ([facility]) Body height 68 in 68 in [facility] ([facility]) Heart rate 91 /min 91 /min [facility] ([facility]) Inhaled oxygen 97 % 97 % [facility] ([facility]) Body mass index 18.1 kg/m2 18.1 kg/m2 [facility] (S t (BMI) [Ratio[place] [facility] [place] Diastolic blood 72 mm[Hg] 72 mm[Hg] [facility] (S t [facility]) Systolic blood 110 mm[Hg] 110 mm[Hg] MEDGEN ([facility]) Body weight 119 lb 119 lb [facility] ([facility]) Body height 68 in 68 in [facility] ([facility]) Heart rate 91 /min 91 /min [facility] ([facility]) Inhaled oxygen 97 % 97 % [facility] ([facility]) Body mass index 18.1 kg/m2 18.1 kg/m2 [facility] (S t (BMI) [Ratio] [facility] [place] Diastolic blood 72 mm[Hg] 72 mm[Hg] [facility] (S t [facility]) Systolic blood 110 mm[Hg] 110 mm[Hg] MEDGEN ([facility]) Body weight 119 lb 119 lb [facility] ([facility]) Body height 68 in 68 in [facility] ([facility]) Heart rate 91 /min 91 /min [facility] ([facility]) Inhaled oxygen 97 % 97 % [facility] ([facility]) Body mass index 18.1 kg/m2 18.1 kg/m2 MED[facility] (S t (BMI) [Ratio] [facility]) Diastolic blood 72 mm[Hg] 72 mm[Hg] [facility] (S t [facility]) Systolic blood 110 mm[Hg] 110 mm[Hg] MED[facility] ([facility]) Body weight 119 lb 119 lb [facility] ([facility]) Body height 68 in 68 in [facility] ([facility]) Heart rate 91 /min 91 /min [facility] ([facility]) Inhaled oxygen 97 % 97 % MED[facility] ([facility], ) Body mass index 18.1 kg/m2 18.1 kg/m2 [facility] (S t (BMI) [Ratio] [facility] [place] Diastolic blood 72 mm[Hg] 72 mm[Hg] MEDGEN (S t pressure [facility] , ) Systolic blood 110 mm[Hg] 110 mm[Hg] MEDGEN ([facility] ) Body weight 119 lb 119 lb [facility] ([facility]) Body height 68 in 68 in [facility] ([facility]) Heart rate 91 /min 91 /min [facility] ([facility]) Inhaled oxygen 97 % 97 % [facility] ([facility], ) Body mass index 18.1 kg/m2 18.1 kg/m2 [facility] (S t (BMI) [Ratio] [facility] [place] Diastolic blood 72 mm[Hg] 72 mm[Hg] MED[facility] (S t pressure [facility]) Systolic blood 110 mm[Hg] 110 mm[Hg] MEDGEN ([facility]) Body weight 119 lb 119 lb [facility] ([facility]) Body height 68 in 68 in [facility] ([facility]) Heart rate 92 /min 92 /min [facility] ([facility]) Inhaled oxygen 99 % 99 % MED[facility] ([facility], ) Body mass index 18.7 kg/m2 18.7 kg/m2 [facility] (S t (BMI) [Ratio] [facility] [place] Diastolic blood 64 mm[Hg] 64 mm[Hg] MEDGEN (S t pressure [facility]) Systolic blood 112 mm[Hg] 112 mm[Hg] MEDGEN ([facility] ) Body weight 123 lb 123 lb [facility] ([facility]) Body height 68 in 68 in [facility] ([facility]) Heart rate 92 /min 92 /min [facility] ([facility]) Inhaled oxygen 99 % 99 % MED[facility] ([facility], ) Body mass index 18.7 kg/m2 18.7 kg/m2 [facility] (S t (BMI) [Ratio] [facility] [place] Diastolic blood 64 mm[Hg] 64 mm[Hg] MEDGEN (S t pressure [facility]) Systolic blood 112 mm[Hg] 112 mm[Hg] MEDGEN ([facility]) Body weight 123 lb 123 lb [facility] ([facility]) Body height 68 in 68 in [facility] ([facility]) Heart rate 92 /min 92 /min [facility] ([facility]) Inhaled oxygen 99 % 99 % [facility] ([facility]) Body mass index 18.7 kg/m2 18.7 kg/m2 [facility] (S t (BMI) [Ratio] [facility] [place] Diastolic blood 64 mm[Hg] 64 mm[Hg] MEDGEN (S t pressure [facility]) Systolic blood 112 mm[Hg] 112 mm[Hg] MED[facility] ([facility]) Body weight 123 lb 123 lb [facility] ([facility]) Body height 68 in 68 in [facility] ([facility]) Heart rate 92 /min 92 /min [facility] ([facility]) Inhaled oxygen 99 % 99 % [facility] ([facility]) Body mass index 18.7 kg/m2 18.7 kg/m2 [facility] (S t (BMI) [Ratio] [facility] [place] Diastolic blood 64 mm[Hg] 64 mm[Hg] MEDGEN (S t pressure [facility]) Systolic blood 112 mm[Hg] 112 mm[Hg] MEDGEN ([facility]) Body weight 123 lb 123 lb [facility] ([facility]) Body height 68 in 68 in [facility] ([facility]) Heart rate 92 /min 92 /min [facility] ([facility]) Inhaled oxygen 99 % 99 % [facility] ([facility]) Body mass index 18.7 kg/m2 18.7 kg/m2 MEDGEN (S t (BMI) [Ratio] [facility]) Diastolic blood 64 mm[Hg] 64 mm[Hg] MEDGEN (S t [facility]) Systolic blood 112 mm[Hg] 112 mm[Hg] MEDGEN ([facility]) Body weight 123 lb 123 lb [facility] ([facility]) Body height 68 in 68 in [facility] ([facility]) Heart rate 92 /min 92 /min [facility] ([facility]) Inhaled oxygen 99 % 99 % MEDGEN ([facility], ) Body mass index 18.7 kg/m2 18.7 kg/m2 MEDGEN (S t (BMI) [Ratio] [facility]) Diastolic blood 64 mm[Hg] 64 mm[Hg] MEDGEN (S t pressure [facility]) Systolic blood 112 mm[Hg] 112 mm[Hg] MEDGEN ([facility]) Body weight 123 lb 123 lb [facility] ([facility]) Body height 68 in 68 in [facility] ([facility]) Heart rate 92 /min 92 /min [facility] ([facility]) Inhaled oxygen 99 % 99 % [facility] ([facility]) Body mass index 18.7 kg/m2 18.7 kg/m2 MEDGEN (S t (BMI) [Ratio] [facility]) Diastolic blood 64 mm[Hg] 64 mm[Hg] MEDGEN (S t pressure [facility]) Systolic blood 112 mm[Hg] 112 mm[Hg] MEDGEN ([facility]) Body weight 123 lb 123 lb MED[facility] ([facility]) Body height 68 in 68 in MED[facility] ([facility]) Heart rate 91 /min 91 /min MED[facility] ([facility]) Inhaled oxygen 98 % 98 % MEDGEN ([facility], ) Body mass index 18.1 kg/m2 18.1 kg/m2 MEDGEN (S t (BMI) [Ratio] [facility] [place] Diastolic blood 72 mm[Hg] 72 mm[Hg] MEDGEN (S t [facility]) Systolic blood 114 mm[Hg] 114 mm[Hg] MEDGEN ([facility]) Body weight 119 lb 119 lb MED[facility] ([facility]) Body height 68 in 68 in MED[facility] ([facility]) Heart rate 91 /min 91 /min MED[facility] ([facility]) Inhaled oxygen 98 % 98 % MEDGEN ([facility], ) Body mass index 18.1 kg/m2 18.1 kg/m2 MEDGEN (S t (BMI) [Ratio] [facility] [place] Diastolic blood 72 mm[Hg] 72 mm[Hg] MEDGEN (S t [facility]) Systolic blood 114 mm[Hg] 114 mm[Hg] MEDGEN ([facility]) Body weight 119 lb 119 lb [facility] ([facility]) Body height 68 in 68 in [facility] ([facility]) Heart rate 91 /min 91 /min MED[facility] ([facility]) Inhaled oxygen 98 % 98 % MEDGEN ([facility], ) Body mass index 18.1 kg/m2 18.1 kg/m2 MEDGEN (S t (BMI) [Ratio] [facility] [place] Diastolic blood 72 mm[Hg] 72 mm[Hg] MEDGEN (S t [facility]) Systolic blood 114 mm[Hg] 114 mm[Hg] MEDGEN ([facility]) Body weight 119 lb 119 lb [facility] ([facility]) Body height 68 in 68 in MED[facility] ([facility]) Heart rate 91 /min 91 /min MED[facility] ([facility]) Inhaled oxygen 98 % 98 % MED[facility] ([facility]) Body mass index 18.1 kg/m2 18.1 kg/m2 MEDGEN (S t (BMI) [Ratio] [facility]) Diastolic blood 72 mm[Hg] 72 mm[Hg] MEDGEN (S t [facility]) Systolic blood 114 mm[Hg] 114 mm[Hg] MEDGEN ([facility]) Body weight 119 lb 119 lb MED[facility] ([facility]) Body height 68 in 68 in MED[facility] ([facility]) Heart rate 91 /min 91 /min MED[facility] ([facility]) Inhaled oxygen 98 % 98 % MED[facility] ([facility]) Body mass index 18.1 kg/m2 18.1 kg/m2 MEDGEN (S t (BMI) [Ratio] [facility] [place] Diastolic blood 72 mm[Hg] 72 mm[Hg] MEDGEN (S t [facility]) Systolic blood 114 mm[Hg] 114 mm[Hg] MEDGEN ([facility]) Body weight 119 lb 119 lb MED[facility] ([facility]) Body height 68 in 68 in MED[facility] ([facility]) Heart rate 91 /min 91 /min MED[facility] ([facility]) Inhaled oxygen 98 % 98 % MED[facility] ([facility]) Body mass index 18.1 kg/m2 18.1 kg/m2 MEDGEN (S t (BMI) [Ratio] [facility] [place] Diastolic blood 72 mm[Hg] 72 mm[Hg] MEDGEN (S t [facility]) Systolic blood 114 mm[Hg] 114 mm[Hg] MEDGEN ([facility]) Body weight 119 lb 119 lb MED[facility] ([facility]) Body height 68 in 68 in MED[facility] ([facility]) Heart rate 91 /min 91 /min MED[facility] ([facility]) Inhaled oxygen 98 % 98 % MEDGEN ([facility], ) Body mass index 18.1 kg/m2 18.1 kg/m2 MEDGEN (S t (BMI) [Ratio] [facility]) Diastolic blood 72 mm[Hg] 72 mm[Hg] MEDGEN (S t [facility]) Systolic blood 114 mm[Hg] 114 mm[Hg] MEDGEN ([facility]) Body weight 119 lb 119 lb MED[facility] ([facility]) Body height 68 in 68 in MED[facility] ([facility]) Heart rate 98 /min 98 /min MED[facility] ([facility]) Inhaled oxygen 98 % 98 % MEDGEN ([facility], ) Body mass index 18.7 kg/m2 18.7 kg/m2 MEDGEN (S t (BMI) [Ratio] [facility] [place] Diastolic blood 72 mm[Hg] 72 mm[Hg] MEDGEN (S t [facility]) Systolic blood 110 mm[Hg] 110 mm[Hg] MEDGEN ([facility] ) Body weight 123 lb 123 lb MED[facility] ([facility]) Body height 68 in 68 in MEDGEN ([facility]) Heart rate 98 /min 98 /min MED[facility] ([facility]) Inhaled oxygen 98 % 98 % MEDGEN ([facility], ) Body mass index 18.7 kg/m2 18.7 kg/m2 MEDGEN (S t (BMI) [Ratio] [facility] [place] Diastolic blood 72 mm[Hg] 72 mm[Hg] MEDGEN (S t [facility]) Systolic blood 110 mm[Hg] 110 mm[Hg] MEDGEN ([facility]) Body weight 123 lb 123 lb MED[facility] ([facility]) Body height 68 in 68 in MED[facility] ([facility]) Heart rate 98 /min 98 /min MED[facility] ([facility]) Inhaled oxygen 98 % 98 % MEDGEN ([facility], ) Body mass index 18.7 kg/m2 18.7 kg/m2 MEDGEN (S t (BMI) [Ratio] [facility] [place] Diastolic blood 72 mm[Hg] 72 mm[Hg] MEDGEN (S t [facility]) Systolic blood 110 mm[Hg] 110 mm[Hg] MEDGEN ([facility]) Body weight 123 lb 123 lb MED[facility] ([facility]) Body height 68 in 68 in MED[facility] ([facility]) Heart rate 98 /min 98 /min MED[facility] ([facility]) Inhaled oxygen 98 % 98 % MEDGEN ([facility], ) Body mass index 18.7 kg/m2 18.7 kg/m2 MEDGEN (S t (BMI) [Ratio] [facility] [place] Diastolic blood 72 mm[Hg] 72 mm[Hg] MEDGEN (S t pressure [facility]) Systolic blood 110 mm[Hg] 110 mm[Hg] MEDGEN ([facility] ) Body weight 123 lb 123 lb MED[facility] ([facility]) Body height 68 in 68 in MED[facility] ([facility]) Heart rate 98 /min 98 /min MED[facility] ([facility]) Inhaled oxygen 98 % 98 % MEDGEN ([facility], ) Body mass index 18.7 kg/m2 18.7 kg/m2 MEDGEN (S t (BMI) [Ratio] [facility] [place] Diastolic blood 72 mm[Hg] 72 mm[Hg] MEDGEN (S t pressure [facility] [place] , ) Heart rate 98 /min 98 /min MEDGEN ([facility] ) Inhaled oxygen 98 % 98 % MEDGEN ([facility], ) Body mass index 18.7 kg/m2 18.7 kg/m2 MEDGEN (S t (BMI) [Ratio] [facility] [place] Diastolic blood 72 mm[Hg] 72 mm[Hg] MEDGEN (S t pressure [facility] , ) Systolic blood 110 mm[Hg] 110 mm[Hg] MEDGEN ([facility] ) Body weight 123 lb 123 lb MED[facility] ([facility]) Body height 68 in 68 in MED[facility] ([facility]) Heart rate 98 /min 98 /min MED[facility] ([facility]) Inhaled oxygen 98 % 98 % MEDGEN ([facility], ) Body mass index 18.7 kg/m2 18.7 kg/m2 MEDGEN (S t (BMI) [Ratio] [facility] [place] Diastolic blood 72 mm[Hg] 72 mm[Hg] MEDGEN (S t pressure [facility] , ) Systolic blood 110 mm[Hg] 110 mm[Hg] MEDGEN ([facility] ) Body weight 123 lb 123 lb MED[facility] ([facility]) Body height 68 in 68 in MED[facility] ([facility]) Systolic blood 110 mm[Hg] 110 mm[Hg] MEDGEN ([facility]) Body weight 123 lb 123 lb MED[facility] ([facility]) Body height 68 in 68 in MED[facility] ([facility]) Heart rate 85 /min 85 /min MED[facility] ([facility]) Body temperature 98.4 F 98.4 F MED[facility] ( [facility]) Inhaled oxygen 99 % 99 % MED[facility] ([facility]) Body mass index 18.5 kg/m2 18.5 kg/m2 MEDGEN (S t (BMI) [Ratio] [facility]) Diastolic blood 70 mm[Hg] 70 mm[Hg] MEDGEN ([facility]) Systolic blood 120 mm[Hg] 120 mm[Hg] MEDGEN ([facility]) Body weight 122 lb 122 lb MED[facility] ([facility]) Body height 68 in in MEDGEN ([facility]) Heart rate 85 /min 85 /min MED[facility] ([facility]) Body temperature 98.4 F 98.4 F MEDGEN ( [facility]) Inhaled oxygen 99 % 99 % [facility] ([facility]) Body mass index 18.5 kg/m2 18.5 kg/m2 MEDGEN (S t (BMI) [Ratio] [facility] [place] Diastolic blood 70 mm[Hg] 70 mm[Hg] MEDGEN (S t [facility]) Systolic blood 120 mm[Hg] 120 mm[Hg] MEDGEN ([facility]) Body weight 122 lb 122 lb MEDGEN ([facility]) Body height 68 in in MEDGEN ([facility]) Heart rate 85 /min 85 /min MED[facility] ([facility]) Body temperature 98.4 F 98.4 F MEDGEN ( [facility]) Inhaled oxygen 99 % 99 % MEDGEN ([facility]) Body mass index 18.5 kg/m2 18.5 kg/m2 MEDGEN (S t (BMI) [Ratio] [facility] [place] Diastolic blood 70 mm[Hg] 70 mm[Hg] MEDGEN (S t pressure [facility]) Systolic blood 120 mm[Hg] 120 mm[Hg] MEDGEN ([facility]) Body weight 122 lb 122 lb MEDGEN ([facility]) Body height 68 in 68 in MEDGEN ([facility]) Heart rate 85 /min 85 /min MED[facility] ([facility]) Body temperature 98.4 F 98.4 F MEDGEN ( [facility]) Inhaled oxygen 99 % 99 % MEDGEN ([facility]) Body mass index 18.5 kg/m2 18.5 kg/m2 MEDGEN (S t (BMI) [Ratio] [facility] [place] Diastolic blood 70 mm[Hg] 70 mm[Hg] MEDGEN (S t pressure [facility]) Systolic blood 120 mm[Hg] 120 mm[Hg] MEDGEN ([facility]) Body weight 122 lb 122 lb MEDGEN ([facility]) Body height 68 in 68 in MEDGEN ([facility]) Heart rate 85 /min 85 /min MED[facility] ([facility]) Body temperature 98.4 F 98.4 F MEDGEN ( [facility]) Inhaled oxygen 99 % 99 % MEDGEN ([facility]) Body mass index 18.5 kg/m2 18.5 kg/m2 MEDGEN (S t (BMI) [Ratio] [facility] [place] Diastolic blood 70 mm[Hg] 70 mm[Hg] MEDGEN (S t pressure [facility]) Systolic blood 120 mm[Hg] 120 mm[Hg] MEDGEN ([facility]) Body weight 122 lb 122 lb MEDGEN ([facility]) Body height 68 in 68 in MEDGEN ([facility]) Heart rate 85 /min 85 /min MED[facility] ([facility]) Body temperature 98.4 F 98.4 F MEDGEN ( [facility]) Inhaled oxygen 99 % 99 % MEDGEN ([facility]) Body mass index 18.5 kg/m2 18.5 kg/m2 MEDGEN (S t (BMI) [Ratio] [facility]) Diastolic blood 70 mm[Hg] 70 mm[Hg] [facility] (S t [facility]) Systolic blood 120 mm[Hg] 120 mm[Hg] MEDGEN ([facility]) Body weight 122 lb 122 lb [facility] Body height 68 in 68 in [facility] ([facility]) Heart rate 85 /min 85 /min [facility] Body temperature 98.4 F 98.4 F MEDGEN ( [facility]) Inhaled oxygen 99 % 99 % MEDGEN ([facility]) Body mass index 18.5 kg/m2 18.5 kg/m2 MEDGEN (S t (BMI) [Ratio] [facility]) Diastolic blood 70 mm[Hg] 70 mm[Hg] MEDGEN (S t [facility]) Systolic blood 120 mm[Hg] 120 mm[Hg] MEDGEN ([facility]) Body weight 122 lb 122 lb MEDGEN ([facility]) Body height 68 in 68 in [facility] ([facility])
[2020-05-04 02:19] LABS: HCG,QUALITATIVE URINE Negative
== END 2020-05-03 14:42 | disposition home or self-care (01) ==
LOC: JER 11:59
DX: K59.00 Constipation, unspecified (principal)
CPT/HCPCS: 36415; 74019-TC-FY; 80053; 81003; 83690; 84703; 85025; 87077; 87086; 99285-25

== ENCOUNTER 2020-06-21 05:09 | Day surgery (SDC) | payer OTHER ==
[2020-06-21] MEDS ORDERED: diphenhydrAMINE HCL 50 MG CAPSULE PO PRN (07:56)
[2020-06-21] MEDS ORDERED: methylPREDNISolone NA SUCC 125 MG/2 ML VIAL IVPB PRN (07:57)
[2020-06-21] MEDS ORDERED: ACETAMINOPHEN 325 MG TABLET (FP) PO PRN (07:57)
[2020-06-21] MEDS ORDERED: SODIUM CHLORIDE IVPB ONE (08:00)
[2020-06-21] MEDS ORDERED: INFLIXIMAB ABDA IVPB ONE (08:00)
[2020-06-21] MEDS ORDERED: diphenhydrAMINE HCL 25 MG CAPSULE (FP) PO ONE (08:07)
[2020-06-21] MEDS ORDERED: HYDROCORTISONE SOD SUCCINATE 100 MG/2 ML VIAL ONE (08:07)
[2020-06-21] MEDS ORDERED: ACETAMINOPHEN 500 MG TABLET (FP) ONE (08:08)
[2020-06-21 08:34] LABS: BASO % 0.7 % (0-2.0); EOS % 1.2 % (0-4.5); HEMATOCRIT 38.3 % (32.4-45.2); HEMOGLOBIN 12.5 GM/dL (10.7-15.3); LYMPH % 24.6 % (8-40); MCH 28.4 pg (25.7-33.7); MCHC 32.7 g/dl (32.0-36.0); MEAN CELL VOLUME 86.8 fl (80-96); MONO % 8.3 % (3.8-10.2); NEUT % 65.2 % (42.8-82.8); PLATELET COUNT 283 K/MM3 (134-434); RBC 4.41 M/mm3 (3.60-5.2); RDW 13.2 % (11.6-15.6); WHITE BLOOD COUNT 6.7 K/mm3 (4.0-10.0)
[2020-06-21 09:02] LABS: POTASSIUM 4.2 mmol/L (3.5-5.1)
[2020-06-21 09:06] LABS: ALBUMIN 3.8 g/dl (3.4-5.0); BLOOD UREA NITROGEN 20.2 mg/dL (7-18)
[2020-06-21 09:09] LABS: CREATININE 0.9 mg/dL (0.55-1.3)
[2020-06-21 09:10] LABS: BILIRUBIN,TOTAL 0.4 mg/dL (0.2-1); TOT PROT 7.8 g/dl (6.4-8.2)
[2020-06-21 12:39] VITALS: BP 116/70; PULSE 80; TEMP 98.4
== END 2020-06-21 12:38 | disposition home or self-care (01) ==
LOC: JCHEMO 05:09
PROVIDERS: ATTEND Internal Medicine Gastroenterology
DX: K50.90 Crohn's disease, unspecified, without complications (principal)
CPT/HCPCS: 36415; 80053; 81025; 85025; 96367; 96413; 96415; Q5104

== ENCOUNTER 2020-08-02 04:20 | Day surgery (SDC) | payer OTHER ==
[2020-08-02] MEDS ORDERED: diphenhydrAMINE HCL 25 MG CAPSULE (FP) PO ONE ×2 (08:28→08:30)
[2020-08-02] MEDS ORDERED: ACETAMINOPHEN 325 MG TABLET (FP) ONE ×2 (08:29→09:01)
[2020-08-02] MEDS ORDERED: HYDROCORTISONE SOD SUCCINATE 100 MG/2 ML VIAL ONE (08:29)
[2020-08-02] MEDS ORDERED: ACETAMINOPHEN 500 MG TABLET (FP) ONE (08:30)
[2020-08-02] MEDS ORDERED: HYDROCORTISONE SOD SUCCINATE 100 MG/2 ML VIAL IVPB ONE (08:30)
[2020-08-02] MEDS ORDERED: ACETAMINOPHEN 325 MG TABLET (FP) PO ONE (08:30)
[2020-08-02] MEDS ORDERED: SODIUM CHLORIDE IVPB ONE (09:00)
[2020-08-02] MEDS ORDERED: INFLIXIMAB ABDA IVPB ONE (09:00)
[2020-08-02 09:18] LABS: BASO % 0.7 % (0-2.0); EOS % 0.5 % (0-4.5); HEMATOCRIT 36.4 % (32.4-45.2); HEMOGLOBIN 11.9 GM/dL (10.7-15.3); LYMPH % 41.5 % (8-40); MCH 29.2 pg (25.7-33.7); MCHC 32.6 g/dl (32.0-36.0); MEAN CELL VOLUME 89.7 fl (80-96); MEAN PLT VOLUME 8.8 fl (7.5-11.1); MONO % 8.9 % (3.8-10.2); NEUT % 48.4 % (42.8-82.8); PLATELET COUNT 267 K/MM3 (134-434); RBC 4.05 M/mm3 (3.60-5.2); RDW 14.2 % (11.6-15.6); WHITE BLOOD COUNT 4.7 K/mm3 (4.0-10.0)
[2020-08-02 09:42] LABS: ALBUMIN 3.5 g/dl (3.4-5.0); BLOOD UREA NITROGEN 18.4 mg/dL (7-18); CALCIUM 8.9 mg/dL (8.5-10.1)
[2020-08-02 09:45] LABS: CREATININE 0.8 mg/dL (0.55-1.3)
[2020-08-02 09:47] LABS: BILIRUBIN,TOTAL 0.5 mg/dL (0.2-1); TOT PROT 7.2 g/dl (6.4-8.2)
[2020-08-02 12:51] VITALS: BP 108/64; PULSE 72; TEMP 98.1
== END 2020-08-02 12:47 | disposition home or self-care (01) ==
LOC: JINFUSION 04:20
PROVIDERS: ATTEND Internal Medicine Gastroenterology
DX: K50.90 Crohn's disease, unspecified, without complications (principal)
CPT/HCPCS: 36415; 80053; 81025; 85025; 96367; 96375; 96413; 96415; Q5104

== ENCOUNTER 2020-09-27 04:54 | Day surgery (SDC) | payer OTHER ==
[2020-09-27] MEDS ORDERED: HYDROCORTISONE SOD SUCCINATE 100 MG/2 ML VIAL IVPB ONE (08:45)
[2020-09-27] MEDS ORDERED: diphenhydrAMINE HCL 25 MG CAPSULE (FP) PO ONE ×2 (08:45→08:47)
[2020-09-27] MEDS ORDERED: SODIUM CHLORIDE 250 ML IV ONE (08:45)
[2020-09-27] MEDS ORDERED: ACETAMINOPHEN 500 MG TABLET (FP) PO ONE (08:45)
[2020-09-27] MEDS ORDERED: HYDROCORTISONE SOD SUCCINATE 100 MG/2 ML VIAL ONE (08:47)
[2020-09-27] MEDS ORDERED: ACETAMINOPHEN 500 MG TABLET (FP) ONE (08:48)
[2020-09-27] MEDS ORDERED: SODIUM CHLORIDE IVPB ONE (09:15)
[2020-09-27] MEDS ORDERED: INFLIXIMAB ABDA IVPB ONE (09:15)
[2020-09-27 11:15] LABS: BASO % 0.5 % (0-2.0); EOS % 0.3 % (0-4.5); HEMATOCRIT 35.1 % (32.4-45.2); HEMOGLOBIN 11.7 GM/dL (10.7-15.3); LYMPH % 18.6 % (8-40); MCH 29.9 pg (25.7-33.7); MCHC 33.3 g/dl (32.0-36.0); MEAN CELL VOLUME 89.8 fl (80-96); MEAN PLT VOLUME 7.4 fl (7.5-11.1); MONO % 3.1 % (3.8-10.2); NEUT % 77.5 % (42.8-82.8); PLATELET COUNT 259 K/MM3 (134-434); RBC 3.91 M/mm3 (3.60-5.2); RDW 12.9 % (11.6-15.6); WHITE BLOOD COUNT 5.1 K/mm3 (4.0-10.0)
[2020-09-27 11:36] LABS: ALBUMIN 3.4 g/dl (3.4-5.0); CALCIUM 8.5 mg/dL (8.5-10.1)
[2020-09-27 11:40] LABS: CREATININE 0.7 mg/dL (0.55-1.3)
[2020-09-27 11:41] LABS: BILIRUBIN,TOTAL 0.5 mg/dL (0.2-1); TOT PROT 7.3 g/dl (6.4-8.2)
[2020-09-27 14:58] VITALS: TEMP 98.1
[2020-09-27 15:02] VITALS: BP 112/63; PULSE 71
== END 2020-09-27 13:05 | disposition home or self-care (01) ==
LOC: JCHEMO 04:54
PROVIDERS: ATTEND Internal Medicine Gastroenterology
DX: K50.90 Crohn's disease, unspecified, without complications (principal)
CPT/HCPCS: 36415; 80053; 81025; 85025; 86140; 96367; 96413; 96415; Q5104

== ENCOUNTER 2020-11-27 04:07 | Day surgery (SDC) | payer OTHER ==
[2020-11-27] MEDS ORDERED: SODIUM CHLORIDE 250 ML IV ONE (08:00)
[2020-11-27] MEDS ORDERED: ACETAMINOPHEN 500 MG TABLET (FP) PO ONE (08:00)
[2020-11-27] MEDS ORDERED: diphenhydrAMINE HCL 25 MG CAPSULE (FP) PO ONE ×2 (08:00→08:09)
[2020-11-27] MEDS ORDERED: HYDROCORTISONE SOD SUCCINATE 100 MG/2 ML VIAL IVPB ONE (08:00)
[2020-11-27] MEDS ORDERED: HYDROCORTISONE SOD SUCCINATE 100 MG/2 ML VIAL ONE (08:09)
[2020-11-27] MEDS ORDERED: ACETAMINOPHEN 500 MG TABLET (FP) ONE ×2 (08:09→08:10)
[2020-11-27] MEDS ORDERED: INFLIXIMAB ABDA IVPB ONE (08:30)
[2020-11-27] MEDS ORDERED: SODIUM CHLORIDE IVPB ONE (08:30)
[2020-11-27 12:31] VITALS: BP 100/56; PULSE 74; TEMP 98.6
== END 2020-11-27 12:30 | disposition home or self-care (01) ==
LOC: JCHEMO 04:07
PROVIDERS: ATTEND Internal Medicine Gastroenterology
DX: K50.90 Crohn's disease, unspecified, without complications (principal)
CPT/HCPCS: 81025; 96367; 96413; 96415; Q5104

== ENCOUNTER 2021-01-17 05:13 | Day surgery (SDC) | payer OTHER ==
[2021-01-15 16:37] VITALS: BMI 19.5
[2021-01-17 09:22] VITALS: TEMP 97.6
[2021-01-17 10:13] VITALS: BP 106/65; PULSE 62
== END 2021-01-17 10:13 | disposition home or self-care (01) ==
LOC: JASU-ENDO 05:13
PROVIDERS: ATTEND Internal Medicine Gastroenterology
PROC: 0DBK8ZX Excision of Ascending Colon, Via Natural or Artificial Opening Endoscopic, Diagnostic (ICD-10-PCS; 2021-01-17)
PROC: 0DBL8ZX Excision of Transverse Colon, Via Natural or Artificial Opening Endoscopic, Diagnostic (ICD-10-PCS; 2021-01-17)
PROC: 0DBB8ZX Excision of Ileum, Via Natural or Artificial Opening Endoscopic, Diagnostic (ICD-10-PCS; 2021-01-17)
PROC: 0DBM8ZX Excision of Descending Colon, Via Natural or Artificial Opening Endoscopic, Diagnostic (ICD-10-PCS; 2021-01-17)
PROC: 0DBN8ZX Excision of Sigmoid Colon, Via Natural or Artificial Opening Endoscopic, Diagnostic (ICD-10-PCS; principal; 2021-01-17 08:15)
DX: Z12.11 Encounter for screening for malignant neoplasm of colon (principal); K50.90 Crohn's disease, unspecified, without complications; K64.8 Other hemorrhoids; K63.3 Ulcer of intestine; K56.609 Unspecified intestinal obstruction, unspecified as to partial versus complete obstruction; D12.5 Benign neoplasm of sigmoid colon
CPT/HCPCS: 81025; 88305-TC

== ENCOUNTER 2021-02-05 05:11 | Day surgery (SDC) | payer OTHER ==
[2021-02-05] MEDS ORDERED: INFLIXIMAB ABDA IVPB ONE ×2 (07:45→10:30)
[2021-02-05] MEDS ORDERED: SODIUM CHLORIDE IVPB ONE ×2 (07:45→10:30)
[2021-02-05] MEDS ORDERED: diphenhydrAMINE HCL 25 MG CAPSULE (FP) PO ONE ×2 (08:03→10:00)
[2021-02-05] MEDS ORDERED: ACETAMINOPHEN 500 MG TABLET (FP) ONE (08:04)
[2021-02-05] MEDS ORDERED: ACETAMINOPHEN 500 MG TABLET (FP) PO ONE (10:00)
[2021-02-05] MEDS ORDERED: HYDROCORTISONE SOD SUCCINATE 100 MG/2 ML VIAL IVPB ONE (10:00)
[2021-02-05 14:23] VITALS: BP 99/54; PULSE 75; TEMP 98.1
== END 2021-02-05 12:40 | disposition home or self-care (01) ==
LOC: JCHEMO 05:11
PROVIDERS: ATTEND Internal Medicine Gastroenterology
DX: K50.90 Crohn's disease, unspecified, without complications (principal)
CPT/HCPCS: 96367; 96413; 96415; 96417

== ENCOUNTER 2021-03-17 07:39 | Emergency (ER) | payer OTHER ==
[2021-03-17 07:47] VITALS: BP 136/84; PULSE 89; TEMP 97.9; BMI 20.8
[2021-03-17 09:48] LABS: BASO % 0.7 % (0-2.0); EOS % 0.3 % (0-4.5); HEMATOCRIT 39.2 % (32.4-45.2); HEMOGLOBIN 13.4 GM/dL (10.7-15.3); LYMPH % 20.3 % (8-40); MCH 30.1 pg (25.7-33.7); MCHC 34.2 g/dl (32.0-36.0); MEAN CELL VOLUME 87.8 fl (80-96); MEAN PLT VOLUME 7.4 fl (7.5-11.1); MONO % 8.3 % (3.8-10.2); NEUT % 70.4 % (42.8-82.8); PLATELET COUNT 337 10^3/uL (134-434); RBC 4.46 M/mm3 (3.60-5.2); RDW 13.2 % (11.6-15.6); WHITE BLOOD COUNT 7.3 K/mm3 (4.0-10.0)
[2021-03-17] MEDS ORDERED: KETOROLAC TROMETHAMINE 30 MG/1 ML VIAL IM ONE (09:48)
[2021-03-17] MEDS ORDERED: KETOROLAC TROMETHAMINE 30 MG/1 ML VIAL ONE (09:49)
[2021-03-17 10:10] LABS: BLOOD UREA NITROGEN 13.3 mg/dL (7-18); CALCIUM 9.1 mg/dL (8.5-10.1)
[2021-03-17 10:13] LABS: CREATININE 0.7 mg/dL (0.55-1.3); URIC ACID 3.8 mg/dL (2.6-7.2)
[2021-03-17 10:15] LABS: BILIRUBIN,TOTAL 0.4 mg/dL (0.2-1); TOT PROT 8.4 g/dl (6.4-8.2)
[2021-03-17 10:29] LABS: ERYTHROCYTE SEDIMENTATION RATE 28 mm/hr (0-20)
[2021-03-17] MEDS ORDERED: DEXAMETHASONE SOD PHOSPHATE 10 MG/1 ML VIAL IM ONE (10:45)
[2021-03-17] MEDS ORDERED: DEXAMETHASONE SOD PHOSPHATE 10 MG/1 ML VIAL ONE (10:46)
[2021-03-19 13:10] LABS: IgG Ab 23 kDa Band Absent (.); IgG Ab 28 kDa Band Absent (.)
[2021-03-20 14:07] LABS: E.chaff HME IgG Negative (Neg:<1:64)
== END 2021-03-17 10:51 | disposition home or self-care (01) ==
LOC: JER 07:39
PROC: 3E023NZ Introduction of Analgesics, Hypnotics, Sedatives into Muscle, Percutaneous Approach (ICD-10-PCS; principal; 2021-03-17)
PROC: 3E0233Z Introduction of Anti-inflammatory into Muscle, Percutaneous Approach (ICD-10-PCS; 2021-03-17)
DX: M25.541 Pain in joints of right hand (principal)
CPT/HCPCS: 36415; 73130-TC-RT-FY; 80053; 84550; 85025; 85651; 86038; 86140; 86431; 86618; 86666; 86753; 99284-25

== ENCOUNTER 2021-04-16 04:57 | Day surgery (SDC) | payer OTHER ==
[2021-04-16] MEDS ORDERED: HYDROCORTISONE SOD SUCCINATE 100 MG/2 ML VIAL ONE (08:24)
[2021-04-16] MEDS ORDERED: diphenhydrAMINE HCL 25 MG CAPSULE (FP) PO ONE ×2 (08:54→09:00)
[2021-04-16] MEDS ORDERED: ACETAMINOPHEN 500 MG TABLET (FP) ONE (08:54)
[2021-04-16] MEDS ORDERED: ACETAMINOPHEN 500 MG TABLET (FP) PO ONE (09:00)
[2021-04-16] MEDS ORDERED: SODIUM CHLORIDE 250 ML IV ONE (09:00)
[2021-04-16] MEDS ORDERED: HYDROCORTISONE SOD SUCCINATE 100 MG/2 ML VIAL IVPB ONE (09:00)
[2021-04-16 09:07] LABS: BASO % 1.4 % (0-2.0); EOS % 1.2 % (0-4.5); HEMATOCRIT 35.5 % (32.4-45.2); MCHC 33.9 g/dl (32.0-36.0); MEAN CELL VOLUME 88.6 fl (80-96); MEAN PLT VOLUME 7.4 fl (7.5-11.1); MONO % 8.6 % (3.8-10.2); NEUT % 63.8 % (42.8-82.8); PLATELET COUNT 272 10^3/uL (134-434); RBC 4.01 M/mm3 (3.60-5.2); RDW 13.2 % (11.6-15.6); WHITE BLOOD COUNT 4.8 K/mm3 (4.0-10.0)
[2021-04-16] MEDS ORDERED: EPINEPHrine/PF 1 MG/1 ML (1:1,000) AMPULE ONE (09:28)
[2021-04-16] MEDS ORDERED: methylPREDNISolone NA SUCC 40 MG/1 ML VIAL ONE (09:30)
[2021-04-16] MEDS ORDERED: SODIUM CHLORIDE IVPB ONE (09:30)
[2021-04-16] MEDS ORDERED: INFLIXIMAB ABDA IVPB ONE (09:30)
[2021-04-16 09:32] LABS: CALCIUM 8.8 mg/dL (8.5-10.1)
[2021-04-16 09:33] LABS: ALBUMIN 3.2 g/dl (3.4-5.0); BLOOD UREA NITROGEN 17.2 mg/dL (7-18)
[2021-04-16 09:36] LABS: CREATININE 0.8 mg/dL (0.55-1.3)
[2021-04-16 09:37] LABS: BILIRUBIN,TOTAL 0.5 mg/dL (0.2-1)
[2021-04-16 09:38] LABS: TOT PROT 7.9 g/dl (6.4-8.2)
[2021-04-16 11:54] VITALS: TEMP 99.2
[2021-04-16 12:02] LABS: ALBUMIN 3.3 g/dl (3.4-5.0); BLOOD UREA NITROGEN 15.1 mg/dL (7-18); CALCIUM 8.5 mg/dL (8.5-10.1)
[2021-04-16 12:05] LABS: CREATININE 0.7 mg/dL (0.55-1.3)
[2021-04-16 12:07] LABS: BILIRUBIN,TOTAL 0.4 mg/dL (0.2-1); TOT PROT 7.2 g/dl (6.4-8.2)
[2021-04-16 12:35] VITALS: PULSE 80
[2021-04-16 12:44] VITALS: BP 110/56
== END 2021-04-16 12:45 | disposition home or self-care (01) ==
LOC: JCHEMO 04:57
PROVIDERS: ATTEND Internal Medicine Gastroenterology
DX: K50.00 Crohn's disease of small intestine without complications (principal)
CPT/HCPCS: 36415; 80053; 81025; 85025; 86140; 96367; 96413; 96415; Q5104

== ENCOUNTER 2021-06-11 04:54 | Day surgery (SDC) | payer OTHER ==
[2021-06-11 08:21] LABS: EOS % 0.7 % (0-4.5); HEMATOCRIT 36.7 % (32.4-45.2); HEMOGLOBIN 12.3 GM/dL (10.7-15.3); LYMPH % 21.5 % (8-40); MCH 29.4 pg (25.7-33.7); MCHC 33.6 g/dl (32.0-36.0); MEAN CELL VOLUME 87.5 fl (80-96); MEAN PLT VOLUME 7.3 fl (7.5-11.1); MONO % 8.6 % (3.8-10.2); NEUT % 68.2 % (42.8-82.8); PLATELET COUNT 261 10^3/uL (134-434); RBC 4.19 M/mm3 (3.60-5.2); RDW 12.9 % (11.6-15.6); WHITE BLOOD COUNT 6.1 K/mm3 (4.0-10.0)
[2021-06-11] MEDS ORDERED: diphenhydrAMINE HCL 25 MG CAPSULE (FP) PO ONE ×2 (08:25→08:45)
[2021-06-11] MEDS ORDERED: ACETAMINOPHEN 500 MG TABLET (FP) ONE (08:25)
[2021-06-11] MEDS ORDERED: methylPREDNISolone NA SUCC 40 MG/1 ML VIAL ONE (08:27)
[2021-06-11] MEDS ORDERED: EPINEPHrine/PF 1 MG/1 ML (1:1,000) AMPULE ONE (08:28)
[2021-06-11] MEDS ORDERED: HYDROCORTISONE SOD SUCCINATE 100 MG/2 ML VIAL ONE (08:31)
[2021-06-11 08:40] LABS: CALCIUM 8.7 mg/dL (8.5-10.1)
[2021-06-11 08:41] LABS: BLOOD UREA NITROGEN 19.5 mg/dL (7-18)
[2021-06-11 08:42] VITALS: BMI 19.3
[2021-06-11 08:44] LABS: CREATININE 0.7 mg/dL (0.55-1.3)
[2021-06-11] MEDS ORDERED: ACETAMINOPHEN 500 MG TABLET (FP) PO ONE (08:45)
[2021-06-11] MEDS ORDERED: HYDROCORTISONE SOD SUCCINATE 100 MG/2 ML VIAL IVPB ONE (08:45)
[2021-06-11] MEDS ORDERED: SODIUM CHLORIDE 250 ML IV ONE (08:45)
[2021-06-11] MEDS ORDERED: SODIUM CHLORIDE IVPB ONE (09:00)
[2021-06-11] MEDS ORDERED: INFLIXIMAB ABDA IVPB ONE (09:00)
[2021-06-11 13:28] VITALS: PULSE 72
[2021-06-11 13:38] VITALS: BP 116/66; TEMP 98
== END 2021-06-11 13:35 | disposition home or self-care (01) ==
LOC: JCHEMO 04:54
PROVIDERS: ATTEND Internal Medicine Gastroenterology
DX: K50.90 Crohn's disease, unspecified, without complications (principal)
CPT/HCPCS: 36415; 80048; 81025; 85025; 86140; 96367; 96413; 96415

== ENCOUNTER 2021-08-21 04:45 | Day surgery (SDC) | payer OTHER ==
[2021-08-21 07:54] LABS: BASO % 0.9 % (0-2.0); EOS % 1.3 % (0-4.5); HEMATOCRIT 37.7 % (32.4-45.2); HEMOGLOBIN 12.5 GM/dL (10.7-15.3); LYMPH % 26.9 % (8-40); MCH 29.6 pg (25.7-33.7); MCHC 33.3 g/dl (32.0-36.0); MEAN CELL VOLUME 88.9 fl (80-96); NEUT % 64.9 % (42.8-82.8); PLATELET COUNT 302 10^3/uL (134-434); RBC 4.24 M/mm3 (3.60-5.2); RDW 13.4 % (11.6-15.6); WHITE BLOOD COUNT 4.9 K/mm3 (4.0-10.0)
[2021-08-21] MEDS ORDERED: diphenhydrAMINE HCL 25 MG CAPSULE (FP) PO ONE ×3 (08:15→09:54)
[2021-08-21 08:29] LABS: BLOOD UREA NITROGEN 10.9 mg/dL (7-18); CALCIUM 9.1 mg/dL (8.5-10.1)
[2021-08-21] MEDS ORDERED: SODIUM CHLORIDE 250 ML IV ONE (08:30)
[2021-08-21] MEDS ORDERED: HYDROCORTISONE SOD SUCCINATE 100 MG/2 ML VIAL IVPB ONE (08:30)
[2021-08-21] MEDS ORDERED: ACETAMINOPHEN 500 MG TABLET (FP) PO ONE (08:30)
[2021-08-21 08:33] LABS: CREATININE 0.7 mg/dL (0.55-1.3)
[2021-08-21] MEDS ORDERED: INFLIXIMAB ABDA IVPB ONE (09:00)
[2021-08-21] MEDS ORDERED: SODIUM CHLORIDE IVPB ONE (09:00)
[2021-08-21] MEDS ORDERED: ACETAMINOPHEN 500 MG TABLET (FP) ONE (09:48)
[2021-08-21 14:22] VITALS: BP 110/65; PULSE 80; TEMP 98
== END 2021-08-21 14:29 | disposition home or self-care (01) ==
LOC: JINFUSION 04:45
PROVIDERS: ATTEND Internal Medicine Gastroenterology
DX: K50.90 Crohn's disease, unspecified, without complications (principal)
CPT/HCPCS: 36415; 80048; 81025; 85025; 86140; 96367; 96413; 96415; Q5104

== ENCOUNTER 2021-10-22 05:34 | Day surgery (SDC) | payer OTHER ==
[2021-10-22] MEDS ORDERED: SODIUM CHLORIDE 250 ML IV ONE (08:45)
[2021-10-22] MEDS ORDERED: diphenhydrAMINE HCL 25 MG CAPSULE (FP) PO ONE ×2 (08:59→09:00)
[2021-10-22] MEDS ORDERED: HYDROCORTISONE SOD SUCCINATE 100 MG/2 ML VIAL IVPB ONE (09:00)
[2021-10-22] MEDS ORDERED: ACETAMINOPHEN 500 MG TABLET (FP) ONE (09:00)
[2021-10-22] MEDS ORDERED: ACETAMINOPHEN 500 MG TABLET (FP) PO ONE (09:00)
[2021-10-22] MEDS ORDERED: INFLIXIMAB ABDA IVPB ONE (09:30)
[2021-10-22] MEDS ORDERED: SODIUM CHLORIDE IVPB ONE ×2 (09:30→11:30)
[2021-10-22 09:36] LABS: HEMATOCRIT 38.3 % (32.4-45.2); HEMOGLOBIN 12.4 GM/dL (10.7-15.3); MCH 29.1 pg (25.7-33.7); MCHC 32.4 g/dl (32.0-36.0); MEAN CELL VOLUME 89.8 fl (80-96); MEAN PLT VOLUME 8.5 fl (7.5-11.1); PLATELET COUNT 266 10^3/uL (134-434); RBC 4.26 M/mm3 (3.60-5.2); RDW 13.1 % (11.6-15.6); WHITE BLOOD COUNT 5.8 K/mm3 (4.0-10.0)
[2021-10-22 09:51] LABS: CHLORIDE 107 mmol/L (98-107); SODIUM 141 mmol/L (136-145)
[2021-10-22 10:11] LABS: CALCIUM 8.8 mg/dL (8.5-10.1)
[2021-10-22 10:12] LABS: ALBUMIN 3.6 g/dl (3.4-5.0); ANION GAP 10 MMOL/L (8-16); BLOOD UREA NITROGEN 14.5 mg/dL (7-18); CO2 24 mmol/L (21-32); GLUCOSE,RANDOM 72 mg/dL (74-106)
[2021-10-22 10:15] LABS: CREATININE 0.8 mg/dL (0.55-1.3); SGOT/AST 15 U/L (15-37); SGPT/ALT 19 U/L (13-61)
[2021-10-22 10:17] LABS: ALK PHOS 46 U/L (45-117); BILIRUBIN,TOTAL 0.4 mg/dL (0.2-1); TOT PROT 7.8 g/dl (6.4-8.2)
[2021-10-22] MEDS ORDERED: INFLIXIMAB IVPB ONE (11:30)
[2021-10-22 13:58] VITALS: BP 119/66; PULSE 83; TEMP 98.2
== END 2021-10-22 14:09 | disposition home or self-care (01) ==
LOC: JINFUSION 05:34
PROVIDERS: ATTEND Internal Medicine Gastroenterology
DX: K50.90 Crohn's disease, unspecified, without complications (principal)
CPT/HCPCS: 36415; 80053; 85027; 86140; 96367; 96413; 96415; J1745; Q5104

== ENCOUNTER 2021-11-19 05:59 | Day surgery (SDC) | payer OTHER ==
[2021-11-14 12:52] VITALS: BMI 19.1
[2021-11-19] MEDS ORDERED: BUPIVACAINE HCL/PF 0.25% (2.5MG/ML) 10 ML VIAL ONE (07:36)
[2021-11-19] MEDS ORDERED: ceFAZolin SODIUM 1 GM VIAL ONE (07:44)
[2021-11-19] MEDS ORDERED: PROPOFOL 20 ML ONE ×2 (07:44)
[2021-11-19] MEDS ORDERED: LIDOCAINE HCL/PF 2% SDV 5ML VIAL ONE (07:44)
[2021-11-19] MEDS ORDERED: MIDAZOLAM HCL 2 MG/2 ML SINGLE DOSE VIAL ONE (07:45)
[2021-11-19] MEDS ORDERED: ROCURONIUM BROMIDE 50 MG/5 ML SYRINGE ONE ×2 (07:45→09:06)
[2021-11-19] MEDS ORDERED: ceFAZolin SODIUM 1 GM VIAL IVPB ONE (08:13)
[2021-11-19] MEDS ORDERED: DEXAMETHASONE SOD PHOSPHATE 4 MG/1 ML VIAL ONE (08:23)
[2021-11-19] MEDS ORDERED: ONDANSETRON 4 MG/2 ML VIAL ONE (08:23)
[2021-11-19] MEDS ORDERED: NEOSTIGMINE METHYLSULFATE 0.5 MG/ML - 10 ML MDV ONE (09:24)
[2021-11-19] MEDS ORDERED: GLYCOPYRROLATE 0.2 MG/1 ML VIAL ONE (09:25)
[2021-11-19] MEDS ORDERED: KETOROLAC TROMETHAMINE 30 MG/1 ML VIAL ONE (09:31)
[2021-11-19] MEDS ORDERED: BUPIVACAINE HCL/PF 2.5 MG/ML - 30 ML VIAL IJ ONE ×2 (09:48)
[2021-11-19] MEDS ORDERED: oxyCODONE HCL 5 MG TABLET PO PRN (10:19)
[2021-11-19] MEDS ORDERED: ONDANSETRON 4 MG/2 ML VIAL IVPUSH PRN (10:19)
[2021-11-19] MEDS ORDERED: ACETAMINOPHEN 1000 MG/100 ML BAG IVPB ONE ×2 (10:20)
[2021-11-19] MEDS ORDERED: FAMOTIDINE 20 MG/50 ML IVPB 20 MG/50 ML MG IVPB SCH (10:30)
[2021-11-19] MEDS ORDERED: SODIUM CHLORIDE 1,000 ML IV SCH (10:30)
[2021-11-19] MEDS ORDERED: LACTATED RINGERS SOLUTION 1,000 ML IV SCH (10:30)
[2021-11-19] MEDS ORDERED: PROMETHAZINE HCL 25 MG/1 ML VIAL ONE (10:32)
[2021-11-19] MEDS ORDERED: FAMOTIDINE 20 MG/50 ML IVPB 20 MG/50 ML MG IVPB ONE (10:45)
[2021-11-19] MEDS ORDERED: FAMOTIDINE 20 MG PREMIXED IVPB IVPB ONE (10:45)
[2021-11-19 11:02] LABS: CALCIUM 8.9 mg/dl (8.5-10); CREATININE 0.6 mg/dl (0.55-1.3)
[2021-11-19 11:18] LABS: HEMATOCRIT 34.1 % (32.4-45.2); HEMOGLOBIN 11.8 G/dL (10.7-15.3); MCH 30.8 pg (25.7-33.7); MCHC 34.6 g/dl (32.0-36.0); MEAN CELL VOLUME 88.8 fl (80-96); MEAN PLT VOLUME 8.4 fl (7.5-11.1); PLATELET COUNT 196.2 10^3/uL (134-434); RBC 3.84 10^6/uL (3.60-5.2); RDW 14.1 % (11.6-15.6); WHITE BLOOD COUNT 11.6 10^3/uL (4.0-10.8)
[2021-11-19 13:34] LABS: ALBUMIN 3.5 g/dl (3.4-5.0); BILIRUBIN,TOTAL 0.7 mg/dl (0.2-1); TOT PROT 6.4 g/dl (6.4-8.2)
[2021-11-19 13:42] LABS: BILIRUBIN,DIRECT 0.1 mg/dL (0.0-0.2)
[2021-11-19] MEDS ORDERED: oxyCODONE HCL 5 MG TABLET ONE (14:50)
[2021-11-19 15:35] VITALS: TEMP 97.7
[2021-11-19 16:39] VITALS: BP 118/67; PULSE 68
== END 2021-11-19 16:15 | disposition home or self-care (01) ==
LOC: FASU 05:59
PROVIDERS: ATTEND Surgery
PROC: 0FT44ZZ Resection of Gallbladder, Percutaneous Endoscopic Approach (ICD-10-PCS; principal; 2021-11-19 08:00)
DX: K80.10 Calculus of gallbladder with chronic cholecystitis without obstruction (principal)
CPT/HCPCS: 36415; 80048; 80076; 81025; 85027; 86850; 86900; 86901; 88304-TC; 94760

== ENCOUNTER 2021-11-21 16:30 | Observation (INO) | payer OTHER ==
[2021-11-21] MEDS ORDERED: morphine SULFATE 4 MG/ML VIAL IVPUSH ONE (17:57)
[2021-11-21] MEDS ORDERED: morphine SULFATE 4 MG/ML VIAL ONE (18:12)
[2021-11-21 18:18] LABS: BASO % 0.2 % (0-2.0); EOS % 0.1 % (0-4.5); HEMATOCRIT 34.7 % (32.4-45.2); HEMOGLOBIN 11.7 GM/dL (10.7-15.3); LYMPH % 11.3 % (8-40); MCH 30.1 pg (25.7-33.7); MCHC 33.9 g/dl (32.0-36.0); MEAN CELL VOLUME 88.9 fl (80-96); MEAN PLT VOLUME 7.9 fl (7.5-11.1); MONO % 5.5 % (3.8-10.2); NEUT % 82.9 % (42.8-82.8); PLATELET COUNT 190 10^3/uL (134-434); WHITE BLOOD COUNT 8.3 K/mm3 (4.0-10.0)
[2021-11-21 18:27] LABS: INR 1.09 (0.83-1.09); PROTHROMBIN TIME (PATIENT) 12.5 SEC (9.7-13.0)
[2021-11-21 18:29] LABS: ACTIVATED PTT 25.2 SECONDS (25.2-36.5)
[2021-11-21 18:37] LABS: EPI CELLS >36 /uL (0-25.1); HYALINE CASTS 1 /uL (0-3.1); URINE APPEARANCE CLEAR; URINE BACTERIA 117 /uL (0-1359); URINE BILIRUBIN NEGATIVE (NEGATIVE); URINE COLOR YELLOW; URINE GLUCOSE (UA) NEGATIVE (NEGATIVE); URINE KETONE NEGATIVE (NEGATIVE); URINE LEUK ESTERASE TRACE (NEGATIVE); URINE NITRITE NEGATIVE (NEGATIVE); URINE PROTEIN NEGATIVE (NEGATIVE); URINE RBC 18 /uL (0-23.9); URINE UROBILINOGEN 0.2 mg/dL (0.2-1.0); URINE WBC 41 /uL (0-25.8)
[2021-11-21 18:45] LABS: ALBUMIN 3.6 g/dl (3.4-5.0); BLOOD UREA NITROGEN 10.3 mg/dL (7-18); CALCIUM 8.7 mg/dL (8.5-10.1)
[2021-11-21 18:48] LABS: CREATININE 0.6 mg/dL (0.55-1.3)
[2021-11-21 18:50] LABS: BILIRUBIN,TOTAL 0.4 mg/dL (0.2-1); TOT PROT 7.1 g/dl (6.4-8.2)
[2021-11-21] MEDS ORDERED: ACETAMINOPHEN INJECTION 100 ML IVPB ONE (18:57)
[2021-11-21] MEDS ORDERED: ACETAMINOPHEN 1000 MG/100 ML BAG IVPB ONE (19:04)
[2021-11-21] MEDS ORDERED: SODIUM CHLORIDE 0.9% 1000 ML INFUS.BAG IV ONE (19:08)
[2021-11-21] MEDS ORDERED: morphine CARPU-JECT 2 MG/1 ML DISP.SYRIN IVPUSH ONE (20:43)
[2021-11-21] MEDS ORDERED: oxyCODONE HCL 5 MG TABLET PO ONE (21:38)
[2021-11-21] MEDS ORDERED: POLYETHYLENE GLYCOL (HEALTHYLAX) 3350 17 GM PACKET PO ONE (21:38)
[2021-11-21] MEDS ORDERED: DOCUSATE SODIUM 100 MG CAPSULE (FP) PO ONE ×2 (21:38→21:47)
[2021-11-21] MEDS ORDERED: oxyCODONE HCL 5 MG TABLET ONE (21:46)
[2021-11-21] MEDS ORDERED: POLYETHYLENE GLYCOL (HEALTHYLAX) 3350 17 GM PACKET ONE (21:46)
[2021-11-22] MEDS ORDERED: ACETAMINOPHEN INJECTION 100 ML IVPB ONE (00:58)
[2021-11-22] MEDS: ACETAMINOPHEN 1000 MG/100 ML BAG IVPB PRN ×4 (01:00→21:50)
[2021-11-22 03:46] VITALS: BMI 19.9
[2021-11-22] MEDS ORDERED: oxyCODONE HCL 5 MG TABLET PO ONE (04:11)
[2021-11-22 08:39] LABS: BASO % 0.3 % (0-2.0); EOS % 0.1 % (0-4.5); HEMATOCRIT 34.4 % (32.4-45.2); HEMOGLOBIN 11.5 GM/dL (10.7-15.3); LYMPH % 13.2 % (8-40); MCH 29.5 pg (25.7-33.7); MCHC 33.4 g/dl (32.0-36.0); MEAN CELL VOLUME 88.6 fl (80-96); MEAN PLT VOLUME 8.9 fl (7.5-11.1); NEUT % 80.4 % (42.8-82.8); PLATELET COUNT 195 10^3/uL (134-434); RBC 3.88 M/mm3 (3.60-5.2); RDW 12.6 % (11.6-15.6); WHITE BLOOD COUNT 9.4 K/mm3 (4.0-10.0)
[2021-11-22] MEDS ORDERED: oxyCODONE HCL 5 MG TABLET PO PRN ×2 (08:55→09:00)
[2021-11-22] MEDS ORDERED: ONDANSETRON *ODT* 4 MG TABLET SL PRN (08:55)
[2021-11-22 09:01] LABS: CALCIUM 8.7 mg/dL (8.5-10.1); MAGNESIUM 1.9 mg/dL (1.8-2.4)
[2021-11-22 09:03] LABS: CREATININE 0.5 mg/dL (0.55-1.3)
[2021-11-22] MEDS: SIMETHICONE 80 MG TAB.CHEW (FP) PO PRN ×2 (09:25→21:15)
[2021-11-22] MEDS: ONDANSETRON 4 MG/2 ML VIAL IVPUSH PRN ×2 (09:25→18:06)
[2021-11-22] MEDS: DOCUSATE SODIUM 100 MG CAPSULE (FP) PO PRN (09:25)
[2021-11-22] MEDS: oxyCODONE HCL 5 MG TABLET PO PRN ×4 (09:26→21:15)
[2021-11-22] MEDS ORDERED: FAMOTIDINE 20 MG/50 ML IVPB 20 MG/50 ML MG IVPB SCH (10:00)
[2021-11-22 12:03] LABS: ALBUMIN 3.1 g/dl (3.4-5.0)
[2021-11-22 12:06] LABS: BILIRUBIN,DIRECT 0.3 mg/dL (0.0-0.2)
[2021-11-22 12:08] LABS: BILIRUBIN,TOTAL 0.8 mg/dL (0.2-1); TOT PROT 6.6 g/dl (6.4-8.2)
[2021-11-22] MEDS: FAMOTIDINE/PF 20 MG/2 ML VIAL IVPB SCH ×2 (14:44→21:16)
[2021-11-22] MEDS: ACETAMINOPHEN 325 MG TABLET (FP) PO PRN (21:26)
[2021-11-23] MEDS: oxyCODONE HCL 5 MG TABLET PO PRN (01:29)
[2021-11-23] MEDS: ACETAMINOPHEN 325 MG TABLET (FP) PO PRN ×3 (03:57→17:36)
[2021-11-23] MEDS: DOCUSATE SODIUM 100 MG CAPSULE (FP) PO PRN ×2 (05:57→09:05)
[2021-11-23] MEDS: SIMETHICONE 80 MG TAB.CHEW (FP) PO PRN (09:05)
[2021-11-23] MEDS: FAMOTIDINE/PF 20 MG/2 ML VIAL IVPB SCH (09:05)
[2021-11-23] MEDS ORDERED: BISACODYL 10 MG SUPP.RECT PR ONE (13:49)
[2021-11-23] MEDS ORDERED: METOCLOPRAMIDE HCL 10 MG/10 ML UNIT DOSE CUP PO ONE (13:49)
[2021-11-23 17:39] VITALS: BP 114/68; PULSE 73; TEMP 98.2
== END 2021-11-23 20:13 | disposition home or self-care (01) ==
LOC: JER 16:30 → JERBED 22:32 → J7W 11-22 03:21
PROVIDERS: ADMIT Internal Medicine; ATTEND Family Medicine
PROC: 3E0337Z Introduction of Electrolytic and Water Balance Substance into Peripheral Vein, Percutaneous Approach (ICD-10-PCS; principal; 2021-11-21)
DX: G89.18 Other acute postprocedural pain (principal); K50.90 Crohn's disease, unspecified, without complications; Z90.49 Acquired absence of other specified parts of digestive tract; M06.9 Rheumatoid arthritis, unspecified; Z87.891 Personal history of nicotine dependence; M25.50 Pain in unspecified joint; Z87.19 Personal history of other diseases of the digestive system; Z29.8 Encounter for other specified prophylactic measures
CPT/HCPCS: 36415; 71046-TC-FY; 74177-TC; 80048; 80053; 80076; 81003; 83735; 84703; 85025; 85610; 85730; 86850; 86900; 86901; 87086; 93005; 93010; 94010; 99285-25; C9803-CS; G0378; Q9967; U0003; U0005

== ENCOUNTER 2021-12-24 04:49 | Day surgery (SDC) | payer OTHER ==
[2021-12-24] MEDS ORDERED: HYDROCORTISONE SOD SUCCINATE 100 MG/2 ML VIAL ONE (08:42)
[2021-12-24] MEDS ORDERED: diphenhydrAMINE HCL 25 MG CAPSULE (FP) PO ONE ×2 (08:43→09:00)
[2021-12-24] MEDS ORDERED: ACETAMINOPHEN 500 MG TABLET (FP) ONE (08:43)
[2021-12-24] MEDS ORDERED: HYDROCORTISONE SOD SUCCINATE 100 MG/2 ML VIAL IVPB ONE (09:00)
[2021-12-24] MEDS ORDERED: ACETAMINOPHEN 500 MG TABLET (FP) PO ONE (09:00)
[2021-12-24] MEDS ORDERED: INFLIXIMAB ABDA IVPB ONE (09:30)
[2021-12-24] MEDS ORDERED: SODIUM CHLORIDE IVPB ONE (09:30)
[2021-12-24 10:18] LABS: BASO % 0.8 % (0-2.0); EOS % 7.6 % (0-4.5); HEMATOCRIT 29.9 % (32.4-45.2); HEMOGLOBIN 9.9 GM/dL (10.7-15.3); LYMPH % 26.6 % (8-40); MCH 29.4 pg (25.7-33.7); MCHC 33.2 g/dl (32.0-36.0); MEAN CELL VOLUME 88.5 fl (80-96); MEAN PLT VOLUME 8.5 fl (7.5-11.1); MONO % 9.3 % (3.8-10.2); NEUT % 55.7 % (42.8-82.8); PLATELET COUNT 220 10^3/uL (134-434); RBC 3.37 M/mm3 (3.60-5.2); WHITE BLOOD COUNT 4.8 K/mm3 (4.0-10.0)
[2021-12-24 10:43] LABS: CALCIUM 8.6 mg/dL (8.5-10.1)
[2021-12-24 10:44] LABS: BLOOD UREA NITROGEN 11.9 mg/dL (7-18)
[2021-12-24 10:47] LABS: CREATININE 0.6 mg/dL (0.55-1.3)
[2021-12-24 13:24] VITALS: BP 114/66; PULSE 78; TEMP 98.3
== END 2021-12-24 13:24 | disposition home or self-care (01) ==
LOC: JINFUSION 04:49
PROVIDERS: ATTEND Internal Medicine Gastroenterology
DX: K50.90 Crohn's disease, unspecified, without complications (principal)
CPT/HCPCS: 36415; 80048; 81025; 85025; 86140; 96367; 96413; 96415; Q5104

== ENCOUNTER 2022-02-25 04:23 | Day surgery (SDC) | payer BC ==
[2022-02-25] MEDS ORDERED: diphenhydrAMINE HCL 25 MG CAPSULE (FP) PO ONE ×2 (07:55→08:00)
[2022-02-25] MEDS ORDERED: ACETAMINOPHEN 500 MG TABLET (FP) ONE (07:56)
[2022-02-25] MEDS ORDERED: ACETAMINOPHEN 500 MG TABLET (FP) PO ONE (08:00)
[2022-02-25] MEDS ORDERED: HYDROCORTISONE SOD SUCCINATE 100 MG/2 ML VIAL IVPB ONE (08:00)
[2022-02-25] MEDS ORDERED: SODIUM CHLORIDE IVPB ONE (08:30)
[2022-02-25] MEDS ORDERED: INFLIXIMAB ABDA IVPB ONE (08:30)
[2022-02-25] MEDS ORDERED: SODIUM CHLORIDE 250 ML IV ONE (09:00)
[2022-02-25 09:32] LABS: BASO % 0.6 % (0-2.0); EOS % 1.1 % (0-4.5); HEMATOCRIT 38.5 % (32.4-45.2); HEMOGLOBIN 12.8 GM/dL (10.7-15.3); LYMPH % 26.6 % (8-40); MCH 29.1 pg (25.7-33.7); MCHC 33.3 g/dl (32.0-36.0); MEAN CELL VOLUME 87.4 fl (80-96); MEAN PLT VOLUME 8.7 fl (7.5-11.1); NEUT % 60.7 % (42.8-82.8); PLATELET COUNT 268 10^3/uL (134-434); RDW 13.3 % (11.6-15.6); WHITE BLOOD COUNT 6.6 K/mm3 (4.0-10.0)
[2022-02-25 09:41] LABS: CHLORIDE 105 mmol/L (98-107); SODIUM 139 mmol/L (136-145)
[2022-02-25 10:07] LABS: ALBUMIN 3.7 g/dl (3.4-5.0); CALCIUM 9.2 mg/dL (8.5-10.1); CREATININE 0.7 mg/dL (0.55-1.3); GLUCOSE,RANDOM 66 mg/dL (74-106)
[2022-02-25 10:08] LABS: ANION GAP 7 MMOL/L (8-16); BLOOD UREA NITROGEN 21.7 mg/dL (7-18); CO2 27 mmol/L (21-32); SGPT/ALT 24 U/L (13-61)
[2022-02-25 10:09] LABS: BILIRUBIN,TOTAL 0.5 mg/dL (0.2-1); SGOT/AST 18 U/L (15-37); TOT PROT 7.8 g/dl (6.4-8.2)
[2022-02-25 10:10] LABS: ALK PHOS 46 U/L (45-117)
[2022-02-25 13:51] VITALS: RESP 18
[2022-02-25 14:08] VITALS: BP 113/61; PULSE 77; TEMP 98.5
== END 2022-02-25 14:10 | disposition home or self-care (01) ==
LOC: JASU-ENDO 04:23
PROVIDERS: ATTEND Internal Medicine Gastroenterology
DX: K50.90 Crohn's disease, unspecified, without complications (principal)
CPT/HCPCS: 36415; 80048; 80053; 81025; 82962; 85025; 86140; 96367; 96413; 96415; C9803-CS; Q5104; U0003; U0005

== ENCOUNTER 2022-03-20 13:19 | Emergency (ER) | payer BC ==
[2022-03-20 13:23] VITALS: BP 148/71; PULSE 95; RESP 18; TEMP 97; BMI 19.8
[2022-03-20] MEDS ORDERED: SODIUM CHLORIDE 0.9% 1000 ML INFUS.BAG IV ONE (14:47)
[2022-03-20 16:18] LABS: BASO % 0.5 % (0-2.0); EOS % 0.2 % (0-4.5); HEMATOCRIT 39.5 % (32.4-45.2); HEMOGLOBIN 13.1 GM/dL (10.7-15.3); LYMPH % 11.4 % (8-40); MCH 28.9 pg (25.7-33.7); MCHC 33.1 g/dl (32.0-36.0); MEAN CELL VOLUME 87.3 fl (80-96); MEAN PLT VOLUME 8.7 fl (7.5-11.1); MONO % 4.4 % (3.8-10.2); NEUT % 83.5 % (42.8-82.8); PLATELET COUNT 259 10^3/uL (134-434); RBC 4.53 M/mm3 (3.60-5.2); RDW 12.7 % (11.6-15.6); WHITE BLOOD COUNT 11.2 K/mm3 (4.0-10.0)
[2022-03-20 16:35] LABS: PH,URINE 6.5 (5.0-8.0); URINE APPEARANCE CLEAR; URINE BILIRUBIN NEGATIVE (NEGATIVE); URINE COLOR YELLOW; URINE GLUCOSE (UA) NEGATIVE (NEGATIVE); URINE KETONE NEGATIVE (NEGATIVE); URINE LEUK ESTERASE NEGATIVE (NEGATIVE); URINE NITRITE NEGATIVE (NEGATIVE); URINE PROTEIN NEGATIVE (NEGATIVE); URINE UROBILINOGEN 0.2 mg/dL (0.2-1.0)
[2022-03-20 16:43] LABS: ALBUMIN 4.2 g/dl (3.4-5.0); BLOOD UREA NITROGEN 12.4 mg/dL (7-18); CALCIUM 9.5 mg/dL (8.5-10.1)
[2022-03-20 16:46] LABS: CREATININE 0.8 mg/dL (0.55-1.3)
[2022-03-20 16:48] LABS: BILIRUBIN,TOTAL 0.3 mg/dL (0.2-1); TOT PROT 8.7 g/dl (6.4-8.2)
[2022-03-20 16:51] LABS: HCG,QUALITATIVE URINE Negative
== END 2022-03-20 17:29 | disposition home or self-care (01) ==
LOC: JERFT 13:19
DX: R68.83 Chills (without fever) (principal)
CPT/HCPCS: 36415; 80053; 81003; 84703; 85025; 87086; 99283-25; C9803-CS; U0003; U0005

== ENCOUNTER 2022-04-30 05:13 | Day surgery (SDC) | payer BC ==
[2022-04-30] MEDS ORDERED: diphenhydrAMINE HCL 25 MG CAPSULE (FP) PO ONE (07:34)
[2022-04-30] MEDS ORDERED: HYDROCORTISONE SOD SUCCINATE 100 MG/2 ML VIAL ONE (07:35)
[2022-04-30] MEDS ORDERED: ACETAMINOPHEN 500 MG TABLET (FP) ONE (07:36)
[2022-04-30 08:13] LABS: BASO % 0.4 % (0-2.0); EOS % 0.7 % (0-4.5); HEMATOCRIT 40.3 % (32.4-45.2); HEMOGLOBIN 13.2 GM/dL (10.7-15.3); MCH 29.6 pg (25.7-33.7); MCHC 32.9 g/dl (32.0-36.0); MEAN CELL VOLUME 90.1 fl (80-96); MEAN PLT VOLUME 7.6 fl (7.5-11.1); NEUT % 60.9 % (42.8-82.8); PLATELET COUNT 283 10^3/uL (134-434); RBC 4.47 M/mm3 (3.60-5.2); RDW 13.2 % (11.6-15.6); WHITE BLOOD COUNT 6.4 K/mm3 (4.0-10.0)
[2022-04-30 08:23] LABS: BLOOD UREA NITROGEN 17.5 mg/dL (7-18); CALCIUM 9.1 mg/dL (8.5-10.1)
[2022-04-30 08:26] LABS: CREATININE 0.9 mg/dL (0.55-1.3)
[2022-04-30] MEDS ORDERED: diphenhydrAMINE HCL 50 MG CAPSULE PO ONE (08:30)
[2022-04-30] MEDS ORDERED: HYDROCORTISONE SOD SUCCINATE 100 MG/2 ML VIAL IVPB ONE (08:30)
[2022-04-30] MEDS ORDERED: ACETAMINOPHEN 500 MG TABLET (FP) PO ONE (08:30)
[2022-04-30] MEDS ORDERED: SODIUM CHLORIDE 250 ML IV ONE (08:45)
[2022-04-30] MEDS ORDERED: INFLIXIMAB ABDA IVPB ONE (10:00)
[2022-04-30] MEDS ORDERED: SODIUM CHLORIDE IVPB ONE (10:00)
[2022-04-30 12:47] VITALS: BP 110/62; PULSE 76; RESP 16; TEMP 98.4
== END 2022-04-30 12:49 | disposition home or self-care (01) ==
LOC: JASU-ENDO 05:13
PROVIDERS: ATTEND Internal Medicine Gastroenterology
DX: K50.00 Crohn's disease of small intestine without complications (principal)
CPT/HCPCS: 36415; 80048; 85025; 86140; 96367; 96413; 96415; Q5104

== ENCOUNTER 2022-05-02 18:36 | Emergency (ER) | payer BC ==
[2022-05-02 18:48] VITALS: BP 120/80; RESP 18; TEMP 97.9; BMI 19.4
[2022-05-02] MEDS ORDERED: SODIUM CHLORIDE 0.9% 500 ML INFUS.BAG IV ONE (19:43)
[2022-05-02 20:30] LABS: BASO % 0.7 % (0-2.0); EOS % 0.5 % (0-4.5); HEMATOCRIT 37.1 % (32.4-45.2); HEMOGLOBIN 12.2 GM/dL (10.7-15.3); LYMPH % 24.1 % (8-40); MCH 29.3 pg (25.7-33.7); MCHC 32.9 g/dl (32.0-36.0); MEAN CELL VOLUME 89.3 fl (80-96); MEAN PLT VOLUME 7.5 fl (7.5-11.1); MONO % 8.8 % (3.8-10.2); NEUT % 65.9 % (42.8-82.8); PLATELET COUNT 283 10^3/uL (134-434); RBC 4.15 M/mm3 (3.60-5.2); WHITE BLOOD COUNT 6.6 K/mm3 (4.0-10.0)
[2022-05-02 20:43] LABS: CHLORIDE 108 mmol/L (98-107); SODIUM 143 mmol/L (136-145)
[2022-05-02 20:46] LABS: ALBUMIN 3.5 g/dl (3.4-5.0); ANION GAP 6 MMOL/L (8-16); BLOOD UREA NITROGEN 10.2 mg/dL (7-18); CALCIUM 9.1 mg/dL (8.5-10.1); CO2 28 mmol/L (21-32); GLUCOSE,RANDOM 103 mg/dL (74-106); MAGNESIUM 2.4 mg/dL (1.8-2.4)
[2022-05-02 20:48] LABS: CREATININE 0.6 mg/dL (0.55-1.3); SGOT/AST 16 U/L (15-37); SGPT/ALT 20 U/L (13-61)
[2022-05-02 20:50] LABS: PHOSPHOROUS 3.4 mg/dL (2.5-4.9)
[2022-05-02 20:51] LABS: ALK PHOS 38 U/L (45-117); BILIRUBIN,TOTAL 0.2 mg/dL (0.2-1); TOT PROT 7.2 g/dl (6.4-8.2)
[2022-05-02 21:55] VITALS: PULSE 83
== END 2022-05-02 21:56 | disposition home or self-care (01) ==
LOC: JER 18:36
DX: R00.2 Palpitations (principal)
CPT/HCPCS: 36415; 71046-TC-FY; 80053; 83735; 84100; 84439; 84443; 84484; 84703; 85025; 93005; 93010; 99285-25

== ENCOUNTER 2022-07-02 04:21 | Day surgery (SDC) | payer BC ==
[2022-07-02 08:18] LABS: BASO % 0.6 % (0-2.0); EOS % 0.8 % (0-4.5); HEMATOCRIT 39.4 % (32.4-45.2); LYMPH % 27.6 % (8-40); MCH 29.1 pg (25.7-33.7); MEAN PLT VOLUME 7.6 fl (7.5-11.1); MONO % 8.3 % (3.8-10.2); NEUT % 62.7 % (42.8-82.8); PLATELET COUNT 310 10^3/uL (134-434); RBC 4.47 M/mm3 (3.60-5.2); RDW 13.1 % (11.6-15.6); WHITE BLOOD COUNT 5.7 K/mm3 (4.0-10.0)
[2022-07-02 08:28] LABS: CALCIUM 9.1 mg/dL (8.5-10.1)
[2022-07-02 08:29] LABS: ALBUMIN 3.7 g/dl (3.4-5.0); BLOOD UREA NITROGEN 18.3 mg/dL (7-18)
[2022-07-02 08:32] LABS: CREATININE 0.8 mg/dL (0.55-1.3)
[2022-07-02 08:34] LABS: BILIRUBIN,TOTAL 0.4 mg/dL (0.2-1); TOT PROT 7.9 g/dl (6.4-8.2)
[2022-07-02] MEDS ORDERED: HYDROCORTISONE SOD SUCCINATE 100 MG/2 ML VIAL ONE (08:39)
[2022-07-02] MEDS ORDERED: diphenhydrAMINE HCL 25 MG CAPSULE (FP) PO ONE ×2 (08:39→09:00)
[2022-07-02] MEDS ORDERED: ACETAMINOPHEN 500 MG TABLET (FP) ONE (08:40)
[2022-07-02] MEDS ORDERED: HYDROCORTISONE SOD SUCCINATE 100 MG/2 ML VIAL IVPB ONE (09:00)
[2022-07-02] MEDS ORDERED: ACETAMINOPHEN 500 MG TABLET (FP) PO ONE (09:00)
[2022-07-02] MEDS ORDERED: INFLIXIMAB ABDA IVPB ONE (09:30)
[2022-07-02] MEDS ORDERED: SODIUM CHLORIDE IVPB ONE (09:30)
[2022-07-02] MEDS ORDERED: SODIUM CHLORIDE 250 ML IV ONE (09:30)
[2022-07-02 11:20] VITALS: RESP 18
[2022-07-02 13:30] VITALS: BP 106/57; PULSE 78; TEMP 98.2
== END 2022-07-02 13:30 | disposition home or self-care (01) ==
LOC: JCHEMO 04:21
PROVIDERS: ATTEND Internal Medicine Gastroenterology
PROC: 3E03305 Introduction of Other Antineoplastic into Peripheral Vein, Percutaneous Approach (ICD-10-PCS; principal; 2022-07-02)
PROC: 3E033GC Introduction of Other Therapeutic Substance into Peripheral Vein, Percutaneous Approach (ICD-10-PCS; 2022-07-02)
DX: K50.00 Crohn's disease of small intestine without complications (principal)
CPT/HCPCS: 36415; 80053; 81025; 85025; 86140; 96367; 96413; 96415; Q5104

== ENCOUNTER 2022-09-03 04:11 | Day surgery (SDC) | payer BC ==
[2022-09-03] MEDS ORDERED: diphenhydrAMINE HCL 25 MG CAPSULE (FP) PO ONE ×2 (08:30→08:42)
[2022-09-03] MEDS ORDERED: ACETAMINOPHEN 500 MG TABLET (FP) PO ONE (08:30)
[2022-09-03] MEDS ORDERED: SODIUM CHLORIDE 250 ML IV ONE (08:30)
[2022-09-03] MEDS ORDERED: HYDROCORTISONE SOD SUCCINATE 100 MG/2 ML VIAL IVPB ONE (08:30)
[2022-09-03] MEDS ORDERED: HYDROCORTISONE SOD SUCCINATE 100 MG/2 ML VIAL ONE (08:41)
[2022-09-03] MEDS ORDERED: ACETAMINOPHEN 500 MG TABLET (FP) ONE (08:42)
[2022-09-03] MEDS ORDERED: SODIUM CHLORIDE IVPB ONE (09:00)
[2022-09-03] MEDS ORDERED: INFLIXIMAB ABDA IVPB ONE (09:00)
[2022-09-03 09:14] LABS: BASO % 0.3 % (0-2.0); EOS % 0.4 % (0-4.5); HEMATOCRIT 38.7 % (32.4-45.2); HEMOGLOBIN 12.9 GM/dL (10.7-15.3); LYMPH % 22.8 % (8-40); MCH 29.6 pg (25.7-33.7); MCHC 33.3 g/dl (32.0-36.0); MEAN CELL VOLUME 88.7 fl (80-96); MEAN PLT VOLUME 8.1 fl (7.5-11.1); MONO % 7.6 % (3.8-10.2); NEUT % 68.9 % (42.8-82.8); PLATELET COUNT 265 10^3/uL (134-434); RBC 4.37 M/mm3 (3.60-5.2); RDW 13.2 % (11.6-15.6); WHITE BLOOD COUNT 7.7 K/mm3 (4.0-10.0)
[2022-09-03 09:27] LABS: CHLORIDE 106 mmol/L (98-107); SODIUM 142 mmol/L (136-145)
[2022-09-03 09:34] LABS: CALCIUM 9.2 mg/dL (8.5-10.1)
[2022-09-03 09:35] LABS: ALBUMIN 3.8 g/dl (3.4-5.0); ANION GAP 8 MMOL/L (8-16); BLOOD UREA NITROGEN 14.2 mg/dL (7-18); CO2 28 mmol/L (21-32)
[2022-09-03 09:38] LABS: CREATININE 0.7 mg/dL (0.55-1.3); GLUCOSE,RANDOM 56 mg/dL (74-106); SGOT/AST 17 U/L (15-37); SGPT/ALT 23 U/L (13-61)
[2022-09-03 09:39] LABS: BILIRUBIN,TOTAL 0.4 mg/dL (0.2-1)
[2022-09-03 09:40] LABS: ALK PHOS 44 U/L (45-117)
[2022-09-03 12:42] VITALS: BP 102/65; PULSE 75; RESP 16; TEMP 98.2
== END 2022-09-03 13:30 | disposition home or self-care (01) ==
LOC: JCHEMO 04:11
PROVIDERS: ATTEND Internal Medicine Gastroenterology
DX: K50.00 Crohn's disease of small intestine without complications (principal)
CPT/HCPCS: 36415; 80053; 81025; 85025; 86140; 96367; 96413; 96415; Q5104

== ENCOUNTER 2022-11-26 07:35 | Day surgery (SDC) | payer BC ==
[2022-11-26 08:22] LABS: CHLORIDE 105 mmol/L (98-107); SODIUM 138 mmol/L (136-145)
[2022-11-26 08:24] LABS: ANION GAP 4 MMOL/L (8-16); CALCIUM 9.4 mg/dL (8.5-10.1); CO2 29 mmol/L (21-32); GLUCOSE,RANDOM 66 mg/dL (74-106)
[2022-11-26 08:25] LABS: ALBUMIN 3.4 g/dl (3.4-5.0); BLOOD UREA NITROGEN 11.7 mg/dL (7-18)
[2022-11-26 08:27] LABS: CREATININE 0.7 mg/dL (0.55-1.3); SGPT/ALT 20 U/L (13-61)
[2022-11-26 08:28] LABS: SGOT/AST 11 U/L (15-37)
[2022-11-26 08:29] LABS: BILIRUBIN,TOTAL 0.3 mg/dL (0.2-1); TOT PROT 7.8 g/dl (6.4-8.2)
[2022-11-26 08:30] LABS: ALK PHOS 55 U/L (45-117); BASO % 0.4 % (0-2.0); EOS % 1.2 % (0-4.5); HEMOGLOBIN 12.8 GM/dL (10.7-15.3); LYMPH % 22.3 % (8-40); MCH 30.2 pg (25.7-33.7); MCHC 34.6 g/dl (32.0-36.0); MEAN CELL VOLUME 87.4 fl (80-96); MEAN PLT VOLUME 8.2 fl (7.5-11.1); MONO % 8.5 % (3.8-10.2); NEUT % 67.6 % (42.8-82.8); PLATELET COUNT 345 10^3/uL (134-434); RBC 4.23 M/mm3 (3.60-5.2); RDW 12.9 % (11.6-15.6); WHITE BLOOD COUNT 6.9 K/mm3 (4.0-10.0)
[2022-11-26] MEDS ORDERED: SODIUM CHLORIDE IVPB ONE ×2 (09:00→10:30)
[2022-11-26] MEDS ORDERED: HYDROCORTISONE SOD SUCCINATE IVPB ONE (09:00)
[2022-11-26] MEDS ORDERED: ACETAMINOPHEN 500 MG TABLET (FP) PO ONE (09:00)
[2022-11-26] MEDS ORDERED: diphenhydrAMINE HCL 25 MG CAPSULE (FP) PO ONE (09:00)
[2022-11-26] MEDS ORDERED: SODIUM CHLORIDE 250 ML IV ONE (10:00)
[2022-11-26] MEDS ORDERED: INFLIXIMAB ABDA IVPB ONE (10:30)
[2022-11-26 14:22] VITALS: PULSE 71; TEMP 98.1
[2022-11-26 14:36] VITALS: BP 92/53; RESP 20
== END 2022-11-26 13:35 | disposition home or self-care (01) ==
LOC: J7W 07:35 → JONCNONCHE 07:35
PROVIDERS: ATTEND Internal Medicine Gastroenterology
DX: K50.90 Crohn's disease, unspecified, without complications (principal)
CPT/HCPCS: 36415; 80053; 85025; 86140; 96367; 96413; 96415; Q5104

== ENCOUNTER 2022-12-26 15:48 | Emergency (ER) | payer BC ==
[2022-12-26 16:05] VITALS: BP 105/67; PULSE 77; RESP 18; TEMP 98; BMI 19.0
[2022-12-26] MEDS ORDERED: ACETAMINOPHEN 500 MG TABLET (FP) PO ONE (18:21)
[2022-12-26] MEDS ORDERED: ACETAMINOPHEN 500 MG TABLET (FP) ONE (18:31)
== END 2022-12-26 18:44 | disposition home or self-care (01) ==
LOC: JERFT 15:48
DX: R22.42 Localized swelling, mass and lump, left lower limb (principal); M25.572 Pain in left ankle and joints of left foot
CPT/HCPCS: 73610-TC-LT-FY; 73630-TC-LT; 99283-25

== ENCOUNTER 2023-01-26 07:26 | Day surgery (SDC) | payer BC ==
[2023-01-26 08:12] LABS: BASO % 0.7 % (0-2.0); EOS % 0.6 % (0-4.5); HEMATOCRIT 39.6 % (32.4-45.2); HEMOGLOBIN 12.9 GM/dL (10.7-15.3); LYMPH % 24.1 % (8-40); MCH 29.1 pg (25.7-33.7); MCHC 32.6 g/dl (32.0-36.0); MEAN CELL VOLUME 89.2 fl (80-96); MEAN PLT VOLUME 7.7 fl (7.5-11.1); MONO % 9.3 % (3.8-10.2); NEUT % 65.3 % (42.8-82.8); PLATELET COUNT 363 10^3/uL (134-434); RBC 4.43 M/mm3 (3.60-5.2); RDW 13.3 % (11.6-15.6); WHITE BLOOD COUNT 6.8 K/mm3 (4.0-10.0)
[2023-01-26 08:30] LABS: POTASSIUM 4.7 mmol/L (3.5-5.1)
[2023-01-26 08:32] LABS: ALBUMIN 3.5 g/dl (3.4-5.0); BLOOD UREA NITROGEN 15.4 mg/dL (7-18); CALCIUM 9.7 mg/dL (8.5-10.1)
[2023-01-26 08:35] LABS: CREATININE 0.7 mg/dL (0.55-1.3)
[2023-01-26 08:37] LABS: BILIRUBIN,TOTAL 0.4 mg/dL (0.2-1); TOT PROT 7.8 g/dl (6.4-8.2)
[2023-01-26] MEDS ORDERED: diphenhydrAMINE HCL 25 MG CAPSULE (FP) PO ONE (10:00)
[2023-01-26] MEDS ORDERED: HYDROCORTISONE SOD SUCCINATE IVPB ONE (10:00)
[2023-01-26] MEDS ORDERED: ACETAMINOPHEN 500 MG TABLET (FP) PO ONE (10:00)
[2023-01-26] MEDS ORDERED: SODIUM CHLORIDE 250 ML IV SCH (10:00)
[2023-01-26] MEDS ORDERED: SODIUM CHLORIDE IVPB ONE ×2 (10:00→10:30)
[2023-01-26] MEDS ORDERED: INFLIXIMAB ABDA IVPB ONE (10:30)
[2023-01-26 16:40] VITALS: RESP 18
[2023-01-26 16:45] VITALS: TEMP 98.1
[2023-01-26 16:46] VITALS: BP 107/68; PULSE 67
== END 2023-01-26 13:00 | disposition home or self-care (01) ==
LOC: JCHEMO 07:26 → J7W 07:27 → JCHEMO 13:00
PROVIDERS: ATTEND Internal Medicine Gastroenterology
DX: K50.00 Crohn's disease of small intestine without complications (principal)
CPT/HCPCS: 36415; 80053; 85025; 86140; 96367; 96413; 96415; Q5104

== ENCOUNTER 2023-03-25 07:38 | Day surgery (SDC) | payer BC ==
[2023-03-25 08:41] LABS: BASO % 0.9 % (0-2.0); EOS % 0.6 % (0-4.5); HEMATOCRIT 39.9 % (32.4-45.2); LYMPH % 18.6 % (8-40); MCH 29.1 pg (25.7-33.7); MCHC 32.5 g/dl (32.0-36.0); MEAN CELL VOLUME 89.5 fl (80-96); MEAN PLT VOLUME 8.1 fl (7.5-11.1); MONO % 11.6 % (3.8-10.2); NEUT % 68.3 % (42.8-82.8); PLATELET COUNT 290 10^3/uL (134-434); RBC 4.46 M/mm3 (3.60-5.2); RDW 13.6 % (11.6-15.6); WHITE BLOOD COUNT 7.9 K/mm3 (4.0-10.0)
[2023-03-25 09:30] LABS: POTASSIUM 4.2 mmol/L (3.5-5.1)
[2023-03-25 09:41] LABS: ALBUMIN 3.3 g/dl (3.4-5.0)
[2023-03-25] MEDS ORDERED: SODIUM CHLORIDE IVPB ONE ×2 (10:00→10:30)
[2023-03-25] MEDS ORDERED: ACETAMINOPHEN 500 MG TABLET (FP) PO ONE (10:00)
[2023-03-25] MEDS ORDERED: HYDROCORTISONE SOD SUCCINATE IVPB ONE (10:00)
[2023-03-25] MEDS ORDERED: diphenhydrAMINE HCL 25 MG CAPSULE (FP) PO ONE (10:00)
[2023-03-25] MEDS ORDERED: SODIUM CHLORIDE 250 ML IV SCH (10:00)
[2023-03-25 10:10] LABS: BILIRUBIN,TOTAL 0.3 mg/dL (0.2-1); BLOOD UREA NITROGEN 15.3 mg/dL (7-18); CALCIUM 8.3 mg/dL (8.5-10.1); CREATININE 0.7 mg/dL (0.55-1.3); TOT PROT 7.2 g/dl (6.4-8.2)
[2023-03-25] MEDS ORDERED: INFLIXIMAB ABDA IVPB ONE (10:30)
[2023-03-25 14:47] VITALS: BP 98/58; PULSE 75; RESP 18; TEMP 98.2
== END 2023-03-25 13:45 | disposition home or self-care (01) ==
LOC: J7W 07:38 → JCHEMO 07:38
PROVIDERS: ATTEND Internal Medicine Gastroenterology
DX: K50.90 Crohn's disease, unspecified, without complications (principal)
CPT/HCPCS: 36415; 80053; 85025; 86140; 96367; 96413; 96415; Q5104

== ENCOUNTER 2023-05-27 07:07 | Day surgery (SDC) | payer BC ==
[2023-05-27 07:39] LABS: BASO % 0.3 % (0-2.0); EOS % 0.8 % (0-4.5); HEMATOCRIT 37.7 % (32.4-45.2); HEMOGLOBIN 12.2 GM/dL (10.7-15.3); LYMPH % 24.7 % (8-40); MCH 28.7 pg (25.7-33.7); MCHC 32.4 g/dl (32.0-36.0); MEAN CELL VOLUME 88.7 fl (80-96); MEAN PLT VOLUME 7.3 fl (7.5-11.1); MONO % 9.6 % (3.8-10.2); NEUT % 64.6 % (42.8-82.8); PLATELET COUNT 329 10^3/uL (134-434); RBC 4.25 M/mm3 (3.60-5.2); RDW 12.8 % (11.6-15.6); WHITE BLOOD COUNT 7.3 K/mm3 (4.0-10.0)
[2023-05-27 08:04] LABS: POTASSIUM 4.4 mmol/L (3.5-5.1)
[2023-05-27 08:06] LABS: CALCIUM 8.6 mg/dL (8.5-10.1)
[2023-05-27 08:07] LABS: ALBUMIN 3.2 g/dl (3.4-5.0)
[2023-05-27 08:10] LABS: CREATININE 0.8 mg/dL (0.55-1.3)
[2023-05-27 08:12] LABS: BILIRUBIN,TOTAL 0.4 mg/dL (0.2-1); TOT PROT 7.4 g/dl (6.4-8.2)
[2023-05-27] MEDS ORDERED: ACETAMINOPHEN 500 MG TABLET (FP) PO ONE (08:30)
[2023-05-27] MEDS ORDERED: HYDROCORTISONE SOD SUCCINATE IVPB ONE (08:30)
[2023-05-27] MEDS ORDERED: diphenhydrAMINE HCL 25 MG CAPSULE (FP) PO ONE (08:30)
[2023-05-27] MEDS ORDERED: SODIUM CHLORIDE IVPB ONE ×2 (08:30→09:00)
[2023-05-27] MEDS ORDERED: SODIUM CHLORIDE 250 ML IV ONE (08:30)
[2023-05-27] MEDS ORDERED: INFLIXIMAB ABDA IVPB ONE (09:00)
[2023-05-27 13:11] VITALS: RESP 18
[2023-05-27 13:50] VITALS: BP 99/56; PULSE 80
[2023-05-27 14:30] VITALS: TEMP 98
== END 2023-05-27 13:30 | disposition home or self-care (01) ==
LOC: JCHEMO 07:07 → J7W 09:26 → JCHEMO 13:30
PROVIDERS: ATTEND Internal Medicine Gastroenterology
DX: K50.80 Crohn's disease of both small and large intestine without complications (principal)
CPT/HCPCS: 36415; 80053; 85025; 86140; 96367; 96413; 96415; Q5104

== ENCOUNTER 2023-07-15 07:30 | Day surgery (SDC) | payer BC ==
[2023-07-15 08:03] LABS: BASO % 0.6 % (0-2.0); EOS % 1.1 % (0-4.5); HEMATOCRIT 38.6 % (32.4-45.2); HEMOGLOBIN 12.6 GM/dL (10.7-15.3); LYMPH % 30.2 % (8-40); MCH 28.7 pg (25.7-33.7); MCHC 32.7 g/dl (32.0-36.0); MEAN CELL VOLUME 87.6 fl (80-96); MEAN PLT VOLUME 7.3 fl (7.5-11.1); NEUT % 56.1 % (42.8-82.8); PLATELET COUNT 313 10^3/uL (134-434); RDW 13.1 % (11.6-15.6); WHITE BLOOD COUNT 6.2 K/mm3 (4.0-10.0)
[2023-07-15 08:17] LABS: POTASSIUM 4.1 mmol/L (3.5-5.1)
[2023-07-15 08:19] LABS: CALCIUM 8.9 mg/dL (8.5-10.1)
[2023-07-15 08:20] LABS: ALBUMIN 3.3 g/dl (3.4-5.0); BLOOD UREA NITROGEN 17.4 mg/dL (7-18)
[2023-07-15 08:23] LABS: CREATININE 0.8 mg/dL (0.55-1.3)
[2023-07-15 08:25] LABS: BILIRUBIN,TOTAL 0.3 mg/dL (0.2-1); TOT PROT 7.7 g/dl (6.4-8.2)
[2023-07-15] MEDS ORDERED: ACETAMINOPHEN 500 MG TABLET (FP) PO ONE (10:00)
[2023-07-15] MEDS ORDERED: HYDROCORTISONE SOD SUCCINATE IVPB ONE (10:00)
[2023-07-15] MEDS ORDERED: SODIUM CHLORIDE 250 ML IV ONE (10:00)
[2023-07-15] MEDS ORDERED: diphenhydrAMINE HCL 25 MG CAPSULE (FP) PO ONE (10:00)
[2023-07-15] MEDS ORDERED: SODIUM CHLORIDE IVPB ONE ×2 (10:00→10:30)
[2023-07-15] MEDS ORDERED: INFLIXIMAB ABDA IVPB ONE (10:30)
[2023-07-15 15:59] VITALS: BP 100/54; PULSE 91
[2023-07-15 16:06] VITALS: RESP 16; TEMP 98.2
== END 2023-07-15 13:30 | disposition home or self-care (01) ==
LOC: JCHEMO 07:30 → J7W 07:33 → JCHEMO 13:30
PROVIDERS: ATTEND Internal Medicine Gastroenterology
DX: K50.00 Crohn's disease of small intestine without complications (principal)
CPT/HCPCS: 36415; 80053; 85025; 86140; 96367; 96413; 96415; Q5104

== ENCOUNTER 2023-08-23 08:19 | Emergency (ER) | payer OTHER, BC ==
[2023-08-23 08:35] VITALS: BP 117/79; PULSE 80; RESP 18; TEMP 98.7; BMI 19.5
[2023-08-23] MEDS ORDERED: DIPHTH,PERTUSS(ACELL),TET 0.5 ML DISP.SYRIN IM ONE ×2 (08:48→08:51)
== END 2023-08-23 09:00 | disposition home or self-care (01) ==
LOC: JER 08:19
PROC: 0HQGXZZ Repair Left Hand Skin, External Approach (ICD-10-PCS; principal; 2023-08-23)
PROC: 3E0234Z Introduction of Serum, Toxoid and Vaccine into Muscle, Percutaneous Approach (ICD-10-PCS; 2023-08-23)
DX: S61.012A Laceration without foreign body of left thumb without damage to nail, initial encounter (principal); W23.0XXA Caught, crushed, jammed, or pinched between moving objects, initial encounter; Y99.0 Civilian activity done for income or pay
CPT/HCPCS: 90715; 99282-25

== ENCOUNTER 2023-09-16 07:30 | Day surgery (SDC) | payer BC ==
[2023-09-16 08:53] LABS: BASO % 0.4 % (0-2.0); EOS % 1.1 % (0-4.5); HEMATOCRIT 35.6 % (32.4-45.2); HEMOGLOBIN 11.6 GM/dL (10.7-15.3); LYMPH % 19.9 % (8-40); MCH 28.5 pg (25.7-33.7); MCHC 32.7 g/dl (32.0-36.0); MONO % 11.7 % (3.8-10.2); NEUT % 66.9 % (42.8-82.8); PLATELET COUNT 346 10^3/uL (134-434); RBC 4.09 M/mm3 (3.60-5.2); RDW 13.3 % (11.6-15.6); WHITE BLOOD COUNT 6.7 K/mm3 (4.0-10.0)
[2023-09-16 09:13] LABS: POTASSIUM 4.6 mmol/L (3.5-5.1)
[2023-09-16 09:15] LABS: CALCIUM 8.8 mg/dL (8.5-10.1)
[2023-09-16 09:16] LABS: ALBUMIN 3.2 g/dl (3.4-5.0); BLOOD UREA NITROGEN 14.1 mg/dL (7-18)
[2023-09-16 09:19] LABS: CREATININE 0.6 mg/dL (0.55-1.3)
[2023-09-16 09:20] LABS: TOT PROT 7.7 g/dl (6.4-8.2)
[2023-09-16 09:21] LABS: BILIRUBIN,TOTAL 0.4 mg/dL (0.2-1)
[2023-09-16] MEDS: SODIUM CHLORIDE 250 ML IV ONE (10:10)
[2023-09-16] MEDS: HYDROCORTISONE SOD SUCCINATE IVPB ONE (10:51)
[2023-09-16] MEDS: SODIUM CHLORIDE IVPB ONE ×2 (10:51→11:46)
[2023-09-16] MEDS: diphenhydrAMINE HCL 25 MG CAPSULE (FP) PO ONE (10:52)
[2023-09-16] MEDS: ACETAMINOPHEN 500 MG TABLET (FP) PO ONE (10:52)
[2023-09-16] MEDS: INFLIXIMAB ABDA IVPB ONE (11:46)
[2023-09-16 15:25] VITALS: RESP 18
[2023-09-16 15:45] VITALS: PULSE 81
[2023-09-16 15:46] VITALS: BP 97/52; TEMP 98
== END 2023-09-16 15:15 | disposition home or self-care (01) ==
LOC: JINFUSION 07:30 → J7W 07:30 → JINFUSION 15:15
PROVIDERS: ATTEND Internal Medicine Gastroenterology
DX: K50.00 Crohn's disease of small intestine without complications (principal)
CPT/HCPCS: 36415; 80053; 85025; 86140; 96413; 96415; Q5104

== ENCOUNTER 2023-11-09 19:52 | Emergency (ER) | payer BC ==
[2023-11-09 19:58] VITALS: BP 128/80; PULSE 80; RESP 18; TEMP 98; BMI 19.4
[2023-11-09] MEDS ORDERED: ACETAMINOPHEN 500 MG TABLET (FP) ONE (21:47)
[2023-11-09] MEDS: ACETAMINOPHEN 500 MG TABLET (FP) PO ONE (21:57)
== END 2023-11-09 22:03 | disposition home or self-care (01) ==
LOC: JER 19:52
DX: M79.671 Pain in right foot (principal); M79.672 Pain in left foot; I83.813 Varicose veins of bilateral lower extremities with pain
CPT/HCPCS: 99283-25

== ENCOUNTER 2023-11-18 07:33 | Day surgery (SDC) | payer BC ==
[2023-11-18 08:26] LABS: POTASSIUM 4.4 mmol/L (3.5-5.1)
[2023-11-18 08:27] LABS: BASO % 0.3 % (0-2.0); CALCIUM 9.7 mg/dL (8.5-10.1); EOS % 0.9 % (0-4.5); HEMATOCRIT 37.8 % (32.4-45.2); HEMOGLOBIN 12.6 GM/dL (10.7-15.3); LYMPH % 26.3 % (8-40); MCH 28.6 pg (25.7-33.7); MCHC 33.4 g/dl (32.0-36.0); MEAN CELL VOLUME 85.7 fl (80-96); MONO % 11.7 % (3.8-10.2); NEUT % 60.8 % (42.8-82.8); PLATELET COUNT 420 10^3/uL (134-434); RBC 4.42 M/mm3 (3.60-5.2); RDW 13.4 % (11.6-15.6); WHITE BLOOD COUNT 6.7 K/mm3 (4.0-10.0)
[2023-11-18 08:28] LABS: ALBUMIN 3.2 g/dl (3.4-5.0); BLOOD UREA NITROGEN 16.9 mg/dL (7-18)
[2023-11-18 08:31] LABS: CREATININE 0.7 mg/dL (0.55-1.3)
[2023-11-18 08:33] LABS: BILIRUBIN,TOTAL 0.3 mg/dL (0.2-1)
[2023-11-18] MEDS: SODIUM CHLORIDE IVPB ONE ×2 (09:28→10:11)
[2023-11-18] MEDS: HYDROCORTISONE SOD SUCCINATE IVPB ONE (09:28)
[2023-11-18] MEDS: SODIUM CHLORIDE 250 ML IV ONE (09:28)
[2023-11-18] MEDS: ACETAMINOPHEN 500 MG TABLET (FP) PO ONE (09:30)
[2023-11-18] MEDS: diphenhydrAMINE HCL 25 MG CAPSULE (FP) PO ONE (09:30)
[2023-11-18] MEDS: INFLIXIMAB ABDA IVPB ONE (10:11)
[2023-11-18 13:58] VITALS: RESP 20
[2023-11-18 14:45] VITALS: BP 115/68; PULSE 87; TEMP 98
== END 2023-11-18 14:00 | disposition home or self-care (01) ==
LOC: JINFUSION 07:33 → J7W 07:34 → JINFUSION 14:00
PROVIDERS: ATTEND Internal Medicine Gastroenterology
DX: K50.00 Crohn's disease of small intestine without complications (principal)
CPT/HCPCS: 36415; 80053; 85025; 86140; 96367; 96413; 96415; Q5104

== ENCOUNTER 2024-01-21 07:30 | Day surgery (SDC) | payer BC ==
[2024-01-21 08:26] LABS: CHLORIDE 107 mmol/L (98-107); POTASSIUM 4.6 mmol/L (3.5-5.1); SODIUM 141 mmol/L (136-145)
[2024-01-21 08:28] LABS: CALCIUM 8.9 mg/dL (8.5-10.1)
[2024-01-21 08:29] LABS: ALBUMIN 3.1 g/dl (3.4-5.0); ANION GAP 6 mmol/L (4-13); CO2 29 mmol/L (21-32); GLUCOSE,RANDOM 69 mg/dL (74-106)
[2024-01-21 08:31] LABS: SGPT/ALT 14 U/L (13-61)
[2024-01-21 08:32] LABS: CREATININE 0.7 mg/dL (0.55-1.3); SGOT/AST 12 U/L (15-37)
[2024-01-21 08:33] LABS: TOT PROT 7.6 g/dl (6.4-8.2)
[2024-01-21 08:34] LABS: ALK PHOS 68 U/L (45-117)
[2024-01-21 08:35] LABS: BASO % 0.5 % (0-2.0); EOS % 1.2 % (0-4.5); HEMATOCRIT 35.9 % (32.4-45.2); HEMOGLOBIN 11.9 GM/dL (10.7-15.3); LYMPH % 33.4 % (8-40); MCH 28.9 pg (25.7-33.7); MCHC 33.2 g/dl (32.0-36.0); MEAN CELL VOLUME 87.1 fl (80-96); MEAN PLT VOLUME 7.2 fl (7.5-11.1); MONO % 13.8 % (3.8-10.2); NEUT % 51.1 % (42.8-82.8); PLATELET COUNT 366 10^3/uL (134-434); RBC 4.12 M/mm3 (3.60-5.2); WHITE BLOOD COUNT 5.3 K/mm3 (4.0-10.0)
[2024-01-21 09:02] LABS: BILIRUBIN,TOTAL 0.4 mg/dL (0.2-1)
[2024-01-21] MEDS: SODIUM CHLORIDE 250 ML IV ONE (09:08)
[2024-01-21] MEDS: HYDROCORTISONE SOD SUCCINATE IVPB ONE (09:31)
[2024-01-21] MEDS: SODIUM CHLORIDE IVPB ONE ×2 (09:31→10:23)
[2024-01-21] MEDS: diphenhydrAMINE HCL 25 MG CAPSULE (FP) PO ONE (09:33)
[2024-01-21] MEDS: ACETAMINOPHEN 500 MG TABLET (FP) PO ONE (09:33)
[2024-01-21] MEDS: INFLIXIMAB ABDA IVPB ONE (10:23)
[2024-01-21 10:44] VITALS: RESP 18
[2024-01-21 12:46] VITALS: BP 112/61; PULSE 78; TEMP 98
== END 2024-01-21 13:30 | disposition home or self-care (01) ==
LOC: JCHEMO 07:30 → J7W 07:38 → JCHEMO 13:30
PROVIDERS: ATTEND Internal Medicine Gastroenterology
DX: K50.90 Crohn's disease, unspecified, without complications (principal)
CPT/HCPCS: 36415; 80053; 85025; 86140; 96367; 96413; 96415; Q5104

== ENCOUNTER 2024-03-23 07:34 | Day surgery (SDC) | payer BC ==
[2024-03-23 07:59] LABS: BASO % 0.8 % (0-2.0); HEMATOCRIT 38.1 % (32.4-45.2); HEMOGLOBIN 12.5 GM/dL (10.7-15.3); LYMPH % 27.1 % (8-40); MCH 28.7 pg (25.7-33.7); MCHC 32.8 g/dl (32.0-36.0); MEAN CELL VOLUME 87.5 fl (80-96); MEAN PLT VOLUME 7.1 fl (7.5-11.1); MONO % 9.1 % (3.8-10.2); PLATELET COUNT 363 10^3/uL (134-434); RBC 4.35 M/mm3 (3.60-5.2); RDW 13.3 % (11.6-15.6)
[2024-03-23 08:13] LABS: CHLORIDE 105 mmol/L (98-107); POTASSIUM 4.3 mmol/L (3.5-5.1); SODIUM 138 mmol/L (136-145)
[2024-03-23 08:15] LABS: GLUCOSE,RANDOM 92 mg/dL (74-106)
[2024-03-23 08:16] LABS: ALBUMIN 3.3 g/dl (3.4-5.0); ANION GAP 6 mmol/L (4-13); BLOOD UREA NITROGEN 13.9 mg/dL (7-18); CO2 28 mmol/L (21-32)
[2024-03-23 08:18] LABS: SGPT/ALT 11 U/L (13-61)
[2024-03-23 08:19] LABS: CREATININE 0.8 mg/dL (0.55-1.3); SGOT/AST 11 U/L (15-37)
[2024-03-23 08:21] LABS: ALK PHOS 71 U/L (45-117); BILIRUBIN,TOTAL 0.5 mg/dL (0.2-1); TOT PROT 7.8 g/dl (6.4-8.2)
[2024-03-23] MEDS: diphenhydrAMINE HCL 25 MG CAPSULE (FP) PO ONE (08:43)
[2024-03-23] MEDS: ACETAMINOPHEN 500 MG TABLET (FP) PO ONE (08:43)
[2024-03-23] MEDS: SODIUM CHLORIDE 250 ML IV ONE (08:45)
[2024-03-23] MEDS: SODIUM CHLORIDE IVPB ONE ×2 (08:46→09:43)
[2024-03-23] MEDS: HYDROCORTISONE SOD SUCCINATE IVPB ONE (08:46)
[2024-03-23] MEDS: INFLIXIMAB ABDA IVPB ONE (09:43)
[2024-03-23 13:28] VITALS: RESP 18
[2024-03-23 13:31] VITALS: PULSE 76
[2024-03-23 13:35] VITALS: BP 102/57; TEMP 98
== END 2024-03-23 12:00 | disposition home or self-care (01) ==
LOC: JINFUSION 07:34 → J7W 07:35 → JINFUSION 12:00
PROVIDERS: ATTEND Internal Medicine Gastroenterology
DX: K50.90 Crohn's disease, unspecified, without complications (principal)
CPT/HCPCS: 36415; 80053; 85025; 86140; 96367; 96413; 96415; Q5104

== ENCOUNTER 2024-05-23 07:05 | Day surgery (SDC) | payer BC ==
[2024-05-23 07:46] LABS: CHLORIDE 110 mmol/L (98-107); SODIUM 141 mmol/L (136-145)
[2024-05-23 07:47] LABS: CALCIUM 8.6 mg/dL (8.5-10.1)
[2024-05-23 07:48] LABS: ANION GAP 4 mmol/L (4-13); BLOOD UREA NITROGEN 11.8 mg/dL (7-18); CO2 27 mmol/L (21-32); GLUCOSE,RANDOM 79 mg/dL (74-106)
[2024-05-23 07:51] LABS: CREATININE 0.7 mg/dL (0.55-1.3); SGOT/AST 13 U/L (15-37)
[2024-05-23 07:52] LABS: BILIRUBIN,TOTAL 0.4 mg/dL (0.2-1); TOT PROT 7.2 g/dl (6.4-8.2)
[2024-05-23 07:53] LABS: ALK PHOS 61 U/L (45-117)
[2024-05-23 07:58] LABS: SGPT/ALT 14 U/L (13-61)
[2024-05-23 08:01] LABS: BASO % 0.4 % (0-2.0); EOS % 0.6 % (0-4.5); HEMATOCRIT 36.6 % (32.4-45.2); HEMOGLOBIN 11.9 GM/dL (10.7-15.3); LYMPH % 26.5 % (8-40); MCH 28.2 pg (25.7-33.7); MCHC 32.5 g/dl (32.0-36.0); MEAN CELL VOLUME 86.8 fl (80-96); MEAN PLT VOLUME 7.1 fl (7.5-11.1); MONO % 9.9 % (3.8-10.2); NEUT % 62.6 % (42.8-82.8); PLATELET COUNT 338 10^3/uL (134-434); RBC 4.22 M/mm3 (3.60-5.2); RDW 13.7 % (11.6-15.6); WHITE BLOOD COUNT 5.8 K/mm3 (4.0-10.0)
[2024-05-23] MEDS: SODIUM CHLORIDE IVPB ONE ×2 (11:25→12:22)
[2024-05-23] MEDS: HYDROCORTISONE SOD SUCCINATE IVPB ONE (11:25)
[2024-05-23] MEDS: diphenhydrAMINE HCL 25 MG CAPSULE (FP) PO ONE (11:28)
[2024-05-23] MEDS: ACETAMINOPHEN 500 MG TABLET (FP) PO ONE (11:31)
[2024-05-23] MEDS: INFLIXIMAB ABDA IVPB ONE (12:22)
[2024-05-23] MEDS: SODIUM CHLORIDE 250 ML IV ONE (12:22)
[2024-05-23 15:18] VITALS: TEMP 97.8
[2024-05-23 15:29] VITALS: BP 112/71; PULSE 84; RESP 18
== END 2024-05-23 15:15 | disposition home or self-care (01) ==
LOC: JINFUSION 07:05 → J7W 07:05 → JINFUSION 15:15
PROVIDERS: ATTEND Internal Medicine Gastroenterology
PROC: 3E00X05 Introduction of Other Antineoplastic into Skin and Mucous Membranes, External Approach (ICD-10-PCS; principal; 2024-05-23)
DX: K50.90 Crohn's disease, unspecified, without complications (principal)
CPT/HCPCS: 36415; 80053; 85025; 86140; 96367; 96413; 96415; Q5104

== ENCOUNTER 2024-07-14 14:36 | Observation (INO) | payer BC ==
[2024-07-14 15:00] VITALS: RESP 18
[2024-07-14 15:21] LABS: BASO % 0.4 % (0-2.0); EOS % 0.8 % (0-4.5); HEMATOCRIT 34.3 % (32.4-45.2); HEMOGLOBIN 11.2 GM/dL (10.7-15.3); LYMPH % 31.8 % (8-40); MCHC 32.8 g/dl (32.0-36.0); MEAN CELL VOLUME 85.6 fl (80-96); MEAN PLT VOLUME 6.8 fl (7.5-11.1); MONO % 11.8 % (3.8-10.2); NEUT % 55.2 % (42.8-82.8); PLATELET COUNT 322 10^3/uL (134-434); RBC 4.01 M/mm3 (3.60-5.2); RDW 13.5 % (11.6-15.6); WHITE BLOOD COUNT 5.6 K/mm3 (4.0-10.0)
[2024-07-14 15:39] LABS: POTASSIUM 3.9 mmol/L (3.5-5.1)
[2024-07-14 15:41] LABS: CALCIUM 9.2 mg/dL (8.5-10.1); MAGNESIUM 2.1 mg/dL (1.8-2.4)
[2024-07-14 15:42] LABS: ALBUMIN 3.4 g/dl (3.4-5.0); BLOOD UREA NITROGEN 12.9 mg/dL (7-18)
[2024-07-14 15:44] LABS: CREATININE 0.7 mg/dL (0.55-1.3)
[2024-07-14] MEDS: SODIUM CHLORIDE 0.9% 500 ML INFUS.BAG IV ONE (15:44)
[2024-07-14 15:45] LABS: PHOSPHOROUS 3.6 mg/dL (2.5-4.9)
[2024-07-14 15:46] LABS: TOT PROT 7.6 g/dl (6.4-8.2)
[2024-07-14 15:47] LABS: BILIRUBIN,TOTAL 0.2 mg/dL (0.2-1)
[2024-07-14 17:09] LABS: URINE APPEARANCE CLEAR; URINE BILIRUBIN NEGATIVE (NEGATIVE); URINE COLOR YELLOW; URINE GLUCOSE (UA) NEGATIVE (NEGATIVE); URINE KETONE NEGATIVE (NEGATIVE); URINE LEUK ESTERASE NEGATIVE (NEGATIVE); URINE NITRITE NEGATIVE (NEGATIVE); URINE PROTEIN NEGATIVE (NEGATIVE); URINE UROBILINOGEN 0.2 mg/dL (0.2-1.0)
[2024-07-14 17:41] VITALS: BMI 20.7
[2024-07-14] MEDS: LACTATED RINGERS SOLUTION 1,000 ML/1,000 ML INFUS.BAG IV SCH (17:43)
[2024-07-14] MEDS: D5-1/2NS+20 MEQ KCL - 20 MEQ/1,000 ML INFUS.BAG IV SCH (18:09)
[2024-07-14] MEDS: DULoxetine HCL 30 MG CAPSULE.DR PO SCH (21:40)
[2024-07-15 09:20] LABS: BASO % 0.4 % (0-2.0); EOS % 1.4 % (0-4.5); HEMATOCRIT 34.2 % (32.4-45.2); HEMOGLOBIN 11.2 GM/dL (10.7-15.3); LYMPH % 34.4 % (8-40); MCH 28.2 pg (25.7-33.7); MCHC 32.8 g/dl (32.0-36.0); MEAN CELL VOLUME 86.1 fl (80-96); MEAN PLT VOLUME 7.1 fl (7.5-11.1); MONO % 13.3 % (3.8-10.2); NEUT % 50.5 % (42.8-82.8); PLATELET COUNT 300 10^3/uL (134-434); RBC 3.97 M/mm3 (3.60-5.2); RDW 13.4 % (11.6-15.6); WHITE BLOOD COUNT 3.8 K/mm3 (4.0-10.0)
[2024-07-15 09:33] LABS: POTASSIUM 4.3 mmol/L (3.5-5.1)
[2024-07-15 09:36] LABS: BLOOD UREA NITROGEN 6.6 mg/dL (7-18); CALCIUM 8.7 mg/dL (8.5-10.1)
[2024-07-15 09:39] LABS: CREATININE 0.6 mg/dL (0.55-1.3)
[2024-07-15 09:41] LABS: BILIRUBIN,TOTAL 0.6 mg/dL (0.2-1); TOT PROT 6.8 g/dl (6.4-8.2)
[2024-07-15 09:45] LABS: INR 1.04 (0.83-1.09); PROTHROMBIN TIME (PATIENT) 11.7 SEC (9.7-13.0)
[2024-07-15 09:58] LABS: AMYLASE 213 U/L (25-115)
[2024-07-15] MEDS ORDERED: DULoxetine HCL 30 MG CAPSULE.DR PO SCH (10:00)
[2024-07-15 14:22] VITALS: BP 104/67; PULSE 82; TEMP 98.2
== END 2024-07-15 17:16 | disposition home or self-care (01) ==
LOC: JER 14:36 → JERBED 15:33 → UNDOADMOB 15:33 → JERBED 17:07 → J6S 17:07 → OBSVTOIN 17:39 → INTOOBSV 17:39 → JERBED 07-15 14:06 → J6S 07-15 14:06
PROVIDERS: ADMIT Internal Medicine; ATTEND Internal Medicine
PROC: 3E0337Z Introduction of Electrolytic and Water Balance Substance into Peripheral Vein, Percutaneous Approach (ICD-10-PCS; principal; 2024-07-15)
DX: R74.8 Abnormal levels of other serum enzymes (principal); K85.90 Acute pancreatitis without necrosis or infection, unspecified; Z87.19 Personal history of other diseases of the digestive system; Z87.891 Personal history of nicotine dependence
CPT/HCPCS: 36415; 74181-TC; 80053; 81003; 82150; 82787; 82977; 83690; 83735; 84100; 84443; 84478; 85025; 85610; 86140; 87086; 93005; 93010; 99285-25; G0378

== ENCOUNTER 2024-07-18 04:32 | Day surgery (SDC) | payer BC ==
[2024-07-15 07:44] VITALS: BMI 19.4
[2024-07-18 10:10] VITALS: TEMP 98.2
[2024-07-18 10:21] VITALS: BP 103/65
[2024-07-18 10:41] VITALS: PULSE 75; RESP 16
== END 2024-07-18 10:41 | disposition home or self-care (01) ==
LOC: JASU-ENDO 04:32
PROVIDERS: ATTEND Internal Medicine Gastroenterology
PROC: 0DB78ZX Excision of Stomach, Pylorus, Via Natural or Artificial Opening Endoscopic, Diagnostic (ICD-10-PCS; 2024-07-18)
PROC: 0DB68ZX Excision of Stomach, Via Natural or Artificial Opening Endoscopic, Diagnostic (ICD-10-PCS; 2024-07-18)
PROC: 0DB98ZX Excision of Duodenum, Via Natural or Artificial Opening Endoscopic, Diagnostic (ICD-10-PCS; principal; 2024-07-18 10:00)
DX: R10.9 Unspecified abdominal pain (principal); K29.50 Unspecified chronic gastritis without bleeding; B96.81 Helicobacter pylori [H. pylori] as the cause of diseases classified elsewhere; K31.7 Polyp of stomach and duodenum
CPT/HCPCS: 88305-TC; 88342-TC

== ENCOUNTER 2024-07-22 07:22 | Day surgery (SDC) | payer BC ==
[2024-07-22 08:02] LABS: BASO % 0.3 % (0-2.0); EOS % 1.2 % (0-4.5); HEMATOCRIT 34.5 % (32.4-45.2); HEMOGLOBIN 11.7 GM/dL (10.7-15.3); LYMPH % 30.1 % (8-40); MCH 28.6 pg (25.7-33.7); MCHC 33.8 g/dl (32.0-36.0); MEAN CELL VOLUME 84.5 fl (80-96); MEAN PLT VOLUME 6.9 fl (7.5-11.1); MONO % 11.8 % (3.8-10.2); NEUT % 56.6 % (42.8-82.8); PLATELET COUNT 358 10^3/uL (134-434); RBC 4.08 M/mm3 (3.60-5.2); RDW 13.3 % (11.6-15.6); WHITE BLOOD COUNT 5.3 K/mm3 (4.0-10.0)
[2024-07-22 08:13] LABS: POTASSIUM 4.2 mmol/L (3.5-5.1)
[2024-07-22 08:16] LABS: ALBUMIN 3.3 g/dl (3.4-5.0); BLOOD UREA NITROGEN 13.1 mg/dL (7-18)
[2024-07-22 08:18] LABS: CREATININE 0.7 mg/dL (0.55-1.3)
[2024-07-22 08:20] LABS: BILIRUBIN,TOTAL 0.4 mg/dL (0.2-1); TOT PROT 7.7 g/dl (6.4-8.2)
[2024-07-22] MEDS: ACETAMINOPHEN 500 MG TABLET (FP) PO ONE (09:06)
[2024-07-22] MEDS: diphenhydrAMINE HCL 25 MG CAPSULE (FP) PO ONE (09:06)
[2024-07-22] MEDS: HYDROCORTISONE SOD SUCCINATE IVPB ONE (09:07)
[2024-07-22] MEDS: SODIUM CHLORIDE IVPB ONE ×2 (09:07→10:11)
[2024-07-22] MEDS: SODIUM CHLORIDE 250 ML IV ONE (09:08)
[2024-07-22] MEDS: INFLIXIMAB ABDA IVPB ONE (10:11)
[2024-07-22 12:26] VITALS: TEMP 98.5
[2024-07-22 12:29] VITALS: BP 106/64; PULSE 75; RESP 16
== END 2024-07-22 12:30 | disposition home or self-care (01) ==
LOC: JINFUSION 07:22 → J7W 07:23 → JINFUSION 12:30
PROVIDERS: ATTEND Internal Medicine Gastroenterology
DX: K50.00 Crohn's disease of small intestine without complications (principal)
CPT/HCPCS: 36415; 80053; 85025; 86140; 96367; 96413; 96415; Q5104

== ENCOUNTER 2024-07-29 10:33 | Emergency (ER) | payer BC ==
[2024-07-29 10:52] VITALS: TEMP 97.5; BMI 19.8
[2024-07-29] MEDS ORDERED: ACETAMINOPHEN INJECTION 100 ML ONE (11:34)
[2024-07-29] MEDS ORDERED: ONDANSETRON 4 MG/2 ML VIAL ONE (11:34)
[2024-07-29] MEDS: ONDANSETRON 4 MG/2 ML VIAL IVPUSH ONE (11:45)
[2024-07-29] MEDS: LACTATED RINGERS SOLUTION 1000 ML INFUS.BAG IV ONE (11:45)
[2024-07-29] MEDS: ACETAMINOPHEN 1000 MG/100 ML BAG IVPB ONE (11:45)
[2024-07-29 11:57] LABS: BASO % 0.6 % (0-2.0); EOS % 0.8 % (0-4.5); HEMATOCRIT 37.7 % (32.4-45.2); HEMOGLOBIN 12.4 GM/dL (10.7-15.3); MCH 28.4 pg (25.7-33.7); MEAN PLT VOLUME 7.1 fl (7.5-11.1); NEUT % 78.6 % (42.8-82.8); PLATELET COUNT 386 10^3/uL (134-434); RBC 4.39 M/mm3 (3.60-5.2); RDW 13.4 % (11.6-15.6); WHITE BLOOD COUNT 6.2 K/mm3 (4.0-10.0)
[2024-07-29 12:14] LABS: ALBUMIN 3.3 g/dl (3.4-5.0)
[2024-07-29 12:17] LABS: CREATININE 0.7 mg/dL (0.55-1.3)
[2024-07-29 12:18] LABS: BILIRUBIN,TOTAL 0.4 mg/dL (0.2-1); TOT PROT 7.6 g/dl (6.4-8.2)
[2024-07-29 12:31] LABS: PH,URINE 5.5 (5.0-8.0); URINE APPEARANCE CLEAR; URINE BILIRUBIN NEGATIVE (NEGATIVE); URINE COLOR YELLOW; URINE GLUCOSE (UA) NEGATIVE (NEGATIVE); URINE KETONE TRACE (NEGATIVE); URINE LEUK ESTERASE NEGATIVE (NEGATIVE); URINE NITRITE NEGATIVE (NEGATIVE); URINE PROTEIN NEGATIVE (NEGATIVE); URINE UROBILINOGEN 0.2 mg/dL (0.2-1.0)
[2024-07-29 13:30] LABS: HIV INTERPRETATION NEGATIVE (NEGATIVE)
[2024-07-29 15:16] VITALS: BP 108/73; PULSE 74; RESP 17
[2024-07-29 16:01] LABS: ERYTHROCYTE SEDIMENTATION RATE 25 mm/hr (0-20)
== END 2024-07-29 15:16 | disposition home or self-care (01) ==
LOC: JER 10:33
PROC: 3E033NZ Introduction of Analgesics, Hypnotics, Sedatives into Peripheral Vein, Percutaneous Approach (ICD-10-PCS; principal; 2024-07-29)
PROC: 3E033GC Introduction of Other Therapeutic Substance into Peripheral Vein, Percutaneous Approach (ICD-10-PCS; 2024-07-29)
DX: K85.90 Acute pancreatitis without necrosis or infection, unspecified (principal); R11.0 Nausea; R19.7 Diarrhea, unspecified; R10.32 Left lower quadrant pain; R10.33 Periumbilical pain; Z20.822 Contact with and (suspected) exposure to COVID-19
CPT/HCPCS: 0241U-QW; 36415; 80053; 81003; 83690; 85025; 85651; 86140; 86803; 87086; 87389; 99284-25; J0131

== ENCOUNTER 2024-09-28 07:30 | Day surgery (SDC) | payer BC ==
[2024-09-28 08:28] LABS: CHLORIDE 106 mmol/L (98-107); POTASSIUM 4.4 mmol/L (3.5-5.1); SODIUM 138 mmol/L (136-145)
[2024-09-28 08:29] LABS: BASO % 0.7 % (0-2.0); EOS % 1.3 % (0-4.5); HEMATOCRIT 33.9 % (32.4-45.2); HEMOGLOBIN 11.2 GM/dL (10.7-15.3); LYMPH % 21.2 % (8-40); MCH 27.8 pg (25.7-33.7); MEAN CELL VOLUME 84.4 fl (80-96); MEAN PLT VOLUME 7.1 fl (7.5-11.1); MONO % 10.2 % (3.8-10.2); NEUT % 66.6 % (42.8-82.8); PLATELET COUNT 490 10^3/uL (134-434); RBC 4.02 M/mm3 (3.60-5.2); RDW 13.7 % (11.6-15.6); WHITE BLOOD COUNT 6.5 K/mm3 (4.0-10.0)
[2024-09-28 08:31] LABS: ANION GAP 6 mmol/L (4-13); BLOOD UREA NITROGEN 13.9 mg/dL (7-18); CO2 26 mmol/L (21-32); GLUCOSE,RANDOM 69 mg/dL (74-106)
[2024-09-28 08:33] LABS: SGPT/ALT 14 U/L (13-61)
[2024-09-28 08:34] LABS: CREATININE 0.7 mg/dL (0.55-1.3); SGOT/AST 14 U/L (15-37)
[2024-09-28 08:35] LABS: BILIRUBIN,TOTAL 0.3 mg/dL (0.2-1); TOT PROT 7.9 g/dl (6.4-8.2)
[2024-09-28 08:36] LABS: ALK PHOS 74 U/L (45-117)
[2024-09-28] MEDS: ACETAMINOPHEN 500 MG TABLET (FP) PO ONE (09:14)
[2024-09-28] MEDS: diphenhydrAMINE HCL 25 MG CAPSULE (FP) PO ONE (09:15)
[2024-09-28] MEDS: HYDROCORTISONE SOD SUCCINATE IVPB ONE (09:15)
[2024-09-28] MEDS: SODIUM CHLORIDE IVPB ONE ×2 (09:15→10:12)
[2024-09-28] MEDS: SODIUM CHLORIDE 250 ML IV ONE (09:15)
[2024-09-28] MEDS: INFLIXIMAB ABDA IVPB ONE (10:12)
[2024-09-28 15:15] VITALS: RESP 18; TEMP 97.7
[2024-09-28 15:45] VITALS: BP 95/53; PULSE 83
== END 2024-09-28 13:30 | disposition home or self-care (01) ==
LOC: JINFUSION 07:30
PROVIDERS: ATTEND Internal Medicine Gastroenterology
DX: K50.80 Crohn's disease of both small and large intestine without complications (principal); Z88.8 Allergy status to other drugs, medicaments and biological substances
CPT/HCPCS: 36415; 80053; 85025; 86140; 96367; 96413; 96415; Q5104

== ENCOUNTER 2024-11-13 07:49 | Emergency (ER) | payer BC ==
[2024-11-13 08:04] VITALS: BP 116/83; PULSE 74; RESP 18; TEMP 97.7; BMI 19.8
[2024-11-13] MEDS ORDERED: TETRACAINE 0.5% OPHTH SOLN 2 ML BOTTLE ONE (08:29)
[2024-11-13] MEDS ORDERED: FLUORESCEIN NA 1 EA STRIP ONE (08:29)
[2024-11-13] MEDS: TETRACAINE 0.5% HCL 0.6ML DROPPER.BOTTLE OD ONE (08:30)
[2024-11-13] MEDS: FLUORESCEIN NA 1 EA STRIP OD ONE (08:30)
== END 2024-11-13 08:48 | disposition home or self-care (01) ==
LOC: JER 07:49
DX: H10.9 Unspecified conjunctivitis (principal)
CPT/HCPCS: 99283-25

== ENCOUNTER 2024-11-28 07:20 | Day surgery (SDC) | payer BC ==
[2024-11-28] MEDS: SODIUM CHLORIDE 250 ML IV ONE (08:05)
[2024-11-28 08:31] VITALS: RESP 18
[2024-11-28] MEDS: ACETAMINOPHEN 500 MG TABLET (FP) PO ONE (09:05)
[2024-11-28] MEDS: diphenhydrAMINE HCL 25 MG CAPSULE (FP) PO ONE (09:08)
[2024-11-28] MEDS: SODIUM CHLORIDE IVPB ONE ×2 (09:26→10:07)
[2024-11-28] MEDS: HYDROCORTISONE SOD SUCCINATE IVPB ONE (09:26)
[2024-11-28] MEDS: INFLIXIMAB ABDA IVPB ONE (10:07)
[2024-11-28 10:58] VITALS: BP 100/61; PULSE 72; TEMP 98.1
== END 2024-11-28 12:40 | disposition home or self-care (01) ==
LOC: JINFUSION 07:20 → J7W 07:20 → JINFUSION 12:40
PROVIDERS: ATTEND Internal Medicine Gastroenterology
DX: K50.00 Crohn's disease of small intestine without complications (principal)
CPT/HCPCS: 96367; 96413; 96415; Q5104